=== PATIENT | female | born 1975 ===

== ENCOUNTER 2024-12-26 17:00 | Emergency (ER) | payer SELFPAY ==
[2024-12-26] VITALS (7 sets, daily range): BP systolic 82–143; BP diastolic 43–73; PULSE 86–130; RESP 16–24; TEMP 36.6–39.2; O2SAT 94–96; BMI 28.0
--- NOTE | ~2024-12-26 | XR_ITS ---
CLINICAL HISTORY: hyperpnea 1 view chest x-ray Comparison: None provided Findings: Low lung volume. Diffuse interstitial prominence in both lungs. Small bilateral pleural effusions. Left basilar atelectatic changes Normal size heart. No acute fracture. IMPRESSION: 1. Diffuse interstitial prominence in both lungs. Small bilateral pleural effusions. Findings are concerning pulmonary edema/fluid overload. 2. Left basilar atelectatic changes. This document has been electronically signed by: Mariann Becker MD on 12/26/2024 19:30:25
--- NOTE | 2024-12-26 17:05 | ED_ITS ---
HPI - General Adult General Chief complaint: Dyspnea Stated complaint: Resp distress, liver disease fluid retention Time Seen by Provider: 12/26/24 17:04 History of Present Illness ED Provider: Jose MARQUEZ narrative: The patient is a 49-year-old woman with a history of chronic liver disease and type 2 diabetes who says that she has felt unwell since earlier today. She says she was feeling well yesterday. She started to feel unwell yesterday. She started to feel as if she was having shaking chills and feeling very hot. She thinks that she might have had a fever but she did not check her temperature. No significant cough or sputum. She has a abdominal discomfort that she thinks is from her accumulation of ascites but she does not have abdominal pain otherwise. No urinary discomfort. No changes to her skin. The patient has a history of significant chronic liver disease. She has a history of a tips procedure and esophageal varices. The patient normally has weekly paracenteses for fluid removal. This usually happens on Friday. She says that she did not go to her most recent paracentesis this past Friday. The patient has been found to have a portal vein thrombosis in the past and has been started on low-dose apixaban. She says she has not taken for the last several days. She also says that she normally runs low blood pressures and is on midodrine. She also says that she did not take her midodrine today. Related Data Allergies Allergy/AdvReac Type Severity Reaction Status Date / Time paroxetine (From Paxil) Allergy Unknown Verified 12/26/24 17:25 sulfamethoxazole (From Allergy Unknown Verified 12/26/24 17:25 Bactrim) trimethoprim (From Bactrim) Allergy Unknown Verified 12/26/24 17:25 Review of Systems 2 Review of Systems: Yes all other systems are reviewed and are negative PMFSH Social History Social History Advance Directives: Yes Advance Directives Information Provided: No Advance Directives on File: No Physical Exam ED Vital Signs: Vital Signs - 24 hr 12/26/24 17:07 12/26/24 17:38 12/26/24 20:28 Temperature 102.5 F H 97.8 F Pulse Rate 130 H 124 H 98 Respiratory Rate 24 H 18 16 Blood Pressure 143/73 H 113/64 82/43 L Pulse Oximetry 96 94 96 Oxygen Delivery Method Nasal Cannula Room Air Room Air 12/26/24 21:19 Temperature Pulse Rate Respiratory Rate Blood Pressure 90/46 L Pulse Oximetry Oxygen Delivery Method BMI result Body Mass Index 28.0 Const Other: The patient is a chronically ill-appearing 49-year-old. She has a very large abdomen. She was hyperventilating. She looked fairly ill. HENMT Other: Face is symmetrical, mucous membranes moist. Eyes Other: Pupils are round equal, conjunctivae are clear, extraocular movements intact General: appearance normal, both eyes and all related structures Neck Neck: Yes normal visual inspection, Yes full ROM and Yes no JVD Resp Effort & Inspection: normal respiratory effort Auscultation: clear to auscultation bilaterally Cardio Rate: tachycardic Rhythm: regular rhythm Heart sounds: S1 normal heart sound present and S2 normal heart sound present GI Other: The patient has a large protuberant abdomen consistent with a large volume ascites Skin Other: Skin is pale and dry. She has nonblanching petechiae in the lower extremities that she says is chronic. She has a edema of the lower extremities that she says is chronic. Neuro Other: The patient is awake and alert. Mental status seems clear. Cranial nerves are intact. She moves her extremities symmetrically and seems to have a nonfocal exam. Extrem Other: The patient has bilateral lower extremity edema. This is nonpitting. She has nonblanching petechiae that she says are chronic. Medications Administered Discontinued Medications Generic Name Dose Route Start Last Admin Trade Name Freq PRN Reason Stop Dose Admin Lactated Ringer's 1,000 mls @ 999 mls/hr 12/26/24 17:15 12/26/24 17:39 Lr IV 12/26/24 18:15 999 mls/hr .Q1H1M JEN Administration Piperacillin Sod/Tazobactam 100 mls @ 200 mls/hr 12/26/24 17:35 12/26/24 18:15 Sod 4.5 gm/ Sodium Chloride IV 12/26/24 18:04 Infused ONCE ONE Infusion Vancomycin HCl 2,000 mg in 500 mls @ 250 mls/hr 12/26/24 17:45 12/26/24 19:50 Vancomycin/Ns IV 12/26/24 19:44 250 mls/hr ONCE ONE Administration Sodium Chloride 1,000 mls @ 999 mls/hr 12/26/24 18:15 12/26/24 19:21 Ns IV 12/26/24 19:15 Infused .Q1H1M JEN Infusion Albumin Human 50 mls @ 100 mls/hr 12/26/24 19:00 12/26/24 21:33 Kedbumin 25 % IV 12/26/24 20:59 Infused Q30M JEN Infusion Lidocaine/Epinephrine 10 ml 12/26/24 18:23 12/26/24 18:31 Lidocaine Hcl 1%/Epi 1:100,000 10 Ml Vial INFILTRATI 12/26/24 18:24 10 ml ONCE ONE Administration Midodrine 5 mg 12/26/24 21:05 12/26/24 21:19 Midodrine Hcl 5 Mg Tablet PO 12/26/24 21:06 5 mg ONCE ONE Administration Procedures Paracentesis Time Out Performed: Yes Local Anesthetic: lidocaine 1% and with epi Amount of anesthesia used (mL): 3 Fluid: clear Post Procedure Exam: awake, alert Patient Tolerated Procedure: well Complications: none Medical Decision Making Medical Decision Making [facility] Narrative: The patient is a 49-year-old woman with a history of fairly severe chronic alcoholic liver disease who presents with fever and significant tachypnea. She missed a therapeutic paracentesis several days ago. She has also not been compliant with other medications such as midodrine and apixaban. She became acutely ill today with a sensation of shaking chills and she presented with what I thought was most likely a presentation consistent with a septic process although there was no clear source of infection apparent. The patient has a white count of 12.6, hemoglobin 9.2, platelet count 41,000, she had 88% neutrophils and 11% bands. She has a lactate significantly elevated at 7.3 but I suspect this is because of her chronic liver disease more than sepsis. The patient told me that she had some kind of a cardiac history and so a troponin was sent with her initial labs. This came back elevated at 122. CRP mildly elevated 5.37. The patient was started on empiric antibiotics with piperacillin/tazobactam and vancomycin. She was also given IV albumin has a did not want to fluid overload her. In order to exclude spontaneous bacterial peritonitis as the source of her fever I performed a paracentesis under sterile conditions and obtained fairly clear looking fluid. In addition to obtaining 50 mL for lab testing an additional 4 L was taken for therapeutic purposes to reduce her ascites and relieve her difficulty breathing. She felt considerably better after the 4 L were removed. A repeat troponin was sent at the same time as a repeat lactate. Her lactate came down to 4.1. Surprisingly her troponin went up to 2100. Her EKG had shown nonspecific changes, no STEMI. A repeat EKG after the elevated troponin was available also showed no STEMI. Based on her complex history and the fact that she has had a lot of her previous medical care at [facility] in [place] I felt that transfer to that hospital would be appropriate and contacted the transfer hotline. Arrangements will be made for the patient to be transferred to the emergency room. Additionally, given that she has been seen by Cardiology at the [facility] I asked her materials development engineer to speak with me about whether she should be heparinized prior to transfer. We ultimately agreed that she should be heparinized but with a half dose bolus. The patient is diagnostic paracentesis showed 140 white cells with 34% neutrophils and 36% lymphocytes. I think this excludes spontaneous bacterial peritonitis. A culture has been sent nevertheless. The patient's urinalysis showed 2+ bacteria, 6-10 white cells, 1+ leukocyte esterase, and positive nitrites. Perhaps this is a source of infection although the patient does not have a lot of urinary symptoms. It was difficult to determine whether the patient was having anginal symptoms. After the elevated troponins were apparent the patient said that she had previously had a very strong squeezing sense in her chest that she had not initially mentioned. However this symptom had resolved. Whether this was because of the paracentesis or not is not clear. She was not having ongoing chest discomfort but she said that she was feeling palpitations in her chest. Lab Data 12/26/24 17:29 12/26/24 17:29 Labs: Lab Results 12/26/24 12/26/24 12/26/24 Range/Units 17:29 17:30 17:36 WBC 12.6 H (4.8-10.8) X10*3/uL RBC 3.17 L (4.20-5.50) X10*6/uL Hgb 9.2 L (12.0-16.0) g/dl Hct 28.2 L (37.0-47.0) % MCV 89.0 (80.0-98.0) fL MCH 29.0 (27.0-33.0) pg MCHC 32.6 (31.0-35.0) g/dl RDW 18.8 H (11.0-16.0) % Plt Count 41 L (160-400) X10*3/uL MPV 10.7 (9.4-12.3) fL Immature Gran % (Auto) Cancelled Neut % (Auto) Cancelled Lymph % (Auto) Cancelled Foster % (Auto) Cancelled Eos % (Auto) Cancelled Baso % (Auto) Cancelled Lymph # (Auto) Cancelled Foster # (Auto) Cancelled Eos # (Auto) Cancelled Baso # (Auto) Cancelled Abs Immat Gran (auto) Cancelled Absolute Neuts (auto) Cancelled Absolute Nucleated RBC 0.000 (0.0-0.012) X10*3/uL Nucleated RBC % (auto) 0.0 (0.0-0.2) /100WBC Neutrophils % (Manual) 88 H (45-73) % Band Neutrophils % 11 H (3-5) % Monocytes % (Manual) 1 L (2-11) % Abs Neuts (Manual) 12.5 H (2.0-8.3) X10*3/uL Monocytes # (Manual) 0.1 (0.1-1.2) X10*3/uL Toxic Granulation PRESENT Platelet Estimate DECREASED (NORMAL) Plt Morphology Comment NORMAL RBC Morphology NOTED Macrocytosis 1+ (5-14) /OIF Ovalocytes 1+ (5-14) /OIF Stephanie Cells 1+ (0-2) /OIF Schistocytes 1+ (0-2) /OIF Smear Tech's Comments MANUAL DIFF Hold Purple Top SEE NOTE PT 17.1 H (10.9-12.4) SEC INR 1.5 H (0.9-1.1) VBG pH 7.49 H (7.32-7.43) VBG pCO2 24 mmHg VBG pO2 73 mmHg VBG HCO3 18 L (22-26) mmol/L VBG O2 Saturation 95.0 % VBG Base Excess -3.0 mmol/L Sodium 129 L (135-145) mmol/L Potassium 4.2 (3.3-5.1) mmol/L Chloride 98 (96-108) mmol/L Carbon Dioxide 18 L (22-29) mmol/L Anion Gap 17 (12-20) BUN 14 (9-16) mg/dL Creatinine 0.81 (0.5-1.4) mg/dL Estim Creat Clear Calc 83.6 Estimated GFR > 60 Random Glucose 301 H (60-115) mg/dL Lactic Acid 7.3 H* (0.5-2.0) mmol/L Lactic Acid F/U @ 2Hr (0.5-2.0) mmol/L Calcium 7.5 L (8.4-10.2) mg/dL Magnesium 1.9 (1.6-2.6) mg/dL Total Bilirubin 1.7 H (0.0-1.0) mg/dL Direct Bilirubin 0.8 H (0.0-0.5) mg/dL AST 22 (5-31) U/L ALT < 6 (0-31) U/L Alkaline Phosphatase 114 (39-117) U/L Troponin I High Sens 122.1 H* (<3.5-17.0) ng/L C-Reactive Protein 5.37 H (< or = 0.50) mg/dL Total Protein 6.5 (6.5-8.0) g/dL Albumin 2.4 L (3.5-5.0) g/dL Lipase 33 (8-78) U/L Beta-Hydroxybutyrate 0.09 (0.02-0.27) mmol/L Beta HCG, Quant < 2 mIU/mL Urine Color Urine Appearance Urine pH (5.0-9.0) Ur Specific Chandler (1.005-1.025) Urine Protein (Neg-Trace) mg/dL Urine Glucose (UA) (Negative) mg/dL Urine Ketones (Negative) mg/dL Urine Blood (Negative) Urine Nitrite (Negative) Ur Leukocyte Esterase (Negative) Urine RBC (0-2) /HPF Urine WBC (0-5) /HPF Ur Squamous Epith Cells (0-2) /HPF Urine Bacteria (None Seen) Hyaline Casts (0-2) /LPF Peritoneal WBC X10*3/uL Peritoneal RBC X10*6/uL Periton Neutrophils % Periton Lymphocytes % Peritoneal Monocytes % Peritoneal Other Cells % Urine Opiates Screen (Not Detect) Ur Buprenorphine Scrn (Not Detect) ng/mL Ur Oxycodone Screen (Not Detect) ng/mL Urine Methadone Screen (Not Detect) ng/mL Urine Fentanyl Screen (Not Detect) Ur Barbiturates Screen (Not Detect) Ur Phencyclidine Scrn (Not Detect) Ur Amphetamines Screen (Not Detect) U Benzodiazepines Scrn (Not Detect) Urine Cocaine Screen (Not Detect) U Marijuana (THC) Screen (Not Detect) Ethyl Alcohol < 10 mg/dL COVID-19 (JERAMY) (Negative) COVID-19 Clin Com Influenza Type A (MAGGIE) (Negative) Influenza Type B (MAGGIE) (Negative) Influenza A & B Note 12/26/24 12/26/24 12/26/24 Range/Units 19:23 19:30 19:43 WBC (4.8-10.8) X10*3/uL RBC (4.20-5.50) X10*6/uL Hgb (12.0-16.0) g/dl Hct (37.0-47.0) % MCV (80.0-98.0) fL MCH (27.0-33.0) pg MCHC (31.0-35.0) g/dl RDW (11.0-16.0) % Plt Count (160-400) X10*3/uL MPV (9.4-12.3) fL Immature Gran % (Auto) Neut % (Auto) Lymph % (Auto) Foster % (Auto) Eos % (Auto) Baso % (Auto) Lymph # (Auto) Foster # (Auto) Eos # (Auto) Baso # (Auto) Abs Immat Gran (auto) Absolute Neuts (auto) Absolute Nucleated RBC (0.0-0.012) X10*3/uL Nucleated RBC % (auto) (0.0-0.2) /100WBC Neutrophils % (Manual) (45-73) % Band Neutrophils % (3-5) % Monocytes % (Manual) (2-11) % Abs Neuts (Manual) (2.0-8.3) X10*3/uL Monocytes # (Manual) (0.1-1.2) X10*3/uL Toxic Granulation Platelet Estimate (NORMAL) Plt Morphology Comment RBC Morphology Macrocytosis /OIF Ovalocytes /OIF [place] Cells /OIF Schistocytes /OIF Smear Tech's Comments Hold Purple Top PT (10.9-12.4) SEC INR (0.9-1.1) VBG pH (7.32-7.43) VBG pCO2 mmHg VBG pO2 mmHg VBG HCO3 (22-26) mmol/L VBG O2 Saturation % VBG Base Excess mmol/L Sodium (135-145) mmol/L Potassium (3.3-5.1) mmol/L Chloride (96-108) mmol/L Carbon Dioxide (22-29) mmol/L Anion Gap (12-20) BUN (9-16) mg/dL Creatinine (0.5-1.4) mg/dL Estim Creat Clear Calc Estimated GFR Random Glucose (60-115) mg/dL Lactic Acid (0.5-2.0) mmol/L Lactic Acid F/U @ 2Hr 4.1 H* (0.5-2.0) mmol/L Calcium (8.4-10.2) mg/dL Magnesium (1.6-2.6) mg/dL Total Bilirubin (0.0-1.0) mg/dL Direct Bilirubin (0.0-0.5) mg/dL AST (5-31) U/L ALT (0-31) U/L Alkaline Phosphatase (39-117) U/L Troponin I High Sens (<3.5-17.0) ng/L C-Reactive Protein (< or = 0.50) mg/dL Total Protein (6.5-8.0) g/dL Albumin (3.5-5.0) g/dL Lipase (8-78) U/L Beta-Hydroxybutyrate (0.02-0.27) mmol/L Beta HCG, Quant mIU/mL Urine Color Urine Appearance Urine pH (5.0-9.0) Ur Specific Chandler (1.005-1.025) Urine Protein (Neg-Trace) mg/dL Urine Glucose (UA) (Negative) mg/dL Urine Ketones (Negative) mg/dL Urine Blood (Negative) Urine Nitrite (Negative) Ur Leukocyte Esterase (Negative) Urine RBC (0-2) /HPF Urine WBC (0-5) /HPF Ur Squamous Epith Cells (0-2) /HPF Urine Bacteria (None Seen) Hyaline Casts (0-2) /LPF Peritoneal WBC 0.140 X10*3/uL Peritoneal RBC < 0.002 X10*6/uL Periton Neutrophils 34 % Periton Lymphocytes 36 % Peritoneal Monocytes 9 % Peritoneal Other Cells 21 % Urine Opiates Screen (Not Detect) Ur Buprenorphine Scrn (Not Detect) ng/mL Ur Oxycodone Screen (Not Detect) ng/mL Urine Methadone Screen (Not Detect) ng/mL Urine Fentanyl Screen (Not Detect) Ur Barbiturates Screen (Not Detect) Ur Phencyclidine Scrn (Not Detect) Ur Amphetamines Screen (Not Detect) U Benzodiazepines Scrn (Not Detect) Urine Cocaine Screen (Not Detect) U Marijuana (THC) Screen (Not Detect) Ethyl Alcohol mg/dL COVID-19 (JERAMY) Negative (Negative) COVID-19 Clin Com See Note Influenza Type A (MAGGIE) Negative (Negative) Influenza Type B (MAGGIE) Negative (Negative) Influenza A & B Note See Note 12/26/24 12/26/24 Range/Units 19:44 21:26 WBC (4.8-10.8) X10*3/uL RBC (4.20-5.50) X10*6/uL Hgb (12.0-16.0) g/dl Hct (37.0-47.0) % MCV (80.0-98.0) fL MCH (27.0-33.0) pg MCHC (31.0-35.0) g/dl RDW (11.0-16.0) % Plt Count (160-400) X10*3/uL MPV (9.4-12.3) fL Immature Gran % (Auto) Neut % (Auto) Lymph % (Auto) Foster % (Auto) Eos % (Auto) Baso % (Auto) Lymph # (Auto) Foster # (Auto) Eos # (Auto) Baso # (Auto) Abs Immat Gran (auto) Absolute Neuts (auto) Absolute Nucleated RBC (0.0-0.012) X10*3/uL Nucleated RBC % (auto) (0.0-0.2) /100WBC Neutrophils % (Manual) (45-73) % Band Neutrophils % (3-5) % Monocytes % (Manual) (2-11) % Abs Neuts (Manual) (2.0-8.3) X10*3/uL Monocytes # (Manual) (0.1-1.2) X10*3/uL Toxic Granulation Platelet Estimate (NORMAL) Plt Morphology Comment RBC Morphology Macrocytosis /OIF Ovalocytes /OIF Conetoe Cells /OIF Schistocytes /OIF Smear Tech's Comments Hold Purple Top PT (10.9-12.4) SEC INR (0.9-1.1) VBG pH (7.32-7.43) VBG pCO2 mmHg VBG pO2 mmHg VBG HCO3 (22-26) mmol/L VBG O2 Saturation % VBG Base Excess mmol/L Sodium (135-145) mmol/L Potassium (3.3-5.1) mmol/L Chloride (96-108) mmol/L Carbon Dioxide (22-29) mmol/L Anion Gap (12-20) BUN (9-16) mg/dL Creatinine (0.5-1.4) mg/dL Estim Creat Clear Calc Estimated GFR Random Glucose (60-115) mg/dL Lactic Acid (0.5-2.0) mmol/L Lactic Acid F/U @ 2Hr (0.5-2.0) mmol/L Calcium (8.4-10.2) mg/dL Magnesium (1.6-2.6) mg/dL Total Bilirubin (0.0-1.0) mg/dL Direct Bilirubin (0.0-0.5) mg/dL AST (5-31) U/L ALT (0-31) U/L Alkaline Phosphatase (39-117) U/L Troponin I High Sens 2156.6 H* D (<3.5-17.0) ng/L C-Reactive Protein (< or = 0.50) mg/dL Total Protein (6.5-8.0) g/dL Albumin (3.5-5.0) g/dL Lipase (8-78) U/L Beta-Hydroxybutyrate (0.02-0.27) mmol/L Beta HCG, Quant mIU/mL Urine Color Yellow Urine Appearance Cloudy Urine pH 5.5 (5.0-9.0) Ur Specific Chandler 1.025 (1.005-1.025) Urine Protein 30 (1+) H (Neg-Trace) mg/dL Urine Glucose (UA) 500 H (Negative) mg/dL Urine Ketones Negative (Negative) mg/dL Urine Blood Large (3+) H (Negative) Urine Nitrite Positive H (Negative) Ur Leukocyte Esterase Small (1+) H (Negative) Urine RBC 11-20 H (0-2) /HPF Urine WBC 6-10 (0-5) /HPF Ur Squamous Epith Cells 6-10 (0-2) /HPF Urine Bacteria 2+ (None Seen) Hyaline Casts 0-2 (0-2) /LPF Peritoneal WBC X10*3/uL Peritoneal RBC X10*6/uL Periton Neutrophils % Periton Lymphocytes % Peritoneal Monocytes % Peritoneal Other Cells % Urine Opiates Screen Not Detected (Not Detect) Ur Buprenorphine Scrn Not Detected (Not Detect) ng/mL Ur Oxycodone Screen Not Detected (Not Detect) ng/mL Urine Methadone Screen Not Detected (Not Detect) ng/mL Urine Fentanyl Screen Not Detected (Not Detect) Ur Barbiturates Screen Not Detected (Not Detect) Ur Phencyclidine Scrn Not Detected (Not Detect) Ur Amphetamines Screen Not Detected (Not Detect) U Benzodiazepines Scrn Not Detected (Not Detect) Urine Cocaine Screen Not Detected (Not Detect) U Marijuana (THC) Screen POSITIVE H (Not Detect) Ethyl Alcohol mg/dL COVID-19 (JERAMY) (Negative) COVID-19 Clin Com Influenza Type A (MAGGIE) (Negative) Influenza Type B (MAGGIE) (Negative) Influenza A & B Note Critical Care Time Critical Care Time Critical Care Time: Yes Total Critical Care Time: 55 Attestation: The patient was critically ill with a high probability of imminent or life- threatening deterioration. ?I spent greater than 30 minutes of discontinuous time evaluating the patient, delivering critical care at the bedside, discussing evaluating data with consultants. ?Critical care time does not include time spent performing separately billable procedures or teaching. ?Time spent performing critical care with minutes. Discharge Plan Discharge Clinical Impression: Sepsis, Elevated troponin, Ascites, Thrombocytopenia, Chronic alcoholic liver disease Patient Disposition: [facility] Transfer Details: Dr. Mikal Byrnes Print Language: Emirati
--- NOTE | 2024-12-26 17:06 | ECG_ITS ---
Test Reason : DKA Blood Pressure : */* mmHG Vent. Rate : 124 BPM Atrial Rate : 124 BPM P-R Int : 136 ms QRS Dur : 72 ms QT Int : 330 ms P-R-T Axes : 6 10 -35 degrees QTcB Int : 474 ms Sinus tachycardia Nonspecific ST and T wave abnormality Abnormal ECG No previous ECGs available Referred By: Elvin Garcia Electronically Signed By: NELSON MERCADO
[2024-12-26 17:38] LABS: Venous Blood Gas Refer to POC result
[2024-12-26] MEDS: Lactated Ringers 1,000 ML 999 ML IV (17:39)
[2024-12-26 17:40] LABS: VBG HCO3 18 mmol/L (22-26); VBG O2 % Saturation 95.0 %
[2024-12-26 17:47] LABS: Hematocrit 28.2 % (37.0-47.0); Hemoglobin 9.2 g/dl (12.0-16.0); Mean Corpuscular HGB Conc 32.6 g/dl (31.0-35.0); Mean Corpuscular Hemoglobin 29.0 pg (27.0-33.0); Mean Corpuscular Volume 89.0 fL (80.0-98.0); NRBC Abs Auto 0.000 X10*3/uL (0.0-0.012); NRBC Pct Auto 0.0 /100WBC (0.0-0.2); Red Blood Count 3.17 X10*6/uL (4.20-5.50); White Blood Count 12.6 X10*3/uL (4.8-10.8)
[2024-12-26 17:48] LABS: INTERNATIONAL NORM RATIO 1.5 (0.9-1.1); Prothrombin Time 17.1 SEC (10.9-12.4)
--- NOTE | 2024-12-26 17:52 | PC.NURSE ---
eileen ( [facility] [place] ) [phone]
[2024-12-26 18:03] LABS: Alanine Aminotransferase < 6 U/L (0-31); Albumin Level 2.4 g/dL (3.5-5.0); Alkaline Phosphatase 114 U/L (39-117); Anion Gap 17 (12-20); Aspartate Amino Transferase 22 U/L (5-31); Blood Urea Nitrogen 14 mg/dL (9-16); Calcium 7.5 mg/dL (8.4-10.2); Carbon Dioxide 18 mmol/L (22-29); Chloride 98 mmol/L (96-108); Creatinine Clr Calc Pharmacy 83.6; Estimated Glomerular Filt Rate > 60; Lipase 33 U/L (8-78); Magnesium 1.9 mg/dL (1.6-2.6); Neutrophils Percent Manual 88 % (45-73); Potassium 4.2 mmol/L (3.3-5.1); Sodium 129 mmol/L (135-145); Total Protein 6.5 g/dL (6.5-8.0)
[2024-12-26 18:07] LABS: Band Neutrophils Percent 11 % (3-5); Monocytes Absolute Manual 0.1 X10*3/uL (0.1-1.2); Monocytes Percent Manual 1 % (2-11); Neutrophils Absolute Manual 12.5 X10*3/uL (2.0-8.3); Troponin-I High Sensitivity 122.1 ng/L (<3.5-17.0)
[2024-12-26 18:08] LABS: RBC Morphology NOTED; Schistocytes 1+ (0-2) /OIF; Toxic Granulation PRESENT
[2024-12-26 18:09] LABS: Burr Cells 1+ (0-2) /OIF; Macrocytosis 1+ (5-14) /OIF; Ovalocytes 1+ (5-14) /OIF
[2024-12-26 18:10] LABS: Platelet Count 41 X10*3/uL (160-400)
[2024-12-26] MEDS: Lidocaine HCl 1%/Epi 1:100,000 10 ML VIAL INFILTRATI (18:31)
--- NOTE | 2024-12-26 18:35 | PC.NURSE ---
patient presents from home for increased diff breathing, tachypneic upon arrival. provider to bedside 18EJ placed by provider and labs obtained. rectal temp of 102.5. fluids infusing, changed from LR to NS. antibiotics infused. patient now w/ even and unlabored respirations. 94% on room air. provider at bedside for paracentesis - states her last one was approx 2 weeks ago at [facility].
[2024-12-26] MEDS: Albumin Human 25 % 50 ML 100 ML IV ×4 (19:11→20:56)
--- NOTE | 2024-12-26 19:13 | PC.NURSE ---
provider at bedside for paracentesis approx 4400mL of fluids removed, patient tolerated well.
[2024-12-26 19:35] LABS: Reflex Lactate? Lactic Acid Added
--- OUTSIDE RECORDS SUMMARY | 2024-12-26 19:38 | XMS_ITS | Encounter Summary ---
Author Organization [facility] Address [address] [place] [address] Care Team Providers Care Statistical Programmer Name Role Phone Sharlene De La Garza DO Primary Care Provider [phone]- [phone] Encounter Details Date Type Department Care Team (Late st Contact Info) Description 07/03/2023 [facility] Message [facility] Financial Counseling Department [address] [place] [address] [phone] Mychart, Generic Provider [facility] [place] [address] [employer] PLEASE READ Social History Tobacco Use Types Packs/Day Years Used Date Smoking Tobacco: Former Cigarettes 1 18.4 0 06/02/1995 - 10/15/2013 Smokeless Tobacco: Never Comments:quit 2012 Alcohol Use Standard Drinks/Week Comments Not Currently 0 (1 standard drink = 0.6 oz pur e alcohol) Transportation Answer Date Recorded Please isauro the areas for ich the patient would like information or assistance: None Apply 05/27/2023 Lack of Transportation (Medical) Not on file 05/27/2023 Housing Stability Answer Date Recorded Please isauro the areas for wh ich the patient would like information or assistance: None Apply 05/27/2023 Unable to Pay for Housing in the Last Year Not o n file 05/27/2023 Last EPDS Total Score Not on file 05/27/2023 Unstable Housing in the Last Year Not on file 05/27/2023 Comments No Sex and Gender Information Value Date Recorded Sex Assigned at Female 05/03/2020 12:04 PM EST Legal Sex Female 4:36 AM EDT Gender Identity Female 05/03/2020 12:04 PM EST Sexual Orientation Straight 05/03/2020 12 :04 PM EST documented as of this encounter Plan of Treatment Upcoming Encounters Date Type Department Care Team (Late st Contact Info) Description 12/27/2024 10:30 AM EDT Follow-Up [facility] Liver Transplant Services [address] [place] [address] Kait Gaona MD [address] [place] [address] 11815 12/29/2024 1:[address] [facility] Interventional Radiology [address] [place] [address] 09494 Kait Gaona MD [address] [place] [address] 986[address] 12/29/2024 3:00 PM EDT Follow-Up [facility] Liver Transplant Services [address] [place] [address] 22465 Genevieve Alaniz MD [address] [place] [address] 057[address] 01/05/2025 1:[address] [facility] Interventional Radiology [address] [place] [address] 65[address] Kait Gaona MD [address] [place] [address] 47353 01/11/2025 2:00 PM EST Follow-Up [facility] at [address] [phone] Nito Morfin MD [address] [place] [address] 01/12/2025 1:[address] [facility] Interventional Radiology [address] [place] [address] 20896 Kait Gaona MD [address] [place] [address] 01/19/2025 1:[address] [facility] Interventional Radiology [address] [place] [address] 66[address] Kait Gaona MD [address] [place] [address] 01/26/2025 1:[address] [facility] Interventional Radiology [address] [place] [address] 82027 Kait Gaona MD [address] [place] [address] 432[address] 02/02/2025 1:[address] [facility] Interventional Radiology [address] [place] [address] 750[address] 02/09/2025 10:30 AM EST Lab [facility] ACC Draw Site Fifth Floor [address] [place] [address] 02/09/2025 11:30 AM EST Follow-Up [facility] ACC [facility] South 5th Floor [address] [place] [address] Ning Velazco MD 55 [facility] Hematology/[place] [address] 02/09/2025 1:[address] [facility] Interventional Radiology [address] [place] [address] 174[address] 02/15/2025 1:30 PM EST Appointment [facility] Cardiac Ultrasound [address] [place] [address] 02/16/2025 1:[address] [facility] Interventional Radiology [address] [place] [address] 685[address] 02/23/2025 1:[address] [facility] Interventional Radiology [address] [place] [address] 460[address] 03/02/2025 1:[address] [facility] Interventional Radiology [address] [place] [address] 16103 03/09/2025 1:[address] [facility] Interventional Radiology [address] [place] [address] 7[address] 03/16/2025 1:[address] [facility] Interventional Radiology [address] [place] [address] 22197 03/23/2025 1:[address] [facility] Interventional Radiology [address] [place] [address] 18922 03/30/2025 1:[address] [facility] Interventional Radiology [address] [place] [address] 909[address] 04/06/2025 1:[address] [facility] Interventional Radiology [address] [place] [address] 98608 04/13/2025 1:[address] [facility] Interventional Radiology [address] [place] [address] 948[address] 04/20/2025 1:[address] [facility] Interventional Radiology [address] [place] [address] 876[address] 06/17/2025 1:30 PM EDT Follow-Up [address] floor Cardiology Medicine [address] [place] [address]398 Woodworking Machine Operator: Cookie Coates PA [address] [place] [address] 01/18/2026 1:30 PM EST Follow-Up [address] floor Cardiology Medicine [address] [place] [address] 13428 Woodworking Machine Operator: Cory Bolanos MD [address] [place] [address] 347[address] Scheduled Procedures Name Priority Associated Diagnoses Date/Ti me RIGHT HEART CATHETERIZATION RVF (right ventricular failure) Pulmonary hypertension Coronary artery disease involving [place] coronary artery of [place]oug[place] heart, unspecified whether angina present CORONARY ANGIOGRAPHY RVF (right ventricular failure) Pulmonary hypertension Coronary artery disease involving [place] coronary artery of [place] heart, unspecified whether angina present ANGIOPLASTY - CORONARY RVF (right ventricular failure) Pulmonary hypertension Coronary artery disease involving [place] coronary artery of [place] heart, unspecified whether angina present documented as of this encounter Visit Diagnoses Not on filedocumented in this encounter Additional Health Concerns Infection Onset Date Last Indicated Resolved Time R/O Respiratory Virus Infection 03/05/2024 03/05/2024 4:34 PM EST R/O Influenza 03/05/2024 03/05/2024 03/05/2024 4:3 4 PM EST COVID-19 - Suspected infection 03/05/2024 03/05/2024 03/05/2024 4:34 PM EST R/O Respiratory Virus Infection 07/23/2024 07/23/2024 12:44 PM EDT R/O Influenza 07/23/2024 07/23/2024 07/23/2024 12: 44 PM EDT COVID-19 - Suspected infection 07/23/2024 07/23/2024 07/23/2024 12:44 PM EDT COVID-19 - Suspected infection 08/06/2024 08/06/2024 08/06/2024 10:37 PM EDT R/O Respiratory Virus Infection 08/08/2024 08/10/2024 4:26 PM EDT documented as of this encounter Care Teams Statistical Programmer Relationship Specialty Start Date End Date Sharlene De La Garza DO [address] [place] [phone] PCP - General 06/03/23 documented as of this encounter
--- OUTSIDE RECORDS SUMMARY | 2024-12-26 19:38 | XMS_ITS | Encounter Summary ---
Author Organization [facility] Address [address] [place] [address] Care Team Providers Care Set Off Blocker Name Role Phone Sharlene De La Garza Primary Care Provider [phone]- [phone] Encounter Details Date Type Department Care Team (Late st Contact Info) Description 04/05/2020 Orders Only [facility] [address] [address] Heather Gonzalez MD [address] [place] [address] [phone] Social History Tobacco Use Types Packs/Day Years Used Date Smoking Tobacco: Former Cigarettes Smokeless Tobacco: Never Comments:quit 2012 Alcohol Use Standard Drinks/Week Comments Not Currently 0 (1 standard drink = 0.6 oz pur e alcohol) Comments Unknown Sex and Gender Information Value Date Recorded Sex Assigned at Female 05/03/2020 12:04 PM EST Legal Sex Female 4:36 AM EDT Gender Identity Female 05/03/2020 12:04 PM EST Sexual Orientation Straight 05/03/2020 12 :04 PM EST documented as of this encounter Plan of Treatment Upcoming Encounters Date Type Department Care Team (Late st Contact Info) Description 12/27/2024 10:30 AM EDT Follow-Up [facility] Liver Transplant Services [address] [place] [address] [phone] Kait Gaona MD [address] [place] [address] 95[address] 12/29/2024 1:00 PM EDT Appointment [facility] Interventional Radiology [address] [place] [address] Kait Gaona MD [address] [place] [address] 8[address] 12/29/2024 3:00 PM EDT Follow-Up [facility] Liver Transplant Services [address] [place] [address] 44700 Genevieve Alaniz MD [address] [place] [address] 55083 01/05/2025 1:00 PM EST Appointment [facility] Interventional Radiology [address] [place] [address] 400[address] Kait Gaona MD [address] [place] [address] 68473 01/11/2025 2:00 PM EST Follow-Up [facility] at [address] [phone] Nito Morfin MD [address] [place] [address] 48[address] 01/12/2025 1:00 PM EST Appointment [facility] Interventional Radiology [address] [place] [address] 89[address] Kait Gaona MD [address] [place] [address] 25030 01/19/2025 1:00 PM EST Appointment [facility] Interventional Radiology [address] [place] [address] 84194 Kait Gaona MD [address] [place] [address] 51888 01/26/2025 1:00 PM EST Appointment [facility] Interventional Radiology [address] [place] [address] 64201 Kait Gaona MD [address] [place] [address] 02/02/2025 1:00 PM EST Appointment [facility] Interventional Radiology [address] [place] [address] 41074 02/09/2025 10:30 AM EST Lab [facility] ACC Draw Site Fifth Floor [address] [place] [address] 02/09/2025 11:30 AM EST Follow-Up [facility] ACC Building Cancer Clinic South 5th Floor [address] [place] [address] Ning Velazco MD [address] [facility] Hematology/[place] [address] 02/09/2025 1:00 PM EST Appointment [facility] Interventional Radiology [address] [place] [address] 23[address] 02/15/2025 1:30 PM EST Appointment [facility] ACC Building Cardiac Ultrasound [address] [place] [address] 02/16/2025 1:00 PM EST Appointment [facility] Interventional Radiology [address] [place] [address] 18856 02/23/2025 1:00 PM EST Appointment [facility] Interventional Radiology [address] [place] [address] 81707 03/02/2025 1:00 PM EST Appointment [facility] Interventional Radiology [address] [place] [address] 94454 03/09/2025 1:00 PM EST Appointment [facility] Interventional Radiology [address] [place] [address] 22090 03/16/2025 1:00 PM EST Appointment [facility] Interventional Radiology [address] [place] [address] 40136 03/23/2025 1:00 PM EST Appointment [facility] Interventional Radiology [address] [place] [address] 42678 03/30/2025 1:00 PM EST Appointment [facility] Interventional Radiology [address] [place] [address] 10695 04/06/2025 1:00 PM EST Appointment [facility] Interventional Radiology [address] [place] [address] 62113 04/13/2025 1:00 PM EST Appointment [facility] Interventional Radiology [address] [place] [address] 10450 04/20/2025 1:00 PM EST Appointment [facility] Interventional Radiology [address] [place] [address] 55931 06/17/2025 1:30 PM EDT Follow-Up [facility] 4th floor Cardiology Medicine [address] [place] [address] 60433 Blueprinting Machine Operator: Cookie Coates PA [address] [place] [address] 01/18/2026 1:30 PM EST Follow-Up [address] floor Cardiology Medicine [address] [place] [address]249 Blueprinting Machine Operator: Cory Bolanos MD [address] [place] [address] Scheduled Procedures Name Priority Associated Diagnoses Date/Ti me RIGHT HEART CATHETERIZATION RVF (right ventricular failure) Pulmonary hypertension Coronary artery disease involving [place] coronary artery of [place] heart, unspecified whether angina present CORONARY ANGIOGRAPHY RVF (right ventricular failure) Pulmonary hypertension Coronary artery disease involving [place] coronary artery of [place] heart, unspecified whether angina present ANGIOPLASTY - CORONARY RVF (right ventricular failure) Pulmonary hypertension Coronary artery disease involving [place] coronary artery of [place] heart, unspecified whether angina present documented as of this encounter Visit Diagnoses Not on filedocumented in this encounter Additional Health Concerns Infection Onset Date Last Indicated Resolved Time R/O Respiratory Virus Infection 04/05/2022 04/05/2022 9:49 PM EST R/O Influenza 04/05/2022 04/05/2022 04/05/2022 9:4 9 PM EST COVID-19 - Suspected infection 04/05/2022 04/05/2022 04/05/2022 9:49 PM EST R/O Respiratory Virus Infection 03/05/2024 03/05/2024 4:34 [...] documented as of this encounter Care Teams Set Off Blocker Relationship Specialty Start Date End Date Sharlene De La Garza DO [address] [place] [address] PCP - General 06/03/23 documented as of this encounter
--- OUTSIDE RECORDS SUMMARY | 2024-12-26 19:38 | XMS_ITS | Encounter Summary ---
Author Organization [facility] Address [address] [place] [address] Care Team Providers Care Group Director Name Role Phone Sharlene De La Garza Primary Care Provider +1- [phone] Encounter Details Date Type Department Care Team (Late st Contact Info) Description 04/05/2020 Orders Only [facility] Interventional Radiology [address] [place] [address] Juaquin Dow MD [address] [place], [place] [phone] Social History Tobacco Use Types Packs/Day Years [...] Info) Description 12/27/2024 10:30 AM EDT Follow-Up [facility] Liver Transplant Services [address] [place], [place] [phone] Kait Gaona MD [address] [place] [address] 43848 12/29/2024 1:00 PM EDT Appointment [facility] Interventional Radiology [address] [place] [address] Kait Gaona MD [address] [place] [phone] 12/29/2024 3:00 PM EDT Follow-Up [facility] Liver Transplant Services [address] [place] [address] 06398 Genevieve Alaniz MD [address] [place] [address] 13932 01/05/2025 1:00 PM EST Appointment [facility] Interventional Radiology [address] [place] [address] 47847 Kait Gaona MD [address] [place] [address] 30060 01/11/2025 2:00 PM EST Follow-Up [facility] at [address] [phone] Nito Morfin MD [address] [place] [address] 99106 01/12/2025 1:00 PM EST Appointment [facility] Interventional Radiology [address] [place] [address] 92259 Kait Gaona MD [address] [place] [address] 18148 01/19/2025 1:00 PM EST Appointment [facility] Interventional Radiology [address] [place] [address] 38743 Kait Gaona MD [address] [place] [address] 17358 01/26/2025 1:00 PM EST Appointment [facility] Interventional Radiology [address] [place] [address] 39442 Kait Gaona MD [address] [place] [address] 02/02/2025 1:00 PM EST Appointment [facility] Interventional Radiology [address] [place] [address] 97144 02/09/2025 10:30 AM EST Lab [facility] ACC Draw Site Fifth Floor [address] [place] [address] 02/09/2025 11:30 AM EST Follow-Up [facility] ACC Building Cancer Clinic South 5th Floor [address] [place] [address] Ning Velazco MD 55 [facility] Hematology/[place] [address] 02/09/2025 1:00 PM EST Appointment [facility] Interventional Radiology [address] [place] [address] 92640 02/15/2025 1:30 PM EST Appointment [facility] ACC Building Cardiac Ultrasound [address] [place] [address] 02/16/2025 1:00 PM EST Appointment [facility] Interventional Radiology [address] [place] [address] 00078 02/23/2025 1:00 PM EST Appointment [facility] Interventional Radiology [address] [place] [address] 61578 03/02/2025 1:00 PM EST Appointment [facility] Interventional Radiology [address] [place] [address] 42900 03/09/2025 1:00 PM EST Appointment [facility] Interventional Radiology [address] [place] [address] 28498 03/16/2025 1:00 PM EST Appointment [facility] Interventional Radiology [address] [place] [address] 33503 03/23/2025 1:00 PM EST Appointment [facility] Interventional Radiology [address] [place] [address] 37327 03/30/2025 1:00 PM EST Appointment [facility] Interventional Radiology [address] [place] [address] 33959 04/06/2025 1:00 PM EST Appointment [facility] Interventional Radiology [address] [place] [address] 33861 04/13/2025 1:00 PM EST Appointment [facility] Interventional Radiology [address] [place] [address] [phone] 04/20/2025 1:00 PM EST Appointment [facility] Interventional Radiology [address] [place] [address] 46918 06/17/2025 1:30 PM EDT Follow-Up [facility] 4th floor Cardiology Medicine [address] [place] [address] 42071 Activities Specialist: Cookie Coates PA [address] [place] [address] 09009 01/18/2026 1:30 PM EST Follow-Up [address] floor Cardiology Medicine [address] [place] [phone] Activities Specialist: Cory Bolanos MD [address] [place] [address] Scheduled Procedures Name Priority Associated Diagnoses Date/Ti me RIGHT HEART CATHETERIZATION RVF (right ventricular failure) Pulmonary hypertension Coronary artery disease involving [place] coronary artery of [place] heart, unspecified whether angina present CORONARY ANGIOGRAPHY RVF (right ventricular failure) Pulmonary hypertension Coronary artery disease involving [place] coronary artery of [place] heart, unspecified whether angina present ANGIOPLASTY - CORONARY RVF (right ventricular failure) Pulmonary hypertension Coronary artery disease involving [place] coronary artery of [place] heart, unspecified whether angina present documented as [...] documented as of this encounter Care Teams Group Director Relationship Specialty Start Date End Date Sharlene De La Garza DO [address] [place] [address] 66343 PCP - General 06/03/23 documented as of this encounter
--- OUTSIDE RECORDS SUMMARY | 2024-12-26 19:38 | XMS_ITS | Encounter Summary ---
Author Organization [facility] Address [address] [place] [address] Care Team Providers Care Sales Account Leader Name Role Phone Sharlene De La Garza Primary Care Provider +1- [phone] Encounter Details Date Type Department Care Team (Late st Contact Info) Description 07/03/2021 Orders Only [facility] Interventional Radiology [address] [place] [address] Polo Tobar MD [address] [place] [address] Social History Tobacco Use Types Packs/Day Years [...] Info) Description 12/27/2024 10:30 AM EDT Follow-Up [facility] Liver Transplant Services [address] [place] [address] Kait Gaona MD [address] [place] [address] 12/29/2024 1:00 PM EDT Appointment [facility] Interventional Radiology [address] [place] [phone] Kait Gaona MD [address] [place] [address] 12/29/2024 3:00 PM EDT Follow-Up [facility] Liver Transplant Services [address] [place] [address] Genevieve Alaniz MD [address] [place] [address] 01/05/2025 1:00 PM EST Appointment [facility] Interventional Radiology [address] [place] [phone] Kait Gaona MD [address] [place] [address] 01/11/2025 2:00 PM EST Follow-Up [facility] at [address] [phone] Nito Morfin MD [address] [place] [address] 01/12/2025 1:00 PM EST Appointment [facility] Interventional Radiology [address] [place] [address] Kait Gaona MD [address] [place] [address] 01/19/2025 1:00 PM EST Appointment [facility] Interventional Radiology [address] [place] [address] Kait Gaona MD [address] [place] [address] 01/26/2025 1:00 PM EST Appointment [facility] Interventional Radiology [address] [place] [phone] Kait Gaona MD [address] [place] [address] 02/02/2025 1:00 PM EST Appointment [facility] Interventional Radiology [address] [place] [address] 02/09/2025 10:30 AM EST Lab [facility] ACC Draw Site Fifth Floor [address] [place] [address] 02/09/2025 11:30 AM EST Follow-Up [facility] ACC Building [facility] 5th Floor [address] [place] [address] Ning Velazco MD 55 [facility] Hematology/[place] [address] 02/09/2025 1:00 PM EST Appointment [facility] Interventional Radiology [address] [place] [address] 02/15/2025 1:30 PM EST Appointment [facility] ACC Building Cardiac Ultrasound [address] [place] [address] 02/16/2025 1:00 PM EST Appointment [facility] Interventional Radiology [address] [place] [phone] 02/23/2025 1:00 PM EST Appointment [facility] Interventional Radiology [address] [place] [address] 03/02/2025 1:00 PM EST Appointment [facility] Interventional Radiology [address] [place] [address] 03/09/2025 1:00 PM EST Appointment [facility] Interventional Radiology [address] [place] [address] 03/16/2025 1:00 PM EST Appointment [facility] Interventional Radiology [address] [place] [address] 03/23/2025 1:00 PM EST Appointment [facility] Interventional Radiology [address] [place] [address] 03/30/2025 1:00 PM EST Appointment [facility] Interventional Radiology [address] [place] [address] 04/06/2025 1:00 PM EST Appointment [facility] Interventional Radiology [address] [place] [address] 04/13/2025 1:00 PM EST Appointment [facility] Interventional Radiology [address] [place] [address] 04/20/2025 1:00 PM EST Appointment [facility] Interventional Radiology [address] [place] [phone] 06/17/2025 1:30 PM EDT Follow-Up [facility] 4th floor Cardiology Medicine [address] [place] [address] Communication Professor: Cookie Coates PA [address] [place] [phone] 01/18/2026 1:30 PM EST Follow-Up [address] floor Cardiology Medicine [address] [place] [phone] Communication Professor: Cory Bolanos MD [address] [place] [address] Scheduled Procedures Name Priority Associated Diagnoses Date/Ti me RIGHT HEART CATHETERIZATION RVF (right ventricular failure) Pulmonary hypertension Coronary artery disease involving [place] coronary artery of [place] heart, unspecified whether angina present CORONARY ANGIOGRAPHY RVF (right ventricular failure) Pulmonary hypertension Coronary artery disease involving [place] coronary artery of [place] heart, unspecified whether angina present ANGIOPLASTY - CORONARY RVF (right ventricular failure) Pulmonary hypertension Coronary artery disease involving [place] coronary artery of [place] heart, unspecified whether angina present documented as [...] documented as of this encounter Care Teams Sales Account Leader Relationship Specialty Start Date End Date Sharlene De La Garza DO [address] [place] [address] PCP - General 06/03/23 documented as of this encounter
--- OUTSIDE RECORDS SUMMARY | 2024-12-26 19:39 | XMS_ITS | Encounter Summary ---
Author Organization [facility] Address [address] [place] [address] Care Team Providers Care Spring Crater Name Role Phone HolliStephan parrachyna YbarraFarhat DE Primary Care Provider +1- [phone] Encounter Details Date Type Department Care Team (Late st Contact Info) Description 08/11/2024 Telephone [facility] Interventional Radiology [address] [place] [address] Venecia Paez RN Social History Tobacco Use Types Packs/Day Years Used Date Smoking Tobacco: Former Cigarettes 1 18.4 0 06/02/1995 - 10/15/2013 Smokeless Tobacco: Never Comments:quit 2012 Alcohol Use Standard Drinks/Week Comments Not Currently 0 (1 standard drink = 0.6 oz pur e alcohol) [facility] Utilities Answer Date Recorded In the past 12 months has [employer], gas, oil, or water [employer] threatened to shut off services in your home? No 08/04/2024 Hunger Vital Sign Answer Date Recorded Within the past 12 months, y ou worried that your food would run out before you got the money to buy more. Sometimes true Within the past 12 months, t he food you bought just didn't last and you didn't have money to get more. Never true 06/2024 Transportation Answer Date Recorded In the past 12 months, has l ack of reliable transportation kept you from medical appointments, meetings, work or from getting things needed for daily living? No 08/04/2024 Housing Answer Date Recorded Housing Risk Low 2 07/09/2024 Housing Risk Medium Not on file 07/09/2024 Housing Risk High Not on file 07/09/2024 What is your living situation today? [facility] 07/09/2024 Comments No Sex and Gender Information Value Date Recorded Sex Assigned at Female 05/03/2020 12:04 PM EST Legal Sex Female 4:36 AM EDT Gender Identity Female 05/03/2020 12:04 PM EST Sexual Orientation Straight 05/03/2020 12 :04 PM EST documented as of this encounter Plan of Treatment Upcoming Encounters Date Type Department Care Team (Late st Contact Info) Description 12/27/2024 10:30 AM EDT Follow-Up [facility] Liver Transplant Services [address] [place] [phone] Kait Gaona MD [address] [place] [address] 12/29/2024 1:00 PM EDT Appointment [facility] Interventional Radiology [address] [place] [address] Kait Gaona MD [address] [place] [address] 12/29/2024 3:00 PM EDT Follow-Up [facility] Liver Transplant Services [address] [place] [address] Genevieve Alaniz MD [address] [place] [address] 01/05/2025 1:00 PM EST Appointment [facility] Interventional Radiology [address] [place] [address] Kait Gaona MD [address] [place] [address] 01/11/2025 2:00 PM EST Follow-Up [facility] at [address] [phone] Nito Morfin MD [address] [place] [address] 01/12/2025 1:00 PM EST Appointment [facility] Interventional Radiology [address] [place] [address] Kait Gaona MD [address] [place] [address] 01/19/2025 1:00 PM EST Appointment [facility] Interventional Radiology [address] [place] [address] Kait Gaona MD [address] [place] [address] 01/26/2025 1:00 PM EST Appointment [facility] Interventional Radiology [address] [place] [address] Kait Gaona MD [address] [place] [address] 02/02/2025 1:00 PM EST Appointment [facility] Interventional Radiology [address] [place] [address] 02/09/2025 10:30 AM EST Lab [facility] ACC Draw Site Fifth Floor [address] [place] [address] 02/09/2025 11:30 AM EST Follow-Up [facility] ACC Building [facility] South 5th Floor [address] [place] [address] Ning Velazco MD 55 [facility] Hematology/[place] [address] 02/09/2025 1:00 PM EST Appointment [facility] Interventional Radiology [address] [place] [address] 02/15/2025 1:30 PM EST Appointment [facility] Cardiac Ultrasound [address] [place] [address] 02/16/2025 1:00 PM EST Appointment [facility] Interventional Radiology [address] [place] [address] 02/23/2025 1:00 PM EST Appointment [facility] Interventional Radiology [address] [place] [address] 03/02/2025 1:00 PM EST Appointment [facility] Interventional Radiology [address] [place] [address] 03/09/2025 1:00 PM EST Appointment [facility] Interventional Radiology [address] [place] [address] 03/16/2025 1:00 PM EST Appointment [facility] Interventional Radiology [address] [place] [address] 03/23/2025 1:00 PM EST Appointment [facility] Interventional Radiology [address] [place] [address] 03/30/2025 1:00 PM EST Appointment [facility] Interventional Radiology [address] [place] [address] 04/06/2025 1:00 PM EST Appointment [facility] Interventional Radiology [address] [place] [address] 04/13/2025 1:00 PM EST Appointment [facility] Interventional Radiology [address] [place] [address] 04/20/2025 1:00 PM EST Appointment [facility] Interventional Radiology [address] [place] [address] 06/17/2025 1:30 PM EDT Follow-Up [facility] 4th floor Cardiology Medicine [address] [place] [address] Community [employer]inator [employer]: Cookie Coates PA [address] [place] [address] 01/18/2026 1:30 PM EST Follow-Up [facility] Building 4th floor Cardiology Medicine [address] [place] [address] [employer]: Cory Bolanos MD [address] [place] [address] [phone] Scheduled Procedures Name Priority Associated Diagnoses Date/Ti me RIGHT HEART CATHETERIZATION RVF (right ventricular failure) Pulmonary hypertension Coronary artery disease involving [place] coronary artery of [place] heart, unspecified whether angina present CORONARY ANGIOGRAPHY RVF (right ventricular failure) Pulmonary hypertension Coronary artery disease involving [place] coronary artery of [place] heart, unspecified whether angina present ANGIOPLASTY - CORONARY RVF (right ventricular failure) Pulmonary hypertension Coronary artery disease involving [place] coronary artery of [place] heart, unspecified whether angina present documented as of this encounter Visit Diagnoses Not on filedocumented in this encounter Care Teams Spring Crater Relationship Specialty Start Date End Date Sharlene De La Garza DO [address] [place] [address] PCP - General 06/03/23 documented as of this encounter
--- OUTSIDE RECORDS SUMMARY | 2024-12-26 19:39 | XMS_ITS | Clinical Summary ---
Author Organization [facility] Address [address] [place] [address] Care Team Providers Care Urology Physician Name Role Phone Sharlene De La Garza Primary Care Provider [phone] Allergies Active Allergy Reactions Criticality Noted Date Comments Erythromycin Rash Low 02/15/2002 tolerates Z-dilia Paroxetine Hcl Migraine,Headache 10/16/2022 Sulfamethoxazole-Trimeth oprim Hives,Rash Low 09/25/2007 Happen before before 2007 Medications LORazepam (ATIVAN) 0.5 mg tablet Take 0.5 mg by mouth 2 times a day as needed for anxiety. Uses daily 11/02/19 20 Active Freestyle lancets 28 gauge Check blood sugar 4 times a day; E11.65 100 each 11 01/25/20 21 Active citalopram (CeleXA) 20 mg tablet Take 20 mg by mouth once a day. 02/20/20 21 Active Dexcom G7 Internal Grinder misc Use to monitor blood sugars. E11.65 1 each 3 3:02 PM EDT 10/17/19 23 Active fluticasone propionate (FLONASE) 50 mcg/actuation nasal sprayIndications:S inusitis with nasal polyps Administer 1 spray into each nostril 2 times a day. 15.8 mL 3 06/03/19 24 Active omeprazole (PriLOSEC) 40 mg capsule Take 1 capsule (40 mg total) by mouth once a day. 30 capsule 2 07/17/19 24 Active pen needle (BD Anjelica 2nd Gen Pen Needle) 4 mm x 32 g USE FOUR TIMES DAILY 200 each 01/15/20 24 Active insulin lispro 100 unit/mL insulin pen Inject 0-12 Units under the skin 3 times a day with meals. 15 mL 02/18/20 24 Active busPIRone (BUSPAR) 5 mg tablet Take 7.5 mg by mouth 2 times a day. Active dulaglutide (Trulicity) 3 mg/0.5 mL injection dose Inject 0.5 mL (3 mg total) under the skin every 7 days. 2 mL 07/01/19 25 Active Additional Information Patient taking differently:3 mg subcutaneous Every 7 days,Injects weekly on Sundays, Reported on 12/08/2024 insulin glargine (Lantus Solostar U-100 Insulin) 100 unit/mL (3 mL) pen injection Inject 44 Units under the skin nightly. 15 mL 07/01/19 25 Active folic acid (FOLVITE) 1 mg tablet Take 1 tablet (1 mg total) by mouth once a day. 30 tablet 2 5 11:17 AM EDT 08/20/19 25 Active spironolactone (ALDACTONE) 100 mg tablet Take 1 tablet (100 mg total) by mouth once a day. 30 tablet 2 5 11:17 AM EDT 08/19/19 25 Active avatrombopag (DOPTELET) 20 mg tabletIndications: Thrombocytopenia Take 1 tablet (20 mg total) by mouth once a day. 30 tablet 2 5 3:28 PM EDT 09/03/19 25 Active Dexcom G7 Sensor device Change sensor every 10 days. E11.65 3 each 5 11:12 AM EDT 09/24/19 25 Active torsemide (DEMADEX) 20 mg tablet Take 2 tablets (40 mg total) by mouth once a day. 60 tablet 2 10/15/19 25 Active apixaban (ELIQUIS) 2.5 mg tablet Take 1 tablet (2.5 mg total) by mouth every 12 hours. 60 tablet 2 11/13/19 25 025 Active rosuvastatin (CRESTOR) 20 mg tabletIndications: Hyperlipidemia, unspecified hyperlipidemia type,Coronary artery disease involving sokaogon coronary artery of sokaogon heart without angina pectoris TAKE 1 TABLET(20 MG) BY MOUTH DAILY 90 tablet 3 11/18/19 25 Active lactulose 20 gram/30 mL solution Take 30 mL (20 g total) by mouth 3 times a day. 2700 mL 11/20/19 25 Active naloxone HCl (Narcan) 4 mg/actuation nasal spray Administer 0.1 mL (4 mg total) into affected nostril(s) as needed (Unresponsivenes s with a suspected overdose). Instill the contents of 1 unit intranasally for suspected opioid overdose. Repeat after 3 minutes if no or minimal response. 2 each 1 11/20/19 25 Active Jardiance 25 mg TAKE 1 TABLET(25 MG) BY MOUTH DAILY 30 tablet 11 11/25/19 25 Active docusate sodium (COLACE) 100 mg capsule Take 100 mg by mouth daily. Active midodrine (PROAMATINE) 10 mg tablet Take 1.5 tablets (15 mg total) by mouth every 8 hours. 135 tablet 11/20/19 25 025 Active Problems Patient Care Coordination No te Formatting of this note migh t be different from the original. 11/26/2024: Member referred, engaged and enrolled in [facility] CM Complex Care Management Program. Sherie Lu RN BSN [facility] [phone] Problem Noted Date Diagnosed Date Impaired mobility 08/16/2024 Assessment & Plan (08/18/2024 10:07 AM EDT): PT recommended home with RW, home pt Assessment & Plan (08/17/2024 12:44 PM EDT): PT rec home with RW, home pt, after 1-2 more sessions - Dr Bhatti will discuss with PT so we can get it to her prior to dc Elevated troponin 08/14/2024 Assessment & Plan (08/18/2024 10:07 AM EDT): Home meds: Rosuvastatin 20mg daily Patient w/ hx of mLAD stenosis to 70% on CCTA with FFR Treadmill stress test in 2023. Managed conservatively, no indication for PCI. Started on statin at that time. She had chest discomfort following TIPS revision, most localized to epigastric region and reproducible on palpation. Serial EKG monitoring during event showed new RBBB, sinus tachycardia. HS troponin elevated to 193 -> 620 -> 527. ProBNP 205. New onset JVD. Cardiology was consulted. RV strain on echo could be d/t increased preload after TIPS procedure. Post procedural atypical CP and troponin leak may be iso of volume shifts d/t TIPS procedure and paracentesis. Cardiac cath deferred iso thrombocytopenia and risk exceeding benefit at this time. Upon discharge: -Continue Crestor 20mg daily -Outpatient cardiology follow up Assessment & Plan (08/17/2024 7:49 AM EDT): Home meds: Rosuvastatin 20mg daily Patient w/ hx of mLAD stenosis to 70% on CCTA with FFR Treadmill stress test in 2023. Plan to manage conservatively, no indication for PCI. Started on statin at that time. Patient with chest discomfort following TIPS revision, most localized to epigastric region and reproducible on palpation. Serial EKG monitoring during event showed new RBBB, sinus tachycardia. HS troponin elevated to 193 -> 620 -> 527. ProBNP 205. Patient with new onset JVD, may be expected post procedurally. Cardiology was consulted. RV strain on echo could be d/t increased preload after TIPS procedure. Post procedural atypical CP and troponin leak may be iso of volume shifts d/t TIPS procedure and paracentesis. Cardiac cath deferred iso thrombocytopenia and risk exceeding benefit at this time. -Continue crestor -Outpatient cardiology follow up Assessment & Plan (08/16/2024 4:37 PM EDT): Home meds: Rosuvastatin 20mg daily Patient w/ hx of mLAD stenosis to 70% on CCTA with FFR Treadmill stress test in 2023. Plan to manage conservatively, no indication for PCI. Started on statin at that time. Patient with chest discomfort following TIPS revision, most localized to epigastric region and reproducible on palpation. Serial EKG monitoring during event showed new RBBB, sinus tachycardia. HS troponin elevated to 193 -> 620 -> 527. ProBNP 205. Patient with new onset JVD, may be expected post procedurally. Cardiology was consulted. RV strain on echo could be d/t increased preload after TIPS procedure. Post procedural atypical CP and troponin leak may be iso of volume shifts d/t TIPS procedure and paracentesis. Cardiac cath deferred iso thrombocytopenia and risk exceeding benefit at this time. -Continue crestor -Outpatient cardiology follow up Assessment & Plan (08/15/2024 6:15 PM EDT): Home meds: Rosuvastatin 20mg daily Patient w/ hx of mLAD stenosis to 70% on CCTA with FFR Treadmill stress test in 2023. Plan to manage conservatively, no indication for PCI. Started on statin at that time. Patient with chest discomfort following TIPS revision, most localized to epigastric region and reproducible on palpation. Serial EKG monitoring during event showed new RBBB, sinus tachycardia. HS troponin elevated to 193 -> 620 -> 527. ProBNP 205. Patient with new onset JVD, may be expected post procedurally. Cardiology was consulted. RV strain on echo could be d/t increased preload after TIPS procedure. Post procedural atypical CP and troponin leak may be iso of volume shifts d/t TIPS procedure and paracentesis. Cardiac cath deferred iso thrombocytopenia and risk exceeding benefit at this time. -Continue home med -Outpatient cardiology follow up Assessment & Plan (08/14/2024 12:03 PM EDT): Home meds: Rosuvastatin 20mg daily Patient w/ hx of mLAD stenosis to 70% on CCTA with FFR Treadmill stress test in 2023. Plan to manage conservatively, no indication for PCI. Started on statin at that time. Patient with chest discomfort following TIPS revision, most localized to epigastric region and reproducible on palpation. Serial EKG monitoring during event showed new RBBB, sinus tachycardia. HS troponin elevated to 193 -> 620 -> 527. ProBNP 205. Patient with new onset JVD, may be expected post procedurally. Cardiology was consulted. RV strain on echo could be d/t increased preload after TIPS procedure. Post procedural atypical CP and troponin leak may be iso of volume shifts d/t TIPS procedure and paracentesis. Cardiac cath deferred iso thrombocytopenia and risk exceeding benefit at this time. 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 Nonocclusive thrombus narrowing the hepatic venous end of the TIPS shunt, with nonocclusive thrombus just proximal to the portal venous confluence, and within the splenic vein. The thrombi are likely the reason for the patient's persistent fevers, malaise and abdominal pain for the past few weeks. Underwent TIPS revision with IR on 08/12. Given her Child-esquivel score she was not candidate for Eliquis. She does not want to start warfarin again, would prefer to do lovenox BID. Had bad experience with coumadin clinic in past. Started Lovenox 08/15 night (stopped heparin). Received Teaching for lovenox prior to dc. Upon discharge: - Continue Lovenox therapeutic dose: 80 mg under the skin Q12H Assessment & Plan (08/17/2024 12:44 PM EDT): CTAP 08/10 showed: Cirrhosis with portal hypertension, massive splenomegaly, increased large volume ascites. Nonocclusive thrombus narrowing the hepatic venous end of the TIPS shunt, with nonocclusive thrombus just proximal to the portal venous confluence, and within the splenic vein. The thrombi are likely the reason for the patient's persistent fevers, malaise and abdominal pain for the past few weeks. Underwent TIPS revision with IR on 08/12. Given her Child-esquivel score she is not candidate for eliquis. She does not want to start warfarin again, would prefer to do lovenox BID. Had bad experience with coumadin clinic in past. -Started Lovenox 08/15 night (stopped heparin) -Continue Lovenox therapeutic dose: 1 mg/kg every 12 hours - Teaching for lovenox prior to dc -INR daily as part of MELD labs, but will not be starting Warfarin Assessment & Plan (08/16/2024 4:37 PM EDT): CTAP 08/10 showed: Cirrhosis with portal hypertension, massive splenomegaly, increased large volume ascites. Nonocclusive thrombus narrowing the hepatic venous end of the TIPS shunt, with nonocclusive thrombus just proximal to the portal venous confluence, and within the splenic vein. The thrombi are likely the reason for the patient's persistent fevers, malaise and abdominal pain for the past few weeks. Underwent TIPS revision with IR on 08/12. Given her Child-esquivel score she is not candidate for eliquis. She does not want to start warfarin again, would prefer to do lovenox BID. Had bad experience with coumadin clinic in past. -Stopped heparin -Started Lovenox 08/15 night -Continue Lovenox therapeutic dose: 1 mg/kg every 12 hours -INR daily as part of MELD labs, but will not be starting Warfarin Assessment & Plan (08/15/2024 6:15 PM EDT): CTAP 08/10 showed: Cirrhosis with portal hypertension, massive splenomegaly, increased large volume ascites. Nonocclusive thrombus narrowing the hepatic venous end of the TIPS shunt, with nonocclusive thrombus just proximal to the portal venous confluence, and within the splenic vein. The thrombi are likely the reason for the patient's persistent fevers, malaise and abdominal pain for the past few weeks. Underwent TIPS revision with IR on 08/12. -Stop heparin gtt tonight -Start Lovenox at 9 PM -Continue Lovenox therapeutic dose: 1 mg/kg every 12 hours as bridge to warfarin -INR daily, determine warfarin dose in the a.m. Assessment & Plan (08/14/2024 8:13 AM EDT): CTAP 08/10 showed: Cirrhosis with portal hypertension, massive splenomegaly, increased large volume ascites. Nonocclusive thrombus narrowing the hepatic venous end of the TIPS shunt, with nonocclusive thrombus just proximal to the portal venous confluence, and within the splenic vein. The thrombi are likely the reason for the patient's persistent fevers, malaise and abdominal pain for the past few weeks. Underwent TIPS revision with IR on 08/12. -Heparin gtt Assessment & Plan (08/12/2024 7:25 PM EDT): CTAP 08/10 showed: Cirrhosis with portal hypertension, massive splenomegaly, increased large volume ascites. Nonocclusive thrombus narrowing the hepatic venous end of the TIPS shunt, with nonocclusive thrombus just proximal to the portal venous confluence, and within the splenic vein. The thrombi are likely the reason for the patient's persistent fevers., malaise and abdominal pain for the past few weeks. -TIPS revision with IR today 08/12 -heparin gtt dc'd at 8am for procedure Assessment & Plan (08/11/2024 5:06 PM EDT): CTAP 08/10 showed: Cirrhosis with portal hypertension, massive splenomegaly, increased large volume ascites. Nonocclusive thrombus narrowing the hepatic venous end of the TIPS shunt, with nonocclusive thrombus just proximal to the portal venous confluence, and within the splenic vein. The thrombi are likely the reason for the patient's persistent fevers., malaise and abdominal pain for the past few weeks. -Plts 24-1 unit of platelets given -PTT ordered, pending -Heparin gtt started -Consult IR -Consult GI Anemia 08/08/2024 Assessment & Plan (08/18/2024 10:07 AM EDT): Home meds: Spironoactone 50mg daily, furosemide 40mg daily, propranolol 30mg daily Patient with longstanding history of 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 No prior history of ascites or episodes of hepatic encephalopathy. Most recent MELD from transplant evaluation June 2024 was 12. Ultimately determined that she would be removed from transplant list. Pt had 1 episode of black tarry stool, concerning for a possible bleed. Pt has had normal BMs since but Hb trending low and she received 1u pRBCS 08/08. 1 dose of Ceftriaxone was given and octreotide and pantoprazole started. Hx of thrombocytopenia in the setting of cirrhosis. Baseline in the 30s. Diagnostic para 08/09 yielded 1.9L and cell count negative for SBP, but pt had already received 2 days of antibiotics at the time of the para. Found to have multiple venous thrombi, TIPS malfunction, s/p TIPS revision 08/12 with resultant hypoxia and tachycardia. S/p second paracentesis on 08/12. Peth values indicating not detected vs abstinence Diuretics were added back slowly and with midodrine to stabilize her BP after the TIPS revision. Per GI, does not need to restart beta juan [place]go at this time given TIPS should relieve ascites and variceal pressures over time and she is requiring midodrine for hypotension. Significant LE swelling 08/16, improved with restarting lasix. CBC, MELD labs were monitored daily, pain management: received tylenol 650 mg q6h prn, oxycodone 5 mg q6h prn Upon discharge: - Continue midodrine 10 mg for 3 times a day - Continue lasix 40mg daily - Continue spironolactone 100 mg daily - Received 3 days iv venofer, switched to PO iron given nausea. Continue ferrous sulfate 325 mg by mouth every other day - Lactulose 20g BID - Hematology was consulted to rule out other causes for thrombocytopenia and rec folic acid, iron supplementation but low PLTs likely due to cirrhosis, splenomegaly. - Follow-up with outpt heme regarding results, SHEREEN neg, low haptoglobin, high ldh Assessment & Plan (08/17/2024 12:44 PM EDT): Home meds: Spironoactone 50mg daily, furosemide 40mg daily, propranolol 30mg daily Patient with longstanding history of 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 No prior history of ascites or episodes of hepatic encephalopathy. Most recent MELD from transplant evaluation June 2024 was 12. Ultimately determined that she would be removed from transplant list. Pt has a hx of varices s/p banding and TIPS. Pt had 1 episode of black tarry stool, concerning for a possible bleed. Pt has had normal BMs since but Hb is 8.6 (10.2 06/23) given the drop in Hb, prophylactic treatent was given in ED. 1 dose of Ceftriaxone was given and octreotide and pantoprazole started. Hx of thrombocytopenia in the setting of cirrhosis. Baseline in the 30s. Hemoglobin 6.9 on 08/08, 1 unit PRBCs administered. Diagnostic para 08/09 yielded 1.9L and cell count negative for SBP, but pt had already received 2 days of antibiotics at the time of the para. Found to have multiple venous thrombi, TIPS malfunction s/p TIPS revision 08/12 with resultant hypoxia and tachycardia. S/p second paracentesis on 08/12.Peth values indicating not detected vs abstinence Significant LE swelling 08/16, improved with restarting lasix. - Continue midodrine 10 3 times a day - lasix 20 once daily (home is BID) - add alondra 50 daily - Plan to discuss w/ GI if propranolol preferred to other options such as Coreg, start tomorrow pending recs - Venofer started 08/15, continue x 5 days - Lactulose 20g BID - Continue to monitor CBC - MELD labs daily - GI following - Type and screen every 72 hours - Transfuse Hb to >7 - Transfuse Plt to >10 - Pain management: tylenol 650 mg q6h prn, oxycodone 5 mg q6h prn - Hematology consulted to rule out other causes for thrombocytopenia as decompensated liver cirrhosis d/t JAQUEZ does not fully explain it per liver team Assessment & Plan (08/16/2024 4:37 PM EDT): Home meds: Spironoactone 50mg daily, furosemide 40mg daily, propranolol 30mg daily Patient with longstanding history of 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 No prior history of ascites or episodes of hepatic encephalopathy. Most recent MELD from transplant evaluation June 2024 was 12. Ultimately determined that she would be removed from transplant list. Pt has a hx of varices s/p banding and TIPS. Pt had 1 episode of black tarry stool, concerning for a possible bleed. Pt has had normal BMs since but Hb is 8.6 (10.2 06/23) given the drop in Hb, prophylactic treatent was given in ED. 1 dose of Ceftriaxone was given and octreotide and pantoprazole started. Hx of thrombocytopenia in the setting of cirrhosis. Baseline in the 30s. Hemoglobin 6.9 on 08/08, 1 unit PRBCs administered. Diagnostic para 08/09 yielded 1.9L and cell count negative for SBP, but pt has already received 2 days of antibiotics at the time of the para. Found to have multiple venous thrombi, TIPS malfunction s/p TIPS revision 08/12 with resultant hypoxia and tachycardia. S/p second paracentesis on 08/12.Peth values indicating not detected vs abstinence Significant LE swelling 08/16, her lasix was just restarted this afternoon, so will give that some time to take effect, can give 1x IV 10-20mg lasix overnight if not having relief, she will elevate legs when at rest. Do not want to increase her daily lasix given soft BPs - Continue midodrine 10 3 times a day - Restart home lasix 20 PO this afternoon - Tomorrow 08/17 likely add back alondra and propranolol - Plan to discuss w/ GI if propranolol preferred to other options such as Coreg - Venofer started 08/15, continue x 5 days - Lactulose 20g BID - Continue to monitor CBC - MELD labs daily - GI following - Type and screen every 72 hours - Transfuse Hb to >7 - Transfuse Plt to >10 - Pain management: tylenol 650 mg q6h prn, oxycodone 5 mg q6h prn - Hematology consulted to rule out other causes for thrombocytopenia as decompensated liver cirrhosis d/t JAQUEZ does not fully explain it per liver team Assessment & Plan (08/15/2024 6:15 PM EDT): Home meds: Spironoactone 50mg daily, furosemide 40mg daily, propranolol 30mg daily Patient with longstanding history of 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 No prior history of ascites or episodes of hepatic encephalopathy. Most recent MELD from transplant evaluation June 2024 was 12. Ultimately determined that she would be removed from transplant list. Pt has a hx of varices s/p banding and TIPS. Pt had 1 episode of black tarry stool, concerning for a possible bleed. Pt has had normal BMs since but Hb is 8.6 (10.2 06/23) given the drop in Hb, prophylactic treatent was given in ED. 1 dose of Ceftriaxone was given and octreotide and pantoprazole started. Hx of thrombocytopenia in the setting of cirrhosis. Baseline in the 30s. Hemoglobin 6.9 on 08/08, 1 unit PRBCs administered. Diagnostic para 08/09 yielded 1.9L and cell count negative for SBP, but pt has already received 2 days of antibiotics at the time of the para. Found to have multiple venous thrombi, TIPS malfunction s/p TIPS revision 08/12 with resultant hypoxia and tachycardia. S/p second paracentesis on 08/12.Peth values indicating not detected vs abstinence -Continue alondra and furosemide - Continue propranolol -lactulose 20g BID -Continue to monitor CBC -MELD labs daily -GI following -CBC daily -Type and screen every 72 hours -Transfuse Hb to >7 -Transfuse Plt to >10 -Pain management: tylenol 650 mg q6h prn, oxycodone 5 mg q6h prn -Hematology consulted to rule out other causes for thrombocytopenia as decompensated liver cirrhosis d/t JAQUEZ does not fully explain it per liver team -Continue IV Venofer x 5 days (D1: 08/15) Assessment & Plan (08/14/2024 12:03 PM EDT): Home meds: Spironoactone 50mg daily, furosemide 40mg daily, propranolol 30mg daily Patient with longstanding history of 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 No prior history of ascites or episodes of hepatic encephalopathy. Most recent MELD from transplant evaluation June 2024 was 12. Ultimately determined that she would be removed from transplant list. Pt has a hx of varices s/p banding and TIPS. Pt had 1 episode of black tarry stool, concerning for a possible bleed. Pt has had normal BMs since but Hb is 8.6 (10.2 06/23) given the drop in Hb, prophylactic treatent was given in ED. 1 dose of Ceftriaxone was given and octreotide and pantoprazole started. Hx of thrombocytopenia in the setting of cirrhosis. Baseline in the 30s. Hemoglobin 6.9 on 08/08, 1 unit PRBCs administered. Diagnostic para 08/09 yielded 1.9L and cell count negative for SBP, but pt has already received 2 days of antibiotics at the time of the para. Found to have multiple venous thrombi, TIPS malfunction s/p TIPS revision 08/12 with resultant hypoxia and tachycardia. S/p second paracentesis on 08/12.Peth values indicating not detected vs abstinence -Continue alondra and furosemide -lactulose 20g BID -Continue to monitor CBC -Hold home spironolactone, furosemide, propranolol iso SBPs 100s -MELD labs daily -GI following -CBC daily -Type and screen every 72 hours -Transfuse Hb to >7 -Transfuse Plt to >10 -Pain management: tylenol 650 mg q6h prn, oxycodone 5 mg q6h prn -Hematology consulted to rule out other causes for thrombocytopenia as decompensated liver cirrhosis d/t JAQUEZ does not fully explain it per liver team Assessment & Plan (08/12/2024 7:25 PM EDT): Home meds: Spironoactone 50mg daily, furosemide 40mg daily, propranolol 30mg daily Patient with longstanding history of 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 No prior history of ascites or episodes of hepatic encephalopathy. Most recent MELD from transplant evaluation June 2024 was 12. Ultimately determined that she would be removed from transplant list. Pt has a hx of varices s/p banding and TIPS. Pt had 1 episode of black tarry stool, cocnenring for a possible bleed. Pt has had normal Bms since but Hb is 8.6 (10.2 06/23) sop given the drop in Hb, prophylactic treatent was given in ED. 1 dose of Ceftriaxone was given and octreotide and pantoprazole started. Hx of thrombocytopenia in the setting of cirrhosis. Baseline in the 30s. Hemoglobin 6.9 on 08/08, 1 unit PRBCs administered. Diagnostic para 08/09 yielded 1.9L and cell count negative for SBP, but pt has already received 2 days of antibiotics at the time of the para. -continue alondra and furosemide -lactulose 20g BID -Continue to monitor CBC Assessment & Plan (08/11/2024 5:06 PM EDT): Home meds: Spironoactone 50mg daily, furosemide 40mg daily, propranolol 30mg daily Patient with longstanding history of 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 No prior history of ascites or episodes of hepatic encephalopathy. Most recent MELD from transplant evaluation June 2024 was 12. Ultimately determined that she would be removed from transplant list. Pt has a hx of varices s/p banding and TIPS. Pt had 1 episode of black tarry stool, cocnenring for a possible bleed. Pt has had normal Bms since but Hb is 8.6 (10.2 06/23) sop given the drop in Hb, prophylactic treatent was given in ED. 1 dose of Ceftriaxone was given and octreotide and pantoprazole started. Hx of thrombocytopenia in the setting of cirrhosis. Baseline in the 30s. Hemoglobin 6.9 on 08/08, 1 unit PRBCs administered. Diagnostic para 08/09 yielded 1.9L and cell count negative for SBP, but pt has already received 2 days of antibiotics at the time of the para. 08/11: On exam, pt has tenderness in the RLQ, but not rebound like yesterday. Pain is improved per patient report as well. CTAP 08/10 showed: Cirrhosis with portal hypertension, massive splenomegaly, increased large volume ascites. Nonocclusive thrombus narrowing the hepatic venous end of the TIPS shunt, with nonocclusive thrombus just proximal to the portal venous confluence, and within the splenic vein. See splenic vein thrombosis for assessment. -GI consult re persistent abd pain iso 1 month of fevers, appreciate recs -continue alondra and furosemide -lactulose 20g BID -Continue to monitor CBC Assessment & Plan (08/10/2024 12:04 PM EDT): Home meds: Spironoactone 50mg daily, furosemide 40mg daily, propranolol 30mg daily Patient with longstanding history of 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 No prior history of ascites or episodes of hepatic encephalopathy. Most recent MELD from transplant evaluation June 2024 was 12. Ultimately determined that she would be removed from transplant list. Pt has a hx of varices s/p banding and TIPS. Pt had 1 episode of black tarry stool, cocnenring for a possible bleed. Pt has had normal Bms since but Hb is 8.6 (10.2 06/23) sop given the drop in Hb, prophylactic treatent was given in ED. 1 dose of Ceftriaxone was given and octreotide and pantoprazole started. Hx of thrombocytopenia in the setting of cirrhosis. Baseline in the 30s. Hemoglobin 6.9 on 08/08, 1 unit PRBCs administered. 08/10: Diagnostic para yielded 1.9L and cell count negative for SBP, but pt has already received 2 days of antibiotics at the time of the para. On exam, pt has rebound tenderness in the RLQ and abdominal pain is slightly better than yesterday after the para, but is still having significant pain limiting her ability to take deep breaths. -GI consult re persistent abd pain iso 1 month of fevers -Abd Ultrasound completed, pending results -continue alondra and furosemide -lactulose 20g BID -Continue to monitor CBC -Continue Octreotide infusion Assessment & Plan (08/09/2024 4:26 PM EDT): Home meds: Spironoactone 50mg daily, furosemide 40mg daily, propranolol 30mg daily Patient with longstanding history of 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 No prior history of ascites or episodes of hepatic encephalopathy. Most recent MELD from transplant evaluation June 2024 was 12. Ultimately determined that she would be removed from transplant list. Pt has a hx of varices s/p banding and TIPS. Pt had 1 episode of black tarry stool, cocnenring for a possible bleed. Pt has had normal Bms since but Hb is 8.6 (10.2 06/23) sop given the drop in Hb, prophjaylctic treatent was given in ED. 1 dose of Ceftriaxone was givn and ocretodide and pantoprazole started. Hx of thrombocytopenia in the setting of cirrhosis. Baseline in the 30s. Hemoglobin 6.9 on 08/08, 1 unit PRBCs administered. 08/09: Hb 8.2 this morning-not requiring RBCs today. LDH 281, retic index 2.6, haptoglobin < 10, indicating a hemolytic process. Still awaiting tic panel. Plts 24. On exam, abd is distended, but soft with no rebound/guarding. It is diffusely tender. Pt reports 7/10 pain. KUB showed no free air so low concern for obstruction. -Bedside ultrasound to assess for ascites given hx of cirrhosis and fevers considering SBP -restart alondra and furosemide -Simetheticone and Miralax -lactulose 20g BID -Continue to monitor CBC -Continue Octreotide infusion Assessment & Plan (08/08/2024 6:42 PM EDT): Home meds: Spironoactone 50mg daily, furosemide 40mg daily, propranolol 30mg daily Patient with longstanding history of 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 No prior history of ascites or episodes of hepatic encephalopathy. Most recent MELD from transplant evaluation June 2024 was 12. Ultimately determined that she would be removed from transplant list. Pt has a hx of varices s/p banding and TIPS. Pt had 1 episode of black tarry stool, cocnenring for a possible bleed. Pt has had normal Bms since but Hb is 8.6 (10.2 06/23) sop given the drop in Hb, prophjaylctic treatent was given in ED. 1 dose of Ceftriaxone was givn and ocretodide and pantoprazole started. Hx of thrombocytopenia in the setting of cirrhosis. Baseline in the 30s. Hemoglobin 6.9 on 08/08, 1 unit PRBCs administered, pending repeat CBC in a.m. -hold home meds today in the setting of sepsis/dehydration -Continue to monitor CBC - Follow-up LDH, haptoglobin, reticulocyte index Fever of unknown origin 08/07/2024 Assessment & Plan (08/18/2024 10:07 AM EDT): Patient initially admitted to general medicine service for intermittent fevers and myalgias. Initially monitored on cefepime, later discontinued as fevers were thought to be attributed to multiple thrombi given largely negative infectious workup including negative BCX, tick panel, ascitic fluid studies, hep panel, fungal studies, MRSA PCR and UA. Following TIPS procedures 08/12, patient developed rigors and fever. Patient met SIRS criteria of tachycardia, leukocytosis, and fever. Source of infection not determined, possibly was abdominal source given history of cirrhosis and recent instrumentation. Non-infectious UA with 17 RBCs. Lipase of 38. Was on Vancomycin/Zosyn (08/12-08/14). Repeat BCX 08/12 No growth. Trended fever/WBC curve to resolution Assessment & Plan (08/17/2024 9:15 AM EDT): Patient initially admitted to general medicine service for intermittent fevers and myalgias. Initially monitored on cefepime, later discontinued as fevers were thought to be attributed to multiple thrombi given largely negative infectious workup including negative BCX, tick panel, ascitic fluid studies, hep panel, fungal studies, MRSA PCR and UA. Following TIPS procedures 08/12, patient developed rigors and fever. Patient met SIRS criteria of tachycardia, leukocytosis, and fever. Source of infection not immediately clear, consider abdominal source given history of cirrhosis and recent instrumentation, as well as localized pain. Non-infectious UA with 17 RBCs. Lipase of 38. -Discontinued Vancomycin/Zosyn (08/12-08/14) -Monitor off ABX -Repeat BCX 08/12 NGTD thus far -Trend fever/WBC curve, nl today Assessment & Plan (08/16/2024 4:37 PM EDT): Patient initially admitted to general medicine service for intermittent fevers and myalgias. Initially monitored on cefepime, later discontinued as fevers were thought to be attributed to multiple thrombi given largely negative infectious workup including negative BCX, tick panel, ascitic fluid studies, hep panel, fungal studies, MRSA PCR and UA. Following TIPS procedures 08/12, patient developed rigors and fever. Patient met SIRS criteria of tachycardia, leukocytosis, and fever. Source of infection not immediately clear, consider abdominal source given history of cirrhosis and recent instrumentation, as well as localized pain. Non-infectious UA with 17 RBCs. Lipase of 38. -Discontinued Vancomycin/Zosyn (08/12-08/14) -Monitor off ABX -Repeat BCX 08/12 NGTD thus far -Trend fever/WBC curve Assessment & Plan (08/15/2024 6:15 PM EDT): Patient initially admitted to general medicine service for intermittent fevers and myalgias. Initially monitored on cefepime, later discontinued as fevers were thought to be attributed to multiple thrombi given largely negative infectious workup including negative BCX, tick panel, ascitic fluid studies, hep panel, fungal studies, MRSA PCR and UA. Following TIPS procedures 08/12, patient developed rigors and fever. Patient met SIRS criteria of tachycardia, leukocytosis, and fever. Source of infection not immediately clear, consider abdominal source given history of cirrhosis and recent instrumentation, as well as localized pain. Non-infectious UA with 17 RBCs. Lipase of 38. -Discontinued Vancomycin/Zosyn (08/12-08/14) -Monitor off ABX -Repeat BCX 08/12 NGTD thus far -Trend fever/WBC curve Assessment & Plan (08/14/2024 12:03 PM EDT): Patient initially admitted to general medicine service for intermittent fevers and myalgias. Initially monitored on cefepime, later discontinued as fevers were thought to be attributed to multiple thrombi given largely negative infectious workup including negative BCX, tick panel, ascitic fluid studies, hep panel, fungal studies, MRSA PCR and UA. Following TIPS procedures 08/12, patient developed rigors and fever. Patient met SIRS criteria of tachycardia, leukocytosis, and fever. Source of infection not immediately clear, consider abdominal source given history of cirrhosis and recent instrumentation, as well as localized pain. Non-infectious UA with 17 RBCs. Lipase of 38. -Discontinued Vancomycin/Zosyn (08/12-08/14) -Monitor off ABX -Repeat BCX 08/12 NGTD thus far -Trend fever/WBC curve Assessment & Plan (08/12/2024 7:25 PM EDT): SIRS Criteria Patient met the following SIRS Criteria: Temp > 38.3 degrees celsius Sepsis Criteria Sepsis was present on admission. Source of infection is unknown but infection is suspected. Blood cultures were drawn prior to antibiotics given. Initial lactic acid was drawn and value was greater than or equal to 2 and repeat was ordered. Patient was ordered the following Antibiotics: Vancomycin and Zosyn Full Sepsis bolus given. Patient received 2 Liters of fluid bolus. Goal: 2.1 Liters (30ml/kg). Severe Sepsis Patient has organ dysfunction that meets criteria for severe sepsis. Patient has Bilirubin > 2, Platelet < 100,000, and Lactate > 2. Pt presenting with about 1 month of intermittent fevers and myalgias in the setting of recent travel to [place]. Pt reports some days she feels ok and others she has a fever as high as 103 with chills and severe fatigue with myalgias. Denies other infectious symptoms. Denies sick contacts. Denies known tick bite and reports she mostly stayed inside during her trip. On presentation, pt meets sepsis criteria with elevated lactic of 4.6, fever to 103 and elevated williams, thrombocytopenia. Although the elevated williams and thrombocytopenia are chronic lab findings, the severity of sepsis may be skewed. On exam, pt has a reassurng abd pain with no rebound or guarding but with tenderness in the LUQ. No rashes found on exam.CTAP showed thickening of the colon findings likely consistent with infectious colitis. Pt denies diarrhea. On admission, lactic acid resolved to 1.4. COVID negative. Broad differential at this time including infectious cause vs autoimmune vs malignancy vs inflammatory causes. Infectious workup negative (tic panel, extended RVP) BCx 08/06 NGTD. HIV and SHAISTA negative. Discontinued Cefepime per ID recs (D1: 08/07-08/11) Pt has not had fever since 08/07. CTAP 08/10 showed: Nonocclusive thrombus narrowing the hepatic venous end of the TIPS shunt, with nonocclusive thrombus just proximal to the portal venous confluence, and within the splenic vein. Thrombi are likely etiology for infectious symptoms. See splenic vein thrombosis problem for A/P. Assessment & Plan (08/11/2024 5:06 PM EDT): SIRS Criteria Patient met the following SIRS Criteria: Temp > 38.3 degrees celsius Sepsis Criteria Sepsis was present on admission. Source of infection is unknown but infection is suspected. Blood cultures were drawn prior to antibiotics given. Initial lactic acid was drawn and value was greater than or equal to 2 and repeat was ordered. Patient was ordered the following Antibiotics: Vancomycin and Zosyn Full Sepsis bolus given. Patient received 2 Liters of fluid bolus. Goal: 2.1 Liters (30ml/kg). Severe Sepsis Patient has organ dysfunction that meets criteria for severe sepsis. Patient has Bilirubin > 2, Platelet < 100,000, and Lactate > 2. Pt presenting with about 1 month of intermittent fevers and myalgias in the setting of recent travel to [place]. Pt reports some days she feels ok and others she has a fever as high as 103 with chills and severe fatigue with myalgias. Denies other infectious symptoms. Denies sick contacts. Denies known tick bite and reports she mostly stayed inside during her trip. On presentation, pt meets sepsis criteria with elevated lactic of 4.6, fever to 103 and elevated williams, thrombocytopenia. Although the elevated williams and thrombocytopenia are chronic lab findings, the severity of sepsis may be skewed. On exam, pt has a reassurng abd pain with no rebound or guarding but with tenderness in the LUQ , likely related to her chronic splenomegaly. No rashes found on exam.CTAP showed thickening of the colon findings likely consistent with infectious colitis. Pt denies diarrhea. On admission, lactic acid resolved to 1.4. COVID negative. Broad differential at this time including infectious cause vs autoimmune vs malignancy vs inflammatory causes. Infectious etiology being considered include tick born and mosquito borne illness. Although no rashes seen, recent travel history and episodic nature of fevers is consistent with a tick or mosquito born illness. Also considering autoimmune causes such as lupus. Inflammatory causes like HIV being considered although less likely given no history of IV drug use. BCx 08/06 NGTD tic panel and HIV resulted negative 08/11: Pt has not had fever since 08/07. 1 episode of chills 08/09. Extended RVP negative. Lyme negative. See Splenic Vein thrombi problem for assessment. Work up: -ID consult, appreciate recs: discontinue abx -SHAISTA screen, pending Treatment Plan: -Discontinue Cefepime (D1: 08/07-08/11) -LR at 125cc/hour discontinued Assessment & Plan (08/10/2024 12:04 PM EDT): SIRS Criteria Patient met the following SIRS Criteria: Temp > 38.3 degrees celsius Sepsis Criteria Sepsis was present on admission. Source of infection is unknown but infection is suspected. Blood cultures were drawn prior to antibiotics given. Initial lactic acid was drawn and value was greater than or equal to 2 and repeat was ordered. Patient was ordered the following Antibiotics: Vancomycin and Zosyn Full Sepsis bolus given. Patient received 2 Liters of fluid bolus. Goal: 2.1 Liters (30ml/kg). Severe Sepsis Patient has organ dysfunction that meets criteria for severe sepsis. Patient has Bilirubin > 2, Platelet < 100,000, and Lactate > 2. Pt presenting with about 1 month of intermittent fevers and myalgias in the setting of recent travel to [place]. Pt reports some days she feels ok and others she has a fever as high as 103 with chills and severe fatigue with myalgias. Denies other infectious symptoms. Denies sick contacts. Denies known tick bite and reports she mostly stayed inside during her trip. On presentation, pt meets sepsis criteria with elevated lactic of 4.6, fever to 103 and elevated williams, thrombocytopenia. Although the elevated williams and thrombocytopenia are chronic lab findings, the severity of sepsis may be skewed. On exam, pt has a reassurng abd pain with no rebound or guarding but with tenderness in the LUQ , likely related to her chronic splenomegaly. No rashes found on exam.CTAP showed thickening of the colon findings likely consistent with infectious colitis. Pt denies diarrhea. On admission, lactic acid resolved to 1.4. COVID negative. Broad differential at this time including infectious cause vs autoimmune vs malignancy vs inflammatory causes. Infectious etiology being considered include tick born and mosquito borne illness. Although no rashes seen, recent travel history and episodic nature of fevers is consistent with a tick or mosquito born illness. Also considering autoimmune causes such as lupus. Inflammatory causes like HIV being considered although less likely given no history of IV drug use. BCx 08/06 NGTD 08/10: tic panel and HIV resulted negative. Lyme still pending. Pt has not had fever since 08/07. 1 episode of chills yesterday. Work up: -ID consult, appreciate recs -SHAISTA screen, pending - Extended RVP pending -Lyme, pending Treatment Plan: -Continue Cefepime (D1: 08/07) -LR at 125cc/hour Assessment & Plan (08/09/2024 4:26 PM EDT): SIRS Criteria Patient met the following SIRS Criteria: Temp > 38.3 degrees celsius Sepsis Criteria Sepsis was present on admission. Source of infection is unknown but infection is suspected. Blood cultures were drawn prior to antibiotics given. Initial lactic acid was drawn and value was greater than or equal to 2 and repeat was ordered. Patient was ordered the following Antibiotics: Vancomycin and Zosyn Full Sepsis bolus given. Patient received 2 Liters of fluid bolus. Goal: 2.1 Liters (30ml/kg). Severe Sepsis Patient has organ dysfunction that meets criteria for severe sepsis. Patient has Bilirubin > 2, Platelet < 100,000, and Lactate > 2. Pt presenting with about 1 month of intermittent fevers and myalgias in the setting of recent travel to [place]. Pt reports some days she feels ok and others she has a fever as high as 103 with chills and severe fatigue with myalgias. Denies other infectious symptoms. Denies sick contacts. Denies known tick bite and reports she mostly stayed inside during her trip. On presentation, pt meets sepsis criteria with elevated lactic of 4.6, fever to 103 and elevated williams, thrombocytopenia. Although the elevated williams and thrombocytopenia are chronic lab findings, the severity of sepsis may be skewed. On exam, pt has a reassurng abd pain with no rebound or guarding but with tenderness in the LUQ , likely related to her chronic splenomegaly. No rashes found on exam.CTAP showed thickening of the colon findings likely consistent with infectious colitis. Pt denies diarrhea. On admission, lactic acid resolved to 1.4. COVID negative. Broad differential at this time including infectious cause vs autoimmune vs malignancy vs inflammatory causes. Infectious etiology being considered include tick born and mosquito borne illness. Although no rashes seen, recent travel history and episodic nature of fevers is consistent with a tick or mosquito born illness. Also considering autoimmune causes such as lupus. Inflammatory causes like HIV being considered although less likely given no history of IV drug use. BCx 08/06 NGTD Work up: -ID consult, appreciate recs -Tick panel sent -peripheral smear -SHAISTA screen -HIV antibodies sent - Extended RVP pending Treatment Plan: -Continue Cefepime -Discontinue Vancomycin given negative MRSA swab -LR at 125cc/hour Assessment & Plan (08/08/2024 6:42 PM EDT): SIRS Criteria Patient met the following SIRS Criteria: Temp > 38.3 degrees celsius Sepsis Criteria Sepsis was present on admission. Source of infection is unknown but infection is suspected. Blood cultures were drawn prior to antibiotics given. Initial lactic acid was drawn and value was greater than or equal to 2 and repeat was ordered. Patient was ordered the following Antibiotics: Vancomycin and Zosyn Full Sepsis bolus given. Patient received 2 Liters of fluid bolus. Goal: 2.1 Liters (30ml/kg). Severe Sepsis Patient has organ dysfunction that meets criteria for severe sepsis. Patient has Bilirubin > 2, Platelet < 100,000, and Lactate > 2. Pt presenting with about 1 month of intermittent fevers and myalgias in the setting of recent travel to [place]. Pt reports some days she feels ok and others she has a fever as high as 103 with chills and severe fatigue with myalgias. Denies other infectious symptoms. Denies sick contacts. Denies known tick bite and reports she mostly stayed inside during her trip. On presentation, pt meets sepsis criteria with elevated lactic of 4.6, fever to 103 and elevated williams, thrombocytopenia. Although the elevated williams and thrombocytopenia are chronic lab findings, the severity of sepsis may be skewed. On exam, pt has a reassurng abd pain with no rebound or guarding but with tenderness in the LUQ , likely related to her chronic splenomegaly. No rashes found on exam.CTAP showed thickening of the colon findings likely consistent with infectious colitis. Pt denies diarrhea. On admission, lactic acid resolved to 1.4. COVID negative. Broad differential at this time including infectious cause vs autoimmune vs malignancy vs inflammatory causes. Infectious etiology being considered include tick born and mosquito borne illness. Although no rashes seen, recent travel history and episodic nature of fevers is consistent with a tick or mosquito born illness. Also considering autoimmune causes such as lupus. Inflammatory causes like HIV being considered although less likely given no history of IV drug use. Work up: -ID consult -Tick panel sent -peripheral smear -Bcx sent -SHAISTA screen -HIV antibodies sent - Extended RVP pending Treatment Plan: -Continue Vancomycin and Cefepime-consider stopping once Bcx have NGTD for 48 hours -LR at 125cc/hour -1x oxy 5mg po dose given for abd pain Assessment & Plan (08/07/2024 2:49 PM EDT): SIRS Criteria Patient met the following SIRS Criteria: Temp > 38.3 degrees celsius Sepsis Criteria Sepsis was present on admission. Source of infection is unknown but infection is suspected. Blood cultures were drawn prior to antibiotics given. Initial lactic acid was drawn and value was greater than or equal to 2 and repeat was ordered. Patient was ordered the following Antibiotics: Vancomycin and Zosyn Full Sepsis bolus given. Patient received 2 Liters of fluid bolus. Goal: 2.1 Liters (30ml/kg). Severe Sepsis Patient has organ dysfunction that meets criteria for severe sepsis. Patient has Bilirubin > 2, Platelet < 100,000, and Lactate > 2. Pt presenting with about 1 month of intermittent fevers and myalgias in the setting of recent travel to [place]. Pt reports some days she feels ok and others she has a fever as high as 103 with chills and severe fatigue with myalgias. Denies other infectious symptoms. Denies sick contacts. Denies known tick bite and reports she mostly stayed inside during her trip. On presentation, pt meets sepsis criteria with elevated lactic of 4.6, fever to 103 and elevated williams, thrombocytopenia. Although the elevated williams and thrombocytopenia are chronic lab findings, the severity of sepsis may be skewed. On exam, pt has a reassurng abd pain with no rebound or guarding but with tenderness in the LUQ , likely related to her chronic splenomegaly. No rashes found on exam.CTAP showed thickening of the colon findings likely consistent with infectious colitis. Pt denies diarrhea. On admission, lactic acid resolved to 1.4. COVID negative. Broad differential at this time including infectious cause vs autoimmune vs malignancy vs inflammatory causes. Infectious etiology being considered include tick born and mosquito borne illness. Although no rashes seen, recent travel history and episodic nature of fevers is consistent with a tick or mosquito born illness. Also considering autoimmune causes such as lupus. Inflammatory causes like HIV being considered although less likely given no history of IV drug use. Work up: -ID consult -Tick panel sent -peripheral smear -Bcx sent -SHAISTA screen -HIV antibodies sent Treatment Plan: -Continue Vancomycin and Cefepime-consider stopping once Bcx have NGTD for 48 hours -LR at 125cc/hour -1x oxy 5mg po dose given for abd pain Diabetic retinopathy associa dick with type 2 diabetes mellitus 06/02/2023 Arteriosclerosis of coronary artery 06/02/2023 Overview (06/02/2023): Evidence of coronary artery calcifications on the CT scan of the chest reported as mild to moderate in severity. Dobutamine echocardiogram was reported as showing possible basal inferior wall hypokinesis, but she did not have any chest pain at the time. Evidence of coronary artery calcifications on the CT scan of the chest reported as mild to moderate in severity. Dobutamine echocardiogram was reported as showing possible basal inferior wall hypokinesis, but she did not have any chest pain at the time. Assessment & Plan (08/18/2024 10:07 AM EDT): Home meds: Rosuvastatin 20mg daily Patient w/ hx of mLAD stenosis to 70% on CCTA with FFR Treadmill stress test in 2023. Managed conservatively, no indication for PCI. Started on statin at that time. She had chest discomfort following TIPS revision, most localized to epigastric region and reproducible on palpation. Serial EKG monitoring during event showed new RBBB, sinus tachycardia. HS troponin elevated to 193 -> 620 -> 527. ProBNP 205. New onset JVD. Cardiology was consulted. RV strain on echo could be d/t increased preload after TIPS procedure. Post procedural atypical CP and troponin leak may be iso of volume shifts d/t TIPS procedure and paracentesis. Cardiac cath deferred iso thrombocytopenia and risk exceeding benefit at this time. Upon discharge: -Continue Crestor 20mg daily -Outpatient cardiology follow up Assessment & Plan (08/17/2024 7:49 AM EDT): Home meds: Rosuvastatin 20mg daily Patient w/ hx of mLAD stenosis to 70% on CCTA with FFR Treadmill stress test in 2023. Plan to manage conservatively, no indication for PCI. Started on statin at that time. Patient with chest discomfort following TIPS revision, most localized to epigastric region and reproducible on palpation. Serial EKG monitoring during event showed new RBBB, sinus tachycardia. HS troponin elevated to 193 -> 620 -> 527. ProBNP 205. Patient with new onset JVD, may be expected post procedurally. Cardiology was consulted. RV strain on echo could be d/t increased preload after TIPS procedure. Post procedural atypical CP and troponin leak may be iso of volume shifts d/t TIPS procedure and paracentesis. Cardiac cath deferred iso thrombocytopenia and risk exceeding benefit at this time. -Continue crestor -Outpatient cardiology follow up Assessment & Plan (08/16/2024 4:37 PM EDT): Home meds: Rosuvastatin 20mg daily Patient w/ hx of mLAD stenosis to 70% on CCTA with FFR Treadmill stress test in 2023. Plan to manage conservatively, no indication for PCI. Started on statin at that time. Patient with chest discomfort following TIPS revision, most localized to epigastric region and reproducible on palpation. Serial EKG monitoring during event showed new RBBB, sinus tachycardia. HS troponin elevated to 193 -> 620 -> 527. ProBNP 205. Patient with new onset JVD, may be expected post procedurally. Cardiology was consulted. RV strain on echo could be d/t increased preload after TIPS procedure. Post procedural atypical CP and troponin leak may be iso of volume shifts d/t TIPS procedure and paracentesis. Cardiac cath deferred iso thrombocytopenia and risk exceeding benefit at this time. -Continue crestor -Outpatient cardiology follow up Assessment & Plan (08/15/2024 6:15 PM EDT): Home meds: Rosuvastatin 20mg daily Patient w/ hx of mLAD stenosis to 70% on CCTA with FFR Treadmill stress test in 2023. Plan to manage conservatively, no indication for PCI. Started on statin at that time. Patient with chest discomfort following TIPS revision, most localized to epigastric region and reproducible on palpation. Serial EKG monitoring during event showed new RBBB, sinus tachycardia. HS troponin elevated to 193 -> 620 -> 527. ProBNP 205. Patient with new onset JVD, may be expected post procedurally. Cardiology was consulted. RV strain on echo could be d/t increased preload after TIPS procedure. Post procedural atypical CP and troponin leak may be iso of volume shifts d/t TIPS procedure and paracentesis. Cardiac cath deferred iso thrombocytopenia and risk exceeding benefit at this time. -Continue home med -Outpatient cardiology follow up Assessment & Plan (08/14/2024 12:03 PM EDT): Home meds: Rosuvastatin 20mg daily Patient w/ hx of mLAD stenosis to 70% on CCTA with FFR Treadmill stress test in 2023. Plan to manage conservatively, no indication for PCI. Started on statin at that time. Patient with chest discomfort following TIPS revision, most localized to epigastric region and reproducible on palpation. Serial EKG monitoring during event showed new RBBB, sinus tachycardia. HS troponin elevated to 193 -> 620 -> 527. ProBNP 205. Patient with new onset JVD, may be expected post procedurally. Cardiology was consulted. RV strain on echo could be d/t increased preload after TIPS procedure. Post procedural atypical CP and troponin leak may be iso of volume shifts d/t TIPS procedure and paracentesis. Cardiac cath deferred iso thrombocytopenia and risk exceeding benefit at this time. -Continue home med -Outpatient cardiology follow up Assessment & Plan (08/12/2024 7:25 PM EDT): Home meds: Rosuvastatin 20mg daily -Continue home meds Assessment & Plan (08/11/2024 5:06 PM EDT): Home meds: Rosuvastatin 20mg daily -Continue home meds Assessment & Plan (08/10/2024 7:57 AM EDT): Home meds: Rosuvastatin 20mg daily -Continue home meds Assessment & Plan (08/09/2024 4:26 PM EDT): Home meds: Rosuvastatin 20mg daily -Continue home meds Assessment & Plan (08/08/2024 6:42 PM EDT): Home meds: Rosuvastatin 20mg daily -Continue home meds Assessment & Plan (08/07/2024 2:49 PM EDT): Home meds: Rosuvastatin 20mg daily -Continue home meds Carpal tunnel syndrome 06/02/2023 History of tobacco use 06/02/2023 Overview (06/02/2023): quit 2012 after 18 years of 1.5PPD quit 2012 after 18 years of 1.5PPD Pancytopenia 06/02/2023 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 Patient was found not to have acute intracranial hemorrhage but incidentally was found to have periapical lucencies within the left maxillary dentition at tooth #14 and 15 reflecting possible periapical abscesses. A follow-up Panorex scan on 04/10 also could not exclude periapical abscesses. On 04/[address] Sanjay Cabrera DMD, who concluded the findings on the CT head non- con and panorex were consistent with abscesses. He could not fully evaluate all teeth given the limited view of the panorex and CT head non-con and advised patient have outpatient follow-up with her dentist. -Patient should have follow-up with her outpatient dentist for abscess treatment Thrombocytopenia 04/05/2022 Assessment & Plan (11/19/2024 3:07 PM EDT): Home meds: avatrombopag 20 mg daily. Patient has history of chronic thrombocytopenia followed by hematology. Baseline 30s-60s. Thrombocytopenia thought to be multifactorial in setting of cirrhosis and splenomegaly. S/p multiple outpatient transfusions and pulse dose steroids. Platelet count 21 after TIPS procedure, received 1 unit of platelets. Discharge: - Restart avatrombopag 20 mg daily Assessment & Plan (08/18/2024 10:07 AM EDT): Home meds: Spironoactone 50mg daily, furosemide 40mg daily, propranolol 30mg daily Patient with longstanding history of 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 No prior history of ascites or episodes of hepatic encephalopathy. Most recent MELD from transplant evaluation June 2024 was 12. Ultimately determined that she would be removed from transplant list. Pt had 1 episode of black tarry stool, concerning for a possible bleed. Pt has had normal BMs since but Hb trending low and she received 1u pRBCS 08/08. 1 dose of Ceftriaxone was given and octreotide and pantoprazole started. Hx of thrombocytopenia in the setting of cirrhosis. Baseline in the 30s. Diagnostic para 08/09 yielded 1.9L and cell count negative for SBP, but pt had already received 2 days of antibiotics at the time of the para. Found to have multiple venous thrombi, TIPS malfunction, s/p TIPS revision 08/12 with resultant hypoxia and tachycardia. S/p second paracentesis on 08/12. Peth values indicating not detected vs abstinence Diuretics were added back slowly and with midodrine to stabilize her BP after the TIPS revision. Per GI, does not need to restart beta juan diego at this time given TIPS should relieve ascites and variceal pressures over time and she is requiring midodrine for hypotension. Significant LE swelling 08/16, improved with restarting lasix. CBC, MELD labs were monitored daily, pain management: received tylenol 650 mg q6h prn, oxycodone 5 mg q6h prn Upon discharge: - Continue midodrine 10 mg for 3 times a day - Continue lasix 40mg daily - Continue spironolactone 100 mg daily - Received 3 days iv venofer, switched to PO iron given nausea. Continue ferrous sulfate 325 mg by mouth every other day - Lactulose 20g BID - Hematology was consulted to rule out other causes for thrombocytopenia and rec folic acid, iron supplementation but low PLTs likely due to cirrhosis, splenomegaly. - Follow-up with outpt heme regarding results, SHEREEN neg, low haptoglobin, high ldh Assessment & Plan (08/17/2024 12:44 PM EDT): Home meds: Spironoactone 50mg daily, furosemide 40mg daily, propranolol 30mg daily Patient with longstanding history of 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 No prior history of ascites or episodes of hepatic encephalopathy. Most recent MELD from transplant evaluation June 2024 was 12. Ultimately determined that she would be removed from transplant list. Pt has a hx of varices s/p banding and TIPS. Pt had 1 episode of black tarry stool, concerning for a possible bleed. Pt has had normal BMs since but Hb is 8.6 (10.2 06/23) given the drop in Hb, prophylactic treatent was given in ED. 1 dose of Ceftriaxone was given and octreotide and pantoprazole started. Hx of thrombocytopenia in the setting of cirrhosis. Baseline in the 30s. Hemoglobin 6.9 on 08/08, 1 unit PRBCs administered. Diagnostic para 08/09 yielded 1.9L and cell count negative for SBP, but pt had already received 2 days of antibiotics at the time of the para. Found to have multiple venous thrombi, TIPS malfunction s/p TIPS revision 08/12 with resultant hypoxia and tachycardia. S/p second paracentesis on 08/12.Peth values indicating not detected vs abstinence Significant LE swelling 08/16, improved with restarting lasix. - Continue midodrine 10 3 times a day - lasix 20 once daily (home is BID) - add alondra 50 daily - Plan to discuss w/ GI if propranolol preferred to other options such as Coreg, start tomorrow pending recs - Venofer started 08/15, continue x 5 days - Lactulose 20g BID - Continue to monitor CBC - MELD labs daily - GI following - Type and screen every 72 hours - Transfuse Hb to >7 - Transfuse Plt to >10 - Pain management: tylenol 650 mg q6h prn, oxycodone 5 mg q6h prn - Hematology consulted to rule out other causes for thrombocytopenia as decompensated liver cirrhosis d/t JAQUEZ does not fully explain it per liver team Assessment & Plan (08/16/2024 4:37 PM EDT): Home meds: Spironoactone 50mg daily, furosemide 40mg daily, propranolol 30mg daily Patient with longstanding history of 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 No prior history of ascites or episodes of hepatic encephalopathy. Most recent MELD from transplant evaluation June 2024 was 12. Ultimately determined that she would be removed from transplant list. Pt has a hx of varices s/p banding and TIPS. Pt had 1 episode of black tarry stool, concerning for a possible bleed. Pt has had normal BMs since but Hb is 8.6 (10.2 06/23) given the drop in Hb, prophylactic treatent was given in ED. 1 dose of Ceftriaxone was given and octreotide and pantoprazole started. Hx of thrombocytopenia in the setting of cirrhosis. Baseline in the 30s. Hemoglobin 6.9 on 08/08, 1 unit PRBCs administered. Diagnostic para 08/09 yielded 1.9L and cell count negative for SBP, but pt has already received 2 days of antibiotics at the time of the para. Found to have multiple venous thrombi, TIPS malfunction s/p TIPS revision 08/12 with resultant hypoxia and tachycardia. S/p second paracentesis on 08/12.Peth values indicating not detected vs abstinence Significant LE swelling 08/16, her lasix was just restarted this afternoon, so will give that some time to take effect, can give 1x IV 10-20mg lasix overnight if not having relief, she will elevate legs when at rest. Do not want to increase her daily lasix given soft BPs - Continue midodrine 10 3 times a day - Restart home lasix 20 PO this afternoon - Tomorrow 08/17 likely add back alondra and propranolol - Plan to discuss w/ GI if propranolol preferred to other options such as Coreg - Venofer started 08/15, continue x 5 days - Lactulose 20g BID - Continue to monitor CBC - MELD labs daily - GI following - Type and screen every 72 hours - Transfuse Hb to >7 - Transfuse Plt to >10 - Pain management: tylenol 650 mg q6h prn, oxycodone 5 mg q6h prn - Hematology consulted to rule out other causes for thrombocytopenia as decompensated liver cirrhosis d/t JAQUEZ does not fully explain it per liver team Assessment & Plan (08/15/2024 6:15 PM EDT): Home meds: Spironoactone 50mg daily, furosemide 40mg daily, propranolol 30mg daily Patient with longstanding history of 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 No prior history of ascites or episodes of hepatic encephalopathy. Most recent MELD from transplant evaluation June 2024 was 12. Ultimately determined that she would be removed from transplant list. Pt has a hx of varices s/p banding and TIPS. Pt had 1 episode of black tarry stool, concerning for a possible bleed. Pt has had normal BMs since but Hb is 8.6 (10.2 06/23) given the drop in Hb, prophylactic treatent was given in ED. 1 dose of Ceftriaxone was given and octreotide and pantoprazole started. Hx of thrombocytopenia in the setting of cirrhosis. Baseline in the 30s. Hemoglobin 6.9 on 08/08, 1 unit PRBCs administered. Diagnostic para 08/09 yielded 1.9L and cell count negative for SBP, but pt has already received 2 days of antibiotics at the time of the para. Found to have multiple venous thrombi, TIPS malfunction s/p TIPS revision 08/12 with resultant hypoxia and tachycardia. S/p second paracentesis on 08/12.Peth values indicating not detected vs abstinence -Continue alondra and furosemide - Continue propranolol -lactulose 20g BID -Continue to monitor CBC -MELD labs daily -GI following -CBC daily -Type and screen every 72 hours -Transfuse Hb to >7 -Transfuse Plt to >10 -Pain management: tylenol 650 mg q6h prn, oxycodone 5 mg q6h prn -Hematology consulted to rule out other causes for thrombocytopenia as decompensated liver cirrhosis d/t JAQUEZ does not fully explain it per liver team -Continue IV Venofer x 5 days (D1: 08/15) Assessment & Plan (08/14/2024 12:03 PM EDT): Home meds: Spironoactone 50mg daily, furosemide 40mg daily, propranolol 30mg daily Patient with longstanding history of 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 No prior history of ascites or episodes of hepatic encephalopathy. Most recent MELD from transplant evaluation June 2024 was 12. Ultimately determined that she would be removed from transplant list. Pt has a hx of varices s/p banding and TIPS. Pt had 1 episode of black tarry stool, concerning for a possible bleed. Pt has had normal BMs since but Hb is 8.6 (10.2 06/23) given the drop in Hb, prophylactic treatent was given in ED. 1 dose of Ceftriaxone was given and octreotide and pantoprazole started. Hx of thrombocytopenia in the setting of cirrhosis. Baseline in the 30s. Hemoglobin 6.9 on 08/08, 1 unit PRBCs administered. Diagnostic para 08/09 yielded 1.9L and cell count negative for SBP, but pt has already received 2 days of antibiotics at the time of the para. Found to have multiple venous thrombi, TIPS malfunction s/p TIPS revision 08/12 with resultant hypoxia and tachycardia. S/p second paracentesis on 08/12.Peth values indicating not detected vs abstinence -Continue alondra and furosemide -lactulose 20g BID -Continue to monitor CBC -Hold home spironolactone, furosemide, propranolol iso SBPs 100s -MELD labs daily -GI following -CBC daily -Type and screen every 72 hours -Transfuse Hb to >7 -Transfuse Plt to >10 -Pain management: tylenol 650 mg q6h prn, oxycodone 5 mg q6h prn -Hematology consulted to rule out other causes for thrombocytopenia as decompensated liver cirrhosis d/t JAQUEZ does not fully explain it per liver team Assessment & Plan (08/12/2024 7:25 PM EDT): Home meds: Spironoactone 50mg daily, furosemide 40mg daily, propranolol 30mg daily Patient with longstanding history of 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 No prior history of ascites or episodes of hepatic encephalopathy. Most recent MELD from transplant evaluation June 2024 was 12. Ultimately determined that she would be removed from transplant list. Pt has a hx of varices s/p banding and TIPS. Pt had 1 episode of black tarry stool, cocnenring for a possible bleed. Pt has had normal Bms since but Hb is 8.6 (10.2 06/23) sop given the drop in Hb, prophylactic treatent was given in ED. 1 dose of Ceftriaxone was given and octreotide and pantoprazole started. Hx of thrombocytopenia in the setting of cirrhosis. Baseline in the 30s. Hemoglobin 6.9 on 08/08, 1 unit PRBCs administered. Diagnostic para 08/09 yielded 1.9L and cell count negative for SBP, but pt has already received 2 days of antibiotics at the time of the para. -continue alondra and furosemide -lactulose 20g BID -Continue to monitor CBC Assessment & Plan (08/11/2024 5:06 PM EDT): Home meds: Spironoactone 50mg daily, furosemide 40mg daily, propranolol 30mg daily Patient with longstanding history of 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 No prior history of ascites or episodes of hepatic encephalopathy. Most recent MELD from transplant evaluation June 2024 was 12. Ultimately determined that she would be removed from transplant list. Pt has a hx of varices s/p banding and TIPS. Pt had 1 episode of black tarry stool, cocnenring for a possible bleed. Pt has had normal Bms since but Hb is 8.6 (10.2 06/23) sop given the drop in Hb, prophylactic treatent was given in ED. 1 dose of Ceftriaxone was given and octreotide and pantoprazole started. Hx of thrombocytopenia in the setting of cirrhosis. Baseline in the 30s. Hemoglobin 6.9 on 08/08, 1 unit PRBCs administered. Diagnostic para 08/09 yielded 1.9L and cell count negative for SBP, but pt has already received 2 days of antibiotics at the time of the para. 08/11: On exam, pt has tenderness in the RLQ, but not rebound like yesterday. Pain is improved per patient report as well. CTAP 08/10 showed: Cirrhosis with portal hypertension, massive splenomegaly, increased large volume ascites. Nonocclusive thrombus narrowing the hepatic venous end of the TIPS shunt, with nonocclusive thrombus just proximal to the portal venous confluence, and within the splenic vein. See splenic vein thrombosis for assessment. -GI consult re persistent abd pain iso 1 month of fevers, appreciate recs -continue alondra and furosemide -lactulose 20g BID -Continue to monitor CBC Assessment & Plan (08/10/2024 12:04 PM EDT): Home meds: Spironoactone 50mg daily, furosemide 40mg daily, propranolol 30mg daily Patient with longstanding history of 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 No prior history of ascites or episodes of hepatic encephalopathy. Most recent MELD from transplant evaluation June 2024 was 12. Ultimately determined that she would be removed from transplant list. Pt has a hx of varices s/p banding and TIPS. Pt had 1 episode of black tarry stool, cocnenring for a possible bleed. Pt has had normal Bms since but Hb is 8.6 (10.2 06/23) sop given the drop in Hb, prophylactic treatent was given in ED. 1 dose of Ceftriaxone was given and octreotide and pantoprazole started. Hx of thrombocytopenia in the setting of cirrhosis. Baseline in the 30s. Hemoglobin 6.9 on 08/08, 1 unit PRBCs administered. 08/10: Diagnostic para yielded 1.9L and cell count negative for SBP, but pt has already received 2 days of antibiotics at the time of the para. On exam, pt has rebound tenderness in the RLQ and abdominal pain is slightly better than yesterday after the para, but is still having significant pain limiting her ability to take deep breaths. -GI consult re persistent abd pain iso 1 month of fevers -Abd Ultrasound completed, pending results -continue alondra and furosemide -lactulose 20g BID -Continue to monitor CBC -Continue Octreotide infusion Assessment & Plan (08/09/2024 4:26 PM EDT): Home meds: Spironoactone 50mg daily, furosemide 40mg daily, propranolol 30mg daily Patient with longstanding history of 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 No prior history of ascites or episodes of hepatic encephalopathy. Most recent MELD from transplant evaluation June 2024 was 12. Ultimately determined that she would be removed from transplant list. Pt has a hx of varices s/p banding and TIPS. Pt had 1 episode of black tarry stool, cocnenring for a possible bleed. Pt has had normal Bms since but Hb is 8.6 (10.2 06/23) sop given the drop in Hb, prophjaylctic treatent was given in ED. 1 dose of Ceftriaxone was givn and ocretodide and pantoprazole started. Hx of thrombocytopenia in the setting of cirrhosis. Baseline in the 30s. Hemoglobin 6.9 on 08/08, 1 unit PRBCs administered. 08/09: Hb 8.2 this morning-not requiring RBCs today. LDH 281, retic index 2.6, haptoglobin < 10, indicating a hemolytic process. Still awaiting tic panel. Plts 24. On exam, abd is distended, but soft with no rebound/guarding. It is diffusely tender. Pt reports 7/10 pain. KUB showed no free air so low concern for obstruction. -Bedside ultrasound to assess for ascites given hx of cirrhosis and fevers considering SBP -restart alondra and furosemide -Simetheticone and Miralax -lactulose 20g BID -Continue to monitor CBC -Continue Octreotide infusion Assessment & Plan (08/08/2024 6:42 PM EDT): Home meds: Spironoactone 50mg daily, furosemide 40mg daily, propranolol 30mg daily Patient with longstanding history of 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 No prior history of ascites or episodes of hepatic encephalopathy. Most recent MELD from transplant evaluation June 2024 was 12. Ultimately determined that she would be removed from transplant list. Pt has a hx of varices s/p banding and TIPS. Pt had 1 episode of black tarry stool, cocnenring for a possible bleed. Pt has had normal Bms since but Hb is 8.6 (10.2 06/23) sop given the drop in Hb, prophjaylctic treatent was given in ED. 1 dose of Ceftriaxone was givn and ocretodide and pantoprazole started. Hx of thrombocytopenia in the setting of cirrhosis. Baseline in the 30s. Hemoglobin 6.9 on 08/08, 1 unit PRBCs administered, pending repeat CBC in a.m. -hold home meds today in the setting of sepsis/dehydration -Continue to monitor CBC - Follow-up LDH, haptoglobin, reticulocyte index Assessment & Plan (08/07/2024 2:49 PM EDT): Home meds: Spironoactone 50mg daily, furosemide 40mg daily, propranolol 30mg daily Patient with longstanding history of 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 No prior history of ascites or episodes of hepatic encephalopathy. Most recent MELD from transplant evaluation June 2024 was 12. Ultimately determined that she would be removed from transplant list. Pt has a hx of varices s/p banding and TIPS. Pt had 1 episode of black tarry stool, cocnenring for a possible bleed. Pt has had normal Bms since but Hb is 8.6 (10.2 06/23) sop given the drop in Hb, prophjaylctic treatent was given in ED. 1 dose of Ceftriaxone was givn and ocretodide and pantoprazole started. Hx of thrombocytopenia in the setting of cirrhosis. Baseline in the 30s. On admission, platelets are 25 -hold home meds today in the setting of sepsis/dehydration -Continue to monitor CBC Assessment & Plan (04/24/2022 5:42 PM EST): Patient with history of cirrhosis 2/2 JAQUEZ and recent admission to [facility] MICU for GIB requiring intubation and CTX/levaquin for SBP ppx. At time of discharge on 03/20, platelets were 40. In subsequent follow-up the week [employer], platelets noted to be critically low at 4. She presented to [facility] for thrombocytopenia, hospitalized from 04/05 - 04/12. Now presenting as a direct admit after outpatent CBC revealed PLT of 4. During most recent admission, infectious workup was negative and peripheral smear revealed clumped platelets but no schistocytes x2. Thrombocytopenia was attributed to bone marrow suppression in the setting of recent profound blood loss and TIPS procedure in previous month at that time with recommended CBC within 1 week of discharge. Plt on day of discharge on 04/12 were 23. Given platelets of 4, 1U plt were transfused on admission; plt was 14 morning of 04/19. Know splenomegaly seen on CT3 phase. Still unclear etiology for thrombocytopenia, liver disease is likely contributory although repeat thrombocytopenia to 4 is suspicious for an additional contributory process. Ddx includes ITP, infection, splenic sequestration, bone marrow suppression, or thrombocytic microangiopathy. UA / not suggestive of UTI; CXR 04/18 showed no acute process. Heme/onc consulted 04/18; recommended hemolytic workup and trial of steroids for possible ITP. No response to steroids, thus, Heme/Onc consider thrombocytopenia 2/2 liver disease. Recommend TPO receptor agonist as bridge to transplant. N-PLATE this admission, consider avatrombopag outpatient, which is not on hospital formulary - CBC q24h, (send blue top PLT clumping tube for accurate PLT count) - Transfuse for platelets <10 or <20 with active bleed (goal: >10) - Heme/Onc consulted, recs appreciated - S/p Dexamethasone 40 mg IV daily for 4 day course - One time Nplate 1mcg/kg dose 04/20, will plan to start Avatrombopag as outpatient - Plan to start 20mg Avatrombopag daily on d/c - Serum IgA: 411 - LDH 04/18 for hemolysis work-up: 188 - Haptoglobin 04/18 for hemolysis work-up: <8 - Factor VIII Activity: 139% (WNL) - Hold off on home Warfarin and subcutaneous DVT ppx given thrombocytopenia and increased risk for bleeding Assessment & Plan (04/10/2022 2:28 PM EST): Patient with history of cirrhosis 2/2 JAQUEZ and recent admission to [facility] MICU for GIB requiring intubation and CTX/levaquin for SBP ppx. At time of discharge on 03/20, platelets were 40. In subsequent follow-up the week [employer], platelets noted to be critically low at 4. She presented to [facility] for thrombocytopenia. She denies infectious symptoms, sick contacts, , herbal supplements, vegan diet, alcohol use, systemic symptoms like joint swelling/rashes. She notes she only received CTX/levaquin (last day was 03/22/22). Etiology of thrombocytopenia uncertain at this time - will complete work-up for infectious causes, nutritional deficiencies, HIV/hepatitis (both negative). hCG negative - CBC daily - Transfuse for platelets < 10 given risk of spontaneous intracerebral hemorrhage -Platelet transfusions: 2 units 2/3, 1 unit 2/4, 1 unit 2/5, 1 unit 2/6 -Hematology following; appreciate recommendations - Peripheral smear: sample from 04/05 showing platelets clumped, negative for shistocytes, repeat smear 04/07/2022 again without schistocytes - Hemolysis workup: Haptoglobin <8, LDH normal, Ferritin normal - Held home Warfarin and subcutaneous DVT ppx given thrombocytopenia and increased risk for bleeding, anticipate restarting home dose with outpatient follow-up with her systems designer Dr. Devuni - Patient reports regular daily dose of coumadin of 12mg daily, she follows outpatient /[facility] in [place] (confirmed dose with clinic) - Infectious work-up with UA, BCx x 2, CXR - Bedside ultrasound of abdomen with no ascites Type 2 diabetes mellitus wit h retinopathy, with long-term current use of insulin 08/09/2020 Assessment & Plan (11/19/2024 2:54 PM EDT): Home meds: insulin glargine 44 units nightly, insulin lispro 0-12 units under the skin 3 times a day with meals, Trulicity 3 mg every 7 days, empagliflozin 25 mg daily. Insulin requirements reduced while in patient given patient was NPO for procedure. Glucose levels have been elevated and can tolerate re-initiation of home regimen on discharge Discharge: - Continue insulin glargine 44 units nightly - Continue SS lispro 0-12 3 times a day with meals - Trulicity 3 mg every 7 days - Continue empagliflozin 25 mg daily Assessment & Plan (11/18/2024 6:43 PM EDT): Home meds: insulin glargine 44 units nightly, insulin lispro 0-12 units under the skin 3 times a day with meals, Trulicity 3 mg every 7 days, empagliflozin 25 mg daily - Continue home insulin glargine 22 units (reduced dose) - Continue medium-dose insulin sliding scale - Hold home Trulicity, empagliflozin Assessment & Plan (08/18/2024 10:07 AM EDT): Home meds: Insulin glargine 44 units nightly, insulin lispro 0-12 units 3 times a day, empagliflozin 25mg daily, Dulaglutide 3mg every 7 days. Continued her glargine and on MDISS, held jardiance while admitted Upon discharge: - Continue 44 U glargine nightly - Cont prandial insulin lispro - Restart jardiance 25mg daily Assessment & Plan (08/17/2024 7:49 AM EDT): Home meds: Insulin glargine 44 units nightly, insulin lispro 0-12 units 3 times a day, empagliflozin 25mg daily, Dulaglutide 3mg every 7 days -Continue glargine 31 units -MDISS ACHS -Hold jardiance, empaglifozin Assessment & Plan (08/16/2024 4:37 PM EDT): Home meds: Insulin glargine 44 units nightly, insulin lispro 0-12 units 3 times a day, empagliflozin 25mg daily, Dulaglutide 3mg every 7 days -Continue glargine 31 units -MDISS ACHS -Hold jardiance, empaglifozin Assessment & Plan (08/15/2024 6:15 PM EDT): Home meds: Insulin glargine 44 units nightly, insulin lispro 0-12 units 3 times a day, empagliflozin 25mg daily, Dulaglutide 3mg every 7 days -Continue glargine 31 units -MDISS ACHS -Hold jardiance, empaglifozin Assessment & Plan (08/14/2024 8:13 AM EDT): Home meds: Insulin glargine 44 units nightly, insulin lispro 0-12 units 3 times a day, empagliflozin 25mg daily, Dulaglutide 3mg every 7 days -Continue glargine 31 units -MDISS ACHS -Hold jardiance, empaglifozin Assessment & Plan (08/12/2024 7:25 PM EDT): Home meds: Insulin glargine 44 units nightly, insulin lispro 0-12 units 3 times a day, empagliflozin 25mg daily, Dulaglutide 3mg every 7 days -Continue glargine 31 units -Continue insulin sliding scale -hold jardiance, empaglifozin Assessment & Plan (08/11/2024 5:06 PM EDT): Home meds: Insulin glargine 44 units nightly, insulin lispro 0-12 units 3 times a day, empagliflozin 25mg daily, Dulaglutide 3mg every 7 days -Increase glargine to 31 units -Continue insulin sliding scale -hold jardiance, empaglifozin Assessment & Plan (08/10/2024 12:04 PM EDT): Home meds: Insulin glargine 44 units nightly, insulin lispro 0-12 units 3 times a day, empagliflozin 25mg daily, Dulaglutide 3mg every 7 days -Continue glargine 27 units -Continue insulin sliding scale -hold jardiance, empaglifozin Assessment & Plan (08/09/2024 4:26 PM EDT): Home meds: Insulin glargine 44 units nightly, insulin lispro 0-12 units 3 times a day, empagliflozin 25mg daily, Dulaglutide 3mg every 7 days -Increase glargine to 27 units given elevated blood sugars the past 2 mornings -Continue insulin sliding scale -hold jardiance, empaglifozin Assessment & Plan (08/08/2024 6:42 PM EDT): Home meds: Insulin glargine 44 units nightly, insulin lispro 0-12 units 3 times a day, empagliflozin 25mg daily, Dulaglutide 3mg every 7 days -Continue glargine at 22 units and insulin sliding scale -hold jardiance, empaglifozin Assessment & Plan (08/07/2024 2:49 PM EDT): Home meds: Insulin glargine 44 units nightly, insulin lispro 0-12 units 3 times a day, empagliflozin 25mg daily, Dulaglutide 3mg every 7 days -Continue glargine at 22 units and insulin sliding scale -hold jardiance, empaglifozin Anxiety 03/24/2020 Assessment & Plan (11/19/2024 2:54 PM EDT): Home meds: buspirone 7.5 mg twice daily, citalopram 20 mg daily, lorazepam 0.5 mg twice daily PRN Discharge: - Continue home buspirone - Continue home citalopram - Continue home lorazepam Assessment & Plan (11/18/2024 6:43 PM EDT): Home meds: buspirone 7.5 mg twice daily, citalopram 20 mg daily, lorazepam 0.5 mg twice daily PRN - Continue home buspirone - Continue home citalopram - Continue home lorazepam Assessment & Plan (08/18/2024 10:07 AM EDT): Home meds: Lorazepam 0.5mg BID PRN, Buspirone HCL 2.5mg BID, Citalopram 20mg daily Upon discharge: - Continue home meds Assessment & Plan (08/17/2024 7:49 AM EDT): Home meds: Lorazepam 0.5mg BID PRN, Buspirone HCL 2.5mg BID, Citalopram 20mg daily -Continue home meds Assessment & Plan (08/16/2024 4:37 PM EDT): Home meds: Lorazepam 0.5mg BID PRN, Buspirone HCL 2.5mg BID, Citalopram 20mg daily -Continue home meds Assessment & Plan (08/15/2024 6:15 PM EDT): Home meds: Lorazepam 0.5mg BID PRN, Buspirone HCL 2.5mg BID, Citalopram 20mg daily -Continue home meds Assessment & Plan (08/14/2024 8:01 AM EDT): Home meds: Lorazepam 0.5mg BID PRN, Buspirone HCL 2.5mg BID, Citalopram 20mg daily -Continue home meds Assessment & Plan (08/12/2024 7:25 PM EDT): Home meds: Lorazepam 0.5mg BID PRN, Buspirone HCL 2.5mg BID, Citalopram 20mg daily -Continue home meds Assessment & Plan (08/11/2024 5:06 PM EDT): Home meds: Lorazepam 0.5mg BID PRN, Buspirone HCL 2.5mg BID, Citalopram 20mg daily -Continue home meds Assessment & Plan (08/10/2024 7:57 AM EDT): Home meds: Lorazepam 0.5mg BID PRN, Buspirone HCL 2.5mg BID, Citalopram 20mg daily -Continue home meds Assessment & Plan (08/09/2024 4:26 PM EDT): Home meds: Lorazepam 0.5mg BID PRN, Buspirone HCL 2.5mg BID, Citalopram 20mg daily -Continue home meds Assessment & Plan (08/08/2024 6:42 PM EDT): Home meds: Lorazepam 0.5mg BID PRN, Buspirone HCL 2.5mg BID, Citalopram 20mg daily -Continue home meds Assessment & Plan (08/07/2024 2:49 PM EDT): Home meds: Lorazepam 0.5mg BID PRN, Buspirone HCL 2.5mg BID, Citalopram 20mg daily -Continue home meds Assessment & Plan (04/19/2022 1:48 PM EST): Home medications: Ativan 0.5mg BID PRN, Celexa 20mg daily, Buproprion XL 150mg daily - c/h Celexa, Buproprion - Hold home Ativan ISO endorsed fuzziness/confusion Assessment & Plan (04/08/2022 6:00 PM EST): Home medications: Ativan 0.5mg BID PRN, Celexa 20mg daily, Buproprion XL 150mg daily Patient with anxiety on above medications. Mood stable on admission. - Continue home medications Depression 03/24/2020 Assessment & Plan (11/19/2024 2:54 PM EDT): Home meds: buspirone 7.5 mg twice daily, citalopram 20 mg daily, lorazepam 0.5 mg twice daily PRN Discharge: - Continue home buspirone - Continue home citalopram - Continue home lorazepam Assessment & Plan (11/18/2024 6:43 PM EDT): Home meds: buspirone 7.5 mg twice daily, citalopram 20 mg daily, lorazepam 0.5 mg twice daily PRN - Continue home buspirone - Continue home citalopram - Continue home lorazepam Encounter for pre-transplant evaluation for liver transplant 03/24/2020 Positive reaction to tuberculin skin test 2014 Overview (06/02/2023): Pt missed 04/18/15 appt and does not want any more appts. Pt missed 04/18/15 appt and does not want any more appts. PCOS (polycystic ovarian syndrome) 12/10/2013 Elevated transaminase measurement 06/15/2012 Gastroesophageal reflux disease 07/10/2010 Overview (06/02/2023): Assessment & Plan (11/19/2024 2:54 PM EDT): Home meds: omeprazole 40 mg daily Discharge: - Continue pantoprazole 20 mg daily Assessment & Plan (11/18/2024 6:43 PM EDT): Home meds: omeprazole 40 mg daily - Continue pantoprazole 20 mg daily Assessment & Plan (08/18/2024 10:07 AM EDT): Home meds: Omeprazole 40mg daily Received Pantoprazole 40mg while inpatient Upon discharge: - Continue home omeprazole 40 daily Assessment & Plan (08/17/2024 7:49 AM EDT): Home meds: Omeprazole 40mg daily -Pantoprazole 40mg while inpatient Assessment & Plan (08/16/2024 4:37 PM EDT): Home meds: Omeprazole 40mg daily -Pantoprazole 40mg while inpatient Assessment & Plan (08/15/2024 6:15 PM EDT): Home meds: Omeprazole 40mg daily -Pantoprazole 40mg while inpatient Assessment & Plan (08/14/2024 8:01 AM EDT): Home meds: Omeprazole 40mg daily -Pantoprazole 40mg while inpatient Assessment & Plan (08/12/2024 7:25 PM EDT): Home meds: Omeprazole 40mg daily -Pantoprazole 40mg while inpatient Assessment & Plan (08/11/2024 5:06 PM EDT): Home meds: Omeprazole 40mg daily -Pantoprazole 40mg while inpatient Assessment & Plan (08/10/2024 7:57 AM EDT): Home meds: Omeprazole 40mg daily -Pantoprazole 40mg while inpatient Assessment & Plan (08/09/2024 4:26 PM EDT): Home meds: Omeprazole 40mg daily -Pantoprazole 40mg while inpatient Assessment & Plan (08/08/2024 6:42 PM EDT): Home meds: Omeprazole 40mg daily -Pantoprazole 40mg while inpatient Assessment & Plan (08/07/2024 2:49 PM EDT): Home meds: Omeprazole 40mg daily -Pantoprazole 40mg while inpatient Fibrocystic disease of breast 07/30/2005 Genital herpes 07/30/2005 Esophageal varices Assessment & Plan (11/19/2024 3:07 PM EDT): Home meds: spironolactone 100 mg daily, torsemide 40 mg daily, lactulose 20 g BID, midodrine 10 mg every 8 hours Patient with a history of JAQUEZ 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 Follows with Dr. Gaona. Patient initially listed on transplant list, removed from waitlist as she was doing well. Last HCC screening was abdominal CT scan was on 08/13/2024, no evidence of HCC. Will continue on home medications. MELD 3.0: 11 at 11/12/2024 11:21 AM MELD-Na: 7 at 11/12/2024 11:21 AM Calculated from: Serum Creatinine: 0.72 mg/dL (Using min of 1 mg/dL) at 11/12/2024 11:21 AM Serum Sodium: 134 mmol/L at 11/12/2024 11:21 AM Total Bilirubin: 0.9 mg/dL (Using min of 1 mg/dL) at 11/12/2024 11:21 AM Serum Albumin: 3.1 g/dL at 11/12/2024 11:21 AM INR(ratio): 1.1 at 11/12/2024 11:21 AM Age at listing (hypothetical): 49 years Sex: Female at 11/12/2024 11:21 AM Discharge: - Continue home spironolactone 100 mg daily - Continue home torsemide 40 mg daily - HE prophylaxis: lactulose 20 g TID - Increase midodrine 15 mg q8 Assessment & Plan (11/18/2024 6:43 PM EDT): Home meds: spironolactone 100 mg daily, torsemide 40 mg daily, lactulose 20 g BID, midodrine 10 mg every 8 hours Patient with a history of JAQUEZ 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 Follows with Dr. Gaona. Patient initially listed on transplant list, removed from waitlist as she was doing well. Last HCC screening was abdominal CT scan was on 08/13/2024, no evidence of HCC. Will continue on home medications. MELD 3.0: 11 at 11/12/2024 11:21 AM MELD-Na: 7 at 11/12/2024 11:21 AM Calculated from: Serum Creatinine: 0.72 mg/dL (Using min of 1 mg/dL) at 11/12/2024 11:21 AM Serum Sodium: 134 mmol/L at 11/12/2024 11:21 AM Total Bilirubin: 0.9 mg/dL (Using min of 1 mg/dL) at 11/12/2024 11:21 AM Serum Albumin: 3.1 g/dL at 11/12/2024 11:21 AM INR(ratio): 1.1 at 11/12/2024 11:21 AM Age at listing (hypothetical): 49 years Sex: Female at 11/12/2024 11:21 AM - Continue home spironolactone 100 mg daily - Continue home torsemide 40 mg daily - HE prophylaxis: lactulose 20 g TID - Continue home midodrine 10 mg q8h Assessment & Plan (08/18/2024 10:07 AM EDT): Home meds: Spironoactone 50mg daily, furosemide 40mg daily, propranolol 30mg daily Patient with longstanding history of 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 No prior history of ascites or episodes of hepatic encephalopathy. Most recent MELD from transplant evaluation June 2024 was 12. Ultimately determined that she would be removed from transplant list. Pt had 1 episode of black tarry stool, concerning for a possible bleed. Pt has had normal BMs since but Hb trending low and she received 1u pRBCS 08/08. 1 dose of Ceftriaxone was given and octreotide and pantoprazole started. Hx of thrombocytopenia in the setting of cirrhosis. Baseline in the 30s. Diagnostic para 08/09 yielded 1.9L and cell count negative for SBP, but pt had already received 2 days of antibiotics at the time of the para. Found to have multiple venous thrombi, TIPS malfunction, s/p TIPS revision 08/12 with resultant hypoxia and tachycardia. S/p second paracentesis on 08/12. Peth values indicating not detected vs abstinence Diuretics were added back slowly and with midodrine to stabilize her BP after the TIPS revision. Per GI, does not need to restart beta juan diego at this time given TIPS should relieve ascites and variceal pressures over time and she is requiring midodrine for hypotension. Significant LE swelling 08/16, improved with restarting lasix. CBC, MELD labs were monitored daily, pain management: received tylenol 650 mg q6h prn, oxycodone 5 mg q6h prn Upon discharge: - Continue midodrine 10 mg for 3 times a day - Continue lasix 40mg daily - Continue spironolactone 100 mg daily - Received 3 days iv venofer, switched to PO iron given nausea. Continue ferrous sulfate 325 mg by mouth every other day - Lactulose 20g BID - Hematology was consulted to rule out other causes for thrombocytopenia and rec folic acid, iron supplementation but low PLTs likely due to cirrhosis, splenomegaly. - Follow-up with outpt heme regarding results, SHEREEN neg, low haptoglobin, high ldh Assessment & Plan (08/17/2024 12:44 PM EDT): Home meds: Spironoactone 50mg daily, furosemide 40mg daily, propranolol 30mg daily Patient with longstanding history of 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 No prior history of ascites or episodes of hepatic encephalopathy. Most recent MELD from transplant evaluation June 2024 was 12. Ultimately determined that she would be removed from transplant list. Pt has a hx of varices s/p banding and TIPS. Pt had 1 episode of black tarry stool, concerning for a possible bleed. Pt has had normal BMs since but Hb is 8.6 (10.2 06/23) given the drop in Hb, prophylactic treatent was given in ED. 1 dose of Ceftriaxone was given and octreotide and pantoprazole started. Hx of thrombocytopenia in the setting of cirrhosis. Baseline in the 30s. Hemoglobin 6.9 on 08/08, 1 unit PRBCs administered. Diagnostic para 08/09 yielded 1.9L and cell count negative for SBP, but pt had already received 2 days of antibiotics at the time of the para. Found to have multiple venous thrombi, TIPS malfunction s/p TIPS revision 08/12 with resultant hypoxia and tachycardia. S/p second paracentesis on 08/12.Peth values indicating not detected vs abstinence Significant LE swelling 08/16, improved with restarting lasix. - Continue midodrine 10 3 times a day - lasix 20 once daily (home is BID) - add alondra 50 daily - Plan to discuss w/ GI if propranolol preferred to other options such as Coreg, start tomorrow pending recs - Venofer started 08/15, continue x 5 days - Lactulose 20g BID - Continue to monitor CBC - MELD labs daily - GI following - Type and screen every 72 hours - Transfuse Hb to >7 - Transfuse Plt to >10 - Pain management: tylenol 650 mg q6h prn, oxycodone 5 mg q6h prn - Hematology consulted to rule out other causes for thrombocytopenia as decompensated liver cirrhosis d/t JAQUEZ does not fully explain it per liver team Assessment & Plan (08/16/2024 4:37 PM EDT): Home meds: Spironoactone 50mg daily, furosemide 40mg daily, propranolol 30mg daily Patient with longstanding history of 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 No prior history of ascites or episodes of hepatic encephalopathy. Most recent MELD from transplant evaluation June 2024 was 12. Ultimately determined that she would be removed from transplant list. Pt has a hx of varices s/p banding and TIPS. Pt had 1 episode of black tarry stool, concerning for a possible bleed. Pt has had normal BMs since but Hb is 8.6 (10.2 06/23) given the drop in Hb, prophylactic treatent was given in ED. 1 dose of Ceftriaxone was given and octreotide and pantoprazole started. Hx of thrombocytopenia in the setting of cirrhosis. Baseline in the 30s. Hemoglobin 6.9 on 08/08, 1 unit PRBCs administered. Diagnostic para 08/09 yielded 1.9L and cell count negative for SBP, but pt has already received 2 days of antibiotics at the time of the para. Found to have multiple venous thrombi, TIPS malfunction s/p TIPS revision 08/12 with resultant hypoxia and tachycardia. S/p second paracentesis on 08/12.Peth values indicating not detected vs abstinence Significant LE swelling 08/16, her lasix was just restarted this afternoon, so will give that some time to take effect, can give 1x IV 10-20mg lasix overnight if not having relief, she will elevate legs when at rest. Do not want to increase her daily lasix given soft BPs - Continue midodrine 10 3 times a day - Restart home lasix 20 PO this afternoon - Tomorrow 08/17 likely add back alondra and propranolol - Plan to discuss w/ GI if propranolol preferred to other options such as Coreg - Venofer started 08/15, continue x 5 days - Lactulose 20g BID - Continue to monitor CBC - MELD labs daily - GI following - Type and screen every 72 hours - Transfuse Hb to >7 - Transfuse Plt to >10 - Pain management: tylenol 650 mg q6h prn, oxycodone 5 mg q6h prn - Hematology consulted to rule out other causes for thrombocytopenia as decompensated liver cirrhosis d/t JAQUEZ does not fully explain it per liver team Assessment & Plan (08/15/2024 6:15 PM EDT): Home meds: Spironoactone 50mg daily, furosemide 40mg daily, propranolol 30mg daily Patient with longstanding history of 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 No prior history of ascites or episodes of hepatic encephalopathy. Most recent MELD from transplant evaluation June 2024 was 12. Ultimately determined that she would be removed from transplant list. Pt has a hx of varices s/p banding and TIPS. Pt had 1 episode of black tarry stool, concerning for a possible bleed. Pt has had normal BMs since but Hb is 8.6 (10.2 06/23) given the drop in Hb, prophylactic treatent was given in ED. 1 dose of Ceftriaxone was given and octreotide and pantoprazole started. Hx of thrombocytopenia in the setting of cirrhosis. Baseline in the 30s. Hemoglobin 6.9 on 08/08, 1 unit PRBCs administered. Diagnostic para 08/09 yielded 1.9L and cell count negative for SBP, but pt has already received 2 days of antibiotics at the time of the para. Found to have multiple venous thrombi, TIPS malfunction s/p TIPS revision 08/12 with resultant hypoxia and tachycardia. S/p second paracentesis on 08/12.Peth values indicating not detected vs abstinence -Continue alondra and furosemide - Continue propranolol -lactulose 20g BID -Continue to monitor CBC -MELD labs daily -GI following -CBC daily -Type and screen every 72 hours -Transfuse Hb to >7 -Transfuse Plt to >10 -Pain management: tylenol 650 mg q6h prn, oxycodone 5 mg q6h prn -Hematology consulted to rule out other causes for thrombocytopenia as decompensated liver cirrhosis d/t JAQUEZ does not fully explain it per liver team -Continue IV Venofer x 5 days (D1: 08/15) Assessment & Plan (08/14/2024 12:03 PM EDT): Home meds: Spironoactone 50mg daily, furosemide 40mg daily, propranolol 30mg daily Patient with longstanding history of 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 No prior history of ascites or episodes of hepatic encephalopathy. Most recent MELD from transplant evaluation June 2024 was 12. Ultimately determined that she would be removed from transplant list. Pt has a hx of varices s/p banding and TIPS. Pt had 1 episode of black tarry stool, concerning for a possible bleed. Pt has had normal BMs since but Hb is 8.6 (10.2 06/23) given the drop in Hb, prophylactic treatent was given in ED. 1 dose of Ceftriaxone was given and octreotide and pantoprazole started. Hx of thrombocytopenia in the setting of cirrhosis. Baseline in the 30s. Hemoglobin 6.9 on 08/08, 1 unit PRBCs administered. Diagnostic para 08/09 yielded 1.9L and cell count negative for SBP, but pt has already received 2 days of antibiotics at the time of the para. Found to have multiple venous thrombi, TIPS malfunction s/p TIPS revision 08/12 with resultant hypoxia and tachycardia. S/p second paracentesis on 08/12.Peth values indicating not detected vs abstinence -Continue alondra and furosemide -lactulose 20g BID -Continue to monitor CBC -Hold home spironolactone, furosemide, propranolol iso SBPs 100s -MELD labs daily -GI following -CBC daily -Type and screen every 72 hours -Transfuse Hb to >7 -Transfuse Plt to >10 -Pain management: tylenol 650 mg q6h prn, oxycodone 5 mg q6h prn -Hematology consulted to rule out other causes for thrombocytopenia as decompensated liver cirrhosis d/t JAQUEZ does not fully explain it per liver team Assessment & Plan (08/12/2024 7:25 PM EDT): Home meds: Spironoactone 50mg daily, furosemide 40mg daily, propranolol 30mg daily Patient with longstanding history of 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 No prior history of ascites or episodes of hepatic encephalopathy. Most recent MELD from transplant evaluation June 2024 was 12. Ultimately determined that she would be removed from transplant list. Pt has a hx of varices s/p banding and TIPS. Pt had 1 episode of black tarry stool, cocnenring for a possible bleed. Pt has had normal Bms since but Hb is 8.6 (10.2 06/23) sop given the drop in Hb, prophylactic treatent was given in ED. 1 dose of Ceftriaxone was given and octreotide and pantoprazole started. Hx of thrombocytopenia in the setting of cirrhosis. Baseline in the 30s. Hemoglobin 6.9 on 08/08, 1 unit PRBCs administered. Diagnostic para 08/09 yielded 1.9L and cell count negative for SBP, but pt has already received 2 days of antibiotics at the time of the para. -continue alondra and furosemide -lactulose 20g BID -Continue to monitor CBC Assessment & Plan (08/11/2024 5:06 PM EDT): Home meds: Spironoactone 50mg daily, furosemide 40mg daily, propranolol 30mg daily Patient with longstanding history of 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 No prior history of ascites or episodes of hepatic encephalopathy. Most recent MELD from transplant evaluation June 2024 was 12. Ultimately determined that she would be removed from transplant list. Pt has a hx of varices s/p banding and TIPS. Pt had 1 episode of black tarry stool, cocnenring for a possible bleed. Pt has had normal Bms since but Hb is 8.6 (10.2 06/23) sop given the drop in Hb, prophylactic treatent was given in ED. 1 dose of Ceftriaxone was given and octreotide and pantoprazole started. Hx of thrombocytopenia in the setting of cirrhosis. Baseline in the 30s. Hemoglobin 6.9 on 08/08, 1 unit PRBCs administered. Diagnostic para 08/09 yielded 1.9L and cell count negative for SBP, but pt has already received 2 days of antibiotics at the time of the para. 08/11: On exam, pt has tenderness in the RLQ, but not rebound like yesterday. Pain is improved per patient report as well. CTAP 08/10 showed: Cirrhosis with portal hypertension, massive splenomegaly, increased large volume ascites. Nonocclusive thrombus narrowing the hepatic venous end of the TIPS shunt, with nonocclusive thrombus just proximal to the portal venous confluence, and within the splenic vein. See splenic vein thrombosis for assessment. -GI consult re persistent abd pain iso 1 month of fevers, appreciate recs -continue alondra and furosemide -lactulose 20g BID -Continue to monitor CBC Assessment & Plan (08/10/2024 12:04 PM EDT): Home meds: Spironoactone 50mg daily, furosemide 40mg daily, propranolol 30mg daily Patient with longstanding history of 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 No prior history of ascites or episodes of hepatic encephalopathy. Most recent MELD from transplant evaluation June 2024 was 12. Ultimately determined that she would be removed from transplant list. Pt has a hx of varices s/p banding and TIPS. Pt had 1 episode of black tarry stool, cocnenring for a possible bleed. Pt has had normal Bms since but Hb is 8.6 (10.2 06/23) sop given the drop in Hb, prophylactic treatent was given in ED. 1 dose of Ceftriaxone was given and octreotide and pantoprazole started. Hx of thrombocytopenia in the setting of cirrhosis. Baseline in the 30s. Hemoglobin 6.9 on 08/08, 1 unit PRBCs administered. 08/10: Diagnostic para yielded 1.9L and cell count negative for SBP, but pt has already received 2 days of antibiotics at the time of the para. On exam, pt has rebound tenderness in the RLQ and abdominal pain is slightly better than yesterday after the para, but is still having significant pain limiting her ability to take deep breaths. -GI consult re persistent abd pain iso 1 month of fevers -Abd Ultrasound completed, pending results -continue alondra and furosemide -lactulose 20g BID -Continue to monitor CBC -Continue Octreotide infusion Assessment & Plan (08/09/2024 4:26 PM EDT): Home meds: Spironoactone 50mg daily, furosemide 40mg daily, propranolol 30mg daily Patient with longstanding history of 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 No prior history of ascites or episodes of hepatic encephalopathy. Most recent MELD from transplant evaluation June 2024 was 12. Ultimately determined that she would be removed from transplant list. Pt has a hx of varices s/p banding and TIPS. Pt had 1 episode of black tarry stool, cocnenring for a possible bleed. Pt has had normal Bms since but Hb is 8.6 (10.2 06/23) sop given the drop in Hb, prophjaylctic treatent was given in ED. 1 dose of Ceftriaxone was givn and ocretodide and pantoprazole started. Hx of thrombocytopenia in the setting of cirrhosis. Baseline in the 30s. Hemoglobin 6.9 on 08/08, 1 unit PRBCs administered. 08/09: Hb 8.2 this morning-not requiring RBCs today. LDH 281, retic index 2.6, haptoglobin < 10, indicating a hemolytic process. Still awaiting tic panel. Plts 24. On exam, abd is distended, but soft with no rebound/guarding. It is diffusely tender. Pt reports 7/10 pain. KUB showed no free air so low concern for obstruction. -Bedside ultrasound to assess for ascites given hx of cirrhosis and fevers considering SBP -restart alondra and furosemide -Simetheticone and Miralax -lactulose 20g BID -Continue to monitor CBC -Continue Octreotide infusion Assessment & Plan (08/08/2024 6:42 PM EDT): Home meds: Spironoactone 50mg daily, furosemide 40mg daily, propranolol 30mg daily Patient with longstanding history of 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 No prior history of ascites or episodes of hepatic encephalopathy. Most recent MELD from transplant evaluation June 2024 was 12. Ultimately determined that she would be removed from transplant list. Pt has a hx of varices s/p banding and TIPS. Pt had 1 episode of black tarry stool, cocnenring for a possible bleed. Pt has had normal Bms since but Hb is 8.6 (10.2 4/23) sop given the drop in Hb, prophjaylctic treatent was given in ED. 1 dose of Ceftriaxone was givn and ocretodide and pantoprazole started. Hx of thrombocytopenia in the setting of cirrhosis. Baseline in the 30s. Hemoglobin 6.9 on 08/08, 1 unit PRBCs administered, pending repeat CBC in a.m. -hold home meds today in the setting of sepsis/dehydration -Continue to monitor CBC - Follow-up LDH, haptoglobin, reticulocyte index Assessment & Plan (08/07/2024 2:49 PM EDT): Home meds: Spironoactone 50mg daily, furosemide 40mg daily, propranolol 30mg daily Patient with longstanding history of 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 No prior history of ascites or episodes of hepatic encephalopathy. Most recent MELD from transplant evaluation June 2024 was 12. Ultimately determined that she would be removed from transplant list. Pt has a hx of varices s/p banding and TIPS. Pt had 1 episode of black tarry stool, cocnenring for a possible bleed. Pt has had normal Bms since but Hb is 8.6 (10.2 4/) sop given the drop in Hb, prophjaylctic treatent was given in ED. 1 dose of Ceftriaxone was givn and ocretodide and pantoprazole started. Hx of thrombocytopenia in the setting of cirrhosis. Baseline in the 30s. On admission, platelets are 25 -hold home meds today in the setting of sepsis/dehydration -Continue to monitor CBC Assessment & Plan (04/19/2022 1:48 PM EST): Home medications: Prilosec 40mg daily Patient with history of esophageal varices. - Protonix 40mg daily (Prilosec not on formulary) Hepatic encephalopathy Liver cirrhosis secondary to JAQUEZ Assessment & Plan (11/19/2024 3:07 PM EDT): Home meds: spironolactone 100 mg daily, torsemide 40 mg daily, lactulose 20 g BID, midodrine 10 mg every 8 hours Patient with a history of JAQUEZ 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 Follows with Dr. Gaona. Patient initially listed on transplant list, removed from waitlist as she was doing well. Last HCC screening was abdominal CT scan was on 08/13/2024, no evidence of HCC. Will continue on home medications. MELD 3.0: 11 at 11/12/2024 11:21 AM MELD-Na: 7 at 11/12/2024 11:21 AM Calculated from: Serum Creatinine: 0.72 mg/dL (Using min of 1 mg/dL) at 11/12/2024 11:21 AM Serum Sodium: 134 mmol/L at 11/12/2024 11:21 AM Total Bilirubin: 0.9 mg/dL (Using min of 1 mg/dL) at 11/12/2024 11:21 AM Serum Albumin: 3.1 g/dL at 11/12/2024 11:21 AM INR(ratio): 1.1 at 11/12/2024 11:21 AM Age at listing (hypothetical): 49 years Sex: Female at 11/12/2024 11:21 AM Discharge: - Continue home spironolactone 100 mg daily - Continue home torsemide 40 mg daily - HE prophylaxis: lactulose 20 g TID - Increase midodrine 15 mg q8 Assessment & Plan (11/18/2024 6:43 PM EDT): Home meds: spironolactone 100 mg daily, torsemide 40 mg daily, lactulose 20 g BID, midodrine 10 mg every 8 hours Patient with a history of JAQUEZ 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 Follows with Dr. Gaona. Patient initially listed on transplant list, removed from waitlist as she was doing well. Last HCC screening was abdominal CT scan was on 08/13/2024, no evidence of HCC. Will continue on home medications. MELD 3.0: 11 at 11/12/2024 11:21 AM MELD-Na: 7 at 11/12/2024 11:21 AM Calculated from: Serum Creatinine: 0.72 mg/dL (Using min of 1 mg/dL) at 11/12/2024 11:21 AM Serum Sodium: 134 mmol/L at 11/12/2024 11:21 AM Total Bilirubin: 0.9 mg/dL (Using min of 1 mg/dL) at 11/12/2024 11:21 AM Serum Albumin: 3.1 g/dL at 11/12/2024 11:21 AM INR(ratio): 1.1 at 11/12/2024 11:21 AM Age at listing (hypothetical): 49 years Sex: Female at 11/12/2024 11:21 AM - Continue home spironolactone 100 mg daily - Continue home torsemide 40 mg daily - HE prophylaxis: lactulose 20 g TID - Continue home midodrine 10 mg q8h Assessment & Plan (08/18/2024 10:07 AM EDT): Home meds: Spironoactone 50mg daily, furosemide 40mg daily, propranolol 30mg daily Patient with longstanding history of 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 No prior history of ascites or episodes of hepatic encephalopathy. Most recent MELD from transplant evaluation June 2024 was 12. Ultimately determined that she would be removed from transplant list. Pt had 1 episode of black tarry stool, concerning for a possible bleed. Pt has had normal BMs since but Hb trending low and she received 1u pRBCS 08/08. 1 dose of Ceftriaxone was given and octreotide and pantoprazole started. Hx of thrombocytopenia in the setting of cirrhosis. Baseline in the 30s. Diagnostic para 08/09 yielded 1.9L and cell count negative for SBP, but pt had already received 2 days of antibiotics at the time of the para. Found to have multiple venous thrombi, TIPS malfunction, s/p TIPS revision 08/12 with resultant hypoxia and tachycardia. S/p second paracentesis on 08/12. Peth values indicating not detected vs abstinence Diuretics were added back slowly and with midodrine to stabilize her BP after the TIPS revision. Per GI, does not need to restart beta [place] at this time given TIPS should relieve ascites and variceal pressures over time and she is requiring midodrine for hypotension. Significant LE swelling 08/16, improved with restarting lasix. CBC, MELD labs were monitored daily, pain management: received tylenol 650 mg q6h prn, oxycodone 5 mg q6h prn Upon discharge: - Continue midodrine 10 mg for 3 times a day - Continue lasix 40mg daily - Continue spironolactone 100 mg daily - Received 3 days iv venofer, switched to PO iron given nausea. Continue ferrous sulfate 325 mg by mouth every other day - Lactulose 20g BID - Hematology was consulted to rule out other causes for thrombocytopenia and rec folic acid, iron supplementation but low PLTs likely due to cirrhosis, splenomegaly. - Follow-up with outpt heme regarding results, SHEREEN neg, low haptoglobin, high ldh Assessment & Plan (08/17/2024 12:44 PM EDT): Home meds: Spironoactone 50mg daily, furosemide 40mg daily, propranolol 30mg daily Patient with longstanding history of 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 No prior history of ascites or episodes of hepatic encephalopathy. Most recent MELD from transplant evaluation June 2024 was 12. Ultimately determined that she would be removed from transplant list. Pt has a hx of varices s/p banding and TIPS. Pt had 1 episode of black tarry stool, concerning for a possible bleed. Pt has had normal BMs since but Hb is 8.6 (10.2 06/23) given the drop in Hb, prophylactic treatent was given in ED. 1 dose of Ceftriaxone was given and octreotide and pantoprazole started. Hx of thrombocytopenia in the setting of cirrhosis. Baseline in the 30s. Hemoglobin 6.9 on 08/08, 1 unit PRBCs administered. Diagnostic para 08/09 yielded 1.9L and cell count negative for SBP, but pt had already received 2 days of antibiotics at the time of the para. Found to have multiple venous thrombi, TIPS malfunction s/p TIPS revision 08/12 with resultant hypoxia and tachycardia. S/p second paracentesis on 08/12.Peth values indicating not detected vs abstinence Significant LE swelling 08/16, improved with restarting lasix. - Continue midodrine 10 3 times a day - lasix 20 once daily (home is BID) - add alondra 50 daily - Plan to discuss w/ GI if propranolol preferred to other options such as Coreg, start tomorrow pending recs - Venofer started 08/15, continue x 5 days - Lactulose 20g BID - Continue to monitor CBC - MELD labs daily - GI following - Type and screen every 72 hours - Transfuse Hb to >7 - Transfuse Plt to >10 - Pain management: tylenol 650 mg q6h prn, oxycodone 5 mg q6h prn - Hematology consulted to rule out other causes for thrombocytopenia as decompensated liver cirrhosis d/t JAQUEZ does not fully explain it per liver team Assessment & Plan (08/16/2024 4:37 PM EDT): Home meds: Spironoactone 50mg daily, furosemide 40mg daily, propranolol 30mg daily Patient with longstanding history of 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 No prior history of ascites or episodes of hepatic encephalopathy. Most recent MELD from transplant evaluation June 2024 was 12. Ultimately determined that she would be removed from transplant list. Pt has a hx of varices s/p banding and TIPS. Pt had 1 episode of black tarry stool, concerning for a possible bleed. Pt has had normal BMs since but Hb is 8.6 (10.2 06/23) given the drop in Hb, prophylactic treatent was given in ED. 1 dose of Ceftriaxone was given and octreotide and pantoprazole started. Hx of thrombocytopenia in the setting of cirrhosis. Baseline in the 30s. Hemoglobin 6.9 on 08/08, 1 unit PRBCs administered. Diagnostic para 08/09 yielded 1.9L and cell count negative for SBP, but pt has already received 2 days of antibiotics at the time of the para. Found to have multiple venous thrombi, TIPS malfunction s/p TIPS revision 08/12 with resultant hypoxia and tachycardia. S/p second paracentesis on 08/12.Peth values indicating not detected vs abstinence Significant LE swelling 08/16, her lasix was just restarted this afternoon, so will give that some time to take effect, can give 1x IV 10-20mg lasix overnight if not having relief, she will elevate legs when at rest. Do not want to increase her daily lasix given soft BPs - Continue midodrine 10 3 times a day - Restart home lasix 20 PO this afternoon - Tomorrow 08/17 likely add back alondra and propranolol - Plan to discuss w/ GI if propranolol preferred to other options such as Coreg - Venofer started 08/15, continue x 5 days - Lactulose 20g BID - Continue to monitor CBC - MELD labs daily - GI following - Type and screen every 72 hours - Transfuse Hb to >7 - Transfuse Plt to >10 - Pain management: tylenol 650 mg q6h prn, oxycodone 5 mg q6h prn - Hematology consulted to rule out other causes for thrombocytopenia as decompensated liver cirrhosis d/t JAQUEZ does not fully explain it per liver team Assessment & Plan (08/15/2024 6:15 PM EDT): Home meds: Spironoactone 50mg daily, furosemide 40mg daily, propranolol 30mg daily Patient with longstanding history of 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 No prior history of ascites or episodes of hepatic encephalopathy. Most recent MELD from transplant evaluation June 2024 was 12. Ultimately determined that she would be removed from transplant list. Pt has a hx of varices s/p banding and TIPS. Pt had 1 episode of black tarry stool, concerning for a possible bleed. Pt has had normal BMs since but Hb is 8.6 (10.2 06/23) given the drop in Hb, prophylactic treatent was given in ED. 1 dose of Ceftriaxone was given and octreotide and pantoprazole started. Hx of thrombocytopenia in the setting of cirrhosis. Baseline in the 30s. Hemoglobin 6.9 on 08/08, 1 unit PRBCs administered. Diagnostic para 08/09 yielded 1.9L and cell count negative for SBP, but pt has already received 2 days of antibiotics at the time of the para. Found to have multiple venous thrombi, TIPS malfunction s/p TIPS revision 08/12 with resultant hypoxia and tachycardia. S/p second paracentesis on 08/12.Peth values indicating not detected vs abstinence -Continue alondra and furosemide - Continue propranolol -lactulose 20g BID -Continue to monitor CBC -MELD labs daily -GI following -CBC daily -Type and screen every 72 hours -Transfuse Hb to >7 -Transfuse Plt to >10 -Pain management: tylenol 650 mg q6h prn, oxycodone 5 mg q6h prn -Hematology consulted to rule out other causes for thrombocytopenia as decompensated liver cirrhosis d/t JAQUEZ does not fully explain it per liver team -Continue IV Venofer x 5 days (D1: 08/15) Assessment & Plan (08/14/2024 12:03 PM EDT): Home meds: Spironoactone 50mg daily, furosemide 40mg daily, propranolol 30mg daily Patient with longstanding history of 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 No prior history of ascites or episodes of hepatic encephalopathy. Most recent MELD from transplant evaluation June 2024 was 12. Ultimately determined that she would be removed from transplant list. Pt has a hx of varices s/p banding and TIPS. Pt had 1 episode of black tarry stool, concerning for a possible bleed. Pt has had normal BMs since but Hb is 8.6 (10.2 06/23) given the drop in Hb, prophylactic treatent was given in ED. 1 dose of Ceftriaxone was given and octreotide and pantoprazole started. Hx of thrombocytopenia in the setting of cirrhosis. Baseline in the 30s. Hemoglobin 6.9 on 08/08, 1 unit PRBCs administered. Diagnostic para 08/09 yielded 1.9L and cell count negative for SBP, but pt has already received 2 days of antibiotics at the time of the para. Found to have multiple venous thrombi, TIPS malfunction s/p TIPS revision 08/12 with resultant hypoxia and tachycardia. S/p second paracentesis on 08/12.Peth values indicating not detected vs abstinence -Continue alondra and furosemide -lactulose 20g BID -Continue to monitor CBC -Hold home spironolactone, furosemide, propranolol iso SBPs 100s -MELD labs daily -GI following -CBC daily -Type and screen every 72 hours -Transfuse Hb to >7 -Transfuse Plt to >10 -Pain management: tylenol 650 mg q6h prn, oxycodone 5 mg q6h prn -Hematology consulted to rule out other causes for thrombocytopenia as decompensated liver cirrhosis d/t JAQUEZ does not fully explain it per liver team Assessment & Plan (08/12/2024 7:25 PM EDT): Home meds: Spironoactone 50mg daily, furosemide 40mg daily, propranolol 30mg daily Patient with longstanding history of 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 No prior history of ascites or episodes of hepatic encephalopathy. Most recent MELD from transplant evaluation June 2024 was 12. Ultimately determined that she would be removed from transplant list. Pt has a hx of varices s/p banding and TIPS. Pt had 1 episode of black tarry stool, cocnenring for a possible bleed. Pt has had normal Bms since but Hb is 8.6 (10.2 06/23) sop given the drop in Hb, prophylactic treatent was given in ED. 1 dose of Ceftriaxone was given and octreotide and pantoprazole started. Hx of thrombocytopenia in the setting of cirrhosis. Baseline in the 30s. Hemoglobin 6.9 on 08/08, 1 unit PRBCs administered. Diagnostic para 08/09 yielded 1.9L and cell count negative for SBP, but pt has already received 2 days of antibiotics at the time of the para. -continue alodnra and furosemide -lactulose 20g BID -Continue to monitor CBC Assessment & Plan (08/11/2024 5:06 PM EDT): Home meds: Spironoactone 50mg daily, furosemide 40mg daily, propranolol 30mg daily Patient with longstanding history of 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 No prior history of ascites or episodes of hepatic encephalopathy. Most recent MELD from transplant evaluation June 2024 was 12. Ultimately determined that she would be removed from transplant list. Pt has a hx of varices s/p banding and TIPS. Pt had 1 episode of black tarry stool, cocnenring for a possible bleed. Pt has had normal Bms since but Hb is 8.6 (10.2 06/23) sop given the drop in Hb, prophylactic treatent was given in ED. 1 dose of Ceftriaxone was given and octreotide and pantoprazole started. Hx of thrombocytopenia in the setting of cirrhosis. Baseline in the 30s. Hemoglobin 6.9 on 08/08, 1 unit PRBCs administered. Diagnostic para 08/09 yielded 1.9L and cell count negative for SBP, but pt has already received 2 days of antibiotics at the time of the para. 08/11: On exam, pt has tenderness in the RLQ, but not rebound like yesterday. Pain is improved per patient report as well. CTAP 08/10 showed: Cirrhosis with portal hypertension, massive splenomegaly, increased large volume ascites. Nonocclusive thrombus narrowing the hepatic venous end of the TIPS shunt, with nonocclusive thrombus just proximal to the portal venous confluence, and within the splenic vein. See splenic vein thrombosis for assessment. -GI consult re persistent abd pain iso 1 month of fevers, appreciate recs -continue alondra and furosemide -lactulose 20g BID -Continue to monitor CBC Assessment & Plan (08/10/2024 12:04 PM EDT): Home meds: Spironoactone 50mg daily, furosemide 40mg daily, propranolol 30mg daily Patient with longstanding history of 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 No prior history of ascites or episodes of hepatic encephalopathy. Most recent MELD from transplant evaluation June 2024 was 12. Ultimately determined that she would be removed from transplant list. Pt has a hx of varices s/p banding and TIPS. Pt had 1 episode of black tarry stool, cocnenring for a possible bleed. Pt has had normal Bms since but Hb is 8.6 (10.2 06/23) sop given the drop in Hb, prophylactic treatent was given in ED. 1 dose of Ceftriaxone was given and octreotide and pantoprazole started. Hx of thrombocytopenia in the setting of cirrhosis. Baseline in the 30s. Hemoglobin 6.9 on 08/08, 1 unit PRBCs administered. 08/10: Diagnostic para yielded 1.9L and cell count negative for SBP, but pt has already received 2 days of antibiotics at the time of the para. On exam, pt has rebound tenderness in the RLQ and abdominal pain is slightly better than yesterday after the para, but is still having significant pain limiting her ability to take deep breaths. -GI consult re persistent abd pain iso 1 month of fevers -Abd Ultrasound completed, pending results -continue alondra and furosemide -lactulose 20g BID -Continue to monitor CBC -Continue Octreotide infusion Assessment & Plan (08/09/2024 4:26 PM EDT): Home meds: Spironoactone 50mg daily, furosemide 40mg daily, propranolol 30mg daily Patient with longstanding history of 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 No prior history of ascites or episodes of hepatic encephalopathy. Most recent MELD from transplant evaluation June 2024 was 12. Ultimately determined that she would be removed from transplant list. Pt has a hx of varices s/p banding and TIPS. Pt had 1 episode of black tarry stool, cocnenring for a possible bleed. Pt has had normal Bms since but Hb is 8.6 (10.2 06/23) sop given the drop in Hb, prophjaylctic treatent was given in ED. 1 dose of Ceftriaxone was givn and ocretodide and pantoprazole started. Hx of thrombocytopenia in the setting of cirrhosis. Baseline in the 30s. Hemoglobin 6.9 on 08/08, 1 unit PRBCs administered. 08/09: Hb 8.2 this morning-not requiring RBCs today. LDH 281, retic index 2.6, haptoglobin < 10, indicating a hemolytic process. Still awaiting tic panel. Plts 24. On exam, abd is distended, but soft with no rebound/guarding. It is diffusely tender. Pt reports 7/10 pain. KUB showed no free air so low concern for obstruction. -Bedside ultrasound to assess for ascites given hx of cirrhosis and fevers considering SBP -restart alondra and furosemide -Simetheticone and Miralax -lactulose 20g BID -Continue to monitor CBC -Continue Octreotide infusion Assessment & Plan (08/08/2024 6:42 PM EDT): Home meds: Spironoactone 50mg daily, furosemide 40mg daily, propranolol 30mg daily Patient with longstanding history of 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 No prior history of ascites or episodes of hepatic encephalopathy. Most recent MELD from transplant evaluation June 2024 was 12. Ultimately determined that she would be removed from transplant list. Pt has a hx of varices s/p banding and TIPS. Pt had 1 episode of black tarry stool, cocnenring for a possible bleed. Pt has had normal Bms since but Hb is 8.6 (10.2 06/23) sop given the drop in Hb, prophjaylctic treatent was given in ED. 1 dose of Ceftriaxone was givn and ocretodide and pantoprazole started. Hx of thrombocytopenia in the setting of cirrhosis. Baseline in the 30s. Hemoglobin 6.9 on 08/08, 1 unit PRBCs administered, pending repeat CBC in a.m. -hold home meds today in the setting of sepsis/dehydration -Continue to monitor CBC - Follow-up LDH, haptoglobin, reticulocyte index Assessment & Plan (08/07/2024 2:49 PM EDT): Home meds: Spironoactone 50mg daily, furosemide 40mg daily, propranolol 30mg daily Patient with longstanding history of 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 No prior history of ascites or episodes of hepatic encephalopathy. Most recent MELD from transplant evaluation June 2024 was 12. Ultimately determined that she would be removed from transplant list. Pt has a hx of varices s/p banding and TIPS. Pt had 1 episode of black tarry stool, cocnenring for a possible bleed. Pt has had normal Bms since but Hb is 8.6 (10.2 06/23) sop given the drop in Hb, prophjaylctic treatent was given in ED. 1 dose of Ceftriaxone was givn and ocretodide and pantoprazole started. Hx of thrombocytopenia in the setting of cirrhosis. Baseline in the 30s. On admission, platelets are 25 -hold home meds today in the setting of sepsis/dehydration -Continue to monitor CBC Assessment & Plan (04/11/2022 6:44 PM EST): Home medications: Spironolactone 50mg daily, Lasix 40mg daily (patient reports being told to d/c in Mar 2022), Propranolol 30mg TID (patient reports being told to d/c in Mar 2022), Lactulose Bulb Filler: Dr. Mesa ([facility]) Patient Assistant: Dr. Gaona ([facility]) and Dr. Jenkins ([facility]) Patient with decompensated cirrhosis, secondary to JAQUEZ, (c/b esophageal variceal bleed s/p band ligation, hepatic encephalopathy, and ascites) with portal vein thrombosis, on transplant list. Initial diagnosed was made in 2016 when she had an episode of an upper GI bleed secondary to esophageal variceal bleeding. She was recently admitted from 03/15-03/20 for esophageal variceal bleeding requiring transfusion, TIPS, and intubation. She was recently instructed to stop taking Lasix and Propranolol. She does not appear volume overloaded on admission, with a notable lack of ascites on physical and ultrasound guided exam. She has never requiring paracentesis and has never had SBP. TIPS ultrasound 04/06/2022 with patent TIPS and chronic nonocclusive thrombus, flow through the vessels not well visualized. MELD-Na score: 17 at 04/10/2022 6:56 AM MELD score: 17 at 04/10/2022 6:56 AM Calculated from: Serum Creatinine: 0.69 mg/dL (Using min of 1 mg/dL) at 04/10/2022 6:56 AM Serum Sodium: 138 mmol/L (Using max of 137 mmol/L) at 04/10/2022 6:56 AM Total Bilirubin: 5.1 mg/dL at 04/10/2022 6:56 AM INR(ratio): 1.5 at 04/10/2022 6:56 AM Age: 46 years - Continue Spironolactone 50 mg daily - Continue Lasix 40 mg daily - Lactulose 3 times a day for 2-3 BM per day - MELD labs daily - Protonix 40mg daily (Prilosec not on formulary) HLD (hyperlipidemia) Assessment & Plan (11/19/2024 2:54 PM EDT): Home meds: rosuvastatin 20 mg daily Discharge: - Restart rosuvastatin 20 mg daily Assessment & Plan (11/18/2024 6:43 PM EDT): Home meds: rosuvastatin 20 mg daily - Hold home rosuvastatin Assessment & Plan (04/17/2022 7:59 PM EST): Home medications: Lipitor 20mg daily Patient with HLD on Lipitor. Lipid panel from January 2022 with total cholesterol 168/TG 236, HDL 25, LDL 96. Assessment & Plan (04/08/2022 6:02 PM EST): Home medications: Lipitor 20mg daily Patient with HLD on Lipitor. Lipid panel from January 2022 with total cholesterol 168/TG 236, HDL 25, LDL 96. 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 She had elective TIPS revision with Dr. Escobedo. She does also have a history of decompensated Jaquez cirrhosis complicated by esophageal variceal bleed status post band ligation, portal hypertension. She has underwent TIPS procedure at [facility] 2022, had revision at [facility] on 11/12/2024 that was complicated by postprocedural hypoxia and NSTEMI. She has been having repeat paracentesis for recurrent ascites. She had evidence of TIPS occlusion on ultrasound on 10/22, during her TIPS revision on 11/18/2024, the case was complicated by portal vein thrombosis status post thrombectomy and ascites status post paracentesis with 2.5 L removed. She is currently experiencing severe pain in her neck at the site of entry for the TIPS procedure and is also having pain in her right side and in her entire abdomen, particularly when she moves. I discussed with her that I was concerned about the possibility of infection and/or other complication although it is difficult to tell since I am not examining her. Her pain has been progressively getting worse since her procedure. I recommended that she proceed to the emergency room for immediate evaluation. She lives out in [facility] [place] and so if she calls an ambulance to go to [facility] which she does not want to do. I did offer to call an ambulance for her which she declined. She states that she may be able to get a ride later today to [facility]. I will check in with her later today to see how this went. In the meantime, [facility] was called and notified. Patient expressed understanding and agreement with this plan. She will notify us if she needs anything between now and when she can make to the hospital. 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 Follows with hematology outpatient, currently on reduced dose of abixaban given patient's concurrent increased clotting risk and her chronic thrombocytopenia. Patient presented for an elective TIPS revision with Dr. Escobedo. She has a history of decompensated JAQUEZ cirrhosis complicated by esophageal variceal bleed s/p band ligation, portal hypertension. Patient underwent TIPS At [facility] in 2022, followed by revision at [facility] on 08/12/2024 complicated by postprocedural hypoxia, NSTEMI. Since then, patient has been having repeat paracentesis for recurrent ascites. Evidence of TIPS occlusion on ultrasound on 10/22. During TIPS revision on 11/18/24, case complicated by portal vein thrombosis s/p thrombectomy and ascites s/p paracentesis with 2.5 L removed. Patient tolerated the procedure well. Decrease in portosystemic gradient from 23 mmHg to 9 mmHg. Admitted following the procedure for close monitoring. Restarted apixaban day of discharge. Discharge: - Follow up procedure with IR (11/25/24) for repeat thrombectomy - Continue home abixaban 2.5 mg BID Assessment & Plan (11/18/2024 6:43 PM EDT): Home meds: apixaban 2.5 mg BID Patient presented for an elective TIPS revision with Dr. Escobedo. She has a history of decompensated JAQUEZ cirrhosis complicated by esophageal variceal bleed s/p band ligation, portal hypertension. Patient underwent TIPS At [facility] in 2022, followed by revision at [facility] on 08/12/2024 complicated by postprocedural hypoxia, NSTEMI. Since then, patient has been having repeat paracentesis for recurrent ascites. Evidence of TIPS occlusion on ultrasound on 10/22. During TIPS revision on 11/18/24, case complicated by portal vein thrombosis s/p thrombectomy and ascites s/p paracentesis with 2.5 L removed. Patient tolerated the procedure well. Decrease in portosystemic gradient from 23 mmHg to 9 mmHg. Admitted following the procedure for close monitoring. - Hepatology consult for tomorrow morning - If stable H&H x 2, restart home apixaban in the morning - Follow up 8:30 pm CBC - Pain regimen: IV fentanyl 12.5 mcg q4h PRN - Continue telemetry monitoring - Vital signs q4h Assessment & Plan (04/19/2022 2:38 PM EST): Home medication: Warfarin 12mg daily Patient with portal vein thrombus initially found in 2016 (nonocclusive portal vein thrombus that extends to the SMV and splenic vein). She was started on Warfarin therapy at that time. Triple phase CT abdomen pelvis in August 2021 showed no progression or resolution of the portal vein nonocclusive thrombus that is extending into the SMV and splenic vein. Richardson discussing the benefit of continued anticoagulation for chronic PVT iso of continued thrombocytopenia. Could benefit from future imaging to reevaluate PVT. - Hold Warfarin ISO Thrombocytopenia Assessment & Plan (04/08/2022 6:02 PM EST): Home medication: Warfarin 12mg daily Patient with portal vein thrombus initially found in 2016 (nonocclusive portal vein thrombus that extends to the SMV and splenic vein). She was started on Warfarin therapy at that time. Triple phase CT abdomen pelvis in August 2021 showed no progression or resolution of the portal vein nonocclusive thrombus that is extending into the SMV and splenic vein. 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 Follows with hematology outpatient, currently on reduced dose of abixaban given patient's concurrent increased clotting risk and her chronic thrombocytopenia. Patient presented for an elective TIPS revision with Dr. Escobedo. She has a history of decompensated JAQUEZ cirrhosis complicated by esophageal variceal bleed s/p band ligation, portal hypertension. Patient underwent TIPS At [facility] in 2022, followed by revision at [facility] on 08/12/2024 complicated by postprocedural hypoxia, NSTEMI. Since then, patient has been having repeat paracentesis for recurrent ascites. Evidence of TIPS occlusion on ultrasound on 10/22. During TIPS revision on 11/18/24, case complicated by portal vein thrombosis s/p thrombectomy and ascites s/p paracentesis with 2.5 L removed. Patient tolerated the procedure well. Decrease in portosystemic gradient from 23 mmHg to 9 mmHg. Admitted following the procedure for close monitoring. Restarted apixaban day of discharge. Discharge: - Follow up procedure with IR (11/25/24) for repeat thrombectomy - Continue home abixaban 2.5 mg BID Assessment & Plan (11/18/2024 6:43 PM EDT): Home meds: apixaban 2.5 mg BID Patient presented for an elective TIPS revision with Dr. Escobedo. She has a history of decompensated JAQUEZ cirrhosis complicated by esophageal variceal bleed s/p band ligation, portal hypertension. Patient underwent TIPS At [facility] in 2022, followed by revision at [facility] on 08/12/2024 complicated by postprocedural hypoxia, NSTEMI. Since then, patient has been having repeat paracentesis for recurrent ascites. Evidence of TIPS occlusion on ultrasound on 10/22. During TIPS revision on 11/18/24, case complicated by portal vein thrombosis s/p thrombectomy and ascites s/p paracentesis with 2.5 L removed. Patient tolerated the procedure well. Decrease in portosystemic gradient from 23 mmHg to 9 mmHg. Admitted following the procedure for close monitoring. - Hepatology consult for tomorrow morning - If stable H&H x 2, restart home apixaban in the morning - Follow up 8:30 pm CBC - Pain regimen: IV fentanyl 12.5 mcg q4h PRN - Continue telemetry monitoring - Vital signs q4h Acute hypoxic respiratory failure 08/14/2024 08/18/2024 Assessment & Plan (08/18/2024 10:07 AM EDT): Patient found to be hypoxic following TIPS revision. CTPE negative for PE, notable for atelectasis and new RV dilation. No pleural effusions or significant pulmonary edema. Symptoms of shortness of breath with ambulation. ?TIPS related, Portosystemic pressure was improved to 8mmHg from 29 mmHg. May reflect preload bolus. She was weaned off NC O2, incentive spirometry, BMP/Mg checked daily and lytes repleted as needed Assessment & Plan (08/17/2024 7:49 AM EDT): Patient found to be hypoxic following TIPS revision. CTPE negative for PE, notable for atelectasis and new RV dilation. No pleural effusions or significant pulmonary edema. Symptoms of shortness of breath with ambulation. ?TIPS related, Portosystemic pressure was improved to 8mmHg from 29 mmHg. May reflect preload bolus. -Goal SpO2 >92% -Wean NC as tolerated, still on NC this am 08/16 -Incentive spirometry -BMP and Mg daily monitoring, electrolytes repleted as needed -Strict I/Os -Daily weights Assessment & Plan (08/16/2024 4:37 PM EDT): Patient found to be hypoxic following TIPS revision. CTPE negative for PE, notable for atelectasis and new RV dilation. No pleural effusions or significant pulmonary edema. Symptoms of shortness of breath with ambulation. ?TIPS related, Portosystemic pressure was improved to 8mmHg from 29 mmHg. May reflect preload bolus. -Goal SpO2 >92% -Wean NC as tolerated, still on NC this am 08/16 -Incentive spirometry -BMP and Mg daily monitoring, electrolytes repleted as needed -Strict I/Os -Daily weights Assessment & Plan (08/15/2024 6:15 PM EDT): Patient found to be hypoxic following TIPS revision. CTPE negative for PE, notable for atelectasis and new RV dilation. No pleural effusions or significant pulmonary edema. Symptoms of shortness of breath with ambulation. ?TIPS related, Portosystemic pressure was improved to 8mmHg from 29 mmHg. May reflect preload bolus. -Goal SpO2 >92% -Wean NC as tolerated -Incentive spirometry -Spot diuresis -BMP and Mg daily monitoring, electrolytes repleted as needed -Strict I/Os -Daily weights Assessment & Plan (08/14/2024 12:03 PM EDT): Patient found to be hypoxic following TIPS revision. CTPE negative for PE, notable for atelectasis and new RV dilation. No pleural effusions or significant pulmonary edema. Symptoms of shortness of breath with ambulation. ?TIPS related, Portosystemic pressure was improved to 8mmHg from 29 mmHg. May reflect preload bolus. -Goal SpO2 >92% -Wean NC as tolerated -Incentive spirometry -Spot diuresis -BMP and Mg daily monitoring, electrolytes repleted as needed -Strict I/Os -Daily weights Sepsis 08/07/2024 08/18/2024 Assessment & Plan (08/18/2024 10:07 AM EDT): Patient initially admitted to general medicine service for intermittent fevers and myalgias. Initially monitored on cefepime, later discontinued as fevers were thought to be attributed to multiple thrombi given largely negative infectious workup including negative BCX, tick panel, ascitic fluid studies, hep panel, fungal studies, MRSA PCR and UA. Following TIPS procedures 08/12, patient developed rigors and fever. Patient met SIRS criteria of tachycardia, leukocytosis, and fever. Source of infection not determined, possibly was abdominal source given history of cirrhosis and recent instrumentation. Non-infectious UA with 17 RBCs. Lipase of 38. Was on Vancomycin/Zosyn (08/12-08/14). Repeat BCX 08/12 No growth. Trended fever/WBC curve to resolution Assessment & Plan (08/17/2024 9:15 AM EDT): Patient initially admitted to general medicine service for intermittent fevers and myalgias. Initially monitored on cefepime, later discontinued as fevers were thought to be attributed to multiple thrombi given largely negative infectious workup including negative BCX, tick panel, ascitic fluid studies, hep panel, fungal studies, MRSA PCR and UA. Following TIPS procedures 08/12, patient developed rigors and fever. Patient met SIRS criteria of tachycardia, leukocytosis, and fever. Source of infection not immediately clear, consider abdominal source given history of cirrhosis and recent instrumentation, as well as localized pain. Non-infectious UA with 17 RBCs. Lipase of 38. -Discontinued Vancomycin/Zosyn (08/12-08/14) -Monitor off ABX -Repeat BCX 08/12 NGTD thus far -Trend fever/WBC curve, nl today Assessment & Plan (08/16/2024 4:37 PM EDT): Patient initially admitted to general medicine service for intermittent fevers and myalgias. Initially monitored on cefepime, later discontinued as fevers were thought to be attributed to multiple thrombi given largely negative infectious workup including negative BCX, tick panel, ascitic fluid studies, hep panel, fungal studies, MRSA PCR and UA. Following TIPS procedures 08/12, patient developed rigors and fever. Patient met SIRS criteria of tachycardia, leukocytosis, and fever. Source of infection not immediately clear, consider abdominal source given history of cirrhosis and recent instrumentation, as well as localized pain. Non-infectious UA with 17 RBCs. Lipase of 38. -Discontinued Vancomycin/Zosyn (08/12-08/14) -Monitor off ABX -Repeat BCX 08/12 NGTD thus far -Trend fever/WBC curve Assessment & Plan (08/15/2024 6:15 PM EDT): Patient initially admitted to general medicine service for intermittent fevers and myalgias. Initially monitored on cefepime, later discontinued as fevers were thought to be attributed to multiple thrombi given largely negative infectious workup including negative BCX, tick panel, ascitic fluid studies, hep panel, fungal studies, MRSA PCR and UA. Following TIPS procedures 08/12, patient developed rigors and fever. Patient met SIRS criteria of tachycardia, leukocytosis, and fever. Source of infection not immediately clear, consider abdominal source given history of cirrhosis and recent instrumentation, as well as localized pain. Non-infectious UA with 17 RBCs. Lipase of 38. -Discontinued Vancomycin/Zosyn (08/12-08/14) -Monitor off ABX -Repeat BCX 08/12 NGTD thus far -Trend fever/WBC curve Assessment & Plan (08/14/2024 12:03 PM EDT): Patient initially admitted to general medicine service for intermittent fevers and myalgias. Initially monitored on cefepime, later discontinued as fevers were thought to be attributed to multiple thrombi given largely negative infectious workup including negative BCX, tick panel, ascitic fluid studies, hep panel, fungal studies, MRSA PCR and UA. Following TIPS procedures 08/12, patient developed rigors and fever. Patient met SIRS criteria of tachycardia, leukocytosis, and fever. Source of infection not immediately clear, consider abdominal source given history of cirrhosis and recent instrumentation, as well as localized pain. Non-infectious UA with 17 RBCs. Lipase of 38. -Discontinued Vancomycin/Zosyn (08/12-08/14) -Monitor off ABX -Repeat BCX 08/12 NGTD thus far -Trend fever/WBC curve Assessment & Plan (08/12/2024 7:25 PM EDT): SIRS Criteria Patient met the following SIRS Criteria: Temp > 38.3 degrees celsius Sepsis Criteria Sepsis was present on admission. Source of infection is unknown but infection is suspected. Blood cultures were drawn prior to antibiotics given. Initial lactic acid was drawn and value was greater than or equal to 2 and repeat was ordered. Patient was ordered the following Antibiotics: Vancomycin and Zosyn Full Sepsis bolus given. Patient received 2 Liters of fluid bolus. Goal: 2.1 Liters (30ml/kg). Severe Sepsis Patient has organ dysfunction that meets criteria for severe sepsis. Patient has Bilirubin > 2, Platelet < 100,000, and Lactate > 2. Pt presenting with about 1 month of intermittent fevers and myalgias in the setting of recent travel to [place]. Pt reports some days she feels ok and others she has a fever as high as 103 with chills and severe fatigue with myalgias. Denies other infectious symptoms. Denies sick contacts. Denies known tick bite and reports she mostly stayed inside during her trip. On presentation, pt meets sepsis criteria with elevated lactic of 4.6, fever to 103 and elevated williams, thrombocytopenia. Although the elevated williams and thrombocytopenia are chronic lab findings, the severity of sepsis may be skewed. On exam, pt has a reassurng abd pain with no rebound or guarding but with tenderness in the LUQ. No rashes found on exam.CTAP showed thickening of the colon findings likely consistent with infectious colitis. Pt denies diarrhea. On admission, lactic acid resolved to 1.4. COVID negative. Broad differential at this time including infectious cause vs autoimmune vs malignancy vs inflammatory causes. Infectious workup negative (tic panel, extended RVP) BCx 08/06 NGTD. HIV and SHAISTA negative. Discontinued Cefepime per ID recs (D1: 08/07-08/11) Pt has not had fever since 08/07. CTAP 08/10 showed: Nonocclusive thrombus narrowing the hepatic venous end of the TIPS shunt, with nonocclusive thrombus just proximal to the portal venous confluence, and within the splenic vein. Thrombi are likely etiology for infectious symptoms. See splenic vein thrombosis problem for A/P. Assessment & Plan (08/11/2024 5:06 PM EDT): SIRS Criteria Patient met the following SIRS Criteria: Temp > 38.3 degrees celsius Sepsis Criteria Sepsis was present on admission. Source of infection is unknown but infection is suspected. Blood cultures were drawn prior to antibiotics given. Initial lactic acid was drawn and value was greater than or equal to 2 and repeat was ordered. Patient was ordered the following Antibiotics: Vancomycin and Zosyn Full Sepsis bolus given. Patient received 2 Liters of fluid bolus. Goal: 2.1 Liters (30ml/kg). Severe Sepsis Patient has organ dysfunction that meets criteria for severe sepsis. Patient has Bilirubin > 2, Platelet < 100,000, and Lactate > 2. Pt presenting with about 1 month of intermittent fevers and myalgias in the setting of recent travel to [place]. Pt reports some days she feels ok and others she has a fever as high as 103 with chills and severe fatigue with myalgias. Denies other infectious symptoms. Denies sick contacts. Denies known tick bite and reports she mostly stayed inside during her trip. On presentation, pt meets sepsis criteria with elevated lactic of 4.6, fever to 103 and elevated williams, thrombocytopenia. Although the elevated williams and thrombocytopenia are chronic lab findings, the severity of sepsis may be skewed. On exam, pt has a reassurng abd pain with no rebound or guarding but with tenderness in the LUQ , likely related to her chronic splenomegaly. No rashes found on exam.CTAP showed thickening of the colon findings likely consistent with infectious colitis. Pt denies diarrhea. On admission, lactic acid resolved to 1.4. COVID negative. Broad differential at this time including infectious cause vs autoimmune vs malignancy vs inflammatory causes. Infectious etiology being considered include tick born and mosquito borne illness. Although no rashes seen, recent travel history and episodic nature of fevers is consistent with a tick or mosquito born illness. Also considering autoimmune causes such as lupus. Inflammatory causes like HIV being considered although less likely given no history of IV drug use. BCx 08/06 NGTD tic panel and HIV resulted negative 08/11: Pt has not had fever since 08/07. 1 episode of chills 08/09. Extended RVP negative. Lyme negative. See Splenic Vein thrombi problem for assessment. Work up: -ID consult, appreciate recs: discontinue abx -SHAISTA screen, pending Treatment Plan: -Discontinue Cefepime (D1: 08/07-08/11) -LR at 125cc/hour discontinued Assessment & Plan (08/10/2024 12:04 PM EDT): SIRS Criteria Patient met the following SIRS Criteria: Temp > 38.3 degrees celsius Sepsis Criteria Sepsis was present on admission. Source of infection is unknown but infection is suspected. Blood cultures were drawn prior to antibiotics given. Initial lactic acid was drawn and value was greater than or equal to 2 and repeat was ordered. Patient was ordered the following Antibiotics: Vancomycin and Zosyn Full Sepsis bolus given. Patient received 2 Liters of fluid bolus. Goal: 2.1 Liters (30ml/kg). Severe Sepsis Patient has organ dysfunction that meets criteria for severe sepsis. Patient has Bilirubin > 2, Platelet < 100,000, and Lactate > 2. Pt presenting with about 1 month of intermittent fevers and myalgias in the setting of recent travel to [place]. Pt reports some days she feels ok and others she has a fever as high as 103 with chills and severe fatigue with myalgias. Denies other infectious symptoms. Denies sick contacts. Denies known tick bite and reports she mostly stayed inside during her trip. On presentation, pt meets sepsis criteria with elevated lactic of 4.6, fever to 103 and elevated williams, thrombocytopenia. Although the elevated williams and thrombocytopenia are chronic lab findings, the severity of sepsis may be skewed. On exam, pt has a reassurng abd pain with no rebound or guarding but with tenderness in the LUQ , likely related to her chronic splenomegaly. No rashes found on exam.CTAP showed thickening of the colon findings likely consistent with infectious colitis. Pt denies diarrhea. On admission, lactic acid resolved to 1.4. COVID negative. Broad differential at this time including infectious cause vs autoimmune vs malignancy vs inflammatory causes. Infectious etiology being considered include tick born and mosquito borne illness. Although no rashes seen, recent travel history and episodic nature of fevers is consistent with a tick or mosquito born illness. Also considering autoimmune causes such as lupus. Inflammatory causes like HIV being considered although less likely given no history of IV drug use. BCx 08/06 NGTD 08/10: tic panel and HIV resulted negative. Lyme still pending. Pt has not had fever since 08/07. 1 episode of chills yesterday. Work up: -ID consult, appreciate recs -SHAISTA screen, pending - Extended RVP pending -Lyme, pending Treatment Plan: -Continue Cefepime (D1: 08/07) -LR at 125cc/hour Assessment & Plan (08/09/2024 4:26 PM EDT): SIRS Criteria Patient met the following SIRS Criteria: Temp > 38.3 degrees celsius Sepsis Criteria Sepsis was present on admission. Source of infection is unknown but infection is suspected. Blood cultures were drawn prior to antibiotics given. Initial lactic acid was drawn and value was greater than or equal to 2 and repeat was ordered. Patient was ordered the following Antibiotics: Vancomycin and Zosyn Full Sepsis bolus given. Patient received 2 Liters of fluid bolus. Goal: 2.1 Liters (30ml/kg). Severe Sepsis Patient has organ dysfunction that meets criteria for severe sepsis. Patient has Bilirubin > 2, Platelet < 100,000, and Lactate > 2. Pt presenting with about 1 month of intermittent fevers and myalgias in the setting of recent travel to [place]. Pt reports some days she feels ok and others she has a fever as high as 103 with chills and severe fatigue with myalgias. Denies other infectious symptoms. Denies sick contacts. Denies known tick bite and reports she mostly stayed inside during her trip. On presentation, pt meets sepsis criteria with elevated lactic of 4.6, fever to 103 and elevated williams, thrombocytopenia. Although the elevated williams and thrombocytopenia are chronic lab findings, the severity of sepsis may be skewed. On exam, pt has a reassurng abd pain with no rebound or guarding but with tenderness in the LUQ , likely related to her chronic splenomegaly. No rashes found on exam.CTAP showed thickening of the colon findings likely consistent with infectious colitis. Pt denies diarrhea. On admission, lactic acid resolved to 1.4. COVID negative. Broad differential at this time including infectious cause vs autoimmune vs malignancy vs inflammatory causes. Infectious etiology being considered include tick born and mosquito borne illness. Although no rashes seen, recent travel history and episodic nature of fevers is consistent with a tick or mosquito born illness. Also considering autoimmune causes such as lupus. Inflammatory causes like HIV being considered although less likely given no history of IV drug use. BCx 08/06 NGTD Work up: -ID consult, appreciate recs -Tick panel sent -peripheral smear -SHAISTA screen -HIV antibodies sent - Extended RVP pending Treatment Plan: -Continue Cefepime -Discontinue Vancomycin given negative MRSA swab -LR at 125cc/hour Assessment & Plan (08/08/2024 6:42 PM EDT): SIRS Criteria Patient met the following SIRS Criteria: Temp > 38.3 degrees celsius Sepsis Criteria Sepsis was present on admission. Source of infection is unknown but infection is suspected. Blood cultures were drawn prior to antibiotics given. Initial lactic acid was drawn and value was greater than or equal to 2 and repeat was ordered. Patient was ordered the following Antibiotics: Vancomycin and Zosyn Full Sepsis bolus given. Patient received 2 Liters of fluid bolus. Goal: 2.1 Liters (30ml/kg). Severe Sepsis Patient has organ dysfunction that meets criteria for severe sepsis. Patient has Bilirubin > 2, Platelet < 100,000, and Lactate > 2. Pt presenting with about 1 month of intermittent fevers and myalgias in the setting of recent travel to [place]. Pt reports some days she feels ok and others she has a fever as high as 103 with chills and severe fatigue with myalgias. Denies other infectious symptoms. Denies sick contacts. Denies known tick bite and reports she mostly stayed inside during her trip. On presentation, pt meets sepsis criteria with elevated lactic of 4.6, fever to 103 and elevated williams, thrombocytopenia. Although the elevated williams and thrombocytopenia are chronic lab findings, the severity of sepsis may be skewed. On exam, pt has a reassurng abd pain with no rebound or guarding but with tenderness in the LUQ , likely related to her chronic splenomegaly. No rashes found on exam.CTAP showed thickening of the colon findings likely consistent with infectious colitis. Pt denies diarrhea. On admission, lactic acid resolved to 1.4. COVID negative. Broad differential at this time including infectious cause vs autoimmune vs malignancy vs inflammatory causes. Infectious etiology being considered include tick born and mosquito borne illness. Although no rashes seen, recent travel history and episodic nature of fevers is consistent with a tick or mosquito born illness. Also considering autoimmune causes such as lupus. Inflammatory causes like HIV being considered although less likely given no history of IV drug use. Work up: -ID consult -Tick panel sent -peripheral smear -Bcx sent -SHAISTA screen -HIV antibodies sent - Extended RVP pending Treatment Plan: -Continue Vancomycin and Cefepime-consider stopping once Bcx have NGTD for 48 hours -LR at 125cc/hour -1x oxy 5mg po dose given for abd pain Assessment & Plan (08/07/2024 2:49 PM EDT): SIRS Criteria Patient met the following SIRS Criteria: Temp > 38.3 degrees celsius Sepsis Criteria Sepsis was present on admission. Source of infection is unknown but infection is suspected. Blood cultures were drawn prior to antibiotics given. Initial lactic acid was drawn and value was greater than or equal to 2 and repeat was ordered. Patient was ordered the following Antibiotics: Vancomycin and Zosyn Full Sepsis bolus given. Patient received 2 Liters of fluid bolus. Goal: 2.1 Liters (30ml/kg). Severe Sepsis Patient has organ dysfunction that meets criteria for severe sepsis. Patient has Bilirubin > 2, Platelet < 100,000, and Lactate > 2. Pt presenting with about 1 month of intermittent fevers and myalgias in the setting of recent travel to [place]. Pt reports some days she feels ok and others she has a fever as high as 103 with chills and severe fatigue with myalgias. Denies other infectious symptoms. Denies sick contacts. Denies known tick bite and reports she mostly stayed inside during her trip. On presentation, pt meets sepsis criteria with elevated lactic of 4.6, fever to 103 and elevated williams, thrombocytopenia. Although the elevated williams and thrombocytopenia are chronic lab findings, the severity of sepsis may be skewed. On exam, pt has a reassurng abd pain with no rebound or guarding but with tenderness in the LUQ , likely related to her chronic splenomegaly. No rashes found on exam.CTAP showed thickening of the colon findings likely consistent with infectious colitis. Pt denies diarrhea. On admission, lactic acid resolved to 1.4. COVID negative. Broad differential at this time including infectious cause vs autoimmune vs malignancy vs inflammatory causes. Infectious etiology being considered include tick born and mosquito borne illness. Although no rashes seen, recent travel history and episodic nature of fevers is consistent with a tick or mosquito born illness. Also considering autoimmune causes such as lupus. Inflammatory causes like HIV being considered although less likely given no history of IV drug use. Work up: -ID consult -Tick panel sent -peripheral smear -Bcx sent -SHAISTA screen -HIV antibodies sent Treatment Plan: -Continue Vancomycin and Cefepime-consider stopping once Bcx have NGTD for 48 hours -LR at 125cc/hour -1x oxy 5mg po dose given for abd pain Depression, major, single episode, moderate 06/02/2023 06/02/2023 Class 1 obesity 06/02/2023 11/19/2024 Pain in left tibia 04/17/2022 3 Assessment & Plan (04/21/2022 11:44 AM EST): Patient slipped going down the stairs from her son's house in the dark just prior to presenting to the hospital. She was able to ambulate on admission but endorsed pain in both the L and R legs below the knee the morning of 04/18 with tenderness to palpation. Both legs had full ROM, no bruising, erythema, or swelling noted. X- ray of L tibia and fibula 04/18 was unremarkable, no fractures. XR right tibia-fibula 04/20 also unremarkable. - symptomatic management; ice/hot compresses, acetaminophen prn - continue to monitor clinically Acute sinusitis 04/09/2022 04/24/2022 Assessment & Plan (04/21/2022 11:43 AM EST): Resolved. During prior admission, Head CT non-contrast 04/09 revealed acute on chronic sinusitis, probably superimposed on chronic sinus disease. Started doxycycline 100mg q12h x7 days, completed 04/18/2022. Assessment & Plan (04/10/2022 2:29 PM EST): Head CT non-contrast 04/09 ordered for concern of subarachnoid hemorrhage. CT findings were consistent with acute on chronic sinusitis, probably superimposed on chronic sinus disease. Patient additionally reported sinus pain on further questioning. -Started doxycycline 100mg BID for 7 days (D1 04/09 - 04/16) Headache 04/07/2022 06/02/2023 Assessment & Plan (04/20/2022 1:07 PM EST): Home Meds: Propranolol 30mg BID History of headaches well controlled on Propranolol 30mg BID - c/h Propranolol Assessment & Plan (04/11/2022 6:46 PM EST): Patient has occasional headaches; however, she had increasing frequency of headaches while hospitalized. Given her platelets < 10k, maintained high level of concern for spontaneous intracranial hemorrhage. Head CT non-contrast 04/09: No acute intracranial hemorrhage, mass effect, or large territorial infarct. CT findings are consistent with acute on chronic sinusitis, probably superimposed on chronic sinus disease. Periapical lucencies within the left maxillary dentition at tooth #14 and 15 which may reflect periapical cysts or abscesses. Headache could be 2/2 chronic sinusitis vs periapical abscess vs propanolol withdrawal. Patient reports chronic history of headaches. -Acetaminophen 650 mg q6h PRN (dose and frequency approved by hepatology) -Restarted propanolol 30mg 3 times a day for headache reduction -Recommend outpatient neurology follow-up Type 2 diabetes mellitus wit h hyperglycemia, with long-term current use of insulin 08/09/2020 Assessment & Plan (04/24/2022 5:41 PM EST): Home medications: Glargine 30-60U nightly, Lispro 10U breakfast / 6U lunch / 18U supper, 0-12U pre-meals SS (patient rarely needs SS), Jardiance 25mg daily Technical System Analyst: Dr. Alaniz ([facility]) Patient with uncontrolled T2DM on insulin. A1c in January 2022 of 6.2. -Patient on IV dexamethasone, completed 04/22 -Glargine 60U nightly -HDISS ACHS and nightly -Prandial 10U/6U/18U breakfast/lunch/dinner -POCT glucoses 4 times daily -Hold home Jardiance while inpatient Assessment & Plan (04/08/2022 6:00 PM EST): Home medications: Glargine 60U nightly, Lispro 10U breakfast / 6U lunch / 18U supper, 0-12U pre-meals SS (patient rarely needs SS), Jardiance 25mg daily Technical System Analyst: Dr. Alaniz ([facility]) Patient with uncontrolled T2DM on insulin. A1c in January 2022 of 6.2. Presented with glucose 193. Patient notes decreased PO intake over the past few weeks. Given decreased PO intake, will use lower dose of insulin inpatient and adjust accordingly to glucoses. - Glargine 20U nightly - MDISS ACHS - POCT glucoses 4 times daily - Hold home Jardiance Other cirrhosis of liver 03/24/202003/2023 Assessment & Plan (04/24/2022 5:40 PM EST): Home medications: Spironolactone 50mg daily, Lasix 40mg daily, Lactulose Bulb Filler: Dr. Mesa ([facility]) Patient Assistant: Dr. Gaona ([facility]) and Dr. Jenkins ([facility]) Patient with decompensated cirrhosis (daignosed 2016), secondary to JAQUEZ (c/b chronic non-obstructive portal vein thrombosis, esophageal variceal bleed s/p TIPS, HE, and ascites) on transplant list. Patient has live donor (her sister in law) and is also ok with an extended donor pool. She has never required paracentesis and has never had SBP. She does not appear volume overloaded on admission. CT3 phase on 04/11/22 consistent with cirrhotic nodular liver without focal liver lesions. US 04/18 showed patent shunt with normal portal vein velocity and no ascites. Patient also noted increased confusion and mental fog at home since recent discharge 04/12, although she also notes she had been having decreased bowel movements prior to admission. CT head non-contrast was obtained 04/18 and showed no bleed. MELD-Na score: 14 at 04/24/2022 3:11 AM MELD score: 14 at 04/24/2022 3:11 AM Calculated from: Serum Creatinine: 0.76 mg/dL (Using min of 1 mg/dL) at 04/24/2022 3:11 AM Serum Sodium: 137 mmol/L at 04/24/2022 3:11 AM Total Bilirubin: 2.2 mg/dL at 04/24/2022 3:11 AM INR(ratio): 1.5 at 04/23/2022 6:06 AM Age: 46 years - Continue Spironolactone/Lasix - Lactulose 15 3 times a day for 3-4 BM per day - MELD labs daily Dyslipidemia 04/15/2008 06/02/2023 Elevated blood pressure read ing without diagnosis of hypertension 07/30/2005 11/19/2024 Overview (06/02/2023): as a teenager. 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 Follows with Dr. Gaona. Patient initially listed on transplant list, removed from waitlist as she was doing well. Last HCC screening was abdominal CT scan was on 08/13/2024, no evidence of HCC. Will continue on home medications. MELD 3.0: 11 at 11/12/2024 11:21 AM MELD-Na: 7 at 11/12/2024 11:21 AM Calculated from: Serum Creatinine: 0.72 mg/dL (Using min of 1 mg/dL) at 11/12/2024 11:21 AM Serum Sodium: 134 mmol/L at 11/12/2024 11:21 AM Total Bilirubin: 0.9 mg/dL (Using min of 1 mg/dL) at 11/12/2024 11:21 AM Serum Albumin: 3.1 g/dL at 11/12/2024 11:21 AM INR(ratio): 1.1 at 11/12/2024 11:21 AM Age at listing (hypothetical): 49 years Sex: Female at 11/12/2024 11:21 AM Discharge: - Continue home spironolactone 100 mg daily - Continue home torsemide 40 mg daily - HE prophylaxis: lactulose 20 g TID - Increase midodrine 15 mg q8 Assessment & Plan (11/18/2024 6:43 PM EDT): Home meds: spironolactone 100 mg daily, torsemide 40 mg daily, lactulose 20 g BID, midodrine 10 mg every 8 hours Patient with a history of JAQUEZ 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 Follows with Dr. Gaona. Patient initially listed on transplant list, removed from waitlist as she was doing well. Last HCC screening was abdominal CT scan was on 08/13/2024, no evidence of HCC. Will continue on home medications. MELD 3.0: 11 at 11/12/2024 11:21 AM MELD-Na: 7 at 11/12/2024 11:21 AM Calculated from: Serum Creatinine: 0.72 mg/dL (Using min of 1 mg/dL) at 11/12/2024 11:21 AM Serum Sodium: 134 mmol/L at 11/12/2024 11:21 AM Total Bilirubin: 0.9 mg/dL (Using min of 1 mg/dL) at 11/12/2024 11:21 AM Serum Albumin: 3.1 g/dL at 11/12/2024 11:21 AM INR(ratio): 1.1 at 11/12/2024 11:21 AM Age at listing (hypothetical): 49 years Sex: Female at 11/12/2024 11:21 AM - Continue home spironolactone 100 mg daily - Continue home torsemide 40 mg daily - HE prophylaxis: lactulose 20 g TID - Continue home midodrine 10 mg q8h Encounters Date Type Department Care Team Description 12/24/2024 Patient Outreach [facility] OCI [address] [address] Sherie Lu 12/22/2024 Telephone [facility] Gastroenterology Clinic [address] [place] [address] Family Practice Physician Assistant: Genevieve Hart, RN 12/22/2024 Refill [facility] 3 East Unit [address] [place] [address] Kathy Diaz MD 12/21/2024 Telephone [facility] Interventional Radiology [address] [place] [address] Neftali Adkins, SAGE 12/20/2024 myChart Message [facility]astroenterology Clinic [address] [place] [address] Family Practice Physician Assistant: Kait Martins MD Checking in 12/20/2024 Telephone [facility] Primary Care [address] [place] [phone] Tc Hernandes, SAGE 12/20/2024 myChart Message [facility] Primary Care [address] [place] [phone] Sharlene De La Garza DO Checking in 12/16/2024 2:31 PM EDT Anesthesia Event [facility] Interventional Radiology [address] [place] [address] Graham Warner MD Knight, Olson, MD 12/16/2024 7:37 AM EDT - 12/16/2024 9:54 PM EDT Hospital Encounter [facility] Interventional Radiology [address] [place] [address] Jean Escobedo MD Secondary esophageal varices without bleeding Discharge Disposition: Home or Self Care () 12/15/2024 12:31 PM EDT - 12/15/2024 11:59 PM EDT Hospital Encounter [facility] Interventional Radiology [address] [place] [address] Kait Gaona MD Liver cirrhosis secondary to JAQUEZ ; Other ascites Discharge Disposition: Home or Self Care () 12/14/2024 Telephone [facility] Interventional Radiology [address] [place] [address] Krystyna Ruiz RN 12/14/2024 Orders Only [facility] Interventional Radiology [address] [place] [address] Ning Gonzalez PA 12/14/2024 Orders Only [facility] Gastroenterology Clinic [address] [place] [phone] Family Practice Physician Assistant: Genevieve Hart, SAGE Liver cirrhosis secondary to JAQUEZ (Primary Dx); Other ascites; S/P TIPS (transjugular intrahepatic portosystemic shunt) 12/09/2024 Telephone [facility] ACC Building Diabetes Clinic [address] [place] [address] Family Practice Physician Assistant: Marsha Figueroa CPhT Prior Authorization (DEXCOM G7 SENSOR - PA RENEWAL) 12/08/2024 1:28 PM EDT - 12/08/2024 11:59 PM EDT Hospital Encounter [facility] Interventional Radiology [address] [place] [address] Kait Gaona MD Liver cirrhosis secondary to JAQUEZ ; Other ascites Discharge Disposition: Home or Self Care () 12/08/2024 11:30 AM EDT Follow-Up [facility] 4th floor Cardiology Medicine [address] [place] [address] Family Practice Physician Assistant: Cory Bolanos MD RVF (right ventricular failure) (Primary Dx); Pulmonary hypertension ; Coronary artery disease involving sokaogon coronary artery of sokaogon heart, unspecified whether angina present 12/08/2024 Orders Only [facility] Diabetes Clinic [address] [place] [address] Family Practice Physician Assistant: Genevieve Moralez MD 12/07/2024 1:15 PM EDT Pre-Admission Testing [facility] [address] [facility] 3rd [place] [address] Pre-op evaluation (Primary Dx); Liver cirrhosis secondary to JAQUEZ ; Secondary esophageal varices without bleeding 12/07/2024 Orders Only [facility] Interventional Radiology [address] [place] [address] Miriam Coleman NP 12/07/2024 Telephone [facility] Interventional Radiology [address] [place] [address] Lima Srivastava, RN 12/06/2024 Telephone [facility] Interventional Radiology [address] [place] [address] Krystyna Ruiz, SAGE 12/03/2024 Patient Outreach [facility] OCI 1 [facility] [address] [place] [address] Sherie Lu 12/01/2024 1:00 PM EDT - 12/01/2024 11:59 PM EDT Hospital Encounter [facility] Interventional Radiology [address] [place] [address] Kait Gaona MD Portal vein thrombosis (Primary Dx); Liver cirrhosis secondary to JAQUEZ ; Other ascites Discharge Disposition: Home or Self Care () 12/01/2024 myChart Message [facility] Primary Care [address] [place] [phone] Sharlene De La Garza DO Checking in 11/30/2024 Orders Only [facility] Interventional Radiology [address] [place] [address] Ning Gonzalez PA 11/29/2024 Telephone [facility] Interventional Radiology [address] [place] [address] Shahrzad De La Garza RN 11/26/2024 Orders Only [facility] Interventional Radiology [address] [place] [address] Ning Gonzalez PA 11/26/2024 Patient Outreach [facility] OCI 1 [facility] [address] [place] [address] Hazeltine, Sherie 11/24/2024 Patient Outreach [facility] OCI 1 [facility] [address] [place] [address] Hazeltine, Sherie 11/24/2024 Refill [facility] Liver Transplant Services [address] [place] [address] Genevieve Alaniz MD 11/23/2024 2:00 PM EDT Telehealth [facility] Primary Care [address] [place] [phone] Lobo Davies MD Portal vein thrombosis (Primary Dx) 11/23/2024 Telephone [facility] Interventional Radiology [address] [place] [address] Krystyna Ruiz RN 11/22/2024 Telephone [facility] Primary Care [address] [place] [phone] Maegan Ramey RN [facility] 11/18/2024 5:25 PM EDT - 11/19/2024 6:38 PM EDT Hospital Encounter [facility] 3 East [address] [place] [address] Nadine Herrera MD Wilson, Sean W., MD Humphrey, Amanda R RN Secondary esophageal varices without bleeding (HCC) (Primary Dx); Liver cirrhosis secondary to JAQUEZ (HCC); Other ascites Discharge Disposition: Home or Self Care () 11/18/2024 10:52 AM EDT Anesthesia Event [facility] Interventional Radiology [address] [place] [address] Aba Buchanan MD Mirth, Anne M., MD 11/17/2024 12:26 PM EDT - 11/17/2024 11:59 PM EDT Hospital Encounter [facility] Interventional Radiology [address] [place] [address] Kait Gaona MD Liver cirrhosis secondary to JAQUEZ (HCC); Other ascites Discharge Disposition: Home or Self Care () 11/15/2024 Telephone [facility] Cancer Clinic South [address] [facility] [address] [place] [address] Ning Velazco MD 11/15/2024 Telephone [facility] Interventional Radiology [address] [place] [address] Lima Srivastava RN 11/15/2024 Refill [facility] 4th floor Cardiology Medicine [address] [place] [address] Family Practice Physician Assistant: Cory Bolanos MD Hyperlipidemia, unspecified hyperlipidemia type; Coronary artery disease involving sokaogon coronary artery of sokaogon heart without angina pectoris 11/12/2024 Telephone [facility] Cancer Clinic South [address] [place] [address] [address] [place] [address] Ning Velazco MD 11/12/2024 Results Follow-Up [facility] [address] [facility] 3rd [place] [address] Maliha El NP 11/10/2024 12:38 PM EDT - 11/10/2024 11:59 PM EDT Hospital Encounter [facility] Interventional Radiology [address] [place] [address] Kait Gaona MD Liver cirrhosis secondary to JAQUEZ (HCC); Other ascites Discharge Disposition: Home or Self Care () 11/10/2024 10:00 AM EDT Follow-Up [facility] Building Cancer Clinic South 5th Floor [address] [place] [address] Ning Velazco MD Splenic vein thrombosis (Primary Dx); Anemia, unspecified type; Thrombocytopenia 11/10/2024 9:05 AM EDT Lab [facility] ACC Draw Site Fifth Floor [address] [place] [address] Anemia, unspecified type; Thrombocytopenia 11/09/2024 Telephone [facility] Interventional Radiology [address] [place] [address] Krystyna Ruiz, SAGE 11/08/2024 10:00 AM EDT Follow-Up [facility] at [address] [phone] Joan Constantino P, OD Mild nonproliferative diabetic retinopathy of both eyes without macular edema associated with type 2 diabetes mellitus (HCC) (Primary Dx); Myopia of both eyes with astigmatism and presbyopia 11/08/2024 Telephone [facility] Interventional Radiology [address] [place] [phone] Krystyna Ruiz RN 11/03/2024 3:30 PM EDT Pre-Admission Testing [facility] [address] [place] [address] [address] [place] [address] Lacy Eisenberg NP Pre-op evaluation (Primary Dx); Type 2 diabetes mellitus without complication, unspecified whether oil heaterman insulin use (HCC); Liver cirrhosis secondary to JAQUEZ (HCC) 11/03/2024 12:29 PM EDT - 11/03/2024 11:59 PM EDT Hospital Encounter [facility] Interventional Radiology [address] [place] [address] Kait Gaona MD Liver cirrhosis secondary to JAQUEZ (HCC); Other ascites Discharge Disposition: Home or Self Care (01) 11/02/2024 Telephone [facility] Interventional Radiology [address] [place] [address] Krystyna Ruiz, SAGE 10/29/2024 Telephone [facility] Interventional Radiology [address] [place] [phone] Krystyna Ruiz, SAGE 10/27/2024 12:18 PM EDT - 10/27/2024 11:59 PM EDT Hospital Encounter [facility] Interventional Radiology [address] [place] [address] Kait Gaona MD Liver cirrhosis secondary to JAQUEZ (HCC); Other ascites Discharge Disposition: Home or Self Care () 10/27/2024 Orders Only [facility] Interventional Radiology [address] [place] [address] Coretta Vaughan PA 10/26/2024 Telephone [facility] Interventional Radiology [address] [place] [phone] Krystyna Ruiz, SAGE 2024 Results Follow-Up [facility] Liver Transplant Services [address] [place] [address] Kait Gaona MD 10/22/2024 12:16 PM EDT - 10/22/2024 11:59 PM EDT Hospital Encounter [facility] Ultrasound [address] [place] [address] Kait Gaona MD Liver cirrhosis secondary to JAQUEZ (HCC); Other ascites Discharge Disposition: Home or Self Care () 10/19/2024 Telephone [facility] Gastroenterology Clinic [address] [place] [address] Family Practice Physician Assistant: Kait Martins MD 10/18/2024 8:58 AM EDT - 10/18/2024 11:59 PM EDT Hospital Encounter [facility] Interventional Radiology [address] [place] [address] Kait Gaona MD Liver cirrhosis secondary to JAQUEZ (HCC); Other ascites Discharge Disposition: Home or Self Care () 10/18/2024 Documentation [facility] Transplant Department [address] [place] [address] Radha mcintosh, Marifer F., HEALTHCARE REPRESENTATIVE Transportation 10/15/2024 Results Follow-Up [facility] Liver Transplant Services [address] [place] [address] Kait Gaona MD 10/15/2024 Orders Only [facility] Interventional Radiology [address] [place] [address] Elizabeth Wolf PA 10/14/2024 2:30 PM EDT Office Visit [facility] Gastroenterology Clinic [address] [place] [address] Family Practice Physician Assistant: Kait Martins MD Liver cirrhosis secondary to JAQUEZ (HCC) (Primary Dx); Other ascites; S/P TIPS (transjugular intrahepatic portosystemic shunt) 10/07/2024 1:55 PM EDT - 10/07/2024 11:59 PM EDT Hospital Encounter [facility] Interventional Radiology [address] [place] [address] Kait Gaona MD Hepatic encephalopathy (Primary Dx); Thrombocytopenia; Liver cirrhosis secondary to JAQUEZ (HCC); Periapical abscess; Hepatic encephalopathy (HCC) Discharge Disposition: Home or Self Care () 10/07/2024 Telephone [facility] Liver Transplant Services [address] [place] [address] Kait Gaona MD 10/06/2024 Telephone [facility] Cancer Clinic South 5th Floor [address] [place] [address] Ning Velazco MD 10/06/2024 Telephone [facility] Interventional Radiology [address] [place] [address] Krystyna Ruiz, SAGE 10/06/2024 Telephone [facility] Interventional Radiology [address] [place] [address] Krystyna Ruiz, SAGE 10/05/2024 Patient Outreach [facility] [address] [address] Sherie Lu 10/01/2024 Telephone [facility] Primary Care [address] [place] [address] Telephone Intake, Staff PAC Clinical Questions 09/30/2024 Reclamadorhart Message [facility] ACC Building [address] [place] [address] Mychart, Generic Provider Refill coordination 09/29/2024 3:20 PM EDT - 09/29/2024 9:44 PM EDT Emergency [facility] Emergency Department [address] [place] [address] Discharge Disposition: Left Without Being Seen () 09/28/2024 Telephone [facility] Interventional Radiology [address] [place] [address] Ebonie Hensley RN 09/27/2024 Orders Only [facility] Interventional Radiology [address] [place] [address] Miriam Coleman NP 09/27/2024 Telephone [facility] Gastroenterology Clinic [address] [place] [address] Family Practice Physician Assistant: Genevieve Hart, SAGE 09/27/2024 Reclamadorhart Message [facility] Liver Transplant Services [address] [place] [address] Kait Gaona MD Periocentisis from Last 3 Months Immunizations Immunization Administration Dates Next Due Covid-19, Pfizer, mRNA, Hickman valent, PF 30 mcg/0.3 mL dose (for ages 12 and older) 06/23/2020,06/01/2020 Hepatitis A Vaccine, Adult Dosage 10/20/2020, Hepatitis B Vaccine, Pediatr ic or Pediatric/Adolescent Dosage 09/11/1995,02/11/1995,01/13/1995 Influenza, Injectable, Madin Dominga Canine Kidney, Preservative Free, Quadrivalent 11/19/2018 Influenza, Injectable, Quadr ivalent, Preservative Free 04/12/2022(Deferred: Patient Refused),12/10/2013 Influenza, Trivalent, MDV, Injectable ,12/10/2013,11/20/2010,02/07 Pneumococcal Conjugate Vacci ne, 13 Valent 10/20/2020(Deferred: Other) Pneumococcal Polysaccharide Vaccine, 23 Valent 10/20/2020,02/07/2010 Tetanus Toxoid, Reduced Diph theria Toxoid, and Acellular Pertussis Vaccine, Adsorbed 10/20/2020,05/23/2017 Tetanus and Diphtheria Toxoi ds, Adsorbed, Preservative Free (2 Lf of Tetanus Toxoid and 2 Lf of Diphtheria Toxoid) 07/30/2005,08/30/1993 Family History Medical History Relation Name Comments Coronary artery disease Brother 1 Diabetes type II Brother 1 Alcohol abuse Father Coronary artery disease Father COPD Maternal Grandmother Diabetes Maternal Grandmother Breast cancer Mother Lung cancer Mother Diabetes Paternal Grandfather Diabetes Paternal Grandmother Relation Name Status Comments Brother 1 Brother 2 Alive Father Maternal Grandmother Mother Alive Paternal Grandfather Paternal Grandmother Sister Social History Tobacco Use Types Packs/Day Years Used Date Smoking Tobacco: Former Cigarettes 1 18.4 0 06/02/1995 - 10/15/2013 Smokeless Tobacco: Never Tobacco Cessation:Counseling Given: Not Answered Comments:quit 2012 Alcohol Use Standard Drinks/Week Comments Not Currently 0 (1 standard drink = 0.6 oz pur e alcohol) [facility] Utilities Answer Date Recorded In the past 12 months has th e electric, gas, oil, or water company threatened to shut off services in your [...] Orientation Straight 05/03/2020 12 :04 PM EST Last Filed Vital Signs Vital Sign Reading Time Taken Comments Blood Pressure 119/67 12/16/2024 8:00 PM EDT Pulse 103 12/16/2024 8:00 PM EDT Temperature 36.7 C (98.1 F) 12/16/2024 5:45 PM EDT Respiratory Rate 15 12/16/2024 7:30 PM EDT Oxygen Saturation 96% 12/16/2024 8:00 PM EDT Inhaled Oxygen Concentration - - Weight 65.3 kg (144 lb) 12/16/2024 8:22 AM EDT Height 165.1 cm (5' 5 ) 12/16/2024 8:22 AM EDT Body Mass Index 23.96 12/16/2024 8:22 AM EDT Plan of Treatment Upcoming Encounters Date Type Department Care Team (Late st Contact Info) Description 12/27/2024 10:30 AM EDT Follow-Up [facility] Liver Transplant Services [address] [place] [address] Kait Gaona MD [address] [place] [address] 12/29/2024 1:00 PM EDT [facility] Interventional Radiology [address] [place] [phone] Kait Gaona MD [address] [place] [phone] 12/29/2024 3:00 PM EDT Follow-Up [facility] Liver Transplant Services [address] [place] [address] Genevieve Alaniz MD [address] [place] [phone] 01/05/2025 1:00 PM EST Appointment [facility] Interventional Radiology [address] [place] [phone] Kait Gaona MD [address] [place] [phone] 01/11/2025 2:00 PM EST Follow-Up [facility] at [address] [phone] Nito Morfin MD [address] [place] [phone] 01/12/2025 1:00 PM EST Appointment [facility] Interventional Radiology [address] [place] [address] Kait Gaona MD [address] [place] [phone] 01/19/2025 1:00 PM EST Appointment [facility] Interventional Radiology [address] [place] [phone] Kait Gaona MD [address] [place] [phone] 01/26/2025 1:00 PM EST Appointment [facility] Interventional Radiology [address] [place] [address] Kait Gaona MD [address] [place] [phone] 02/02/2025 1:00 PM EST Appointment [facility] Interventional Radiology [address] [place] [phone] 02/09/2025 10:30 AM EST Lab [facility] ACC Draw Site Fifth Floor [address] [place] [address] 02/09/2025 11:30 AM EST Follow-Up [facility] ACC Building Cancer Clinic South 5th Floor [address] [place] [address] Ning Velazco MD [address] [facility] Hematology/[place] [address] 02/09/2025 1:00 PM EST Appointment [facility] Interventional Radiology [address] [place] [phone] 02/15/2025 1:30 PM EST Appointment [facility] Building Cardiac Ultrasound [address] [place] [address] 02/16/2025 1:00 PM EST Appointment [facility] Interventional Radiology [address] [place] [address] 02/23/2025 1:00 PM EST Appointment [facility] Interventional Radiology [address] [place] [phone] 03/02/2025 1:00 PM EST Appointment [facility] Interventional Radiology [address] [place] [phone] 03/09/2025 1:00 PM EST Appointment [facility] Interventional Radiology [address] [place] [phone] 03/16/2025 1:00 PM EST Appointment [facility] Interventional Radiology [address] [place] [phone] 03/23/2025 1:00 PM EST Appointment [facility] Interventional Radiology [address] [place] [phone] 03/30/2025 1:00 PM EST Appointment [facility] Interventional Radiology [address] [place] [phone] 04/06/2025 1:00 PM EST Appointment [facility] Interventional Radiology [address] [place] [phone] 04/13/2025 1:00 PM EST Appointment [facility] Interventional Radiology [address] [place] [phone] 04/20/2025 1:00 PM EST Appointment [facility] Interventional Radiology [address] [place] [place] [id number] 06/17/2025 1:30 PM EDT Follow-Up [facility] 4th floor Cardiology Medicine [address] [place] [address] Family Practice Physician Assistant: Cookie Coates PA [address] [place] [address] 01/18/2026 1:30 PM EST Follow-Up [address] floor Cardiology Medicine [address] [place] [address] Family Practice Physician Assistant: Cory Bolanos MD [address] [place], [place] [phone] Scheduled Procedures Name Priority Associated Diagnoses Date/Ti me RIGHT HEART CATHETERIZATION RVF (right ventricular failure) Pulmonary hypertension Coronary artery disease involving sokaogon coronary artery of sokaogon heart, unspecified whether angina present CORONARY ANGIOGRAPHY RVF (right ventricular failure) Pulmonary hypertension Coronary artery disease involving sokaogon coronary artery of sokaogon heart, unspecified whether angina present ANGIOPLASTY - CORONARY RVF (right ventricular failure) Pulmonary hypertension Coronary artery disease involving sokaogon coronary artery of sokaogon heart, unspecified whether angina present Health Maintenance Due Date Last Done Comments Cologuard 1976 Colon Cancer Screening 1976 Colonoscopy 1976 FOBT / Fit Test 1976 HPV and Pap Smear 1976 Sigmoidoscopy 1976 Pneumococcal Vaccine: Pediat anne marie (0-5 Years) and At-Risk Patients (6-50 Years) (2 of 2 - PCV) 10/20/2021 10/20/2020, 02/07/2010 COVID-19 Vaccine (3 - 2024-2 6 season) 2024 06/23/2020, 06/01/2020 Influenza Vaccine (#1) 2024 9, 11/19/2018, 12/10/2013, Additional history exists Urine Microalbumin 11/04/2024 11/05/2023, 0 10/16/2022, 11/22/2020, Additional history exists Hemoglobin A1C 02/12/2025 08/13/2024, 01/31, 11/05/2023, Additional history exists Mammogram 06/02/2025 06/03/2023 Depression Screening and Follow-Up 08/04/20252024 Social Drivers of Health Angelica ual Screening 08/04/2025 08/04/2024 Ophthalmology Exam 11/08/2025 11/08/2024, 0 11/08/2024, 11/08/2024, Additional history exists Basic Metabolic Panel 11/19/2025 11/19/2024 , 11/12/2024, 11/10/2024, Additional history exists Cervical Cancer Screening 07/06/2026 Pap Smear 07/06/2026 07/07/2023 DTaP,Tdap,and Td Vaccines (4 - Td or Tdap) 10/20/2030 10/20/2020, 05/23/2017, 07/30/2005, Additional history exists RSV Vaccine (60+ years old a nd patients) (1 - 1-dose 75+ series) 10/26/2051 Hepatitis B Vaccines Completed 09/11/1995, 02/11/1995, 01/13/1995 Oral Health Screening Completed 06/17/2024 HIV Screening Completed 08/08/2024, 06/2022, 07/03/2021 Hepatitis C Screening Completed 08/08/2024 , 08/08/2024, 04/06/2022, Additional history exists Alcohol/Substance Use Screening Completed Medical Devices Implanted Type Area Maintenance Mechanic Elevators Device Identifier Shelf Expiration Date Model / Serial / Lot Stent Vascular Endoprosthesis With Controlled Expansion 10fr [id number]-96uzm2ql [facility] - [id number] - [id number] Implanted:Qty: 1 on 08/12/2024 at [facility] Implant W L GORE [id number] 03/07/2027 PTB [id number] 5 / [id number] / Coil Embolization [place] 3.7 Loop 0.018in 9lsy5vz Gina - [id number] Implanted:Qty: 1 on 11/18/2024 at [facility] Implant [employer] [id number] 07/09/2025 [id number] / / [id number] Coil Embolization [place] Single Use Sterile 0.035in 5smu5lk Kevin - [id number] Implanted:Qty: 1 on 11/18/2024 at [facility] Implant [employer] [id number] 06/25/2028 [id number] / / [id number] Stent Vascular Endoprosthesis With Controlled Expansion 10fr 8mm-80epu7gi Viatorr - [id number] - [id number] Implanted:Qty: 1 on 11/18/2024 at [facility] Implant W L GORE [id number] 03/29/2027 PTB 850608 5 / [id number] / Coil Embolization Detachable Complex Standard 36fei30ym Melida - [id number] Implanted:Qty: 1 on 11/18/2024 at [facility] Implant [employer] [id number] 12/20/2028 R [id number] / / [id number] Coil Embolization Detachable Complex Standard 21moc55kc Melida - [id number] Implanted:Qty: 1 on 11/18/2024 at [facility] Implant [employer] [id number] 03/07/2032 R [id number] / / [id number] Coil Pod 14x60 - [id number] Implanted:Qty: 1 on 11/18/2024 at [facility] Implant [facility] [id number] 05/10/2032 POD14 / / [id number] Coil Pod 14x60 - [id number] Implanted:Qty: 1 on 11/18/2024 at [facility] Implant [facility] [id number] 05/10/2032 POD14 / / [id number] System Embolic Liquid 6ml Lava-34 - [id number] Implanted:Qty: 1 on 11/18/2024 at [facility] Implant [employer] SLL [id number] / / System Embolic Liquid 6ml Lava-34 - [id number] Implanted:Qty: 1 on 11/18/2024 at [facility] Implant [employer] SLL ES346 / / System Embolic Liquid 6ml Lava-34 - [id number] Implanted:Qty: 1 on 11/18/2024 at [facility] Implant [employer] SLL [id number] / / Procedures * Due to [place] state law, this organization might not be sharing negative HIV tests. Procedure Name Priority Date/Time Associated Diagnosis Comments MANUAL DIFFERENTIAL STAT 12/16/2024 5 :58 PM EDT HEPATIC FUNCTION PANEL STAT 12/16/2024 5:58 PM EDT CBC AUTO DIFFERENTIAL STAT 12/16/2024 5:58 PM EDT IR THROMBOLYSIS Routine 12/16/2024 5:38 PM EDT Secondary esophageal varices without bleeding POCT I-STAT ACTIVATED CLOTTING TIME Routine 12/16/2024 4:38 PM EDT POCT I-STAT ACTIVATED CLOTTING TIME Routine 12/16/2024 4:00 PM EDT POCT GLUCOSE Routine 12/16/2024 2:40 PM EDT PREPARE RBC STAT 12/16/2024 2:37 PM EDT POCT GLUCOSE Routine 12/16/2024 1:58 PM EDT PREPARE RBC STAT 12/16/2024 1:25 PM EDT POCT GLUCOSE Routine 12/16/2024 12:39 PM EDT POCT HCG, URINE STAT 12/16/2024 10:12 AM EDT ECG 12-LEAD STAT 12/16/2024 8:55 AM EDT POCT GLUCOSE Routine 12/16/2024 8:39 AM EDT CBC STAT 12/16/2024 8:38 AM EDT TYPE AND SCREEN STAT 12/16/2024 8:10 AM EDT IR PARACENTESIS THERAPEUTIC Routine 12/15/2024 1:42 PM EDT Liver cirrhosis secondary to JAQUEZ Other ascites IR PARACENTESIS THERAPEUTIC Routine 12/08/2024 2:28 PM EDT Liver cirrhosis secondary to JAQUEZ Other ascites ECG 12-LEAD Routine 12/08/2024 11:56 AM EDT RVF (right ventricular failure) Coronary artery disease involving sokaogon coronary artery of sokaogon heart, unspecified whether angina present IR PARACENTESIS THERAPEUTIC Routine 12/01/2024 2:18 PM EDT Liver cirrhosis secondary to JAQUEZ Other ascites SMEAR REVIEW STAT 12/01/2024 12:55 PM EDT Portal vein thrombosis CBC AUTO DIFFERENTIAL STAT 12/01/2024 12:55 PM EDT Portal vein thrombosis SMEAR REVIEW Routine 11/19/2024 11:59 AM EDT CBC AUTO DIFFERENTIAL Timed 11/19/2024 11:59 AM EDT POCT GLUCOSE Routine 11/19/2024 9:18 AM EDT MANUAL DIFFERENTIAL STAT 11/19/2024 1 :18 AM EDT MANUAL DIFFERENTIAL Routine 11/19/2024 1 :18 AM EDT CBC AUTO DIFFERENTIAL STAT 11/19/2024 1:18 AM EDT CBC AUTO DIFFERENTIAL Routine 11/19/2024 1:18 AM EDT HEPATIC FUNCTION PANEL Routine 11/19/2024 1:18 AM EDT BASIC METABOLIC PANEL Routine 11/19/2024 1:18 AM EDT MAGNESIUM Routine 11/19/2024 1:18 AM EDT PREPARE PLATELET PHERESIS Routine 11/18/2024 11:06 PM EDT MANUAL DIFFERENTIAL Routine 11/18/2024 8 :19 PM EDT CBC AUTO DIFFERENTIAL Timed 11/18/2024 8:19 PM EDT POCT GLUCOSE Routine 11/18/2024 7:54 PM EDT HEMOGLOBIN AND HEMATOCRIT Routine 11/18/2024 5:42 PM EDT IR TIPS REVISION STAT 11/18/2024 4:20 PM EDT Liver cirrhosis secondary to JAQUEZ (HCC) Other ascites POCT I-STAT CHEMISTRY PANEL W/ABG Routine 11/18/2024 3:15 PM EDT AN ARTERIAL LINE DUMMY PERFORMABLE Routine 11/18/2024 10:42 AM EDT IL INSERT CATH,ART,PERCUT,SHOR TTERM Routine 11/18/2024 10:42 AM EDT PREPARE PLATELET PHERESIS Routine 11/18/2024 8:58 AM EDT POCT GLUCOSE Routine 11/18/2024 8:25 AM EDT IR PARACENTESIS THERAPEUTIC Routine 11/17/2024 1:35 PM EDT Liver cirrhosis secondary to JAQUEZ (HCC) Other ascites ECG 12-LEAD Routine 11/12/2024 11:28 AM EDT Pre-op evaluation SMEAR REVIEW Routine 11/12/2024 11:21 AM EDT Pre-op evaluation COMPREHENSIVE METABOLIC PANEL STAT 11/12/2024 11:21 AM EDT Splenic vein thrombosis CBC AUTO DIFFERENTIAL STAT 11/12/2024 11:21 AM EDT Splenic vein thrombosis TYPE AND SCREEN Routine 11/12/2024 11:21 AM EDT Pre-op evaluation PTT Routine 11/12/2024 11:21 AM EDT Pre-op evaluation PROTIME-INR Routine 11/12/2024 11:21 AM EDT Pre-op evaluation CBC AUTO DIFFERENTIAL Routine 11/12/2024 11:21 AM EDT Pre-op evaluation IR PARACENTESIS THERAPEUTIC Routine 11/10/2024 2:07 PM EDT Liver cirrhosis secondary to JAQUEZ (HCC) Other ascites CBC AUTO DIFFERENTIAL STAT 11/10/2024 9:36 AM EDT Anemia, unspecified type Thrombocytopenia COMPREHENSIVE METABOLIC PANEL STAT 11/10/2024 9:36 AM EDT Anemia, unspecified type Thrombocytopenia OCT, MACULA - OU - BOTH EYES Routine 11/08/2024 11:26 AM EDT Mild nonproliferative diabetic retinopathy of both eyes without macular edema associated with type 2 diabetes mellitus (HCC) COLOR FUNDUS PHOTOGRAPHY - OU - BOTH EYES Routine 11/08/2024 11:25 AM EDT Mild nonproliferative diabetic retinopathy of both eyes without macular edema associated with type 2 diabetes mellitus (HCC) IR PARACENTESIS THERAPEUTIC Routine 11/03/2024 2:02 PM EDT Liver cirrhosis secondary to JAQUEZ (HCC) Other ascites IR PARACENTESIS THERAPEUTIC Routine 10/27/2024 1:25 PM EDT Liver cirrhosis secondary to JAQUEZ (HCC) Other ascites US ABDOMEN LIMITED AND DOPPLER COMPLETE WITH TIPS STAT 10/22/2024 1:53 PM EDT Liver cirrhosis secondary to JAQUEZ (HCC) Other ascites IR PARACENTESIS THERAPEUTIC Routine 10/18/2024 10:19 AM EDT Liver cirrhosis secondary to JAQUEZ (HCC) Other ascites CBC AUTO DIFFERENTIAL Routine 10/14/2024 3:42 PM EDT Hepatic cirrhosis, unspecified hepatic cirrhosis type, unspecified whether ascites present (HCC) COMPREHENSIVE METABOLIC PANEL Routine 10/14/2024 3:42 PM EDT Hepatic cirrhosis, unspecified hepatic cirrhosis type, unspecified whether ascites present (HCC) PROTIME-INR Routine 10/14/2024 3:42 PM EDT Hepatic cirrhosis, unspecified hepatic cirrhosis type, unspecified whether ascites present (HCC) AFP TUMOR MARKER Routine 10/14/2024 3:42 PM EDT Hepatic cirrhosis, unspecified hepatic cirrhosis type, unspecified whether ascites present (HCC) PHOSPHATIDYLETHANOL- [id number] Routine 10/14/2024 3:42 PM EDT Liver cirrhosis secondary to JAQUEZ (HCC) Other ascites IR PARACENTESIS DIAGNOSTIC AND THERAPEUTIC Routine 10/07/2024 3:13 PM EDT Liver cirrhosis secondary to JAQUEZ (HCC) Other ascites CELL COUNT W/DIFFERENTIAL, PERITONEAL Routine 10/07/2024 2:33 PM EDT Thrombocytopenia Hepatic encephalopathy (HCC) Liver cirrhosis secondary to JAQUEZ (HCC) Periapical abscess STAT GRAM STAIN Routine 10/07/2024 2:33 PM EDT Thrombocytopenia Hepatic encephalopathy (HCC) Liver cirrhosis secondary to JAQUEZ (HCC) Periapical abscess (DO NOT ORDER) ANAEROBIC CULTURE-QML Routine 10/07/2024 2:33 PM EDT Thrombocytopenia Hepatic encephalopathy (HCC) Liver cirrhosis secondary to JAQUEZ (HCC) Periapical abscess (DO NOT ORDER) AEROBIC CULTURE-QML Routine 10/07/2024 2:33 PM EDT Thrombocytopenia Hepatic encephalopathy (HCC) Liver cirrhosis secondary to JAQUEZ (HCC) Periapical abscess BODY FLUID CULTURE W/STAT GRAM STAIN Routine 10/07/2024 2:33 PM EDT Thrombocytopenia Hepatic encephalopathy (HCC) Liver cirrhosis secondary to JAQUEZ (HCC) Periapical abscess CBC STAT 10/07/2024 1:47 PM EDT Thrombocytopenia PROTIME-INR Routine 10/07/2024 1:47 PM EDT Liver cirrhosis secondary to JAQUEZ (HCC) BASIC METABOLIC PANEL Routine 10/07/2024 1:47 PM EDT Liver cirrhosis secondary to JAQUEZ (HCC) CBC AUTO DIFFERENTIAL STAT 10/04/2024 1:45 PM EDT Thrombocytopenia LAB - SCANNED 10/04/2024 LIGHT GREEN TOP Routine 09/29/2024 3:41 PM EDT RAINBOW DRAW Routine 09/29/2024 3:41 PM EDT CBC AUTO DIFFERENTIAL STAT 09/29/2024 3:41 PM EDT HEMOGLOBIN A1C Routine 08/13/2024 1:57 AM EDT HEPATITIS C ANTIBODY W/REFLEX TO HCV RNA, QUANTITATIVE PCR Routine 08/08/2024 9:49 AM EDT MICROALBUMIN, RANDOM URINE WITH CREATININE Routine 11/05/2023 4:02 PM EDT Type 2 diabetes mellitus with retinopathy, with long-term current use of insulin, macular edema presence unspecified, unspecified laterality, unspecified retinopathy severity PAP Routine 07/07/2023 4:34 PM EDT Health care maintenance ANAYELI BILATERAL SCREENING DIGITAL MAMMOGRAM WITH KWAME Routine 06/03/2023 11:07 AM EDT Healthcare maintenance from Last 3 Months or Most Recently Relevant to Health Maintenance Results * Due to [place] state law, this organization might not be sharing negative HIV tests. * (ABNORMAL) CBC Auto Differential (12/16/2024 5:58 PM EDT) Only the most recent of12 resultswithin the time period is included. WBC 3.8 3.8 - 10.8 10*3/uL 12/16/2024 6:53 PM EDT [facility] RBC 2.56(L) 3.80 - 5.10 10*6/uL 12/16/2024 6:53 PM EDT [facility] Hemoglobin 7.5(L) 11.7 - 15.5 g/dL 12/16/2024 6:53 PM EDT [facility] Hematocrit 22.8(L) 35.0 - 45.0 % 12/16/2024 6:53 PM EDT [facility] MCV 89.1 80.0 - 100.0 fL 12/16/2024 6:53 PM EDT [facility] MCH 29.3 27.0 - 33.0 pg 12/16/2024 6:53 PM EDT [facility] MCHC 32.9 32.0 - 36.0 g/dL 12/16/2024 6:53 PM EDT [facility] RDW 18.5(H) 11.0 - 15.0 % 12/16/2024 6:53 PM EDT [facility] Platelets 27(LL) 140 - 400 10*3/uL 12/16/2024 6:53 PM EDT [facility] MPV 10.2 7.5 - 12.5 fL 12/16/2024 6:53 PM EDT [facility] nRBC % 0.0 /100 WBCs 12/16/2024 6:53 PM EDT [facility] nRBC # <0.01 <0.01 10*3/uL 12/16/2024 6:53 PM EDT [facility] Blood Structure of peripheral vein / Unknown Venipuncture / Unknown 12/16/2024 5:58 PM EDT 12/16/2024 6:14 PM EDT us Jean Escobedo MD LAB BLOOD ORDERABLES Final Res ult [facility] [address] [place] [address], [place] * (ABNORMAL) Manual Differential (12/16/2024 5:58 PM EDT) Only the most recent of4 resultswithin the time period is included. Neutrophil %, Manual 97 % 12/16/2024 6:53 PM EDT [facility] Band % 1 0 - 7 % 12/16/2024 6:53 PM EDT [facility] Lymphocyte %, Manual 2 % 12/16/2024 6:53 PM EDT [facility] Monocyte %, Manual 0 % 12/16/2024 6:53 PM EDT [facility] Eosinophil %, Manual 0 % 12/16/2024 6:53 PM EDT [facility] Basophil %, Manual 0 % 12/16/2024 6:53 PM EDT [facility] Total Neutrophil #, Manual 3.72 1.50 - 7.80 10*3/uL 12/16/2024 6:53 PM EDT [facility] Bands #,Manual 0.04 10*3/uL 12/16/2024 6:53 PM EDT [facility] Total Lymph #, Manual 0.08(L) 0.85 - 3.90 10*3/uL 12/16/2024 6:53 PM EDT [facility] Monocyte #, Manual 0.00(L) 0.20 - 0.95 10*3/uL 12/16/2024 6:53 PM EDT [facility] Eosinophil #, Manual 0.00(L) 0.02 - 0.50 10*3/uL 12/16/2024 6:53 PM EDT [facility] Basophil #, Manual 0.00 0.00 - 0.20 10*3/uL 12/16/2024 6:53 PM EDT [facility] Platelet Estimate Markedly Decreased(A ) Adequate 12/16/2024 6:53 PM EDT [facility] RBC Morphology Present(A) Normal, No clinically significant RBC morphology present (ICSH guidelines, 2015). 12/16/2024 6:53 PM EDT [facility] Anisocytosis 2+(A) Not Present 12/16/2024 6:53 PM EDT [facility] Total Cells Counted 118 12/16/2024 6:53 PM EDT [facility] Blood Structure of peripheral vein / Unknown Venipuncture / Unknown 12/16/2024 5:58 PM EDT 12/16/2024 6:14 PM EDT us Jean Escobedo MD LAB BLOOD ORDERABLES Final Res ult [facility] [address] [place] [id number], * (ABNORMAL) Hepatic function panel (12/16/2024 5:58 PM EDT) Only the most recent of2 resultswithin the time period is included. Total Protein 6.0 6.0 - 8.0 g/dL 12/16/2024 6:53 PM EDT [facility] Albumin 2.7(L) 3.5 - 5.2 g/dL 12/16/2024 6:53 PM EDT [facility] Globulin, Total 3.3 2.1 - 4.2 g/dL 12/16/2024 6:53 PM EDT [facility] Bilirubin, Total 1.9(H) 0.2 - 1.2 mg/dL 12/16/2024 6:53 PM EDT [facility] Bilirubin, Direct 1.1(H) <=0.4 mg/dL 12/16/2024 6:53 PM EDT [email or web address] Alkaline Phosphatase 86 35 - 129 U/L 12/16/2024 6:53 PM EDT [facility] AST 28 10 - 40 U/L 12/16/2024 6:53 PM EDT [email or web address] ALT 8(L) 10 - 40 U/L 12/16/2024 6:53 PM EDT [facility] Bilirubin, Indirect 0.80(H) <=0.70 mg/dL 12/16/2024 6:53 PM EDT [facility] A/G Ratio 0.8(L) 1.5 - 3.0 12/16/2024 6:53 PM EDT [facility] Blood Structure of peripheral vein / Unknown Venipuncture / Unknown 12/16/2024 5:58 PM EDT 12/16/2024 6:14 PM EDT us Jean Escobedo MD LAB BLOOD ORDERABLES Final Res ult [email or web address] [address] [place] [address], * IR Thrombolysis (12/16/2024 5:38 PM EDT) Anatomical Region Laterality Modality Vascular X-Ray Angiograph y 12/16/2024 6:03 PM EDT Impressions 12/17/2024 10:32 AM EDT Mechanical thrombectomy followed by angioplasty of TIPS, main portal vein and splenic vein with decrease of the portosystemic gradient from 23 mmHg to 9 mmHg. Plan: Follow-up in IR clinic after 2 months with TIPS portal vein duplex study. Stat CBC and LFT. Follow-up with gastroenterology colleagues. Any symptoms of recurrent ascites or hematemesis/filemon, review in IR clinic or emergency. PROCEDURE SUMMARY: - TIPS revision as described below - Additional procedure(s): None PROCEDURE DETAILS: Pre-procedure Consent: Informed consent for the procedure including risks, benefits and alternatives was obtained and time-out was performed prior to the procedure. Preparation: The site was prepared and draped using maximal sterile barrier technique including cutaneous antisepsis. Anesthesia/sedation Level of anesthesia/sedation: General anesthesia Anesthesia/sedation administered by: By anesthesia team, please refer to separate anesthesia notes Access The vessel was sonographically evaluated and determined to be patent. Real time ultrasound was used to visualize needle entry into the vessel. A 10 Fr sheath was placed. Vein accessed: Right internal jugular vein Access technique: Micropuncture set with 21 gauge needle Portal venography The portal vein was catheterized via the indwelling TIPS using MPA and Glidewire Advantage. Pressures were measured and portal venography was performed. Vein catheterized: Main portal vein Findings: Partially occlusive thrombus noted in main portal vein and TIPS. Near occlusive thrombus within the splenic vein. Pharmacomechanical thrombolysis Location of mechanical thrombectomy: TIPS, Main portal vein and splenic vein Thrombectomy device: INARI, flowtriever thrombectomy device (24 Fr and 20 Fr) Angioplasty Angioplasty was performed in the splenic vein, main portal vein and distal TIPS. Repeat pressures were measured and repeat portal venography was performed. Angioplasty location: Splenic vein, confluence of portal and main portal vein, Angioplasty balloon: athletis balloon 8 [id number], 12 mmx40 mm, 14 mm x 40 mm Post-revision portal venography findings: Widely patent TIPS and main portal vein with no small remaining chronic thrombus in the main portal vein which did not appear to be significantly flow limiting. Splenic vein was now patent with brisk flow but showed a significant amount of chronic thrombus which was not able to be removed by thrombectomy. Pressure measurements Mean portal pressure pre-revision (mmHg): 33 Mean right atrial pressure pre-revision (mmHg): 10 Mean portal pressure post-revision (mmHg): 25 Mean right atrial pressure post-revision (mmHg): 16 Closure The sheath was removed and hemostasis was achieved with manual compression. A sterile dressing was applied. Contrast Contrast agent: Omnipaque 350 Contrast volume (mL): 80 Radiation Dose Fluoroscopy time (minutes): 27.4 Reference air kerma (mGy): 468 Kerma area product (Gy-cm2): 200 Additional Details Additional description of procedure: None Registry event: V/3/g Device used: None Equipment details: None Unique Device Identifiers: Not available Specimens removed: None Estimated blood loss (mL): Less than 10 Standardized report: [email or web address] Attestation Signer name: Jean Escobedo I attest that I was present for the entire procedure. I reviewed the stored images and agree with the report as written. I, Jean Escobedo, have reviewed the examination and concur with the findings as reported or so edited. Trainee: Elayne Bautista If this radiology report contains a blank impression section, it is an incomplete radiology report. Please contact the interpreting radiologist or applicable radiology division as soon as possible to obtain the completed interpretation. Workstation ID: [id number] Narrative 12/17/2024 10:32 AM EDT PROCEDURE: Portal vein, splenic vein and TIPS thrombectomy and angioplasty Procedural Personnel Attending physician(s): Jean Escobedo Fellow physician(s): None Resident physician(s): Elayne Russo Advanced practice provider(s): None Pre-procedure diagnosis: Status TIPS with recent revision and weekly paracentesis. Post-procedure diagnosis: Same Indication: Persistent or recurrent ascites following TIPS Additional clinical history: 49 y.o. year old female who presents history of JAQUEZ cirrhosis complicated by variceal bleed s/p banding, PVT, prior TIPS, CAD with moderate LAD stenosis, T2DM, and chronic thrombocytopenia She was found to have a splenic and hepatic vein thromboses during her admission in August 2024, improved with anticoagulation. TIPS revision on 08/12/24 (gradient 29 to 8), 8-10 mm balloon. TIPS occlusion on US 10/22/24. She underwent latest revision- TIPS and portal vein mechanical thrombectomy and embolization of splenorenal shunt on 11/19/2024 Complications: No immediate complications. Resulting Agency Comment [id number] Procedure Note Jean Escobedo MD - 12/17/2024 PROCEDURE: Portal vein, splenic vein and TIPS thrombectomy andangioplasty Procedural Personnel Attending physician(s): Jean Escobedo Fellow physician(s): None Resident physician(s): Elayne Russo Advanced practice provider(s): None Pre-procedure diagnosis: Status TIPS with recent revision and weeklyparacentesis. Post-procedure diagnosis: Same Indication: Persistent or recurrent ascites following TIPS Additional clinical history: 49 y.o. year old female who presents historyof JAQUEZ cirrhosis complicated by variceal bleed s/p banding, PVT, priorTIPS, CAD with moderate LAD stenosis, T2DM, and chronic thrombocytopenia She was found to have a splenic and hepatic vein thromboses during heradmission in August 2024, improved with anticoagulation. TIPS revision on08/12/24 (gradient 29 to 8), 8-10 mm balloon. TIPS occlusion on 10/22/24. She underwent latest revision- TIPS and portal vein mechanicalthrombectomy and embolization of splenorenal shunt on 11/19/2024 Complications: No immediate complications. IMPRESSION: Mechanical thrombectomy followed by angioplasty of TIPS, main portal veinand splenic vein with decrease of the portosystemic gradient from 23 mmHgto 9 mmHg. Plan: Follow-up in IR clinic after 2 months with TIPS portal vein duplexstudy. Stat CBC and LFT. Follow-up with gastroenterology colleagues. Any symptoms of recurrent ascites or hematemesis/filemon, review in IRclinic or emergency. PROCEDURE SUMMARY: - TIPS revision as described below - Additional procedure(s): None PROCEDURE DETAILS: Pre-procedure Consent: Informed consent for the procedure including risks, benefits andalternatives was obtained and time-out was performed prior to theprocedure. Preparation: The site was prepared and draped using maximal sterilebarrier technique including cutaneous antisepsis. Anesthesia/sedation Level of anesthesia/sedation: General anesthesia Anesthesia/sedation administered by: By anesthesia team, please refer toseparate anesthesia notes Access The vessel was sonographically evaluated and determined to be patent. Realtime ultrasound was used to visualize needle entry into the vessel. A 10Fr sheath was placed. Vein accessed: Right internal jugular vein Access technique: Micropuncture set with 21 gauge needle Portal venography The portal vein was catheterized via the indwelling TIPS using MPA andGlidewire Advantage. Pressures were measured and portal venography wasperformed. Vein catheterized: Main portal vein Findings: Partially occlusive thrombus noted in main portal vein and TIPS.Near occlusive thrombus within the splenic vein. Pharmacomechanical thrombolysis Location of mechanical thrombectomy: TIPS, Main portal vein and splenicvein Thrombectomy device: INARI, flowtriever thrombectomy device (24 Fr and 20Fr) Angioplasty Angioplasty was performed in the splenic vein, main portal vein and distalTIPS. Repeat pressures were measured and repeat portal venography wasperformed. Angioplasty location: Splenic vein, confluence of portal and main portalvein, Angioplasty balloon: athletis balloon [id number], 12 mmx40 mm, 14 mm x 40mm Post-revision portal venography findings: Widely patent TIPS and mainportal vein with no small remaining chronic thrombus in the main portalvein which did not appear to be significantly flow limiting. Splenic veinwas now patent with brisk flow but showed a significant amount of chronicthrombus which was not able to be removed by thrombectomy. Pressure measurements Mean portal pressure pre-revision (mmHg): 33 Mean right atrial pressure pre-revision (mmHg): 10 Mean portal pressure post-revision (mmHg): 25 Mean right atrial pressure post-revision (mmHg): 16 Closure The sheath was removed and hemostasis was achieved with manualcompression. A sterile dressing was applied. Contrast Contrast agent: Omnipaque 350 Contrast volume (mL): 80 Radiation Dose Fluoroscopy time (minutes): 27.4 Reference air kerma (mGy): 468 Kerma area product (Gy-cm2): 200 Additional Details Additional description of procedure: None Registry event: V/3/g Device used: None Equipment details: None Unique Device Identifiers: Not available Specimens removed: None Estimated blood loss (mL): Less than 10 Standardized report: [email or web address] Attestation Signer name: Jean Escobedo I attest that I was present for the entire procedure. I reviewed thestored images and agree with the report as written. I, Jean Escobedo, have reviewed the examination and concur with the findingsas reported or so edited. Trainee: Elayne Bautista If this radiology report contains a blank impression section, it is anincomplete radiology report. Please contact the interpreting radiologistor applicable radiology division as soon as possible to obtain thecompleted interpretation. Workstation ID: [id number] us Jean Escobedo MD IMG IR PROCEDURES Final Result * POCT I-STAT Activated Clotting Time, interfaced (12/16/2024 4:38 PM EDT) Only the most recent of2 resultswithin the time period is included. Sample Type, POCT Venous 025 4:39 PM EDT [facility] ACT Average, POCT 209 See Comment Seconds 12/16/2024 4:39 PM EDT [facility] Comment: Therapeutic Range: Baseline: 75-127 Cardiac Catherization Lab: 200-300 EP Lab: 200-400 Perfusion and OR - Cardiac Surgery: 450 Valve replacement: 480 Blood 12/16/2024 4:38 PM EDT 12/16/2024 4:39 PM EDT us Jean Escobedo MD LAB POCT ORDERABLES - DEVICE F inal Result [facility] [address] [place] [address], * (ABNORMAL) POCT Glucose, interfaced (12/16/2024 2:40 PM EDT) Only the most recent of7 resultswithin the time period is included. Glucose, POCT 179(H) 70 - 99 mg/dL 12/17/2024 6:26 AM EDT [facility] Comment: The child nurse has not determined the efficacy of this test in Critically ill patients. [facility] defines Critically ill patients for the purpose of blood glucose monitoring (BGM) by glucometer, as patients meeting one or more of the following criteria: Hypotension- non-ICU patients (systolic blood pressure Less than 90 mmHg) due to shock Hypotension -ICU patients (Mean Arterial Pressure (MAP) <60 mmHg or systolic blood pressure < 90 mmHg due to shock Patients receiving Vasopressors (phenylephrine, vasopressin or norepinephrine) Anasarca In all locations, BGM test results should not be relied upon in the above situations, unless these results confirmed with lab-based glucose values. Blood 12/16/2024 2:40 PM EDT 12/17/2024 6:26 AM EDT Jean Escobedo MD LAB POCT ORDERABLES - DEVICE F inal Result Performing Organization Address [facility] Co de Phone Number [facility], [facility] [address] [place] [address], * Blood Bank: Prepare Red Blood Cells Transfusion indications: Active blood loss; Irradiated?: No; Special requirements: Leukoreduced: 2 Units (12/16/2024 2:37 PM EDT) Only the most recent of2 resultswithin the time period is included. Product Code M6690M11 [facility] BLOO D BANK INFCE Unit Number [id number] [facility] BLOOD BANK INFCE Unit ABO O UU BLOOD BANK INFCE Unit RH POS UU BLOOD BANK INFCE Crossmatch Compatible UU BLOOD BANK INFCE Dispense Status /Released [facility] BLOOD BANK INFCE Blood Expiration Date [id number] [facility] BLOOD BANK INFCE Blood Type Barcode 5100 UU BLOOD BANK INFCE Dispensed Volume 308 ML [facility] BLOOD BANK INFCE Other 12/16/2024 2:37 PM EDT 12/16/2024 8:48 AM EDT Graham Warner MD BLOOD BANK PRODUCT ORDERABLES Fi nal Result Performing Organization Address [facility] de Phone Number [facility] BLOOD B[facility] INFCE [address] [place] [address], * (ABNORMAL) POCT HCG, Urine, non-interfaced (12/16/2024 10:12 AM EDT) Control band present? Yes Background Clear? Yes Preg Test, Ur Negative Negative Urine 12/16/2024 10:1 2 AM EDT Jean Escobedo MD POINT OF CARE TEST ORDERABLES Final Result * ECG 12 lead For Preop? Yes (12/16/2024 8:55 AM EDT) Only the most recent of3 resultswithin the time period is included. Ventricular Rate EKG 103 BPM MUSE EKG Atrial Rate 103 BPM MUSE EKG IL Interval 118 ms MUSE EKG QRS Interval 70 ms MUSE EKG QT Interval 362 ms MUSE EKG QTC Interval 474 ms MUSE EKG P [place] 22 degrees MUSE EKG R [place] 33 degrees MUSE EKG T Wave [place] 56 degrees MUSE EKG 12/16/2024 8:55 AM EDT 12/19/2024 7:47 AM EDT Impressions MUSE EKG - 12/19/2024 7:47 AM EDT SINUS TACHYCARDIA LOW VOLTAGE QRS WHEN COMPARED WITH ECG OF 08-Dec-2024 11:56, NONSPECIFIC T WAVE ABNORMALITY NO LONGER EVIDENT IN ANTERIOR LEADS Confirmed by Ko Palafox ([id number]) on 12/19/2024 7:47:46 AM Narrative Procedure Note Ko Palafox MD - 12/19/2024 IMPRESSION: SINUS TACHYCARDIA LOW VOLTAGE QRS WHEN COMPARED WITH ECG OF 08-Dec-2024 11:56, NONSPECIFIC T WAVE ABNORMALITY NO LONGER EVIDENT IN ANTERIOR LEADS Confirmed by Ko Palafox ([id number]) on 12/19/2024 7:47:46 AM us Lobo MARR ECG ORDERABLES Final Resu lt MUSE EKG * (ABNORMAL) CBC (12/16/2024 8:38 AM EDT) Only the most recent of2 resultswithin the time period is included. WBC 8.6 3.8 - 10.8 10*3/uL 12/16/2024 8:58 AM EDT [facility] RBC 3.13(L) 3.80 - 5.10 10*6/uL 12/16/2024 8:58 AM EDT [facility] Hemoglobin 9.0(L) 11.7 - 15.5 g/dL 12/16/2024 8:58 AM EDT [facility] Hematocrit 27.0(L) 35.0 - 45.0 % 12/16/2024 8:58 AM EDT [facility] MCV 86.3 80.0 - 100.0 fL 12/16/2024 8:58 AM EDT [facility] [employer] [facility] MCH 28.8 27.0 - 33.0 pg 12/16/2024 8:58 AM EDT [facility] MCHC 33.3 32.0 - 36.0 g/dL 12/16/2024 8:58 AM EDT [facility] RDW 18.0(H) 11.0 - 15.0 % 12/16/2024 8:58 AM EDT [facility] Platelets 34(L) 140 - 400 10*3/uL 12/16/2024 8:58 AM EDT [facility] MPV 10.6 7.5 - 12.5 fL 12/16/2024 8:58 AM EDT [facility] Blood Structure of peripheral vein / Unknown Venipuncture / Unknown 12/16/2024 8:38 AM EDT 12/16/2024 8:48 AM EDT us Lobo MARR LAB BLOOD ORDERABLES Final Result [facility] [address] [place] [address], * Type and Screen (12/16/2024 8:10 AM EDT) Only the most recent of2 resultswithin the time period is included. ABO Blood Type O 12/16/2024 9:41 AM EDT U BLOOD BANK INFCE RH Type Positive 12/16/2024 9:41 AM EDT U BLOOD BANK INFCE Expiration Date/Time 2024-12-19 23:59 12/16/2024 9:41 AM EDT U BLOOD BANK INFCE Antibody Screen Negative 12/16/2024 9:41 AM EDT BLOOD BANK INFCE Blood Structure of peripheral vein / Unknown Venipuncture / Unknown 12/16/2024 8:10 AM EDT 12/16/2024 8:48 AM EDT us Agata Gómez STARBUCKS CLERK LAB BLOOD BANK TEST ORDE KIRAN Final Result BLOOD BANK INFCE [address] [place] [address], * IR Paracentesis Therapeutic (12/15/2024 1:42 PM EDT) Only the most recent of8 resultswithin the time period is included. Anatomical Region Laterality Modality Body X-Ray Angiograph y Impressions 12/15/2024 1:50 PM EDT Therapeutic paracentesis performed via left lower quadrant. 8.1L of serous fluid was aspirated and discarded. No samples sent. Narrative 12/15/2024 1:50 PM EDT PROCEDURE: Therapeutic paracentesis. INDICATION: 49 y.o. year old male with cirrhosis and recurrent ascites. ATTENDING: Dr. Jean Escobedo, the Attending physician, was on site and immediately available for assistance throughout the entire procedure. CLARIFICATION OPERATOR: Bobby Sinclair NP SEDATION: None DURATION: 30 minutes MEDICATIONS: 1. Lidocaine 1% for local anesthesia. 2. Albuminar-25 (12.5 grams of albumin/vial);3 vials infused intravenously. GUIDANCE: Ultrasound. COMPLICATIONS: None PROCEDURE DESCRIPTION: Informed consent was obtained from the patient after discussion of risks, benefits, and alternatives. Maximal sterile barrier technique and sterile ultrasound technique was used for the entire procedure. A timeout was performed. After local anesthesia with lidocaine, a 6F Centeze needle catheter was advanced into a pocket of ascites in the right lower quadrant under sonographic guidance. An ultrasound image was stored for the permanent record. serous fluid was aspirated. No samples sent. The catheter was then removed and hemostasis was obtained at the puncture site with manual compression. A sterile dressing was applied. The patient tolerated the procedure well. FINDINGS: Targeted ultrasound of the abdomen showed large volume ascites. Therapeutic paracentesis performed via left lower quadrant. 8.1L of serous fluid was aspirated and discarded. No samples sent. us Kait Gaona MD IMG IR PROCEDURES Final Res ult * (ABNORMAL) Smear Review (12/01/2024 12:55 PM EDT) Only the most recent of3 resultswithin the time period is included. Platelet Estimate Markedly Decreased(A ) Adequate 12/01/2024 1:58 PM EDT [facility] RBC Morphology Present(A) Normal, No clinically significant RBC morphology present (ICSH guidelines, 2015). 12/01/2024 1:58 PM EDT [facility] Ovalocytes 2+(A) Not Present 12/01/2024 1:58 PM EDT [facility] Blood Structure of peripheral vein / Unknown Venipuncture / Unknown 12/01/2024 12:55 PM EDT 12/01/2024 1:17 PM EDT Ericka Patterson MD LAB BLOOD ORDERABLES Fin al Result Performing Organization Address City/State/[facility] Co de Phone Number [facility] [address] [place] [phone], * Clinician: Transfuse Apheresis Platelets (11/19/2024 2:52 AM EDT) Only the most recent of2 resultswithin the time period is included. Nadine Herrera MD BLOOD TRANSFUSION ORDERABLE S Final Result * Magnesium (11/19/2024 1:18 AM EDT) MG 1.8 1.6 - 2.4 mg/dL 11/19/2024 1:54 AM EDT [facility] Blood Structure of peripheral vein / Unknown Venipuncture / Unknown 11/19/2024 1:18 AM EDT 11/19/2024 1:26 AM EDT us Nadine Herrera MD LAB BLOOD ORDERABLES Final Result [facility] [employer] [facility] [address] [place] [address], * (ABNORMAL) Basic Metabolic Panel (11/19/2024 1:18 AM EDT) Only the most recent of2 resultswithin the time period is included. NA 135 135 - 145 mmol/L 11/19/2024 1:54 AM EDT [facility] [employer] [facility] K 4.1 3.5 - 5.3 mmol/L 11/19/2024 1:54 AM EDT [facility] [employer] [facility] Cl 101 98 - 107 mmol/L 11/19/2024 1:54 AM EDT [facility] [employer] [facility] CO2 22 22 - 32 mmol/L 11/19/2024 1:54 AM EDT [facility] [employer] [facility] BUN 17 7 - 23 mg/dL 11/19/2024 1:54 AM EDT [facility] [employer] [facility] Creatinine 0.91 0.50 - 1.20 mg/dL 11/19/2024 1:54 AM EDT [facility] [employer] [facility] Glucose 219(H) 65 - 99 mg/dL 11/19/2024 1:54 AM EDT [facility] [employer] [facility] Calcium 7.9(L) 8.6 - 10.5 mg/dL 11/19/2024 1:54 AM EDT [facility] [employer] [facility] Anion Gap 12 5 - 15 11/19/2024 1:54 AM EDT [facility] [employer] [facility] eGFR 78 >=60 mL/min/1. 73m2 11/19/2024 1:54 AM EDT [facility] [employer] [facility] Comment:The estimated glomer ular filtration rate (eGFR) is calculated using a new formula developed by the NKF-ASN task force to eliminate race-based correction factors. The new formula uses serum/plasma creatinine, age, and gender to determine eGFR. A value below 60mls/min might indicate kidney disease and will be flagged. For additional information, see Leandro et al, Am J Kidney Dis. 2021;79(2):268- 288, A Unifying Approach for GFR estimation: Recommendations of the NKF-ASN Task Force on Reassessing the Inclusion of Race in Diagnosing Kidney Disease . Blood Structure of peripheral vein / Unknown Venipuncture / Unknown 11/19/2024 1:18 AM EDT 11/19/2024 1:26 AM EDT Nadine Herrera MD LAB BLOOD ORDERABLES Final Result Performing Organization Address City/[facility]/ZIP Co de Phone Number [facility] [address] [place] [phone], * Blood Bank: Prepare Apheresis Platelets Transfusion Indications: PLT <50 K/ L with surgery or active bleeding; Irradiated/Psoralen-treated?: No; Special Requirements: Leukoreduced: 1 Units (11/18/2024 11:06 PM EDT) Only the most recent of2 resultswithin the time period is included. Product Code [id number] UU BLOO D BANK INFCE Unit Number [id number] UU BLOOD BANK INFCE Unit ABO O UU BLOOD BANK INFCE Unit RH POS UU BLOOD BANK INFCE Dispense Status Presumed Transfuse UU BLOOD BANK INFCE Blood Expiration Date [id number] UU BLOOD BANK INFCE Blood Type Barcode 5100 UU BLOOD BANK INFCE Dispensed Volume 264 mL UU BLOOD BANK INFCE 11/18/2024 11:0 6 PM EDT us Nadine Herrera MD BLOOD BANK PRODUCT ORDERABL ES Final Result Performing Organization Address [facility] Co de Phone Number [facility] BLOOD BANK INFCE [address] [place] [address], * (ABNORMAL) Hemoglobin and Hematocrit (11/18/2024 5:42 PM EDT) Hemoglobin 8.7(L) 11.7 - 15.5 g/dL 11/18/2024 6:01 PM EDT [facility] Hematocrit 27.3(L) 35.0 - 45.0 % 11/18/2024 6:01 PM EDT [facility] Blood Arterial line submitted as specimen / Unknown Venipuncture / Unknown 11/18/2024 5:42 PM EDT 11/18/2024 5:55 PM EDT us Jean Escobedo MD LAB BLOOD ORDERABLES Final Res ult [facility] [address] [place] [address], * IR Tips Revision (11/18/2024 4:20 PM EDT) Anatomical Region Laterality Modality Body X-Ray Angiograph y 11/18/2024 4:23 PM EDT Impressions 11/19/2024 9:30 AM EDT TIPS thrombectomy and revision with decrease of the portosystemic gradient from 23 mmHg to 9 mmHg. TIPS was recanalized via direct puncture, angioplastied and relined with a new Viatorr stent. Large splenorenal shunt embolization. Paracentesis with 2.5 L removed. Plan: Follow up stat H&H, Rpt H&H in 4 hours and AM. If stable H&H re-initiate anticoagulation. Pt will be admitted to medicine for further evaluation. Plan to return to IR in 1 week for potential portal venous/splenic vein thrombectomy. PROCEDURE SUMMARY: - TIPS revision as described below - Additional procedure(s): TIPS recanalization, mechanical or aspiration thrombectomy, TIPS relining and angioplasty, splenorenal shunt embolization, paracentesis PROCEDURE DETAILS: Pre-procedure Consent: Informed consent for the procedure including risks, benefits and alternatives was obtained and time-out was performed prior to the procedure. Preparation: The site was prepared and draped using maximal sterile barrier technique including cutaneous antisepsis. Anesthesia/sedation Level of anesthesia/sedation: General anesthesia Anesthesia/sedation administered by: Anesthesiology Total intra-service sedation time (minutes): Please see anesthesia note. Access The vessel was sonographically evaluated and determined to be patent. Real time ultrasound was used to visualize needle entry into the vessel. A 16 Fr sheath was placed. Vein accessed: Right internal jugular vein Access technique: Micropuncture set with 21 gauge needle TIPS recanalization The pre-existing TIPS stent was chronically occluded and unable to be crossed from the IJ access despite prolonged attempts with multiple catheters and wires. Decision was made to cross via direct TIPS puncture. Real time ultrasound was used to puncture the TIPS stent percutaneously with a 21 G needle. A Nitrex wire was advanced into the TIPS and a 6 Tajik JEOVANNY-NV catheter was placed. A 4 Fr angled catheter and 0.035 Glidewire Advantage were advanced into the IVC. The wire was snared and pulled through the IJ sheath for through and through access. The 10 Fr IJ sheath was advanced over the wire into the mid-TIPS then a Glidewire and angled Glidecath were advanced into the portal vein. The percutaneous TIPS puncture was then removed and the tract embolized with a 4 mm Gina coil. Portal venography A pigtail catheter was advanced through the TIPS into the portal vein. Pressures were measured and portal venography was performed. Vein catheterized: Main portal vein Findings: Complete occlusion of the pre-existing TIPS stent. Partially occlusive thrombus noted in the portal vein, superior mesenteric vein and the splenic vein TIPS revision The indwelling TIPS was revised using angioplasty as well as new Viatorr stent placement. Repeat pressures were measured and repeat portal venography was performed. Angioplasty location: Pre-existing TIPS stent Angioplasty balloon: 8 MM x 60 MM Athletis balloon, 10 mm x 8 cm [place] balloon. Stent type: Partially covered Stent: Wells Viatorr Stent length (mm): 8-10 MM Stent diameter (mm): 10 Ref number: [id number] Location: Pre-existing TIPS stent, minimally expanded towards the portal and hepatic venous ends Post-revision portal venography findings: Substantial reduction of previously seen portal venous thrombus with widely patent TIPS and appropriate brisk vascular flow. Pharmacomechanical thrombolysis Location of mechanical thrombectomy: Prior TIPS stent, portal vein Thrombectomy device: Inari Flowtriever 16 Fr Post-thrombectomy venography: No residual clot within the TIPS stent. Significantly reduced but partial residual thrombus within the main portal vein and large thrombus remaining in the splenic vein. Embolization Shunt treated: Splenorenal shunts Embolic material: Lava 34 liquid embolic, Melida coils ([id number], [id number]), POD coils (Two 14x60), Findings: Final portosystemic gradient of 9 (increased from gradient of 6 prior to shunt Embolization) Completion portal venography findings: Appropriate exclusion of the embolized splenorenal shunts without residual flow. Pressure measurements Mean pulmonary arterial pressure pre-revision (mmHg): 26 Mean portal pressure pre-revision (mmHg): 30 Mean right atrial pressure pre-revision (mmHg): 7 Mean portal pressure post-revision/thrombectomy, preembolization of the patient's splenorenal shunt (mmHg): 16 Mean right atrial pressure post-revision/thrombectomy, preembolization (mmHg): 10 Mean portal pressure post-revision /thrombectomy and postembolization of the splenorenal shunt (mmHg): 18 Mean right atrial pressure post-revision /thrombectomy and postembolization of the splenorenal shunt (mmHg): 9 Paracentesis A safe window for paracentesis was identified with ultrasound using the above-mentioned entry site targeting the patient's prior occluded TIPS. The peritoneal cavity was accessed and fluid return confirmed position. Ascites was drained. The right upper quadrant percutaneous access tract into the hepatic parenchyma was embolized with a Gina coil. The access catheter was then removed and a sterile dressing was applied. Tract embolization: Gina coil ([id number]) Catheter size (Fr):6 Fluid appearance: serosanguinous Volume drained (mL): 2500 Post-drainage ultrasound: Trace residual ascites Closure The right internal jugular vein sheath was removed and hemostasis was achieved with manual compression. A sterile dressing was applied. Contrast Contrast agent: Omnipaque 350 Contrast volume (mL): 140 Radiation Dose Fluoroscopy time (minutes): 71.2 Reference air kerma (mGy): 1700 Kerma area product (Gy-cm2): 402 Additional Details Additional description of procedure: None Registry event: V/3/g Device used: None Equipment details: None Unique Device Identifiers: Not available Specimens removed: None Estimated blood loss (mL): Less than 10 Standardized report: [email or web address] Attestation Signer name: Jean Escobedo I attest that I was present for the entire procedure. I reviewed the stored images and agree with the report as written. I, Jean Escobedo, have reviewed the examination and concur with the findings as reported or so edited. Trainee: Dwayne Neil If this radiology report contains a blank impression section, it is an incomplete radiology report. Please contact the interpreting radiologist or applicable radiology division as soon as possible to obtain the completed interpretation. Workstation ID: [id number] Narrative 11/19/2024 9:30 AM EDT PROCEDURE: 1. Transjugular Intrahepatic Portosystemic Shunt (TIPS) Revision 2. TIPS and portal vein mechanical thrombectomy 3. Embolization of splenorenal shunt 4. Paracentesis US -guided Procedural Personnel Attending physician(s): Jean Escobedo Fellow physician(s): None Resident physician(s): Dwayne Neil Advanced practice provider(s): None Pre-procedure diagnosis: TIPS occlusion Post-procedure diagnosis: Same Indication: TIPS stenosis or occlusion based on US Additional clinical history: 49 y.o. 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 TIPS revision on 08/12/24 (gradient 29 to 8), 8-10 mm balloon. Had ascites. TIPS occlusion on US 10/22/24. Complications: No immediate complications. Resulting Agency Comment [id number] Procedure Note Jean Escobedo MD - 11/19/2024 PROCEDURE: 1. Transjugular Intrahepatic Portosystemic Shunt (TIPS) Revision 2. TIPS and portal vein mechanical thrombectomy 3. Embolization of splenorenal shunt 4. Paracentesis US -guided Procedural Personnel Attending physician(s): Jean Escobedo Fellow physician(s): None Resident physician(s): Dwayne Neil Advanced practice provider(s): None Pre-procedure diagnosis: TIPS occlusion Post-procedure diagnosis: Same Indication: TIPS stenosis or occlusion based on US Additional clinical history: 49 y.o. female with a history of NASHcirrhosis complicated by variceal bleed s/p banding, PVT, prior TIPS, CADwith moderate LAD stenosis, T2DM, and chronic thrombocytopenia who wasrecently found to have a splenic and hepatic vein thromboses during heradmission in August 2024, improved with anticaogualtion. TIPS revision on08/12/24 (gradient 29 to 8), 8-10 mm balloon. Had ascites. TIPS occlusionon US 10/22/24. Complications: No immediate complications. IMPRESSION: TIPS thrombectomy and revision with decrease of the portosystemic gradientfrom 23 mmHg to 9 mmHg. TIPS was recanalized via direct puncture, angioplastied and relined with anew Viatorr stent. Large splenorenal shunt embolization. Paracentesis with 2.5 L removed. Plan: Follow up stat H&H, Rpt H&H in 4 hours and AM. If stable H&H re-initiateanticoagulation. Pt will be admitted to medicine for further evaluation. Plan to return toIR in 1 week for potential portal venous/splenic vein thrombectomy. PROCEDURE SUMMARY: - TIPS revision as described below - Additional procedure(s): TIPS recanalization, mechanical or aspirationthrombectomy, TIPS relining and angioplasty, splenorenal shuntembolization, paracentesis PROCEDURE DETAILS: Pre-procedure Consent: Informed consent for the procedure including risks, benefits andalternatives was obtained and time-out was performed prior to theprocedure. Preparation: The site was prepared and draped using maximal sterilebarrier technique including cutaneous antisepsis. Anesthesia/sedation Level of anesthesia/sedation: General anesthesia Anesthesia/sedation administered by: Anesthesiology Total intra-service sedation time (minutes): Please see anesthesia note. Access The vessel was sonographically evaluated and determined to be patent. Realtime ultrasound was used to visualize needle entry into the vessel. A 16Fr sheath was placed. Vein accessed: Right internal jugular vein Access technique: Micropuncture set with 21 gauge needle TIPS recanalization The pre-existing TIPS stent was chronically occluded and unable to becrossed from the IJ access despite prolonged attempts with multiplecatheters and wires. Decision was made to cross via direct TIPS puncture.Real time ultrasound was used to puncture the TIPS stent percutaneouslywith a 21 G needle. A Nitrex wire was advanced into the TIPS and a 6French JEOVANNY-NV catheter was placed. A 4 Fr angled catheter and 0.035Glidewire Advantage were advanced into the IVC. The wire was snared andpulled through the IJ sheath for through and through access. The 10 Fr IJsheath was advanced over the wire into the mid-TIPS then a Glidewire andangled Glidecath were advanced into the portal vein. The percutaneous TIPSpuncture was then removed and the tract embolized with a 4 mm Nestercoil. Portal venography A pigtail catheter was advanced through the TIPS into the portal vein.Pressures were measured and portal venography was performed. Vein catheterized: Main portal vein Findings: Complete occlusion of the pre-existing TIPS stent. Partiallyocclusive thrombus noted in the portal vein, superior mesenteric vein andthe splenic vein TIPS revision The indwelling TIPS was revised using angioplasty as well as new Viatorrstent placement. Repeat pressures were measured and repeat portalvenography was performed. Angioplasty location: Pre-existing TIPS stent Angioplasty balloon: 8 MM x 60 MM Athletis balloon, 10 mm x 8 cm Mustangballoon. Stent type: Partially covered Stent: Wells Viatorr Stent length (mm): 8-10 MM Stent diameter (mm): 10 Ref number: [id number] Location: Pre-existing TIPS stent, minimally expanded towards the [place] hepatic venous ends Post-revision portal venography findings: Substantial reduction ofpreviously seen portal venous thrombus with widely patent TIPS andappropriate brisk vascular flow. Pharmacomechanical thrombolysis Location of mechanical thrombectomy: Prior TIPS stent, portal vein Thrombectomy device: Inari Flowtriever 16 Fr Post-thrombectomy venography: No residual clot within the TIPS stent.Significantly reduced but partial residual thrombus within the main portalvein and large thrombus remaining in the splenic vein. Embolization Shunt treated: Splenorenal shunts Embolic material: Lava 34 liquid embolic, Melida coils ([id number]), POD coils (Two 14x60), Findings: Final portosystemic gradient of 9 (increased from gradient of 6prior to shunt Embolization) Completion portal venography findings: Appropriate exclusion of theembolized splenorenal shunts without residual flow. Pressure measurements Mean pulmonary arterial pressure pre-revision (mmHg): 26 Mean portal pressure pre-revision (mmHg): 30 Mean right atrial pressure pre-revision (mmHg): 7 Mean portal pressure post-revision/thrombectomy, preembolization of thepatient's splenorenal shunt (mmHg): 16 Mean right atrial pressure post-revision/thrombectomy, preembolization(mmHg): 10 Mean portal pressure post-revision /thrombectomy and postembolization ofthe splenorenal shunt (mmHg): 18 Mean right atrial pressure post-revision /thrombectomy andpostembolization of the splenorenal shunt (mmHg): 9 Paracentesis A safe window for paracentesis was identified with ultrasound using theabove-mentioned entry site targeting the patient's prior occluded TIPS.The peritoneal cavity was accessed and fluid return confirmed position.Ascites was drained. The right upper quadrant percutaneous access tractinto the hepatic parenchyma was embolized with a Gina coil. The accesscatheter was then removed and a sterile dressing was applied. Tract embolization: Gina coil ([id number]) Catheter size (Fr):6 Fluid appearance: serosanguinous Volume drained (mL): 2500 Post-drainage ultrasound: Trace residual ascites Closure The right internal jugular vein sheath was removed and hemostasis wasachieved with manual compression. A sterile dressing was applied. Contrast Contrast agent: Omnipaque 350 Contrast volume (mL): 140 Radiation Dose Fluoroscopy time (minutes): 71.2 Reference air kerma (mGy): 1700 Kerma area product (Gy-cm2): 402 Additional Details Additional description of procedure: None Registry event: V/3/g Device used: None Equipment details: None Unique Device Identifiers: Not available Specimens removed: None Estimated blood loss (mL): Less than 10 Standardized report: [email or web address] Attestation Signer name: Jean Escobedo I attest that I was present for the entire procedure. I reviewed thestored images and agree with the report as written. I, Jean Escobedo, have reviewed the examination and concur with the findingsas reported or so edited. Trainee: Dwayne Neil If this radiology report contains a blank impression section, it is anincomplete radiology report. Please contact the interpreting radiologistor applicable radiology division as soon as possible to obtain thecompleted interpretation. Workstation ID: [id number] us Nadine Herrera MD IMG IR PROCEDURES Final Res ult * (ABNORMAL) POCT I-STAT Chemistry Panel W/ABG, interfaced (11/18/2024 3:15 PM EDT) Sample Type, POCT Arterial 11/18/2024 5:04 PM EDT [facility] Sodium, POCT 136 135 - 145 mmol/L 11/18/2024 5:04 PM EDT [facility] Potassium, POCT 4.1 3.5 - 5.3 mmol/L 11/18/2024 5:04 PM EDT [facility] Glucose, POCT 165(H) 70 - 99 mg/dL 11/18/2024 5:04 PM EDT [facility] iCA, POCT 4.4(L) 4.6 - 5.3 mg/dL 11/18/2024 5:04 PM EDT [facility] HCT, POCT 24(L) 37 - 42 % 11/18/2024 5:04 PM EDT [facility] pH, POCT 7.40 7.35 - 7.45 11/18/2024 5:04 PM EDT [facility] pCO2, POCT 39.5 35 - 45 mmHg 11/18/2024 5:04 PM EDT [facility] pO2, POCT 75(L) 80 - 105 mmHg 11/18/2024 5:04 PM EDT [facility] Base Excess, POCT 0 0 - 3 mmol/L 11/18/2024 5:04 PM EDT [facility] HCO3, POCT 24.5 21 - 28 mmol/L 11/18/2024 5:04 PM EDT [facility] TCO2, POCT 26 23 - 27 mmol/L 11/18/2024 5:04 PM EDT [facility] Saturated O2, POCT 95 95 - 98 % 11/18/2024 5:04 PM EDT [facility] FIO2, POCT 63 % 11/18/2024 5:04 PM EDT [facility] Patient Temp, POCT 38.4 degrees 11/18/2024 5:04 PM EDT [facility] Tidal Volume, POCT 360 ml 11/18/2024 5:04 PM EDT [facility] Jack's Test, POCT N/A 11/18/2024 5:04 PM EDT [facility] Blood 11/18/2024 3:15 PM EDT 11/18/2024 5:04 PM EDT [facility] - 11/18/2024 5:04 PM EDT i-STAT analyzer cannot determine presence of hemolysis in sample us Aba Buchanan MD LAB POCT ORDERABLES - DEVICE Final Result [facility] [address] [place] [address], [place] * [place] INSERT CATH,ART,PERCUT,SHORTTERM, AN ARTERIAL LINE DUMMY PERFORMABLE (11/18/2024 10:42 AM EDT) Aba Suarez MD - 11/18/2024 10:42 AM EDT Aba Buchanan MD 11/18/2024 10:46 AM Arterial Line Date/Time: 11/18/2024 10:42 AM Patient Location: pre-op Ultrasound-Guided/Images Retained: yes Indication: continuous blood pressure monitoring and blood sampling needed Anesthesia Staff Authorized by: Aba Buchanan MD Performed by: Aba Buchanan MD Anesthesiologist: Aba Buchanan MD Resident: Moshe Navarro MD Performed: resident and anesthesiologist I was present during this procedure. Preanesthetic Checklist 2 patient identifiers IV checked site marked risks and benefits discussed monitors and equipment checked pre-op evaluation anesthesia consent all elements of maximal sterile barrier technique followed patient position confirmed timeout performed hand hygiene performed Procedure Detail: Ultrasound Probe Number: linear Catheter Size: 4 Fr Catheter Length: 10 cm Catheter Type: Micropuncture Laterality: Left Site: radial artery. Line Secured By: CHG dressing and tape Number of attempts at approach: 2 Ultrasound-guided needle placement/images retained: yes Ultrasound-guided vascular access/images retained: yes Events: patient tolerated procedure well with no complications Additional notes: First attempt resident, second attempt attending us bAa Buchanan MD ANESTHESIA ORDERABLES Edited Result - Final * PTT (11/12/2024 11:21 AM EDT) aPTT 27.4 23.0 - 32.0 Seconds 11/12/2024 1:12 PM EDT [facility] Comment: Current PTT reagent is not sensitive to detect all Lupus Anticoagulant (LA) Inhibitor Cases. If a LA is suspected, please order a Lupus Anticoagulation w/ Reflex Test which is performed at [facility] in [place], [place]. Blood Structure of peripheral vein / Unknown Venipuncture / Unknown 11/12/2024 11:21 AM EDT 11/12/2024 12:37 PM EDT us Lacy Eisenberg STARBUCKS CLERK LAB BLOOD ORDERABLES Fin al Result [facility] [address] [place] [address], * Protime-INR (11/12/2024 11:21 AM EDT) Only the most recent of3 resultswithin the time period is included. PT 12.2 9.6 - 12.4 Seconds 11/12/2024 1:12 PM EDT [facility] INR 1.1 0.9 - 1.1 11/12/2024 1:12 PM EDT [facility] Comment:The optimal therapeu tic INR range for patients treated with Vitamin K antagonists (VKAS, e.g., Warfarin) is 2.0 to 3.5. Discuss the desired range with your doctor/care team. Blood Structure of peripheral vein / Unknown Venipuncture / Unknown 11/12/2024 11:21 AM EDT 11/12/2024 12:37 PM EDT us Lacy Eisenberg STARBUCKS CLERK LAB BLOOD ORDERABLES [facility] al Result [email or web address] [address] [place] [address], * (ABNORMAL) Comprehensive Metabolic Panel (11/12/2024 11:21 AM EDT) Only the most recent of3 resultswithin the time period is included. NA 134(L) 135 - 145 mmol/L 11/12/2024 1:22 PM EDT [facility] K 5.0 3.5 - 5.3 mmol/L 11/12/2024 1:22 PM EDT [facility] Cl 102 98 - 107 mmol/L 11/12/2024 1:22 PM EDT [facility] CO2 23 22 - 32 mmol/L 11/12/2024 1:22 PM EDT [facility] Anion Gap 9 5 - 15 11/12/2024 1:22 PM EDT [facility] Glucose 243(H) 65 - 99 mg/dL 11/12/2024 1:22 PM EDT [facility] Creatinine 0.72 0.50 - 1.20 mg/dL 11/12/2024 1:22 PM EDT [facility] Calcium 8.6 8.6 - 10.5 mg/dL 11/12/2024 1:22 PM EDT [facility] Total Protein 6.3 6.0 - 8.0 g/dL 11/12/2024 1:22 PM EDT [facility] Albumin 3.1(L) 3.5 - 5.2 g/dL 11/12/2024 1:22 PM EDT [email or web address] Bilirubin, Total 0.9 0.2 - 1.2 mg/dL 11/12/2024 1:22 PM EDT [email or web address] Alkaline Phosphatase 128 35 - 129 U/L 11/12/2024 1:22 PM EDT [facility] AST 35 10 - 40 U/L 11/12/2024 1:22 PM EDT [facility] ALT 12 10 - 40 U/L 11/12/2024 1:22 PM EDT [email or web address] BUN 10 7 - 23 mg/dL 11/12/2024 1:22 PM [facility] eGFR >90 >=60 mL/min/1. 73m2 11/12/2024 1:22 PM T [facility] Comment:The estimated glomer ular filtration rate (eGFR) is calculated using a new formula developed by the NKF-ASN task force to eliminate race-based correction factors. The new formula uses serum/plasma creatinine, age, and gender to determine eGFR. A value below 60mls/min might indicate kidney disease and will be flagged. For additional information, see Reeves et al, Am J Kidney Dis. 2021;79(2):268- 288, A Unifying Approach for GFR estimation: Recommendations of the NKF-ASN Task Force on Reassessing the Inclusion of Race in Diagnosing Kidney Disease . Globulin, Total 3.2 2.1 - 4.2 g/dL 11/12/2024 1:22 PM T [email or web address] A/G Ratio 1.0(L) 1.5 - 3.0 11/12/2024 1:22 PM T [facility] Blood Structure of peripheral vein / Unknown Venipuncture / Unknown 11/12/2024 11:21 AM EDT 11/12/2024 12:37 PM EDT Chayo Norris MD LAB BLOOD ORDERABLES Final Resu lt Performing Organization Address [facility] Co de Phone Number [facility] [address] [place] [address], [place] * OCT, Retina - OU - Both Eyes (11/08/2024 11:26 AM EDT) Narrative OPHTHALMOLOGY IMAGING - 11/08/2024 11:26 AM EDT Right Eye Quality was good. Progression has been stable. Findings include normal observations, normal foveal contour. Left Eye Quality was good. Progression has been stable. Findings include normal observations, normal foveal contour. Notes (-) IRF/SRF OU Normal/ Preserved Foveal Contour Ou. No diabetic Edema OU. Joan Constantino OD OPHTH TOMOGRAPHY Final Result Performing Organization Address [facility] de Phone Number OPHTHALMOLOGY IMAGING * Color Fundus Photography - OU - Both Eyes (11/08/2024 11:25 AM EDT) Narrative OPHTHALMOLOGY IMAGING - 11/08/2024 11:25 AM EDT Right Eye Disc findings include normal observations. Macula findings include microaneurysms. Vessel findings include normal observations. Periphery findings include hemorrhage. Left Eye Disc findings include normal observations. Macula findings include microaneurysms. Vessel findings include normal observations. Periphery findings include hemorrhage. Notes OD: ? Peripheral edema @ 10 o'clock Joan Constantino OD OPHTH PHOTOGRAPHY Final Resul t Performing Organization Address [facility] Co de Phone Number OPHTHALMOLOGY IMAGING * US Abdomen Limted With Doppler Complete With TIPS (10/22/2024 1:53 PM EDT) Anatomical Region Laterality Modality Body N/A Ultrasound 10/23/2024 6:59 AM EDT Impressions 10/23/2024 7:11 AM EDT TIPS is now occluded. Moderate ascites in the right upper quadrant. Findings are again more generally in keeping with cirrhosis and portal hypertension. A(n) Wilcox actionable finding has been communicated to the ordering or responsible provider via the [employer] system on 10/23/2024 7:10 AM. Receipt of this communication by the responsible provider will be documented in [employer] upon receiving acknowledgement if applicable, Message ID [id number]. If this radiology report contains a blank impression section, it is an incomplete radiology report. Please contact the interpreting radiologist or applicable radiology division as soon as possible to obtain the completed interpretation. Workstation ID: [id number] Narrative 10/23/2024 7:11 AM EDT EXAMINATION: Ultrasound limited abdomen with Doppler and TIPS evaluation. INDICATION: Nonalcoholic standard hepatitis. Evaluation of TIPS shunt requested. TECHNIQUE: Limited evaluation of the abdomen with color and spectral Doppler evaluation of the liver vessels and TIPS. COMPARISON: 08/10/2024. FINDINGS: Coarse hepatic echotexture is again in keeping with cirrhosis. No focal liver lesions are identified. TIPS is now occluded. Flow of relatively low velocities anterograde in the main portal vein. Right of flow measures 16 cm/s. There is again anterograde flow in the left portal vein. Hepatopedal flow is identified, however, as before, in the right anterior and posterior portal venous branches. Right, middle and left hepatic veins are widely patent. Splenic vein appears patent.Spectral Doppler waveforms of the main, right, and left hepatic artery shows with duct strokes with resistive indices ranging from 0.70- 0.77, within normal range. Inferior vena cava is patent. There is no intrahepatic biliary dilatation. Common duct measures only 3 mm in diameter. No gallstones are found. Mild gallbladder wall thickening with slight edema can be expected in the setting of underlying liver disease. Pancreas is not well visualized due to overlying bowel gas. Spleen is again moderately enlarged, measuring up to 23.2 cm in length. Moderate ascites in the right upper quadrant. Resulting Agency Comment [id number] Procedure Note Priyank Calix MD - 10/23/2024 EXAMINATION: Ultrasound limited abdomen with Doppler and TIPSevaluation. INDICATION: Nonalcoholic standard hepatitis. Evaluation of TIPS shuntrequested. TECHNIQUE: Limited evaluation of the abdomen with color and spectralDoppler evaluation of the liver vessels and TIPS. COMPARISON: 08/10/2024. FINDINGS: Coarse hepatic echotexture is again in keeping with cirrhosis. No focalliver lesions are identified. TIPS is now occluded. Flow of relatively low velocities anterograde inthe main portal vein. Right of flow measures 16 cm/s. There is againanterograde flow in the left portal vein. Hepatopedal flow is identified,however, as before, in the right anterior and posterior portal venousbranches. Right, middle and left hepatic veins are widely patent.Splenic vein appears patent.Spectral Doppler waveforms of the main, right,and left hepatic artery shows with duct strokes with resistive indicesranging from 0.70-0.77, within normal range. Inferior vena cava ispatent. There is no intrahepatic biliary dilatation. Common duct measures only 3mm in diameter. No gallstones are found. Mild gallbladder wall thickeningwith slight edema can be expected in the setting of underlying liverdisease. Pancreas is not well visualized due to overlying bowel gas.Spleen is again moderately enlarged, measuring up to 23.2 cm in length.Moderate ascites in the right upper quadrant. IMPRESSION: TIPS is now occluded. Moderate ascites in the right upper quadrant.Findings are again more generally in keeping with cirrhosis and portalhypertension. A(n) Wilcox actionable finding has been communicated to the ordering orresponsible provider via the [employer] system on10/23/2024 7:10 AM. Receipt of this communication by the responsibleprovider will be documented in [employer] Findings uponreceiving acknowledgement if applicable, Message ID [id number]. If this radiology report contains a blank impression section, it is anincomplete radiology report. Please contact the interpreting radiologistor applicable radiology division as soon as possible to obtain thecompleted interpretation. Workstation ID: [id number] us Kait Gaona MD IMG US PROCEDURES Final Res ult * Phosphatidylethanol (PEth) (10/14/2024 3:42 PM EDT) PEth 16:0/18:1 (POPEth) <10 ng/mL 10/16/2024 2:45 PM EDT [facility] Comment: PEth 16:0/18:1 (POPEth) Less than 10 ng/mL............Not detected Less than 20 ng/mL............Abstinence or light alcohol consumption 20 - 200 ng/mL................Moderate alcohol consumption Greater than 200 ng/mL........Heavy alcohol consumption or chronic alcohol use (Reference: Jose Peraza and Leo Perez 2018 J. Forensic Sci) PEth 16:0/18:2 (PLPEth) <10 ng/mL 10/16/2024 2:45 PM EDT [facility] Comment:Reference ranges are not well established. EER Peth See Note 10/16/2024 2:45 PM EDT [facility] Comment: Authorized individuals can access the [employer] Enhanced Report with an [employer] Connect account using the following link. Your local lab can assist you in obtaining the patient report if you don't have a Connect account. [email or web address] PEth Interpretation See Comment 10/01 2:45 PM EDT [facility] Comment: Phosphatidylethanol (PEth) is a group of phospholipids formed in the presence of ethanol, phospholipase D and phosphatidylcholine. PEth is known to be a direct alcohol biomarker. The predominant PEth homologues are PEth 16:0/18:1 (POPEth) and PEth 16:0/18:2 (PLPEth), which account for 37-46% and 26-28% of the total PEth homologues, respectively. PEth is incorporated into the phospholipid membrane of red blood cells and has a general half-life of 4-10 days and a window of detection of 2-4 weeks. However, the window of detection is longer in individuals who chronically or excessively consume alcohol. The limit of quantification is 10 ng/mL. Serial monitoring of PEth may be helpful in monitoring alcohol abstinence over time. PEth results should be interpreted in the context of the patient's clinical and behavioral history. Patients with advanced liver disease may have falsely elevated PEth concentrations (Sierra AGUIAR et al 2018, Alcoholism Clinical & Experimental Research). This test was developed and its performance characteristics determined by [facility]. It has not been cleared or approved by the U.S. Food and Drug Administration. This test was performed in a CLIA-certified laboratory and is intended for clinical purposes. Performed By: [facility] [address] [place] [address] Engineer [employer]: Kee Thompson MD, PhD CLIA Number: [id number] Blood Structure of peripheral vein / Unknown Venipuncture / Unknown 10/14/2024 3:42 PM EDT 10/14/2024 3:49 PM EDT Kait Gaona MD LAB BLOOD ORDERABLES Final Result Performing Organization Address [facility] Co de Phone Number [facility] [address] [place] [address], [place] * AFP tumor marker (10/14/2024 3:42 PM EDT) Pathologist [facility] [place] Alpha Fetoprotein, Tumor Marker 1.8 ng/mL 10/15/2024 12:25 PM EDT [facility] Comment: Reference Range: <6.1 The use of AFP as a tumor marker in females is not recommended. This test was performed using the [employer] [place] chemiluminescent method. Values obtained from different assay methods cannot be used interchangeably. AFP levels, regardless of value, should not be interpreted as absolute evidence of the presence or absence of disease. Blood Structure of peripheral vein / Unknown Venipuncture / Unknown 10/14/2024 3:42 PM EDT 10/14/2024 3:52 PM EDT Narrative [facility] - 10/15/2024 12:25 PM EDT [facility] Received Date: Kait Gaona MD LAB BLOOD ORDERABLES Final Result Performing Organization Address City/[facility]/ZIP Co de Phone Number [facility] [address] [facility] 3rd Floor, [place] [address], [place] [phone] [facility] [address] [facility] 3rd Floor, [place] [address], [place] [phone] * IR Paracentesis Diagnostic and Therapeutic (10/07/2024 3:13 PM EDT) Anatomical Region Laterality Modality Body X-Ray Angiograph y Impressions 10/07/2024 5:11 PM EDT Ultrasound guided paracentesis performed with 4.9 L of fluid drained. Narrative 10/07/2024 5:11 PM EDT PROCEDURE: Diagnostic and therapeutic paracentesis. INDICATION: 48 y.o. female with recurrent ascites and cirrhosis secondary to JAQUEZ. CLARIFICATION OPERATOR: TEJINDER Blanco-S2; TEJINDER Ann ATTENDING: Dr. Brumfield, the Attending physician, was on site and immediately available for assistance throughout the entire procedure. SEDATION: None MEDICATIONS: Albuminar-25 (12.5 grams of albumin/vial);0 vials infused intravenously. GUIDANCE: Ultrasound. Images related to this procedure were permanently stored in the patient's medical record. COMPLICATIONS: None PROCEDURE DESCRIPTION: Informed consent was obtained from the patient after discussion of risks, benefits, and alternatives. Maximal sterile barrier technique and sterile ultrasound technique was used for the entire procedure. A timeout was performed. After local anesthesia with lidocaine, a 6 egyptian Centeze catheter was advanced into a pocket of ascites in the right upper quadrant under sonographic guidance. An ultrasound image was stored for the permanent record. serosanguinous fluid was aspirated. Samples of the fluid were sent for laboratory assays. The catheter was then removed and hemostasis was obtained at the puncture site with manual compression. A sterile dressing was applied. The patient tolerated the procedure well. FINDINGS: Targeted ultrasound of the abdomen showed large volume ascites. Diagnostic and therapeutic paracentesis performed. 4.9 L of serosanguinous fluid was aspirated and discarded. us Kait Gaona MD IMG IR PROCEDURES Final Res ult * (ABNORMAL) Cell Count w/Differential, Peritoneal (10/07/2024 2:33 PM EDT) Color, Peritoneal Red(A) Colorless, Yellow, Straw 10/07/2024 4:51 PM EDT [facility] Appearance, Peritoneal Hazy(A) Clear 10/07/2024 4:51 PM EDT [facility] TNC/WBC, Peritoneal 119 <=250 cells/mm3 10/07/2024 4:51 PM EDT [facility] Comment:Values of TNC <=250 do not rule out abnormality. Clinical correlation is advised. RBC, Peritoneal 12,000 Not established cells/mm3 10/07/2024 4:51 PM EDT [facility] Neutrophils %, Peritoneal 26 % 10/07/2024 4:51 PM EDT [facility] Lymphocytes %, Peritoneal 42 % 10/07/2024 4:51 PM EDT [facility] Hickman/Macrophage %, Peritoneal 28 % 10/07/2024 4:51 PM EDT [facility] Eosinophil %, Peritoneal 1 % 10/07/2024 4:51 PM EDT [facility] Basophil %, Peritoneal 2 % 10/07/2024 4:51 PM EDT [facility] Bands %, Peritoneal 1 % 10/07/2024 4:51 PM EDT [facility] Differential Cells Counted, Peritoneal 100 10/07/2024 4:51 PM EDT [facility] Body Fluid Peritoneal cavity structure / Unknown 10/07/2024 2:33 PM EDT 10/07/2024 3:33 PM EDT Comment:Ascites fluid Kait Gaona MD LAB BODY FLUIDS AND STOOLS ORDERABLES Final Result [facility] [address] [place] [address], * Anaerobic Culture (10/07/2024 2:33 PM EDT) Culture No anaerobes isolated. 10/14/2024 5:00 PM EDT [facility] Body Fluid Peritoneal cavity structure / Unknown 10/07/2024 2:33 PM EDT Comment:Ascites fluid Narrative [facility] - 10/14/2024 5:00 PM EDT [facility] Received Date: MICRO NUMBER: [id number] SPECIMEN QUALITY: Adequate SOURCE: BODY FLUID PERITONEAL STATUS: FINAL Kait Gaona MD LAB MICROBIOLOGY - GENERAL ORDERABLES Final Result [facility] [address] [facility] 3rd Floor, [place] [address], [place] [phone] [facility] [address] [facility] 3rd Floor, [place] [address], [place] [phone] * STAT Gram Stain (10/07/2024 2:33 PM EDT) Gram Stain, STAT No organisms seen 10/07/2024 5:46 PM EDT [facility] [employer] [facility] Gram Stain, STAT 1+ Mononuclear Cells 10/07/2024 5:46 PM EDT [facility] [employer] [facility] Gram Stain, STAT 1+ Red Blood Cells 10/07/2024 5:46 PM EDT [facility] [employer] [facility] Body Fluid Peritoneal cavity structure / Unknown 10/07/2024 2:33 PM EDT 10/07/2024 3:33 PM EDT Kait Gaona MD LAB MICROBIOLOGY - GENERAL ORDERABLES Final Result [facility] [employer] [facility] LAB[facility] [address] [place] [address], * Body Fluid Aerobic Culture (10/07/2024 2:33 PM EDT) Culture No growth 10/13/2024 5:38 AM EDT [facility] Body Fluid Peritoneal cavity structure / Unknown 10/07/2024 2:33 PM EDT Comment:Ascites fluid Narrative [facility] - 10/13/2024 5:38 AM EDT [facility] Received Date: MICRO NUMBER: [id number] SPECIMEN QUALITY: Adequate SOURCE: BODY FLUID PERITONEAL STATUS: FINAL Kait Gaona MD LAB MICROBIOLOGY - GENERAL ORDERABLES Final Result [facility] [address] [facility] 3rd Floor, [place] [address], [place] [phone] [facility] [address] [facility] 3rd Floor, [place] [address], [place] [phone] * LAB - SCANNED (10/04/2024) us Onbase Scan [facility] LAB HISTORICAL RESULTS Final Result * Light Green Top (09/29/2024 3:41 PM EDT) Extra Tube Hold for add-ons. 09/29/2024 8:05 PM EDT [facility] Comment:Auto resulted. Blood Structure of peripheral vein / Unknown Venipuncture / Unknown 09/29/2024 3:41 PM EDT 09/29/2024 3:47 PM EDT us Protocol Mem Treatment LAB BLOOD ORDERABLES F inal Result Performing Organization Address City/[facility]/ZIP Co de Phone Number [facility] [address] [place] [address], * (ABNORMAL) Hemoglobin A1c (08/13/2024 1:57 AM EDT) Hemoglobin A1C 5.7(H) <5.7 % 08/13/2024 8:51 AM EDT [facility] Comment: For someone without known diabetes, a hemoglobin A1c value between 5.7% and 6.4% is consistent with prediabetes and should be confirmed with a follow-up test. For someone with known diabetes, a value <7% indicates that their diabetes is well controlled. A1c targets should be individualized based on duration of diabetes, age, comorbid conditions, and other considerations. This assay result is consistent with an increased risk of diabetes. Currently, no consensus exists regarding use of hemoglobin A1c for diagnosis of diabetes for children. eAG (MG/DL) 117 mg/dL 08/13/2024 8:51 AM EDT [employer] eAG (MMOL/L) 6.5 mmol/L 08/13/2024 8:51 AM EDT [facility] Blood Structure of peripheral vein / Unknown Venipuncture / Unknown 08/13/2024 1:57 AM EDT 08/13/2024 2:22 AM EDT [facility]arrative [facility] 08/13/2024 8:51 AM EDT [facility] Received Date:[id number] Prince Josephine Trinidad MD LAB BLOOD ORDERABLES Final R esult Performing Organization Address City/[facility]/ZIP Co de Phone Number [facility] [address], [place] [address], [facility] [address], [place] [address], [place] [phone] * Hepatitis C Antibody w/Reflex to HCV RNA, Quantitative PCR (08/08/2024 9:49 AM EDT) Hepatitis C Antibody NON-REACT HYACINTH NON-REACT HYACINTH 08/09/2024 5:05 PM EDT [facility] Comment: HCV antibody was non-reactive. There is no laboratory evidence of HCV infection. In most cases, no further action is required. However, if recent HCV exposure is suspected, a test for HCV RNA (test code 74910) is suggested. For additional information please refer to http://education.[employer]/faq/XNB06b2 (This link is being provided for informational/ educational purposes only.) Blood Structure of peripheral vein / Unknown Venipuncture / Unknown 08/08/2024 9:49 AM EDT 08/08/2024 9:56 AM EDT [place] [employer] [facility] - 08/09/2024 5:05 PM EDT [facility] Received Date:[id number] Susy [facility]ARR LAB BLOOD ORDERABLES Final R esult Performing Organization Address City/[facility]/ZIP Co de Phone Number [facility] [address], [place] [address], [place] [phone] [facility] [address], [place] [address], [place] [phone] * Microalbumin, Random Urine with Creatinine (11/05/2023 4:02 PM EDT) Microalbumin, Urine <2.0 mg/dL 11/05/2023 5:25 PM EDT [facility] Creatinine, Urine 42 15 - 278 mg/dL 11/05/2023 5:25 PM EDT [facility] Microalb/Creat Ratio, Random Urine 11/05/2023 5:25 PM EDT [facility] Comment: < 1.0 mcg/mgCr Microalbumin Reference Range: Normal <30 mcg/mg Creatinine Microalbuminuria 30-300 mcg/mg Creatinine Clinical Albuminuria >300 mcg/mg Creatinine Reference: ADA Guideline. Diabetes Care. 2004;27 (suppl 1) Urine Voided urine specimen / Unknown Non-Blood Collection / Unknown 11/05/2023 4:02 PM EDT 11/05/2023 4:32 PM EDT us Genevieve Alaniz MD LAB URINE ORDERABLES Final Resul t [facility] [address] [place] [address], [place] * Pap (07/07/2023 4:34 PM EDT) Specimen Adequacy Satisfactory for evaluation [facility] MANUAL 4 9:19 AM EDT [employer] [facility] Pathologist Cytology Interpretation Negative for intraepithelial lesion or malignancy. [employer] MANUAL 4 9:19 AM EDT [facility] at 0919 EDT Comment:This is the result o f a morphological screening test with an inherent possibility of a false negative interpretation. [employer] Statement This Pap test was examined by the [facility], [employer], [place], [place]. This Pap test was examined in accordance with the [facility] Cytopathology Laboratory written policy, which incorporates all CLIA mandates. Current screening guidelines can be found in [place]: A Cancer Journal for Clinicians 2020;70:321-346. Current ASCCP management guidelines for abnormal Pap tests are published in the Journal Lower Genital Tract Disease Volume 2020;24:102-131. [facility] MANUAL 4 9:19 AM EDT [facility] Clinical History hlth care maintenance [facility] MANUAL 4 9:19 AM EDT [employer] [facility] Resulting Agency Case was signed out at [facility], Department of Pathology, [employer] 3 CLIA [id number] [facility] MANUAL 4 9:19 AM EDT [facility] Report Header Gynecologic Cytology Report Case: [id number] Authorizing Provider: Charis Reese MD MPH Collected: 07/07/2023 [facility] Ordering Location: [facility] Received: 07/07/[address] [place] [address] Primary Care First Screen: Ana Maria Gutierres Specimen: Screening ThinPrep Pap, Cervix/Endocervix 4 9:19 AM EDT [facility] Brushing Cervix uteri structure / Unknown Non-Blood Collection / Unknown 07/07/2023 4:34 PM EDT 07/07/2023 4:34 PM EDT us Charis Reese MD MPH LAB PATHOLOGY/CYTOLOGY OR DERABLES Final Result [facility] [address] [place] [address], [place] * ANAYELI Bilateral Screening Digital Mammogram With Kwame (06/03/2023 11:07 AM EDT) Anatomical Region Laterality Modality Breast Bilateral Mammography Narrative 06/07/2023 1:33 PM EDT EXAMINATION ANAYELI Bilateral Screening Digital Mammogram With Kwame. INDICATION Xiomy Zuluaga is a 47 y.o. female and is seen for: ANAYELI Bilateral Screening Digital Mammogram With Kwame. CC and MLO views were obtained. FDA approved Nolio AI (artificial intelligence) software and R2 CAD were used as a concurrent reading aid in the interpretation of this study. COMPARISON Outside mammograms dating back to 2018 Bilateral Breast Findings: The breasts have scattered areas of fibroglandular density. No significant masses, calcifications or other abnormalities are seen. IMPRESSION BI-RADS ATLAS category (overall): 1 - Negative MANAGEMENT Routine Screening Mammogram in 1 Year is recommended for bilateral. The patient was entered into a reminder system with a target date for their next mammogram. If this radiology report contains a blank impression section, it is an incomplete radiology report. Please contact the interpreting radiologist or applicable radiology division as soon as possible to obtain the completed interpretation. us Juan Daniel Lazar MD IMG BI PROCEDURES Final Resul t from Last 3 Months or Most Recently Relevant to Health Maintenance Insurance [facility] MEDICAID Advance Directives Documents on File Type Date Recorded Patient Production Zone Leader Expl anation Health Care Proxy 05/23/2021 2:40 PM 05-16 Health Care Proxy 04/26/2020 4:06 PM 04-21 * Presumed Full Code (Latest Code Status on File) Date Activated Date Inactivated Comments 12/16/2024 5:43 PM 12/16/2024 11:59 PM * Full Code Date Activated Date Inactivated Comments 11/18/2024 6:26 PM 11/19/2024 8:38 PM * Full Code Date Activated Date Inactivated Comments 08/07/2024 5:55 AM 08/18/2024 4:12 PM * Full Code Date Activated Date Inactivated Comments 04/17/2022 9:38 PM 04/25/2022 1:49 PM * Presumed Full Code Date Activated Date Inactivated Comments 04/17/2022 7:19 PM 04/17/2022 9:38 PM Healthcare Agents on File Name Relationship Healthcare Agent [facility] Communication Kirti Barnes Friend Health Care Agent Care Teams Urology Physician Relationship Specialty Start Date End Date Sharlene De La Garza DO [address] [place] [address] PCP - General 06/03/23
--- OUTSIDE RECORDS SUMMARY | 2024-12-26 19:39 | XMS_ITS | Encounter Summary ---
Author Organization [facility] Address [address] [place] [address] Care Team Providers Care Processing Technician Name Role Phone HolliSharlene kirkFarhat [place] Primary Care Provider [phone] Reason for Visit * Reason Comments Med Refill Encounter Details Date Type Department Care Team (Late st Contact Info) Description 12/22/2024 Refill [facility] [address] [place] [address] Kathy Diaz MD [address] [place] [address] Social History Tobacco Use Types Packs/Day Years Used Date Smoking Tobacco: Former Cigarettes 1 18.4 0 06/02/1995 - 10/15/2013 Smokeless Tobacco: Never Comments:quit 2012 Alcohol Use Standard Drinks/Week Comments Not Currently 0 (1 standard drink = 0.6 oz pur e alcohol) [facility] Utilities Answer Date Recorded In the past 12 months has e electric, gas, oil, or water company [...] Info) Description 12/27/2024 10:30 AM EDT Follow-Up [facility] Transplant Services [address] [place] [address] Kait Gaona MD [address] [place] [address] 12/29/2024 1:00 PM EDT Appointment [facility] Interventional Radiology [address] [place] [address] Kait Gaona MD [address] [place] [address] 12/29/2024 3:00 PM EDT Follow-Up [facility] [address] [place] [address] Genevieve Alaniz MD [address] [place] [address] 01/05/2025 1:00 PM EST Appointment [facility] Interventional Radiology [address] [place] [address] Kait Gaona MD [address] [place] [address] 01/11/2025 2:00 PM EST Follow-Up [facility] [address] [place] [address] Nito Morfin MD [address] [place] [address] 01/12/2025 1:00 PM EST Appointment [facility] Interventional Radiology [address] [place] [address] Kait Gaona MD [address] [place] [address] 01/19/2025 1:00 PM EST Appointment [facility] Interventional Radiology [address] [place] [address] Kait Gaona MD [address] [place] [address] 01/26/2025 1:00 PM EST Appointment [facility] Interventional Radiology [address] [place] [address] Kait Gaona MD [address] [place] [address] 02/02/2025 1:00 PM EST Appointment [facility] Interventional Radiology [address] [place] [address] 02/09/2025 10:30 AM EST Lab [facility] ACC Draw Site Fifth Floor [address] [place] [address] 02/09/2025 11:30 AM EST Follow-Up [facility] 5th Floor [address] [place] [address] Ning Velazco MD [address] [facility] Hematology/[place] [address] 02/09/2025 1:00 PM EST Appointment [facility] Interventional Radiology [address] [place] [address] 02/15/2025 1:30 PM EST Appointment [facility] Cardiac Ultrasound [address] [place] [address] 02/16/2025 1:00 PM EST Appointment [facility] Interventional Radiology [address] [place] [address] 02/23/2025 1:00 PM EST Appointment [facility] Interventional Radiology [address] [place] [address] 03/02/2025 1:00 PM EST Appointment [facility] Interventional Radiology [address] [place] [address] 03/09/2025 1:00 PM EST Appointment [facility] Interventional Radiology [address] [place] [address] 03/16/2025 1:00 PM EST Appointment [facility] Interventional Radiology [address] [place] [address] 03/23/2025 1:00 PM EST Appointment [facility] Interventional Radiology [address] [place] [address] 167[address] 03/30/2025 1:00 PM EST Appointment [facility] Interventional Radiology [address] [place] [address]78[address] 04/06/2025 1:00 PM EST Appointment [facility] Interventional Radiology [address] [place] [address]67[address] 04/13/2025 1:00 PM EST Appointment [facility] Interventional Radiology [address] [place] [address] 04/20/2025 1:00 PM EST Appointment [facility] Interventional Radiology [address] [place] [phone] 06/17/2025 1:30 PM EDT Follow-Up [facility] 4th floor Cardiology Medicine [address] [place] [address] Grader Operator: Cookie Coates PA [address] [place] [address] [place] [address] 01/18/2026 1:30 PM EST Follow-Up [facility] 4th floor Cardiology Medicine [address] [place] [phone] Grader Operator: Cory Bolanos MD [address] [place] [address] [phone] Scheduled Procedures Name Priority Associated Diagnoses Date/Ti me RIGHT HEART CATHETERIZATION RVF (right ventricular failure) Pulmonary hypertension Coronary artery disease involving blue lake coronary artery of blue [place] heart, unspecified whether angina present CORONARY ANGIOGRAPHY RVF (right ventricular failure) Pulmonary hypertension Coronary artery disease involving [place] coronary artery of [place] heart, unspecified whether angina present ANGIOPLASTY - CORONARY RVF (right ventricular failure) Pulmonary hypertension Coronary artery disease involving blue [place] coronary artery of blue [place] heart, unspecified whether angina present documented as of this encounter Visit Diagnoses Not on filedocumented in this encounter Care Teams Processing Technician Relationship Specialty Start Date End Date Sharlene De La Garza DO [address] [place] [address] PCP - General 06/03/23 documented as of this encounter
--- OUTSIDE RECORDS SUMMARY | 2024-12-26 19:39 | XMS_ITS | Encounter Summary ---
Author Organization [facility] Address [address] [place] [address] Care Team Providers Care Dragline Operator Helper Name Role Phone Sharlene De La Garza Primary Care Provider +1- [phone] Encounter Details Date Type Department Care Team (Late st Contact Info) Description 08/09/2020 Orders Only [facility] Pulmonary Function Lab [address] [place] [address] Renee Huang, AUTOMATIC BEAM WARPER TENDER Cough (Primary Dx) Social History Tobacco Use Types Packs/Day Years [...] Info) Description 12/27/2024 10:30 AM EDT Follow-Up [facility] Liver Transplant Services [address] [place], [place] [phone] Kait Gaona MD [address] [place] [address] 12/29/2024 1:00 PM EDT Appointment [facility] Interventional Radiology [address] [place] [phone] Kait Gaona MD [address] [place] [address] 46[address] 12/29/2024 3:00 PM EDT Follow-Up [facility] Liver Transplant Services [address] [place] [address] Genevieve Alaniz MD [address] [place] [address] 6[address] 01/05/2025 1:00 PM EST Appointment [facility] Interventional Radiology [address] [place] [address] 79199 Kait Gaona MD [address] [place] [address] 52084 01/11/2025 2:00 PM EST Follow-Up [facility] Medical [facility] at [address] [phone] Nito Morfin MD [address] [place] [address] 01/12/2025 1:00 PM EST Appointment [facility] Interventional Radiology [address] [place] [address] 40644 Kait Gaona MD [address] [place] [address] 47321 01/19/2025 1:00 PM EST Appointment [facility] Interventional Radiology [address] [place] [address] 91346 Kait Gaona MD [address] [place] [address] 53380 01/26/2025 1:00 PM EST Appointment [facility] Interventional Radiology [address] [place] [address] 40671 Kait Gaona MD [address] [place] [address] 02/02/2025 1:00 PM EST Appointment [facility] Interventional Radiology [address] [place] [address] 12553 02/09/2025 10:30 AM EST Lab [facility] ACC Draw Site Fifth Floor [address] [place] [address] 02/09/2025 11:30 AM EST Follow-Up [facility] ACC Building Cancer Clinic South 5th Floor [address] [place] [address] Ning Velazco MD 55 [facility] Hematology/[place] [address] 02/09/2025 1:00 PM EST Appointment [facility] Interventional Radiology [address] [place] [address] 613[address] 02/15/2025 1:30 PM EST Appointment [facility] ACC Building Cardiac Ultrasound [address] [place] [address] 02/16/2025 1:00 PM EST Appointment [facility] Interventional Radiology [address] [place] [address] 90126 02/23/2025 1:00 PM EST Appointment [facility] Interventional Radiology [address] [place] [address] 92729 03/02/2025 1:00 PM EST Appointment [facility] Interventional Radiology [address] [place] [address] 00025 03/09/2025 1:00 PM EST Appointment [facility] Interventional Radiology [address] [place] [address] 18712 03/16/2025 1:00 PM EST Appointment [facility] Interventional Radiology [address] [place] [address] 17606 03/23/2025 1:00 PM EST Appointment [facility] Interventional Radiology [address] [place] [address] 89864 03/30/2025 1:00 PM EST Appointment [facility] Interventional Radiology [address] [place] [address] 91982 04/06/2025 1:00 PM EST Appointment [facility] Interventional Radiology [address] [place] [address] 31232 04/13/2025 1:00 PM EST Appointment [facility] Interventional Radiology [address] [place] [address] 00046 04/20/2025 1:00 PM EST Appointment [facility] Interventional Radiology [address] [place] [address] 03184 06/17/2025 1:30 PM EDT Follow-Up [facility] 4th floor Cardiology Medicine [address] [place] [address] Filter Changer: Cookie Coates PA [address] [place] [address] 01/18/2026 1:30 PM EST Follow-Up [address] floor Cardiology Medicine [address] [place] [address] 80654 Filter Changer: Cory Bolanos MD [address] [place] [address] Scheduled Procedures Name Priority Associated Diagnoses Date/Ti mn RIGHT HEART CATHETERIZATION RVF (right ventricular failure) Pulmonary hypertension Coronary artery disease involving [place] coronary artery of [place] heart, unspecified whether angina present CORONARY ANGIOGRAPHY RVF (right ventricular failure) Pulmonary hypertension Coronary artery disease involving [place] coronary artery of [place] heart, unspecified whether angina present ANGIOPLASTY - CORONARY RVF (right ventricular failure) Pulmonary hypertension Coronary artery disease involving [place] coronary artery of [place] heart, unspecified whether angina present documented as of this encounter Visit Diagnoses Diagnosis Cough- Primary documented in this encounter Additional Health Concerns Infection Onset Date Last Indicated Resolved Time R/O Respiratory Virus Infection 04/05/2022 04/0504/05/2022 9:49 PM EST R/O Influenza 04/05/2022 04/05/2022 [...] documented as of this encounter Care Teams Dragline Operator Helper Relationship Specialty Start Date End Date Sharlene De La Garza DO [address] [place] [address] PCP - General 06/03/23 documented as of this encounter
--- OUTSIDE RECORDS SUMMARY | 2024-12-26 19:39 | XMS_ITS | Encounter Summary ---
Author Organization [facility] Address [address] [place] [address] Care Team Providers Care Custom Grinder Name Role Phone HolliSharlene kirk Primary Care Provider +1- [phone] Encounter Details Date Type Department Care Team (Late st Contact Info) Description 02/19/[address] [facility] Interventional Radiology [address] [place] [address] Jerica Lewis MD [address] [place], [place] [phone] Social History Tobacco Use Types Packs/Day Years [...] Info) Description 12/27/2024 10:30 AM EDT Follow-Up [facility] Liver Transplant Services [address], [place] [phone] Kait Gaona MD [address] [place] [address] 12/29/2024 1:00 PM EDT Appointment [facility] Interventional Radiology [address] [place] [address] 57[address] Kait Gaona MD [address] [place] [address] 70920 12/29/2024 3:00 PM EDT Follow-Up [facility] Liver Transplant Services [address] [place] [address] Genevieve Alaniz MD [address] [place] [address] 16693 01/05/2025 1:00 PM EST Appointment [facility] Interventional Radiology [address] [place] [address] 333[address] Kait Gaona MD [address] [place] [address] 06860 01/11/2025 2:00 PM EST Follow-Up [facility] Medical [facility] at [address] [phone] Nito Morfin MD [address] [place] [address] 28261 01/12/2025 1:00 PM EST Appointment [facility] Interventional Radiology [address] [place] [address] 64173 Kait Gaona MD [address] [place] [address] 55021 01/19/2025 1:00 PM EST Appointment [facility] Interventional Radiology [address] [place] [address] 49744 Kait Gaona MD [address] [place] [address] 72777 01/26/2025 1:00 PM EST Appointment [facility] Interventional Radiology [address] [place] [address] 98543 Kait Gaona MD [address] [place] [address] 02/02/2025 1:00 PM EST Appointment [facility] Interventional Radiology [address] [place] [address] 04835 02/09/2025 10:30 AM EST Lab [facility] ACC Draw Site Fifth Floor [address] [place] [address] 02/09/2025 11:30 AM EST Follow-Up [facility] ACC Building Cancer Clinic South 5th Floor [address] [place] [address] Ning Velazco MD 55 [facility] Hematology/[place] [address] 02/09/2025 1:00 PM EST Appointment [facility] Interventional Radiology [address] [place] [address] 11906 02/15/2025 1:30 PM EST Appointment [facility] ACC Building Cardiac Ultrasound [address] [place] [address] 02/16/2025 1:00 PM EST Appointment [facility] Interventional Radiology [address] [place] [address] 54788 02/23/2025 1:00 PM EST Appointment [facility] Interventional Radiology [address] [place] [address] 47556 03/02/2025 1:00 PM EST Appointment [facility] Interventional Radiology [address] [place] [address] 52056 03/09/2025 1:00 PM EST Appointment [facility] Interventional Radiology [address] [place] [address] 79582 03/16/2025 1:00 PM EST Appointment [facility] Interventional Radiology [address] [place] [address] 04388 03/23/2025 1:00 PM EST Appointment [facility] Interventional Radiology [address] [place] [address] 14965 03/30/2025 1:00 PM EST Appointment [facility] Interventional Radiology [address] [place] [address] 09791 04/06/2025 1:00 PM EST Appointment [facility] Interventional Radiology [address] [place] [address] 79610 04/13/2025 1:00 PM EST Appointment [facility] Interventional Radiology [address] [place] [address] 85518 04/20/2025 1:00 PM EST Appointment [facility] Interventional Radiology [address] [place] [address] 21714 06/17/2025 1:30 PM EDT Follow-Up [facility] 4th floor Cardiology Medicine [address] [place] [phone] Product Promoter Retail Pet: Cookie Coates PA [address] [place] [address] 01/18/2026 1:30 PM EST Follow-Up [address] floor Cardiology Medicine [address] [place] [address] 474[address] Product Promoter Retail Pet: Cory Bolanos MD [address] [place] [address] Scheduled Procedures Name Priority Associated Diagnoses Date/Ti [...] documented as of this encounter Care Teams Custom Grinder Relationship Specialty Start Date End Date Sharlene De La Garza DO [address] [place] [address] PCP - General 06/03/23 documented as of this encounter
--- OUTSIDE RECORDS SUMMARY | 2024-12-26 19:39 | XMS_ITS | Encounter Summary ---
Author Organization [facility] Address [address] [place] [address] Care Team Providers Care Hazmat Truck Driver Name Role Phone Sharlene De La Garza Primary Care Provider +1- [phone] Encounter Details Date Type Department Care Team (Late st Contact Info) Description 05/05/2024 Orders Only [facility] Interventional Radiology [address] [place], [place] [phone] Amarilys Eastman MD [address] [place], [place] [phone] Social History Tobacco Use Types Packs/Day Years Used Date Smoking Tobacco: Former Cigarettes 1 18.4 0 06/02/1995 - 10/15/2013 Smokeless Tobacco: Never Comments:quit 2012 Alcohol Use Standard Drinks/Week Comments Not Currently 0 (1 standard drink = 0.6 oz pur e alcohol) [facility] Utilities Answer Date Recorded In the past 12 months has [employer] electric, gas, oil, or water company threatened to shut off services in your home? No 10/24/2023 Hunger Vital Sign Answer Date Recorded Within the past 12 months, y ou worried that your food would run out before you got the money to buy more. Never true 10/24/19 24 Within the past 12 months, t he food you bought just didn't last and you didn't have money to get more. Never true 10/24/2023 Transportation Answer Date Recorded In the past 12 months, has l ack of reliable transportation kept you from medical appointments, meetings, work or from getting things needed for daily living? No 10/24/2023 Housing Answer Date Recorded Housing Risk Low 2 10/24/2023 Housing Risk Medium Not on file 10/24/2023 Housing Risk High Not on file 10/24/2023 What is your living situation today? [facility] 10/24/2023 Comments No Sex and Gender Information Value Date Recorded Sex Assigned at Female 05/03/2020 12:04 PM EST Legal Sex Female 4:36 AM EDT Gender Identity Female 05/03/2020 12:04 PM EST Sexual Orientation Straight 05/03/2020 12 :04 PM EST documented as of this encounter Plan of Treatment Upcoming Encounters Date Type Department Care Team (Late st Contact Info) Description 12/27/2024 10:30 AM EDT Follow-Up [facility] Liver Transplant Services [address] [place] [address] Kait Gaona MD [address] [place] [address] 11227 12/29/2024 1:00 PM EDT Appointment [facility] Interventional Radiology [address] [place] [address] 23051 Kait Gaona MD [address] [place] [address] 34370 12/29/2024 3:00 PM EDT Follow-Up [facility] Liver Transplant Services [address] [place] [address] 6[address]67 Genevieve Alaniz MD [address] [place] [address] 06002 01/05/2025 1:00 PM EST Appointment [facility] Interventional Radiology [address] [place] [address] 93767 Kait Gaona MD [address] [place] [address] 95689 01/11/2025 2:00 PM EST Follow-Up [facility] at [address] [phone] Nito Morfin MD [address] [place] [address] 01/12/2025 1:00 PM EST Appointment [facility] Interventional Radiology [address] [place] [address] 59990 Kait Gaona MD [address] [place] [address] 71360 01/19/2025 1:00 PM EST Appointment [facility] Interventional Radiology [address] [place] [address] 46001 Kait Gaona MD [address] [place] [address] 39859 01/26/2025 1:00 PM EST Appointment [facility] Interventional Radiology [address] [place] [address] 07618 Kait Gaona MD [address] [place] [address] 69915 02/02/2025 1:00 PM EST Appointment [facility] Interventional Radiology [address] [place] [address] 23646 02/09/2025 10:30 AM EST Lab [facility] ACC Draw Site Fifth Floor [address] [place] [address] 02/09/2025 11:30 AM EST Follow-Up [facility] ACC Building Cancer Clinic South 5th Floor [address] [place] [address] Ning Velazco MD [address] [place] [address] Hematology/[place] [address] 02/09/2025 1:00 PM EST Appointment [facility] Interventional Radiology [address] [place] [address] 02/15/2025 1:30 PM EST Appointment [facility] Cardiac Ultrasound [address] [place] [address] 02/16/2025 1:00 PM EST Appointment [facility] Interventional Radiology [address] [place] [address] 79133 02/23/2025 1:00 PM EST Appointment [facility] [place] [facility] Interventional Radiology [address] [place] [address] 50654 03/02/2025 1:00 PM EST Appointment [facility] [place] [facility] Interventional Radiology [address] [place] [address] 10879 03/09/2025 1:00 PM EST Appointment [facility] [place] [facility] Interventional Radiology [address] [place] [address] 73994 03/16/2025 1:00 PM EST Appointment [facility] Interventional Radiology [address] [place] [address] 67048 03/23/2025 1:00 PM EST Appointment [facility] [place] [facility] Interventional Radiology [address] [place] [address] 36972 03/30/2025 1:00 PM EST Appointment [facility] Interventional Radiology [address] [place] [address] 09444 04/06/2025 1:00 PM EST Appointment [facility] Interventional Radiology [address] [place] [address] 82349 04/13/2025 1:00 PM EST Appointment [facility] Interventional Radiology [address] [place] [address] 84032 04/20/2025 1:00 PM EST Appointment [facility] Interventional Radiology [address] [place] [address] [phone] 06/17/2025 1:30 PM EDT Follow-Up [facility] 4th floor Cardiology Medicine [address] [place] [address] Inspector And Unloader: Cookie Coates PA [address] [place] [address] 34478 01/18/2026 1:30 PM EST Follow-Up [facility] 4th floor Cardiology Medicine [address] [place] [address] 38[address] Inspector And Unloader: Cory Bolanos MD [address] [place] [address] 10529 Scheduled Procedures Name Priority Associated Diagnoses Date/Ti me RIGHT HEART CATHETERIZATION RVF (right ventricular failure) Pulmonary hypertension Coronary artery disease involving [place] coronary artery of [place] heart, unspecified whether angina present CORONARY ANGIOGRAPHY RVF (right ventricular failure) Pulmonary hypertension Coronary artery disease involving [place] coronary artery of [place] heart, unspecified whether angina present ANGIOPLASTY - CORONARY RVF (right ventricular failure) Pulmonary hypertension Coronary artery disease involving [place] coronary artery of [place] heart, unspecified whether angina present documented as of this encounter Visit Diagnoses Not on filedocumented in this encounter Additional Health Concerns Infection Onset Date Last Indicated Resolved Time R/O Respiratory Virus Infection 07/23/2024 07/23/2024 12:44 PM EDT R/O Influenza 07/23/2024 07/23/2024 07/23/2024 12: 44 PM EDT COVID-19 - Suspected infection 07/23/2024 07/23/2024 07/23/2024 12:44 PM EDT COVID-19 - Suspected infection 08/06/2024 08/06/2024 08/06/2024 10:37 PM EDT R/O Respiratory Virus Infection 08/08/2024 08/10/2024 4:26 PM EDT documented as of this encounter Care Teams Hazmat Truck Driver Relationship Specialty Start Date End Date Sharlene De La Garza DO [address] [place] [address] JESSICA Mccarthy [address] PCP - General 06/03/23 documented as of this encounter
--- OUTSIDE RECORDS SUMMARY | 2024-12-26 19:39 | XMS_ITS | Encounter Summary ---
Author Organization [facility] Address [address] [place] [address] Care Team Providers Care Rn Maternity Name Role Phone Sharlene De La Garza Primary Care Provider [phone]- [phone] Reason for Visit * Reason Onset Date Comments Prior Authorization 12/09/2024 DEXCOM G7 SE NSOR - PA RENEWAL Encounter Details Date Type Department Care Team (Late st Contact Info) Description 12/09/2024 Telephone [facility] [address] [place] [address] Caddie: Marsha Figueroa CPhT Prior Authorization (DEXCOM G7 SENSOR - PA RENEWAL) Social History Tobacco Use Types Packs/Day Years Used Date Smoking Tobacco: Former Cigarettes 1 18.4 0 06/02/1995 - 10/15/2013 Smokeless Tobacco: Never Comments:quit 2012 Alcohol Use Standard Drinks/Week Comments Not Currently 0 (1 standard drink = 0.6 oz pur e alcohol) [facility] Utilities Answer Date Recorded In [...] PM EST documented as of this encounter Miscellaneous Notes * Telephone Encounter - Xiao Reed - 12/13/2024 7:22 AM EDT PA APPROVED FOR DEXUReserv G7 SENSOR, #04/30 day supply, [facility]. (PA#[id number]) Effective (12/10/2024-12/10/2025), ran test claim, REFILL TOO SOON , PATIENT FILLS WITH ACC * Telephone Encounter - Xiao Reed - 12/10/2024 3:05 PM EDT SUBMITTED PA VIA CM,, (Fan: [id number]), ANSWERED CLINICAL QUESTIONS, WILL UPDATE WITH DETERMINATION * Telephone Encounter - Mindi Love CPhT - 12/10/2024 2:46 PM EDT PA team, please use the chart notes from June appointment as Dr. Alaniz sees patients under both clinics Thank you Mindi * Telephone Encounter - Marsha Esquivel CPhT - 12/09/2024 3:48 PM EDT Ranjit, The patient needs to be seen in the Diabetic clinic for a PA renewal for Dexcom G7 Sensors to be completed. Auth expires on 12/22/2024. May we schedule an appointment with the patient, please? Thank you documented in this encounter Plan of Treatment Upcoming Encounters Date Type Department Care Team (Late st Contact Info) Description 12/27/2024 10:30 AM EDT Follow-Up [facility] Transplant Services [address] [place] [address] 33570 Kait Gaona MD [address] [place] [address] 41876 12/29/2024 1:00 PM EDT Appointment [facility] Interventional Radiology [address] [place] [address] 32[address] Kait Gaona MD [address] [place] [address] 20985 12/29/2024 3:00 PM EDT Follow-Up [facility] Transplant Services [address] [place] [address] 91774 Genevieve Alaniz MD [address] [place] [address] 55297 01/05/2025 1:00 PM EST Appointment [facility] Interventional Radiology [address] [place] [address] 32704 Kait Gaona MD [address] [place] [address] 68309 01/11/2025 2:00 PM EST Follow-Up [facility] at [address] [phone] Nito Morfin MD [address] [place] [address] 97[address] 01/12/2025 1:00 PM EST Appointment [facility] Interventional Radiology [address] [place] [address] 47721 Kait Gaona MD [address] [place] [address] 49677 01/19/2025 1:00 PM EST Appointment [facility] Interventional Radiology [address] [place] [address] 53678 Kait Gaona MD [address] [place] [address] 93808 01/26/2025 1:00 PM EST Appointment [facility] Interventional Radiology [address] [place] [address] 32820 Kait Gaona MD [address] [place] [address] 65497 02/02/2025 1:00 PM EST Appointment [facility] Interventional Radiology [address] [place] [address] 49806 02/09/2025 10:30 AM EST Lab [facility] ACC Draw Site Fifth Floor [address] [place] [address] 02/09/2025 11:30 AM EST Follow-Up [facility] South 5th Floor [address] [place] [address] Ning Velazco MD [address] [place] [address] Hematology/[place] [address] 02/09/2025 1:00 PM EST Appointment [facility] Interventional Radiology [address] [place] [address] 93765 02/15/2025 1:30 PM EST Appointment [facility] Cardiac Ultrasound [address] [place] [address] 02/16/2025 1:00 PM EST Appointment [facility] Interventional Radiology [address] [place] [address] 01210 02/23/2025 1:00 PM EST Appointment [facility] Interventional Radiology [address] [place] [address] 81274 03/02/2025 1:00 PM EST Appointment [facility] Interventional Radiology [address] [place] [address] 95978 03/09/2025 1:00 PM EST Appointment [facility] Interventional Radiology [address] [place] [address] 43904 03/16/2025 1:00 PM EST Appointment [facility] Interventional Radiology [address] [place] [address] 39441 03/23/2025 1:00 PM EST Appointment [facility] Interventional Radiology [address] [place] [address] 53596 03/30/2025 1:00 PM EST Appointment [facility] Interventional Radiology [address] [place] [address] 36540 04/06/2025 1:00 PM EST Appointment [facility] Interventional Radiology [address] [place] [address] 64453 04/13/2025 1:00 PM EST Appointment [facility] Interventional Radiology [address] [place] [address] 35846 04/20/2025 1:00 PM EST Appointment [facility] Interventional Radiology [address] [place] [address] 21091 06/17/2025 1:30 PM EDT Follow-Up [facility] 4th floor Cardiology Medicine [address] [place] [address] Caddie: Cookie Coates PA [address] [place] [address] 99648 01/18/2026 1:30 PM EST Follow-Up [facility] 4th floor Cardiology Medicine [address] [place] [address] 6[address]28 Caddie: Cory Bolanos MD [address] [place] [address] 15[address] Scheduled Procedures Name Priority Associated Diagnoses Date/Ti me RIGHT HEART CATHETERIZATION RVF (right ventricular failure) Pulmonary hypertension Coronary artery disease involving [place] coronary artery of [place] heart, unspecified whether angina present CORONARY ANGIOGRAPHY RVF (right ventricular failure) Pulmonary hypertension Coronary artery disease involving [place] coronary artery of [place] heart, unspecified whether angina present ANGIOPLASTY - CORONARY RVF (right ventricular failure) Pulmonary hypertension Coronary artery disease involving [place] coronary artery of [place] heart, unspecified whether angina present documented as of this encounter Visit Diagnoses Not on filedocumented in this encounter Care Teams Rn Maternity Relationship Specialty Start Date End Date Sharlene De La Garza DO [address] [place] [address] PCP - General 06/03/23 documented as of this encounter
--- OUTSIDE RECORDS SUMMARY | 2024-12-26 19:39 | XMS_ITS | Encounter Summary ---
Author Organization [facility] Address [address] [place] [address] Care Team Providers Care Leather Lacer Name Role Phone Sharlene De La Garza DO Primary Care Provider [phone]- [phone] Encounter Details Date Type Department Care Team (Late st Contact Info) Description 12/20/2024 myChart Message [facility] Primary Care [address] [place] [phone] Sharlene De La Garza DO [address] [place] [address] Checking in Social History Tobacco Use Types Packs/Day Years Used Date Smoking Tobacco: Former Cigarettes 1 18.4 0 06/02/1995 - 10/15/2013 Smokeless Tobacco: Never Comments:quit 2012 Alcohol Use Standard Drinks/Week Comments Not Currently 0 (1 standard drink = 0.6 oz pur e alcohol) [facility] Utilities Answer Date Recorded In the [...] Info) Description 12/27/2024 10:30 AM EDT Follow-Up [facility] Transplant Services [address] [place] [address] Kait Gaona MD [address] [place] [address] 37882 12/29/2024 1:00 PM EDT Appointment [facility] Interventional Radiology [address] [place] [address] 46468 Kait Gaona MD [address] [place] [address] 42092 12/29/2024 3:00 PM EDT Follow-Up [facility] [address] [place] [address] 89631 Genevieve Alaniz MD [address] [place] [address] 35671 01/05/2025 1:00 PM EST Appointment [facility] Interventional Radiology [address] [place] [address] 40971 Kait Gaona MD [address] [place] [address] 73890 01/11/2025 2:00 PM EST Follow-Up [facility] [address] [place] [phone] Nito Morfin MD [address] [place] [address] 33304 01/12/2025 1:00 PM EST Appointment [facility] Interventional Radiology [address] [place] [address] 61677 Kait Gaona MD [address] [place] [address] 52612 01/19/2025 1:00 PM EST Appointment [facility] Interventional Radiology [address] [place] [address] 34541 Kait Gaona MD [address] [place] [address] 01/26/2025 1:00 PM EST Appointment [facility] Interventional Radiology [address] [place] [address] 13903 Kait Gaona MD [address] [place] [address] 43693 02/02/2025 1:00 PM EST Appointment [facility] Interventional Radiology [address] [place] [address] 59589 02/09/2025 10:30 AM EST Lab [facility] ACC Draw Site Fifth Floor [address] [place] [address] 02/09/2025 11:30 AM EST Follow-Up [facility] ACC Building Cancer Clinic South 5th Floor [address] [place] [address] Ning Velazco MD 55 [facility] Hematology/[place] [address] 02/09/2025 1:00 PM EST Appointment [facility] Interventional Radiology [address] [place] [address] 54812 02/15/2025 1:30 PM EST Appointment [facility] Cardiac Ultrasound [address] [place] [address] 02/16/2025 1:00 PM EST Appointment [facility] Interventional Radiology [address] [place] [address] 82147 02/23/2025 1:00 PM EST Appointment [facility] Interventional Radiology [address] [place] [address] 79574 03/02/2025 1:00 PM EST Appointment [facility] Interventional Radiology [address] [place] [address] 65986 03/09/2025 1:00 PM EST Appointment [facility] Interventional Radiology [address] [place] [address] 10314 03/16/2025 1:00 PM EST Appointment [facility] Interventional Radiology [address] [place] [address] 08597 03/23/2025 1:00 PM EST Appointment [facility] Interventional Radiology [address] [place] [address] 63679 03/30/2025 1:00 PM EST Appointment [facility] Interventional Radiology [address] [place] [address] 50120 04/06/2025 1:00 PM EST Appointment [facility] Interventional Radiology [address] [place] [address] 73785 04/13/2025 1:00 PM EST Appointment [facility] Interventional Radiology [address] [place] [address] 34846 04/20/2025 1:00 PM EST Appointment [facility] Interventional Radiology [address] [place] [address] 51496 06/17/2025 1:30 PM EDT Follow-Up [facility] 4th floor Cardiology Medicine [address] [place] [address] Window Glass Installer: Mony La, TEJINDER Montejo [address] [place] [address] [place] [address] 01/18/2026 1:30 PM EST Follow-Up [facility] 4th floor Cardiology Medicine [address] [place] [address] Window Glass Installer: Cory Bolanos MD [address] [place] [address] Scheduled Procedures Name Priority Associated Diagnoses Date/Ti me RIGHT HEART CATHETERIZATION RVF (right ventricular failure) Pulmonary hypertension Coronary artery disease involving [place] coronary artery of [place] heart, unspecified whether angina present CORONARY ANGIOGRAPHY RVF (right ventricular failure) Pulmonary hypertension Coronary artery disease involving [place] coronary artery of [place] heart, unspecified whether angina present ANGIOPLASTY - CORONARY RVF (right ventricular failure) Pulmonary hypertension Coronary artery disease involving [place] coronary artery of [place] heart, unspecified whether angina present documented as of this encounter Visit Diagnoses Not on filedocumented in this encounter Care Teams Leather Lacer Relationship Specialty Start Date End Date Sharlene De La Garza DO [address] [place] [address]005 PCP - General 06/03/23 documented as of this encounter
--- OUTSIDE RECORDS SUMMARY | 2024-12-26 19:39 | XMS_ITS | Encounter Summary ---
Author Organization [facility] Address [address] [place] [address] Care Team Providers Care Sales Utility Representative Name Role Phone HolliStephan parrasarakesh Burton DO Primary Care Provider +1- [phone] Encounter Details Date Type Department Care Team (Late st Contact Info) Description 12/24/2024 Patient Outreach [facility] [address] [place] [address] Sherie Lu Social History Tobacco Use Types Packs/Day Years Used Date Smoking Tobacco: Former Cigarettes 1 18.4 0 06/02/1995 - 10/15/2013 Smokeless Tobacco: Never Comments:quit 2012 Alcohol Use Standard Drinks/Week Comments Not Currently 0 (1 standard drink = 0.6 oz pur e alcohol) [facility] Utilities Answer Date Recorded In the past 12 months has th e [employer], gas, oil, or water [employer] threatened to shut off services in your [...] PM EST documented as of this encounter Progress Notes * Sherie Lu - 12/24/2024 1:50 PM EDT Ongoing outreach attempted by phone,left voicemail message, call back pending. documented in this encounter Plan of Treatment Upcoming Encounters Date Type Department Care Team (Late st Contact Info) Description 12/27/2024 10:30 AM EDT Follow-Up [facility] Liver Transplant Services [address] [place] [address] 16968 Kait Gaona MD [address] [place] [address] 77819 12/29/2024 1:00 PM EDT Appointment [facility] Interventional Radiology [address] [place] [address] 13818 Kait Gaona MD [address] [place] [address] 95425 12/29/2024 3:00 PM EDT Follow-Up [facility] Liver Transplant Services [address] [place] [address] 83962 Genevieve Alaniz MD [address] [place] [address] 95041 01/05/2025 1:00 PM EST Appointment [facility] Interventional Radiology [address] [place] [address] 76111 Kait Gaona MD [address] [place] [address] 60991 01/11/2025 2:00 PM EST Follow-Up [facility] [address] [place] [phone] Nito Morfin MD [address] [place] [address] 01/12/2025 1:00 PM EST Appointment [facility] Interventional Radiology [address] [place] [address] 65043 Kait Gaona MD [address] [place] [address] 40267 01/19/2025 1:00 PM EST Appointment [facility] Interventional Radiology [address] [place] [address] 18369 Kait Gaona MD [address] [place] [address] 19954 01/26/2025 1:00 PM EST Appointment [facility] Interventional Radiology [address] [place] [address] 27407 Kait Gaona MD [address] [place] [address] 16015 02/02/2025 1:00 PM EST Appointment [facility] Interventional Radiology [address] [place] [address] 28821 02/09/2025 10:30 AM EST Lab [facility] ACC Draw Site Fifth Floor [address] [place] [address] 02/09/2025 11:30 AM EST Follow-Up [facility] ACC Building Cancer Clinic South 5th Floor [address] [place] [address] Ning Velazco MD 55 [facility] Hematology/[place] [address] 02/09/2025 1:00 PM EST Appointment [facility] Interventional Radiology [address] [place] [address] 15810 02/15/2025 1:30 PM EST Appointment [facility] Cardiac Ultrasound [address] [place] [address] 02/16/2025 1:00 PM EST Appointment [facility] Interventional Radiology [address] [place] [address] 60010 02/23/2025 1:00 PM EST Appointment [facility] Interventional Radiology [address] [place] [address] 22845 03/02/2025 1:00 PM EST Appointment [facility] Interventional Radiology [address] [place] [address] 58706 03/09/2025 1:00 PM EST Appointment [facility] Interventional Radiology [address] [place] [address] 65550 03/16/2025 1:00 PM EST Appointment [facility] Interventional Radiology [address] [place] [address] 46593 03/23/2025 1:00 PM EST Appointment [facility] Interventional Radiology [address] [place] [address] 88421 03/30/2025 1:00 PM EST Appointment [facility] Interventional Radiology [address] [place] [address] 67335 04/06/2025 1:00 PM EST Appointment [facility] Interventional Radiology [address] [place] [address] 69947 04/13/2025 1:00 PM EST Appointment [facility] Interventional Radiology [address] [place] [address] 38471 04/20/2025 1:00 PM EST Appointment [facility] Interventional Radiology [address] [place] [address] 51597 06/17/2025 1:30 PM EDT Follow-Up [facility] 4th floor Cardiology Medicine [address] [place] [address] Substation Engineer: Cookie Coates PA [address] [place] [address] 01/18/2026 1:30 PM EST Follow-Up [facility] 4th floor Cardiology Medicine [address] [place] [address] Substation Engineer: Cory Bolanos MD [address] [place] [address] Scheduled Procedures Name Priority Associated Diagnoses Date/Ti me RIGHT HEART CATHETERIZATION RVF (right ventricular failure) Pulmonary hypertension Coronary artery disease involving [place] coronary artery of [place] heart, unspecified whether angina present CORONARY ANGIOGRAPHY RVF (right ventricular failure) Pulmonary hypertension Coronary artery disease involving [place] coronary artery of [place] heart, unspecified whether angina present ANGIOPLASTY - CORONARY RVF (right ventricular failure) Pulmonary hypertension Coronary artery disease involving [place] coronary artery of [place] heart, unspecified whether angina present documented as of this encounter Visit Diagnoses Not on filedocumented in this encounter Care Teams Sales Utility Representative Relationship Specialty Start Date End Date Sharlene De La Garza DO [address] [place] [address] 85190 PCP - General 06/03/23 documented as of this encounter
--- OUTSIDE RECORDS SUMMARY | 2024-12-26 19:39 | XMS_ITS | Encounter Summary ---
Author Organization [facility] Address [address] [place] [address] Care Team Providers Care Archivist Military History Name Role Phone HolliSharlene kirk Primary Care Provider +1- [phone] Encounter Details Date Type Department Care Team (Late st Contact Info) Description 05/20/2024 Orders Only [address], 5th [place] [address] Polo Tobar MD [address] [place] [address] Social History Tobacco Use Types Packs/Day Years Used Date Smoking Tobacco: Former Cigarettes 1 18.4 0 06/02/1995 - 10/15/2013 Smokeless Tobacco: Never Comments:quit 2012 Alcohol Use Standard Drinks/Week Comments Not Currently 0 (1 standard drink = 0.6 oz pur e alcohol) [facility] Utilities Answer Date Recorded In the past 12 months has [employer], gas, oil, or water company threatened [...] Info) Description 12/27/2024 10:30 AM EDT Follow-Up [facility] Liver Transplant Services [address] [place] [address] Kait Gaona MD [address] [place] [address]2658 12/29/2024 1:00 PM EDT Appointment [facility] Interventional Radiology [address] [place] [address] 07277 Kait Gaona MD [address] [place] [address] 58939 12/29/2024 3:00 PM EDT Follow-Up [facility] Liver Transplant Services [address] [place] [address] 57[address] Genevieve Alaniz MD [address] [place] [address] 90593 01/05/2025 1:00 PM EST Appointment [facility] Interventional Radiology [address] [place] [address] 43622 Kait Gaona MD [address] [place] [address] 47830 01/11/2025 2:00 PM EST Follow-Up [facility] at [address] [phone] Nito Morfin MD [address] [place] [address] 01/12/2025 1:00 PM EST Appointment [facility] Interventional Radiology [address] [place] [address] 85134 Kait Gaona MD [address] [place] [address] 05207 01/19/2025 1:00 PM EST Appointment [facility] Interventional Radiology [address] [place] [address] 84950 Kait Gaona MD [address] [place] [address] 19101 01/26/2025 1:00 PM EST Appointment [facility] Interventional Radiology [address] [place] [address] 26869 Kait Gaona MD [address] [place] [address] 17153 02/02/2025 1:00 PM EST Appointment [facility] Interventional Radiology [address] [place] [address] 32392 02/09/2025 10:30 AM EST Lab [facility] ACC Draw Site Fifth Floor [address] [place] [address] 02/09/2025 11:30 AM EST Follow-Up [facility] ACC Building Cancer Clinic South 5th Floor [address] [place] [address] Ning Velazco MD [address] [place] [address] Hematology/[place] [address] 02/09/2025 1:00 PM EST Appointment [facility] Interventional Radiology [address] [place] [address] 81213 02/15/2025 1:30 PM EST Appointment [facility] Cardiac Ultrasound [address] [place] [address] 11936 02/16/2025 1:00 PM EST Appointment [facility] Interventional Radiology [address] [place] [address] 14044 02/23/2025 1:00 PM EST Appointment [facility] Interventional Radiology [address] [place] [address] 27653 03/02/2025 1:00 PM EST Appointment [facility] Interventional Radiology [address] [place] [address] 79861 03/09/2025 1:00 PM EST Appointment [facility] Interventional Radiology [address] [place] [address] 49175 03/16/2025 1:00 PM EST Appointment [facility] Interventional Radiology [address] [place] [address] 22498 03/23/2025 1:00 PM EST Appointment [facility] Interventional Radiology [address] [place] [address] 53306 03/30/2025 1:00 PM EST Appointment [facility] Interventional Radiology [address] [place] [address] 35811 04/06/2025 1:00 PM EST Appointment [facility] Interventional Radiology [address] [place] [address] 64429 04/13/2025 1:00 PM EST Appointment [facility] Interventional Radiology [address] [place] [address] 50979 04/20/2025 1:00 PM EST Appointment [facility] Interventional Radiology [address] [place] [address] 97732 06/17/2025 1:30 PM EDT Follow-Up [facility] 4th floor Cardiology Medicine [address] [place] [address]60[address] Golf Ball Marker: Mony La, TEJINDER Montejo [address] [place] [address] 15[address] 01/18/2026 1:30 PM EST Follow-Up [facility] 4th floor Cardiology Medicine [address] [place] [address] 59[address] Golf Ball Marker: Cory Bolanos MD [address] [place] [address] Scheduled Procedures Name Priority Associated Diagnoses Date/Ti me RIGHT HEART CATHETERIZATION RVF (right ventricular failure) Pulmonary hypertension Coronary artery disease involving [place] coronary artery of [place] heart, unspecified whether angina present CORONARY ANGIOGRAPHY RVF (right ventricular failure) Pulmonary hypertension Coronary artery disease involving [place] coronary artery of [place] heart, unspecified whether angina present ANGIOPLASTY - CORONARY RVF (right ventricular failure) Pulmonary hypertension Coronary artery disease involving [place] coronary artery of [place] heart, unspecified whether angina present documented as [...] documented as of this encounter Care Teams Archivist Military History Relationship Specialty Start Date End Date Sharlene De La Garza DO [address] [place] [address] PCP - General 06/03/23 documented as of this encounter
--- OUTSIDE RECORDS SUMMARY | 2024-12-26 19:39 | XMS_ITS | Encounter Summary ---
Author Organization [facility] Address [address] [place] [address] Care Team Providers Care Teacher Tutor Name Role Phone Stephan De La Garzasarakesh Burton DO Primary Care Provider +1- [phone] Encounter Details Date Type Department Care Team (Late st Contact Info) Description 11/12/2024 Results Follow-Up [facility] [address] [facility] 3rd [place] [address] Maliha El NP [address] [place], [place] [phone] Social History Tobacco Use Types Packs/Day Years Used Date Smoking Tobacco: Former Cigarettes 1 18.4 0 06/02/1995 - 10/15/2013 Smokeless Tobacco: Never Comments:quit 2012 Alcohol Use Standard Drinks/Week Comments Not Currently 0 (1 standard drink = 0.6 oz pur e alcohol) [facility] Utilities Answer Date Recorded In the [...] Info) Description 12/27/2024 10:30 AM EDT Follow-Up [facility] Liver Transplant Services [address] [place] [address] 43371 Kait Gaona MD [address] [place] [address] 46[address] 12/29/2024 1:00 PM EDT Appointment [facility] Interventional Radiology [address] [place] [address] 46056 Kait Gaona MD [address] [place] [address] 99119 12/29/2024 3:00 PM EDT Follow-Up [facility] Liver Transplant Services [address] [place] [address] 037[address] Genevieve Alaniz MD [address] [place] [address] 52008 01/05/2025 1:00 PM EST Appointment [facility] Interventional Radiology [address] [place] [address] 20021 Kait Gaona MD [address] [place] [address] 97460 01/11/2025 2:00 PM EST Follow-Up [facility] [address] [place] [address] Nito Morfin MD [address] [place] [address] 01/12/2025 1:00 PM EST Appointment [facility] Interventional Radiology [address] [place] [address] 47385 Kait Gaona MD [address] [place] [address] 01/19/2025 1:00 PM EST Appointment [facility] Interventional Radiology [address] [place] [address] 64664 Kait Gaona MD [address] [place] [address] 01/26/2025 1:00 PM EST Appointment [facility] Interventional Radiology [address] [place] [address] 09109 Kait Gaona MD [address] [place] [address] 02/02/2025 1:00 PM EST Appointment [facility] Interventional Radiology [address] [place] [address] 57708 02/09/2025 10:30 AM EST Lab [facility] ACC Draw Site Fifth Floor [address] [place] [address] 02/09/2025 11:30 AM EST Follow-Up [facility] ACC Building Cancer Clinic South 5th Floor [address] [place] [address] Ning Velazco MD 55 [facility] Hematology/[place] [address] 02/09/2025 1:00 PM EST Appointment [facility] Interventional Radiology [address] [place] [address] 61920 02/15/2025 1:30 PM EST Appointment [facility] Cardiac Ultrasound [address] [place] [address] 02/16/2025 1:00 PM EST Appointment [facility] Interventional Radiology [address] [place] [address] 55886 02/23/2025 1:00 PM EST Appointment [facility] Interventional Radiology [address] [place] [address] 63598 03/02/2025 1:00 PM EST Appointment [facility] Interventional Radiology [address] [place] [address] 63754 03/09/2025 1:00 PM EST Appointment [facility] Interventional Radiology [address] [place] [address] 49064 03/16/2025 1:00 PM EST Appointment [facility] Interventional Radiology [address] [place] [address] 42435 03/23/2025 1:00 PM EST Appointment [facility] Interventional Radiology [address] [place] [address] 59033 03/30/2025 1:00 PM EST Appointment [facility] Interventional Radiology [address] [place] [address] 07483 04/06/2025 1:00 PM EST Appointment [facility] Interventional Radiology [address] [place] [address] 10910 04/13/2025 1:00 PM EST Appointment [facility] Interventional Radiology [address] [place] [address] 40465 04/20/2025 1:00 PM EST Appointment [facility] Interventional Radiology [address] [place] [address] 15061 06/17/2025 1:30 PM EDT Follow-Up [facility] 4th floor Cardiology Medicine [address] [place] [address] Foreign Exchange Dealer: Mony La, TEJINDER Montejo [address] [place] [address] [place] [address] 01/18/2026 1:30 PM EST Follow-Up [facility] 4th floor Cardiology Medicine [address] [place] [address] 24347 Foreign Exchange Dealer: Cory Bolanos MD [address] [place] [address] 73305 Scheduled Procedures Name Priority Associated Diagnoses Date/Ti me RIGHT HEART CATHETERIZATION RVF (right ventricular failure) Pulmonary hypertension Coronary artery disease involving [place] coronary artery of [place] heart, unspecified whether angina present CORONARY ANGIOGRAPHY RVF (right ventricular failure) Pulmonary hypertension Coronary artery disease involving [place] coronary artery of [place] heart, unspecified whether angina present ANGIOPLASTY - CORONARY RVF (right ventricular failure) Pulmonary hypertension Coronary artery disease involving [place] coronary artery of [place] heart, unspecified whether angina present documented as of this encounter Visit Diagnoses Not on filedocumented in this encounter Care Teams Teacher Tutor Relationship Specialty Start Date End Date Sharlene De La Garza DO [address] [place] [address] PCP - General 06/03/23 documented as of this encounter
--- OUTSIDE RECORDS SUMMARY | 2024-12-26 19:39 | XMS_ITS | Encounter Summary ---
Author Organization [facility] Address [address] [place] [address] Care Team Providers Care Beef Boner Name Role Phone HolliStephan parrachyna YbarraFarhat DE Primary Care Provider +1- [phone] Encounter Details Date Type Department Care Team (Late st Contact Info) Description 12/21/2024 Telephone [facility] Interventional Radiology [address] [place] [address] Neftali Adkins RN Social History Tobacco Use Types Packs/Day Years Used Date Smoking Tobacco: Former Cigarettes 1 18.4 0 06/02/1995 - 10/15/2013 Smokeless Tobacco: Never Comments:quit 2012 Alcohol Use Standard Drinks/Week Comments Not Currently 0 (1 standard drink = 0.6 oz pur e alcohol) [facility] Utilities Answer Date Recorded In the past 12 months has [employer], gas, oil, or water [email or web address] threatened to shut off services in your [...] encounter Miscellaneous Notes * Telephone Encounter - Neftali Adkins RN - 12/21/2024 9:31 AM EDT Talked with pt arrival time of 1230p. documented in this encounter Plan of Treatment Upcoming Encounters Date Type Department Care Team (Late st Contact Info) Description 12/27/2024 10:30 AM EDT Follow-Up [facility] Liver Transplant Services [address] [place] [address] 08904 Kait Gaona MD [address] [place] [address] 18904 12/29/2024 1:00 PM EDT Appointment [facility] Interventional Radiology [address] [place] [address] 09254 Kait Gaona MD [address] [place] [address] 59242 12/29/2024 3:00 PM EDT Follow-Up [facility] Liver Transplant Services [address] [place] [address] 60247 Genevieve Alaniz MD [address] [place] [address] 53076 01/05/2025 1:00 PM EST Appointment [facility] Interventional Radiology [address] [place] [address] 51529 Kait Gaona MD [address] [place] [address] 34442 01/11/2025 2:00 PM EST Follow-Up [facility] OPH [address] [place] [address] Nito Morfin MD [address] [place] [address] 15419 01/12/2025 1:00 PM EST Appointment [facility] Interventional Radiology [address] [place] [address] 97878 Kait Gaona MD [address] [place] [address] 64623 01/19/2025 1:00 PM EST Appointment [facility] Interventional Radiology [address] [place] [address] 61144 Kait Gaona MD [address] [place] [address] 11842 01/26/2025 1:00 PM EST Appointment [facility] Interventional Radiology [address] [place] [address] 42902 Kait Gaona MD [address] [place] [address] 31365 02/02/2025 1:00 PM EST Appointment [facility] Interventional Radiology [address] [place] [address] 58967 02/09/2025 10:30 AM EST Lab [facility] ACC Draw Site Fifth Floor [address] [place] [address] 02/09/2025 11:30 AM EST Follow-Up [facility] Building Cancer Clinic South 5th Floor [address] [place] [address] Ning Velazco MD [address] [place] [address] Hematology/[place] [address] 02/09/2025 1:00 PM EST Appointment [facility] Interventional Radiology [address] [place] [address] 61560 02/15/2025 1:30 PM EST Appointment [facility] Cardiac Ultrasound [address] [place] [address] 02/16/2025 1:00 PM EST Appointment [facility] Interventional Radiology [address] [place] [address] 88574 02/23/2025 1:00 PM EST Appointment [facility] Interventional Radiology [address] [place] [address] 57831 03/02/2025 1:00 PM EST Appointment [facility] Interventional Radiology [address] [place] [address] 51192 03/09/2025 1:00 PM EST Appointment [facility] Interventional Radiology [address] [place] [address] 39971 03/16/2025 1:00 PM EST Appointment [facility] Interventional Radiology [address] [place] [address] 10483 03/23/2025 1:00 PM EST Appointment [facility] Interventional Radiology [address] [place] [address] 76862 03/30/2025 1:00 PM EST Appointment [facility] Interventional Radiology [address] [place] [address] 49275 04/06/2025 1:00 PM EST Appointment [facility] Interventional Radiology [address] [place] [address] 27859 04/13/2025 1:00 PM EST Appointment [facility] Interventional Radiology [address] [place] [address] 91593 04/20/2025 1:00 PM EST Appointment [facility] Interventional Radiology [address] [place] [address] 21331 06/17/2025 1:30 PM EDT Follow-Up [facility] 4th floor Cardiology Medicine [address] [place], [place] [phone] Machine Welt Butter: Cookie Coates PA [address] [place] [address] 77117 01/18/2026 1:30 PM EST Follow-Up [facility] 4th floor Cardiology Medicine [address] [place] [address] 27480 [employer] Butter: Cory Bolanos MD [address] [place] [address] 11709 Scheduled Procedures Name Priority Associated Diagnoses Date/Ti me RIGHT HEART CATHETERIZATION RVF (right ventricular failure) Pulmonary hypertension Coronary artery disease involving [place] coronary artery of [place] heart, unspecified whether angina present CORONARY ANGIOGRAPHY RVF (right ventricular failure) Pulmonary hypertension Coronary artery disease involving [place] coronary artery of [place] heart, unspecified whether angina present ANGIOPLASTY - CORONARY RVF (right ventricular failure) Pulmonary hypertension Coronary artery disease involving [place] coronary artery of [place] heart, unspecified whether angina present documented as of this encounter Visit Diagnoses Not on filedocumented in this encounter Care Teams Beef Boner Relationship Specialty Start Date End Date Sharlene De La Garza DO [address] [place] [address] 85804 PCP - General 06/03/23 documented as of this encounter
--- OUTSIDE RECORDS SUMMARY | 2024-12-26 19:39 | XMS_ITS | Encounter Summary ---
Author Organization [facility] Address [address] [place] [address] Care Team Providers Care Design Project Manager Name Role Phone Sharlene De La Garza Primary Care Provider +1- [phone] Encounter Details Date Type Department Care Team (Late st Contact Info) Description 05/19/2023 Telephone [facility] Patient Access [facility] [address] [place] [address] Telephone Intake, Staff Social History Tobacco Use Types Packs/Day Years Used Date Smoking Tobacco: Former Cigarettes Smokeless Tobacco: Never Comments:quit 2012 Alcohol Use Standard Drinks/Week Comments Not Currently 0 (1 standard drink = 0.6 oz pur e alcohol) Comments No Sex and Gender Information Value Date Recorded Sex Assigned at Female 05/03/2020 12:04 PM EST Legal Sex Female 4:36 AM EDT Gender Identity Female 05/03/2020 12:04 PM EST Sexual Orientation Straight 05/03/2020 12 :04 PM EST documented as of this encounter Plan of Treatment Upcoming Encounters Date Type Department Care Team (Late st Contact Info) Description 12/27/2024 10:30 AM EDT Follow-Up [facility] Liver Transplant Services [address] [place] [address] Kait Gaona MD [address] [place] [address] 12/29/2024 1:00 PM EDT Appointment [facility] Interventional Radiology [address] [place] [address] 93171 Kait Gaona MD [address] [place] [address] 03995 12/29/2024 3:00 PM EDT Follow-Up [facility] Liver Transplant Services [address] [place] [address] 33667 Genevieve Alaniz MD [address] [place] [address] 58976 01/05/2025 1:00 PM EST Appointment [facility] Interventional Radiology [address] [place] [address] 64789 Kait Gaona MD [address] [place] [address] 29786 01/11/2025 2:00 PM EST Follow-Up [facility] at [address] [phone] Nito Morfin MD [address] [place] [address] 90906 01/12/2025 1:00 PM EST Appointment [facility] Interventional Radiology [address] [place] [address] 25173 Kait Gaona MD [address] [place] [address] 27058 01/19/2025 1:00 PM EST Appointment [facility] Interventional Radiology [address] [place] [address] 97210 Kait Gaona MD [address] [place] [address] 49358 01/26/2025 1:00 PM EST Appointment [facility] Interventional Radiology [address] [place] [address] 42248 Kait Gaona MD [address] [place] [address] 02/02/2025 1:00 PM EST Appointment [facility] Interventional Radiology [address] [place] [address] 78930 02/09/2025 10:30 AM EST Lab [facility] ACC Draw Site Fifth Floor [address] [place] [address] 02/09/2025 11:30 AM EST Follow-Up [facility] ACC Building Cancer Clinic South 5th Floor [address] [place] [address] Ning Velazco MD [address] [facility] Hematology/[place] [address] 02/09/2025 1:00 PM EST Appointment [facility] Interventional Radiology [address] [place] [address] 38500 02/15/2025 1:30 PM EST Appointment [facility] ACC Building Cardiac Ultrasound [address] [place] [address] 02/16/2025 1:00 PM EST Appointment [facility] Interventional Radiology [address] [place] [address] 49705 02/23/2025 1:00 PM EST Appointment [facility] Interventional Radiology [address] [place] [address] 11964 03/02/2025 1:00 PM EST Appointment [facility] Interventional Radiology [address] [place] [address] 64118 03/09/2025 1:00 PM EST Appointment [facility] Interventional Radiology [address] [place] [address] 14836 03/16/2025 1:00 PM EST Appointment [facility] Interventional Radiology [address] [place] [address] 67398 03/23/2025 1:00 PM EST Appointment [facility] Interventional Radiology [address] [place] [address] 66777 03/30/2025 1:00 PM EST Appointment [facility] Interventional Radiology [address] [place] [address] 02315 04/06/2025 1:00 PM EST Appointment [facility] Interventional Radiology [address] [place] [address] 21328 04/13/2025 1:00 PM EST Appointment [facility] Interventional Radiology [address] [place] [address] 77325 04/20/2025 1:00 PM EST Appointment [facility] Interventional Radiology [address] [place] [address] 38331 06/17/2025 1:30 PM EDT Follow-Up [facility] 4th floor Cardiology Medicine [address] [place] [address] Rural Mail Carrier: Cookie Coates PA [address] [place] [address] 01/18/2026 1:30 PM EST Follow-Up [facility] 4th floor Cardiology Medicine [address] [place] [address] Rural Mail Carrier: Cory Bolanos MD [address] [place] [address] Scheduled Procedures Name Priority Associated Diagnoses Date/Ti me RIGHT HEART CATHETERIZATION RVF (right ventricular failure) Pulmonary hypertension Coronary artery disease involving [place] coronary artery of [place] heart, unspecified whether angina present CORONARY ANGIOGRAPHY RVF (right ventricular failure) Pulmonary hypertension Coronary artery disease involving [place] coronary artery of [place] heart, unspecified whether angina present ANGIOPLASTY - CORONARY RVF (right ventricular failure) Pulmonary hypertension Coronary artery disease involving [place] coronary artery of [place] heart, unspecified whether angina present documented as [...] documented as of this encounter Care Teams Design Project Manager Relationship Specialty Start Date End Date Sharlene De La Garza DO [address] [place] [address] 62551 PCP - General 06/03/23 documented as of this encounter
--- OUTSIDE RECORDS SUMMARY | 2024-12-26 19:39 | XMS_ITS | Encounter Summary ---
Author Organization [facility] Address [address] [place] [address] Care Team Providers Care Digital Printer Operator Name Role Phone Sharlene De La Garza DO Primary Care Provider +1- [phone] Encounter Details Date Type Department Care Team (Late st Contact Info) Description 04/29/2022 Orders Only [facility] Medicine [address] [place] [address] Miryam Gasca MD [address] [facility] [place] [address] Social History Tobacco Use Types Packs/Day Years [...] Info) Description 12/27/2024 10:30 AM EDT Follow-Up [facility] Liver Transplant Services [address] [place] [address] Kait Gaona MD [address] [place] [address] 768[address] 12/29/2024 1:00 PM EDT Appointment [facility] Interventional Radiology [address] [place] [address] Kait Gaona MD [address] [place] [address] 684[address] 12/29/2024 3:00 PM EDT Follow-Up [facility] Liver Transplant Services [address] [place] [address] Genevieve Alaniz MD [address] [place] [address] 796[address] 01/05/2025 1:00 PM EST Appointment [facility] Interventional Radiology [address] [place] [address] Kait Gaona MD [address] [place] [address] 21734 01/11/2025 2:00 PM EST Follow-Up [facility] at [address] [address] Nito Morfin MD [address] [place] [address] 01/12/2025 1:00 PM EST Appointment [facility] Interventional Radiology [address] [place] [address] Kait Gaona MD [address] [place] [address] 68489 01/19/2025 1:00 PM EST Appointment [facility] Interventional Radiology [address] [place] [address] 247[address] Kait Gaona MD [address] [place] [address] 47260 01/26/2025 1:00 PM EST Appointment [facility] Interventional Radiology [address] [place] [address] 185[address] Kait Gaona MD [address] [place] [address] 02/02/2025 1:00 PM EST Appointment [facility] Interventional Radiology [address] [place] [address] 48487 02/09/2025 10:30 AM EST Lab [facility] ACC Draw Site Fifth Floor [address] [place] [address] 02/09/2025 11:30 AM EST Follow-Up [facility] ACC Building Cancer Clinic South 5th Floor [address] [place] [address] Ning Velazco MD [facility] Hematology/[place] [address] 02/09/2025 1:00 PM EST Appointment [facility] Interventional Radiology [address] [place] [address] 62[address] 02/15/2025 1:30 PM EST Appointment [facility] ACC Building Cardiac Ultrasound [address] [place] [address] 02/16/2025 1:00 PM EST Appointment [facility] Interventional Radiology [address] [place] [address] 19374 02/23/2025 1:00 PM EST Appointment [facility] Interventional Radiology [address] [place] [address] 29680 03/02/2025 1:00 PM EST Appointment [facility] Interventional Radiology [address] [place] [address] 48680 03/09/2025 1:00 PM EST Appointment [facility] Interventional Radiology [address] [place] [address] 19361 03/16/2025 1:00 PM EST Appointment [facility] Interventional Radiology [address] [place] [address] 39[address] 03/23/2025 1:00 PM EST Appointment [facility] Interventional Radiology [address] [place] [address] 56567 03/30/2025 1:00 PM EST Appointment [facility] Interventional Radiology [address] [place] [address] 908[address] 04/06/2025 1:00 PM EST Appointment [facility] Interventional Radiology [address] [place] [address] 45963 04/13/2025 1:00 PM EST Appointment [facility] Interventional Radiology [address] [place] [address] 60567 04/20/2025 1:00 PM EST Appointment [facility] Interventional Radiology [address] [place] [address] 28620 06/17/2025 1:30 PM EDT Follow-Up [facility] 4th floor Cardiology Medicine [address] [place] [address] Test Puller: Cookie Coates PA [address] [place] [address] 01/18/2026 1:30 PM EST Follow-Up [address] floor Cardiology Medicine [address] [place] [address] Test Puller: Cory Bolanos MD [address] [place] [address] Scheduled Procedures Name Priority Associated Diagnoses Date/Ti me RIGHT HEART CATHETERIZATION RVF (right ventricular failure) Pulmonary hypertension Coronary artery disease involving [place] coronary artery of [place] heart, unspecified whether angina present CORONARY ANGIOGRAPHY RVF (right ventricular failure) Pulmonary hypertension Coronary artery disease involving [place] coronary artery of [place] heart, unspecified whether angina present ANGIOPLASTY - CORONARY RVF (right ventricular failure) Pulmonary hypertension Coronary artery disease involving [place] coronary artery of [place] heart, unspecified whether angina present documented as [...] documented as of this encounter Care Teams Digital Printer Operator Relationship Specialty Start Date End Date Sharlene De La Garza DO [address] [place] [address] PCP - General 06/03/23 documented as of this encounter
--- OUTSIDE RECORDS SUMMARY | 2024-12-26 19:39 | XMS_ITS | Encounter Summary ---
Author Organization [facility] Address [address] [place] [address] Care Team Providers Care Grab Jack Man Name Role Phone Sharlene De La Garza Primary Care Provider +1- [phone] Encounter Details Date Type Department Care Team (Late st Contact Info) Description 12/20/2024 Convertio Cot Message [facility] Gastroenterology Clinic [address] [place] [address] Child Care Worker: Kait Martins MD [address] [place] [address] Checking in Social History Tobacco Use Types Packs/Day Years Used Date Smoking Tobacco: Former Cigarettes 1 18.4 0 06/02/1995 - 10/15/2013 Smokeless Tobacco: Never Comments:quit 2012 Alcohol Use Standard Drinks/Week Comments Not Currently 0 (1 standard drink = 0.6 oz pur e alcohol) [facility] Utilities Answer Date Recorded In [...] Info) Description 12/27/2024 10:30 AM EDT Follow-Up [facility] Liver Transplant Services [address] [place] [address] Kait Gaona MD [address] [place] [address] 42264 12/29/2024 1:00 PM EDT Appointment [facility] Interventional Radiology [address] [place] [address] Kait Gaona MD [address] [place] [address] 99928 12/29/2024 3:00 PM EDT Follow-Up [facility] Liver Transplant Services [address] [place] [address] Genevieve Alaniz MD [address] [place] [address] 09907 01/05/2025 1:00 PM EST Appointment [facility] Interventional Radiology [address] [place] [address] Kait Gaona MD [address] [place] [address] 01/11/2025 2:00 PM EST Follow-Up [facility] OPH [address] [place] [address] Nito Morfin MD [address] [place] [address] 01/12/2025 1:00 PM EST Appointment [facility] Interventional Radiology [address] [place] [address] Kait Gaona MD [address] [place] [address] 04967 01/19/2025 1:00 PM EST Appointment [facility] Interventional Radiology [address] [place] [address] 507[address] Kait Gaona MD [address] [place] [address] 58656 01/26/2025 1:00 PM EST Appointment [facility] Interventional Radiology [address] [place] [address] 87[address] Kait Gaona MD [address] [place] [address] 94583 02/02/2025 1:00 PM EST Appointment [facility] Interventional Radiology [address] [place] [address] 43348 02/09/2025 10:30 AM EST Lab [facility] ACC Draw Site Fifth Floor [address] [place] [address] 02/09/2025 11:30 AM EST Follow-Up [facility] ACC Building Cancer Clinic South 5th Floor [address] [place] [address] Ning Velazco MD 55 [facility] Hematology/[place] [address] (work) 02/09/2025 1:00 PM EST Appointment [facility] Interventional Radiology [address] [place] [address] 06772 02/15/2025 1:30 PM EST Appointment [facility] Cardiac Ultrasound [address] [place] [address] 02/16/2025 1:00 PM EST Appointment [facility] Interventional Radiology [address] [place] [address] 22308 02/23/2025 1:00 PM EST Appointment [facility] Interventional Radiology [address] [place] [address] 18669 03/02/2025 1:00 PM EST Appointment [facility] Interventional Radiology [address] [place] [address] 51724 03/09/2025 1:00 PM EST Appointment [facility] Interventional Radiology [address] [place] [address] 44109 03/16/2025 1:00 PM EST Appointment [facility] Interventional Radiology [address] [place] [address] 19821 03/23/2025 1:00 PM EST Appointment [facility] Interventional Radiology [address] [place] [address] 10146 03/30/2025 1:00 PM EST Appointment [facility] Interventional Radiology [address] [place] [address] 16384 04/06/2025 1:00 PM EST Appointment [facility] Interventional Radiology [address] [place] [address] 43682 04/13/2025 1:00 PM EST Appointment [facility] Interventional Radiology [address] [place] [address] 70323 04/20/2025 1:00 PM EST Appointment [facility] Interventional Radiology [address] [place] [address] 35974 06/17/2025 1:30 PM EDT Follow-Up [facility] 4th floor Cardiology Medicine [address] [place] [address] Child Care Worker: Mony M Ryll Cookie La PA [address] [place] [address] [place] [address] 01/18/2026 1:30 PM EST Follow-Up [facility] 4th floor Cardiology Medicine [address] [place] [address] Child Care Worker: Mony Meade SenserCory MD [address] [place] [address] [phone] Scheduled Procedures Name Priority Associated Diagnoses Date/Ti me RIGHT HEART CATHETERIZATION RVF (right ventricular failure) Pulmonary hypertension Coronary artery disease involving [place] coronary artery of [place] heart, unspecified whether angina present CORONARY ANGIOGRAPHY RVF (right ventricular failure) Pulmonary hypertension Coronary artery disease involving [place] coronary artery of [place] heart, unspecified whether angina present ANGIOPLASTY - CORONARY RVF (right ventricular failure) Pulmonary hypertension Coronary artery disease involving [place] coronary artery of [place] heart, unspecified whether angina present documented as of this encounter Visit Diagnoses Not on filedocumented in this encounter Care Teams Grab Jack Man Relationship Specialty Start Date End Date Sharlene De La Garza DO [address] [place] [address] PCP - General 06/03/23 documented as of this encounter
--- OUTSIDE RECORDS SUMMARY | 2024-12-26 19:39 | XMS_ITS | Encounter Summary ---
Author Organization [facility] Address [address] [place] [address] Care Team Providers Care Digital Marketing Coordinator Name Role Phone HolliStephan parrachyna YbarraFarhat DE Primary Care Provider +1- [phone] Encounter Details Date Type Department Care Team (Late st Contact Info) Description 12/22/2024 Telephone [facility] Gastroenterology Clinic [address] [place] [address] [phone] Portable Feed Mill Operator: Genevieve Hart RN Social History Tobacco Use Types Packs/Day Years Used Date Smoking Tobacco: Former Cigarettes 1 18.4 0 06/02/1995 - 10/15/2013 Smokeless Tobacco: Never Comments:quit 2012 Alcohol Use Standard Drinks/Week Comments Not Currently 0 (1 standard drink = 0.6 oz pur e alcohol) [facility] Utilities Answer Date Recorded In the past 12 months has e [place], gas, oil, or water [employer] threatened to shut off services in your [...] encounter Miscellaneous Notes * Telephone Encounter - Genevieve Timmons RN - 12/23/2024 8:34 AM EDT Call returned to Xiomy, she reports no fever yesterday or today, a little shortness of breath but is baseline her her. She reports some fluid overload still since TIPs revision but better, eating 3 times a day, spent the whole day yesterday sleeping. Xiomy has an upcoming appt on Friday, she would like to avoid the ED and keep her appt for that day. Patient verbalized s/s to report to the ED for evaluation, she is aware I will reach out to her provider to discuss. Patient in agreement with anali has our contact # for any further questions or concerns. * Telephone Encounter - Genevieve Timmons RN - 12/22/2024 4:10 PM EDT Third message left today requesting a call back and notification she received our message about reporting to the ED for her symptoms. * Telephone Encounter - Genevieve Timmons RN - 12/22/2024 2:34 PM EDT Left message for call back to notify received previous message and to report to the ED. * Telephone Encounter - Genevieve Timmons RN - 12/22/2024 1:25 PM EDT Left detailed message to report to the ED for fever, chills, neck pain s/p TIPS revision on 12/16. documented in this encounter Plan of Treatment Upcoming Encounters Date Type Department Care Team (Late st Contact Info) Description 12/27/2024 10:30 AM EDT Follow-Up [facility] Liver Transplant Services [address] [place] [address] Kait Gaona MD [address] [place] [address] 87210 12/29/2024 1:00 PM EDT Appointment [facility] Interventional Radiology [address] [place] [address] Kait Gaona MD [address] [place] [address] 74515 12/29/2024 3:00 PM EDT Follow-Up [facility] Liver Transplant Services [address] [place] [address] 58[address] Genevieve Alaniz MD [address] [place] [address] 35057 01/05/2025 1:00 PM EST Appointment [facility] Interventional Radiology [address] [place] [address] Kait Gaona MD [address] [place] [address] 72754 01/11/2025 2:00 PM EST Follow-Up [facility] at [address] [address] Nito Morfin MD [address] [place] [address] 42347 01/12/2025 1:00 PM EST Appointment [facility] Interventional Radiology [address] [place] [address] 00665 Kait Gaona MD [address] [place] [address] 02192 01/19/2025 1:00 PM EST Appointment [facility] Interventional Radiology [address] [place] [address] 95957 Kait Gaona MD [address] [place] [address] 10358 01/26/2025 1:00 PM EST Appointment [facility] Interventional Radiology [address] [place] [address] 61712 Kait Gaona MD [address] [place] [address] 46427 02/02/2025 1:00 PM EST Appointment [facility] Interventional Radiology [address] [place] [address] 86927 02/09/2025 10:30 AM EST Lab [facility] ACC Draw Site Fifth Floor [address] [place] [address] 02/09/2025 11:30 AM EST Follow-Up [facility] ACC Building Cancer Clinic South 5th Floor [address] [place] [address] Ning Velazco MD [address] [place] [address] Hematology/[place] [address] 02/09/2025 1:00 PM EST Appointment [facility] Interventional Radiology [address] [place] [address] 01002 02/15/2025 1:30 PM EST Appointment [facility] Cardiac Ultrasound [address] [place] [address] 02/16/2025 1:00 PM EST Appointment [facility] Interventional Radiology [address] [place] [address] 24944 02/23/2025 1:00 PM EST Appointment [facility] Interventional Radiology [address] [place] [address] 83271 03/02/2025 1:00 PM EST Appointment [facility] Interventional Radiology [address] [place] [address] 24419 03/09/2025 1:00 PM EST Appointment [facility] Interventional Radiology [address] [place] [address] 86299 03/16/2025 1:00 PM EST Appointment [facility] Interventional Radiology [address] [place] [address] 97917 03/23/2025 1:00 PM EST Appointment [facility] Interventional Radiology [address] [place] [address] 16754 03/30/2025 1:00 PM EST Appointment [facility] Interventional Radiology [address] [place] [address] 44480 04/06/2025 1:00 PM EST Appointment [facility] Interventional Radiology [address] [place] [address] 67163 04/13/2025 1:00 PM EST Appointment [facility] Interventional Radiology [address] [place] [address] 01147 04/20/2025 1:00 PM EST Appointment [facility] Interventional Radiology [address] [place] [address] 63996 06/17/2025 1:30 PM EDT Follow-Up [facility] 4th floor Cardiology Medicine [address] [place] [address] Portable Feed Mill Operator: Cookie Coates PA [address] [place] [address] 01/18/2026 1:30 PM EST Follow-Up [facility] 4th floor Cardiology Medicine [address] [place] [address] 04821 Portable Feed Mill Operator: Cory Bolanos MD [address] [place] [address] 32486 Scheduled Procedures Name Priority Associated Diagnoses Date/Ti me RIGHT HEART CATHETERIZATION RVF (right ventricular failure) Pulmonary hypertension Coronary artery disease involving [place] coronary artery of [place] heart, unspecified whether angina present CORONARY ANGIOGRAPHY RVF (right ventricular failure) Pulmonary hypertension Coronary artery disease involving [place] coronary artery of [place] heart, unspecified whether angina present ANGIOPLASTY - CORONARY RVF (right ventricular failure) Pulmonary hypertension Coronary artery disease involving [place] coronary artery of [place] heart, unspecified whether angina present documented as of this encounter Visit Diagnoses Not on filedocumented in this encounter Care Teams Digital Marketing Coordinator Relationship Specialty Start Date End Date Sharlene De La Garza DO [address] [place] [address] PCP - General 06/03/23 documented as of this encounter
--- OUTSIDE RECORDS SUMMARY | 2024-12-26 19:39 | XMS_ITS | Encounter Summary ---
Author Organization [facility] Address [address] [place] [address] Care Team Providers Care Education General Manager Name Role Phone Sharlene De La Garza Primary Care Provider +1- [phone] Encounter Details Date Type Department Care Team (Late st Contact Info) Description 08/21/2020 Orders Only [facility] Nuclear Medicine [address] [place] [address] Samson Roberson MD [address] [place] [address] Social History Tobacco Use Types Packs/Day Years [...] Info) Description 12/27/2024 10:30 AM EDT Follow-Up [facility] Liver Transplant Services [address] [place] [address] Kait Gaona MD [address] [place] [address] 34599 12/29/2024 1:00 PM EDT Appointment [facility] Interventional Radiology [address] [place] [address] 25517 Kait Gaona MD [address] [place] [address] 94054 12/29/2024 3:00 PM EDT Follow-Up [facility] Liver Transplant Services [address] [place] [address]36 Genevieve Alaniz MD [address] [place] [address] 92640 01/05/2025 1:00 PM EST Appointment [facility] Interventional Radiology [address] [place] [address] 81508 Kait Gaona MD [address] [place] [address] 45812 01/11/2025 2:00 PM EST Follow-Up [facility] at [address] [address] Nito Morfin MD [address] [place] [address] 36088 01/12/2025 1:00 PM EST Appointment [facility] Interventional Radiology [address] [place] [address]322 Kait Gaona MD [address] [place] [address] 55218 01/19/2025 1:00 PM EST Appointment [facility] Interventional Radiology [address] [place] [address] 86428 Kait Gaona MD [address] [place] [address] 46867 01/26/2025 1:00 PM EST Appointment [facility] Interventional Radiology [address] [place] [address] 33187 Kait Gaona MD [address] [place] [address] 02/02/2025 1:00 PM EST Appointment [facility] Interventional Radiology [address] [place] [address] 53368 02/09/2025 10:30 AM EST Lab [facility] ACC Draw Site Fifth Floor [address] [place] [address] 02/09/2025 11:30 AM EST Follow-Up [facility] ACC Building Cancer Clinic South 5th Floor [address] [place] [address] Ning Velazco MD 55 [facility] Hematology/[place] [address] 02/09/2025 1:00 PM EST Appointment [facility] Interventional Radiology [address] [place] [address] 23314 02/15/2025 1:30 PM EST Appointment [facility] ACC Building Cardiac Ultrasound [address] [place] [address] 02/16/2025 1:00 PM EST Appointment [facility] Interventional Radiology [address] [place] [address] 89678 02/23/2025 1:00 PM EST Appointment [facility] Interventional Radiology [address] [place] [address] 87239 03/02/2025 1:00 PM EST Appointment [facility] Interventional Radiology [address] [place] [address] 20985 03/09/2025 1:00 PM EST Appointment [facility] Interventional Radiology [address] [place] [address] 63413 03/16/2025 1:00 PM EST Appointment [facility] Interventional Radiology [address] [place] [address] 09390 03/23/2025 1:00 PM EST Appointment [facility] Interventional Radiology [address] [place] [address] 81753 03/30/2025 1:00 PM EST Appointment [facility] Interventional Radiology [address] [place] [address] 96265 04/06/2025 1:00 PM EST Appointment [facility] Interventional Radiology [address] [place] [address] 30561 04/13/2025 1:00 PM EST Appointment [facility] Interventional Radiology [address] [place] [address] 25276 04/20/2025 1:00 PM EST Appointment [facility] Interventional Radiology [address] [place] [address] 38907 06/17/2025 1:30 PM EDT Follow-Up [facility] 4th floor Cardiology Medicine [address] [place] [address] Reed Or Wind Instrument Repairer: Cookie Coates PA [address] [place] [address] 01/18/2026 1:30 PM EST Follow-Up [address] floor Cardiology Medicine [address] [place] [address] 82825 [employer] Wind Instrument Repairer: Cory Bolanos MD [address] [place] [address] Scheduled Procedures Name Priority Associated Diagnoses Date/Ti [...] documented as of this encounter Care Teams Education General Manager Relationship Specialty Start Date End Date Sharlene De La Garza DO [address] [place] [address] 9[address]37 PCP - General 06/03/23 documented as of this encounter
--- OUTSIDE RECORDS SUMMARY | 2024-12-26 19:40 | XMS_ITS | Encounter Summary ---
Author Organization [facility] Address [address] [place] [address] Care Team Providers Care Online Program Coordinator Name Role Phone Sharlene De La Garza DO Primary Care Provider +1- [phone] Encounter Details Date Type Department Care Team (Late st Contact Info) Description 12/01/2024 [email or web address] Message [facility] [address] [place] [phone] Sharlene De La Garza DO [address] [place] [address] Checking in Social History Tobacco Use Types Packs/Day Years Used Date Smoking Tobacco: Former Cigarettes 1 18.4 0 06/02/1995 - 10/15/2013 Smokeless Tobacco: Never Comments:quit 2012 Alcohol Use Standard Drinks/Week Comments Not Currently 0 (1 standard drink = 0.6 oz pur e alcohol) [facility] Utilities Answer Date Recorded In the [...] Info) Description 12/27/2024 10:30 AM EDT Follow-Up [facility] Liver Transplant Services [address] [place] [address] 62655 Kait Gaona MD [address] [place] [address] 87269 12/29/2024 1:00 PM EDT Appointment [facility] Interventional Radiology [address] [place] [address] 95468 Kait Gaona MD [address] [place] [address] 11421 12/29/2024 3:00 PM EDT Follow-Up [facility] Liver Transplant Services [address] [place] [address] 74063 Genevieve Alaniz MD [address] [place] [address] 51648 01/05/2025 1:00 PM EST Appointment [facility] Interventional Radiology [address] [place] [address] 64983 Kait Gaona MD [address] [place] [address] 26828 01/11/2025 2:00 PM EST Follow-Up [facility] [address] [place] [phone] Nito Morfin MD [address] [place] [address] 57[address] 01/12/2025 1:00 PM EST Appointment [facility] Interventional Radiology [address] [place] [address] 11290 Kait Gaona MD [address] [place] [address] 22316 01/19/2025 1:00 PM EST Appointment [facility] Interventional Radiology [address] [place] [address] 29772 Kait Gaona MD [address] [place] [address] 01/26/2025 1:00 PM EST Appointment [facility] Interventional Radiology [address] [place] [address] 58179 Kait Gaona MD [address] [place] [address] 45618 02/02/2025 1:00 PM EST Appointment [facility] Interventional Radiology [address] [place] [address] 62784 02/09/2025 10:30 AM EST Lab [facility] ACC Draw Site Fifth Floor [address] [place] [address] 02/09/2025 11:30 AM EST Follow-Up [facility] ACC Building [facility] 5th Floor [address] [place] [address] Ning Velazco MD [address] [facility] Hematology/[place] [address] 02/09/2025 1:00 PM EST Appointment [facility] Interventional Radiology [address] [place] [address] 60488 02/15/2025 1:30 PM EST Appointment [facility] Cardiac Ultrasound [address] [place] [address] 02/16/2025 1:00 PM EST Appointment [facility] Interventional Radiology [address] [place] [address] 06138 02/23/2025 1:00 PM EST Appointment [facility] Interventional Radiology [address] [place] [address] 72497 03/02/2025 1:00 PM EST Appointment [facility] Interventional Radiology [address] [place] [address] 04978 03/09/2025 1:00 PM EST Appointment [facility] Interventional Radiology [address] [place] [address] 44669 03/16/2025 1:00 PM EST Appointment [facility] Interventional Radiology [address] [place] [address] 91627 03/23/2025 1:00 PM EST Appointment [facility] Interventional Radiology [address] [place] [address] 95801 03/30/2025 1:00 PM EST Appointment [facility] Interventional Radiology [address] [place] [address] 42571 04/06/2025 1:00 PM EST Appointment [facility] Interventional Radiology [address] [place] [address] 30056 04/13/2025 1:00 PM EST Appointment [facility] Interventional Radiology [address] [place] [address] 27183 04/20/2025 1:00 PM EST Appointment [facility] Interventional Radiology [address] [place] [address] 02361 06/17/2025 1:30 PM EDT Follow-Up [facility] 4th floor Cardiology Medicine [address] [place] [address] Journalism Internship: Mony La, TEJINDER Montejo [address] [place] [address] [place] [address] 01/18/2026 1:30 PM EST Follow-Up [facility] 4th floor Cardiology Medicine [address] [place] [address] Journalism Internship: Cory Bolanos MD [address] [place] [address] Scheduled Procedures Name Priority Associated Diagnoses Date/Ti me RIGHT HEART CATHETERIZATION RVF (right ventricular failure) Pulmonary hypertension Coronary artery disease involving [place] coronary artery of [place] heart, unspecified whether angina present CORONARY ANGIOGRAPHY RVF (right ventricular failure) Pulmonary hypertension Coronary artery disease involving [place] coronary artery of [place] heart, unspecified whether angina present ANGIOPLASTY - CORONARY RVF (right ventricular failure) Pulmonary hypertension Coronary artery disease involving [place] coronary artery of [place] heart, unspecified whether angina present documented as of this encounter Visit Diagnoses Not on filedocumented in this encounter Care Teams Online Program Coordinator Relationship Specialty Start Date End Date Sharlene De La Garza DO [address] [place] [address] 7[address] PCP - General 06/03/23 documented as of this encounter
--- OUTSIDE RECORDS SUMMARY | 2024-12-26 19:40 | XMS_ITS | Encounter Summary ---
Author Organization [facility] Address [address] [place] [address] Care Team Providers Care Coating Machine Operator Name Role Phone HolliStephan parrasay TateFarhat DE Primary Care Provider +1- [phone] Encounter Details Date Type Department Care Team (Late st Contact Info) Description 12/07/2024 Orders Only [facility] Interventional Radiology [address] [place], [place] [phone] Miriam Coleman NP [address] [place] [address] Social History Tobacco Use Types Packs/Day Years Used Date Smoking Tobacco: Former Cigarettes 1 18.4 0 06/02/1995 - 10/15/2013 Smokeless Tobacco: Never Comments:quit 2012 Alcohol Use Standard Drinks/Week Comments Not Currently 0 (1 standard drink = 0.6 oz pur e alcohol) [facility] Utilities Answer Date Recorded In the [...] Info) Description 12/27/2024 10:30 AM EDT Follow-Up [facility] Liver Transplant Services [address] [place] [address] 62582 Kait Gaona MD [address] [place] [address] 49502 12/29/2024 1:00 PM EDT Appointment [facility] Interventional Radiology [address] [place] [address] 77189 Kait Gaona MD [address] [place] [address] 26036 12/29/2024 3:00 PM EDT Follow-Up [facility] Liver Transplant Services [address] [place] [address] 55[address] Genevieve Alaniz MD [address] [place] [address] 74016 01/05/2025 1:00 PM EST Appointment [facility] Interventional Radiology [address] [place] [address] 81258 Kait Gaona MD [address] [place] [address] 22185 01/11/2025 2:00 PM EST Follow-Up [facility] at [facility] [address] [place] [address] Nito Morfin MD [address] [place] [address] 87909 01/12/2025 1:00 PM EST Appointment [facility] Interventional Radiology [address] [place] [address] 31135 Kait Gaona MD [address] [place] [address] 42925 01/19/2025 1:00 PM EST Appointment [facility] Interventional Radiology [address] [place] [address] 02304 Kait Gaona MD [address] [place] [address] 73082 01/26/2025 1:00 PM EST Appointment [facility] Interventional Radiology [address] [place] [address] 20908 Kait Gaona MD [address] [place] [address] 91900 02/02/2025 1:00 PM EST Appointment [facility] Interventional Radiology [address] [place] [address] 56447 02/09/2025 10:30 AM EST Lab [facility] ACC Draw Site Fifth Floor [address] [place] [address] 02/09/2025 11:30 AM EST Follow-Up [facility] ACC Building Cancer Clinic South 5th Floor [address] [place] [address] Ning Velazco MD [address] [place] [address] Hematology/[place] [address] 02/09/2025 1:00 PM EST Appointment [facility] Interventional Radiology [address] [place] [address] 02/15/2025 1:30 PM EST Appointment [facility] Cardiac Ultrasound [address] [place] [address] 02/16/2025 1:00 PM EST Appointment [facility] Interventional Radiology [address] [place] [address] 68288 02/23/2025 1:00 PM EST Appointment [facility] Interventional Radiology [address] [place] [address] 79907 03/02/2025 1:00 PM EST Appointment [facility] Interventional Radiology [address] [place] [address] 46361 03/09/2025 1:00 PM EST Appointment [facility] Interventional Radiology [address] [place] [address] 50954 03/16/2025 1:00 PM EST Appointment [facility] Interventional Radiology [address] [place] [address] 96017 03/23/2025 1:00 PM EST Appointment [facility] Interventional Radiology [address] [place] [address] 87631 03/30/2025 1:00 PM EST Appointment [facility] Interventional Radiology [address] [place] [address] 17027 04/06/2025 1:00 PM EST Appointment [facility] Interventional Radiology [address] [place] [address] 26330 04/13/2025 1:00 PM EST Appointment [facility] Interventional Radiology [address] [place] [address] 23264 04/20/2025 1:00 PM EST Appointment [facility] Interventional Radiology [address] [place] [address] 51952 06/17/2025 1:30 PM EDT Follow-Up [facility] 4th floor Cardiology Medicine [address] [place] [address] Camouflage Specialist: Mony La, TEJINDER Montejo [address] [place] [address] 06909 01/18/2026 1:30 PM EST Follow-Up [facility] 4th floor Cardiology Medicine [address] [place] [address] [phone] Camouflage Specialist: Cory Bolanos MD [address] [place] [address] 0[address] Scheduled Procedures Name Priority Associated Diagnoses Date/Ti me RIGHT HEART CATHETERIZATION RVF (right ventricular failure) Pulmonary hypertension Coronary artery disease involving [place] coronary artery of [place] heart, unspecified whether angina present CORONARY ANGIOGRAPHY RVF (right ventricular failure) Pulmonary hypertension Coronary artery disease involving [place] coronary artery of [place] heart, unspecified whether angina present ANGIOPLASTY - CORONARY RVF (right ventricular failure) Pulmonary hypertension Coronary artery disease involving [place] coronary artery of [place] heart, unspecified whether angina present documented as of this encounter Visit Diagnoses Not on filedocumented in this encounter Care Teams Coating Machine Operator Relationship Specialty Start Date End Date Sharlene De La Garza DO [address] [place] [address] 55018 PCP - General 06/03/23 documented as of this encounter
--- OUTSIDE RECORDS SUMMARY | 2024-12-26 19:40 | XMS_ITS | Encounter Summary ---
Author Organization [facility] Address [address] [place] [address] Care Team Providers Care Substance Addiction Coordinator Name Role Phone HolliStephan parrasay TateFarhat DE Primary Care Provider +1- [phone] Encounter Details Date Type Department Care Team (Late st Contact Info) Description 09/30/2024 [employer] Message [facility] ACC Building [address] [place] [address] [phone] Mychart, Generic Provider [facility] [place] [address] Refill coordination Social History Tobacco Use Types Packs/Day Years Used Date Smoking Tobacco: Former Cigarettes 1 18.4 0 06/02/1995 - 10/15/2013 Smokeless Tobacco: Never Comments:quit 2012 Alcohol Use Standard Drinks/Week Comments Not Currently 0 (1 standard drink = 0.6 oz pur e alcohol) [facility] Utilities Answer Date Recorded In [...] Info) Description 12/27/2024 10:30 AM EDT Follow-Up [facility] Liver Transplant Services [address] [place] [address] 76317 Kait Gaona MD [address] [place] [address] 12890 12/29/2024 1:00 PM EDT Appointment [facility] Interventional Radiology [address] [place] [address] 85990 Kait Gaona MD [address] [place] [address] 95297 12/29/2024 3:00 PM EDT Follow-Up [facility] Liver Transplant Services [address] [place] [address] 55545 Genevieve Alaniz MD [address] [place] [address] 43004 01/05/2025 1:00 PM EST Appointment [facility] Interventional Radiology [address] [place] [address] 50265 Kait Gaona MD [address] [place] [address] 30333 01/11/2025 2:00 PM EST Follow-Up [facility] Group at [facility] OPH [address] [place] [phone] Nito Morfin MD [address] [place] [address] 73689 01/12/2025 1:00 PM EST Appointment [facility] Interventional Radiology [address] [place] [address] 19734 Kait Gaona MD [address] [place] [address] 84179 01/19/2025 1:00 PM EST Appointment [facility] Interventional Radiology [address] [place] [address] 98900 Kait Gaona MD [address] [place] [address] 12200 01/26/2025 1:00 PM EST Appointment [facility] Interventional Radiology [address] [place] [address] 44571 Kait Gaona MD [address] [place] [address] 71533 02/02/2025 1:00 PM EST Appointment [facility] Interventional Radiology [address] [place] [address] 58486 02/09/2025 10:30 AM EST Lab [facility] ACC Draw Site Fifth Floor [address] [place] [address] 02/09/2025 11:30 AM EST Follow-Up [facility] ACC Building Cancer Clinic South 5th Floor [address] [place] [address] Ning Velazco MD [address] [place] [address] Hematology/[place] [address] 02/09/2025 1:00 PM EST Appointment [facility] Interventional Radiology [address] [place] [address] 97544 02/15/2025 1:30 PM EST Appointment [facility] Cardiac Ultrasound [address] [place] [address] 02/16/2025 1:00 PM EST Appointment [facility] Interventional Radiology [address] [place] [address] 61147 02/23/2025 1:00 PM EST Appointment [facility] Interventional Radiology [address] [place] [address] 34111 03/02/2025 1:00 PM EST Appointment [facility] Interventional Radiology [address] [place] [address] 12773 03/09/2025 1:00 PM EST Appointment [facility] Interventional Radiology [address] [place] [address] 22703 03/16/2025 1:00 PM EST Appointment [facility] Interventional Radiology [address] [place] [address] 41459 03/23/2025 1:00 PM EST Appointment [facility] Interventional Radiology [address] [place] [address] 27040 03/30/2025 1:00 PM EST Appointment [facility] Interventional Radiology [address] [place] [address] 69511 04/06/2025 1:00 PM EST Appointment [facility] Interventional Radiology [address] [place] [address] 14198 04/13/2025 1:00 PM EST Appointment [facility] Interventional Radiology [address] [place] [address] 78257 04/20/2025 1:00 PM EST Appointment [facility] Interventional Radiology [address] [place] [address] 33055 06/17/2025 1:30 PM EDT Follow-Up [facility] 4th floor Cardiology Medicine [address] [place] [address] 28835 Billing Spec: Cookie Coates PA [address] [place] [address] 81593 01/18/2026 1:30 PM EST Follow-Up [facility] 4th floor Cardiology Medicine [address] [place] [address] 11362 Billing Spec: Cory Bolanos MD [address] [place] [address] [phone] Scheduled Procedures Name Priority Associated Diagnoses Date/Ti me RIGHT HEART CATHETERIZATION RVF (right ventricular failure) Pulmonary hypertension Coronary artery disease involving [place] coronary artery of [place] heart, unspecified whether angina present CORONARY ANGIOGRAPHY RVF (right ventricular failure) Pulmonary hypertension Coronary artery disease involving [place] coronary artery of [place] heart, unspecified whether angina present ANGIOPLASTY - CORONARY RVF (right ventricular failure) Pulmonary hypertension Coronary artery disease involving [place] coronary artery of [place] heart, unspecified whether angina present documented as of this encounter Visit Diagnoses Not on filedocumented in this encounter Care Teams Substance Addiction Coordinator Relationship Specialty Start Date End Date Sharlene De La Garza DO [address] [place] [address] 68323 PCP - General 06/03/23 documented as of this encounter
--- OUTSIDE RECORDS SUMMARY | 2024-12-26 19:40 | XMS_ITS | Encounter Summary ---
Author Organization [facility] Address [address] [place] [address] Care Team Providers Care Caddy/Caddie Supervisor Name Role Phone HolliStephan parrasay TateFarhat [place] Primary Care Provider +1- [phone] Encounter Details Date Type Department Care Team (Late st Contact Info) Description 09/27/2024 Orders Only [facility] Interventional Radiology [address] [place], [place] [phone] Miriam Coleman NP [address] [place] [address] Social History Tobacco Use Types Packs/Day Years Used Date Smoking Tobacco: Former Cigarettes 1 18.4 0 06/02/1995 - 10/15/2013 Smokeless Tobacco: Never Comments:quit 2012 Alcohol Use Standard Drinks/Week Comments Not Currently 0 (1 standard drink = 0.6 oz pur e alcohol) [facility] Utilities Answer Date Recorded In [...] Info) Description 12/27/2024 10:30 AM EDT Follow-Up [facility] Liver Transplant Services [address] [place] [address] 68684 Kait Gaona MD [address] [place] [address] 87916 12/29/2024 1:00 PM EDT Appointment [facility] Interventional Radiology [address] [place] [address] 33042 Kait Gaona MD [address] [place] [address] 42545 12/29/2024 3:00 PM EDT Follow-Up [facility] Liver Transplant Services [address] [place] [address] 57292 Genevieve Alaniz MD [address] [place] [address] 07292 01/05/2025 1:00 PM EST Appointment [facility] Interventional Radiology [address] [place] [address] 91530 Kait Gaona MD [address] [place] [address] 45727 01/11/2025 2:00 PM EST Follow-Up [facility] at [facility] [address] [place] [address] Nito Morfin MD [address] [place] [address] 13145 01/12/2025 1:00 PM EST Appointment [facility] Interventional Radiology [address] [place] [address] 43519 Kait Gaona MD [address] [place] [address] 65762 01/19/2025 1:00 PM EST Appointment [facility] Interventional Radiology [address] [place] [address] 92410 Kait Gaona MD [address] [place] [address] 21414 01/26/2025 1:00 PM EST Appointment [facility] Interventional Radiology [address] [place] [address] 97886 Kait Gaona MD [address] [place] [address] 23347 02/02/2025 1:00 PM EST Appointment [facility] Interventional Radiology [address] [place] [address] 06961 02/09/2025 10:30 AM EST Lab [facility] ACC Draw Site Fifth Floor [address] [place] [address] 02/09/2025 11:30 AM EST Follow-Up [facility] ACC Building Cancer Clinic South 5th Floor [address] [place] [address] Ning Velazco MD [address] [place] [address] Hematology/[place] [address] 02/09/2025 1:00 PM EST Appointment [facility] Interventional Radiology [address] [place] [address] 02/15/2025 1:30 PM EST Appointment [facility] Cardiac Ultrasound [address] [place] [address] 02/16/2025 1:00 PM EST Appointment [facility] Interventional Radiology [address] [place] [address] 15419 02/23/2025 1:00 PM EST Appointment [facility] Interventional Radiology [address] [place] [address] 18915 03/02/2025 1:00 PM EST Appointment [facility] Interventional Radiology [address] [place] [address] 31091 03/09/2025 1:00 PM EST Appointment [facility] Interventional Radiology [address] [place] [address] 67019 03/16/2025 1:00 PM EST Appointment [facility] Interventional Radiology [address] [place] [address] 11380 03/23/2025 1:00 PM EST Appointment [facility] Interventional Radiology [address] [place] [address] 49841 03/30/2025 1:00 PM EST Appointment [facility] Interventional Radiology [address] [place] [address] 11145 04/06/2025 1:00 PM EST Appointment [facility] Interventional Radiology [address] [place] [address] 72692 04/13/2025 1:00 PM EST Appointment [facility] Interventional Radiology [address] [place] [address] 55022 04/20/2025 1:00 PM EST Appointment [facility] Interventional Radiology [address] [place] [address] 38458 06/17/2025 1:30 PM EDT Follow-Up [facility] 4th floor Cardiology Medicine [address] [place] [address] Still Operator Whiskey: Mony La, TEJINDER Montejo [address] [place] [address] 97528 01/18/2026 1:30 PM EST Follow-Up [facility] 4th floor Cardiology Medicine [address] [place] [address] [phone] Still Operator Whiskey: Cory Bloanos MD [address] [place] [address] Scheduled Procedures Name Priority Associated Diagnoses Date/Ti me RIGHT HEART CATHETERIZATION RVF (right ventricular failure) Pulmonary hypertension Coronary artery disease involving [place] coronary artery of [place] heart, unspecified whether angina present CORONARY ANGIOGRAPHY RVF (right ventricular failure) Pulmonary hypertension Coronary artery disease involving [place] coronary artery of [place] heart, unspecified whether angina present ANGIOPLASTY - CORONARY RVF (right ventricular failure) Pulmonary hypertension Coronary artery disease involving [place] coronary artery of [place] heart, unspecified whether angina present documented as of this encounter Visit Diagnoses Not on filedocumented in this encounter Care Teams Caddy/Caddie Supervisor Relationship Specialty Start Date End Date Sharlene De La Garza DO [address] [place] [address] 80582 PCP - General 06/03/23 documented as of this encounter
--- OUTSIDE RECORDS SUMMARY | 2024-12-26 19:40 | XMS_ITS | Encounter Summary ---
Author Organization [facility] Address [address] [place] [address] Care Team Providers Care Tmd Teacher Name Role Phone HolliSharlene kirk Primary Care Provider +1- [phone] Encounter Details Date Type Department Care Team (Late st Contact Info) Description 09/28/2024 Telephone [facility] Interventional Radiology [address] [place] [address] Ebonie Hensley, RN Social History Tobacco Use Types Packs/Day Years Used Date Smoking Tobacco: Former Cigarettes 1 18.4 0 06/02/1995 - 10/15/2013 Smokeless Tobacco: Never Comments:quit 2012 Alcohol Use Standard Drinks/Week Comments Not Currently 0 (1 standard drink = 0.6 oz pur e alcohol) [facility] Utilities Answer Date Recorded In the past 12 months has [employer] gas, oil, or water [employer] threatened to shut off services in your [...] Info) Description 12/27/2024 10:30 AM EDT Follow-Up [facility] Liver Transplant Services [address] [place] [address] 6[address]15 Kait Gaona MD [address] [place] [address] 39077 12/29/2024 1:00 PM EDT Appointment [facility] Interventional Radiology [address] [place] [address] 27630 Kait Gaona MD [address] [place] [address] 72316 12/29/2024 3:00 PM EDT Follow-Up [facility] Liver Transplant Services [address] [place] [address] 12751 Genevieve Alaniz MD [address] [place] [address] 47031 01/05/2025 1:00 PM EST Appointment [facility] Interventional Radiology [address] [place] [address] 58121 Kait Gaona MD [address] [place] [address] 29355 01/11/2025 2:00 PM EST Follow-Up [facility] at [address] [place] [address] Nito Morfin MD [address] [place] [address] 01/12/2025 1:00 PM EST Appointment [facility] Interventional Radiology [address] [place] [address] 80776 Kait Gaona MD [address] [place] [address] 01/19/2025 1:00 PM EST Appointment [facility] Interventional Radiology [address] [place] [address] 91792 Kait Gaona MD [address] [place] [address] 01/26/2025 1:00 PM EST Appointment [facility] Interventional Radiology [address] [place] [address] 60076 Kait Gaona MD [address] [place] [address] 16495 02/02/2025 1:00 PM EST Appointment [facility] Interventional Radiology [address] [place] [address] 24927 02/09/2025 10:30 AM EST Lab [facility] ACC Draw Site Fifth Floor [address] [place] [address] 02/09/2025 11:30 AM EST Follow-Up [facility] ACC Building Cancer Clinic South 5th Floor [address] [place] [address] Ning Velazco MD [address] [facility] Hematology/[place] [address] 02/09/2025 1:00 PM EST Appointment [facility] Interventional Radiology [address] [place] [address] 89705 02/15/2025 1:30 PM EST Appointment [facility] Cardiac Ultrasound [address] [place] [address] 02/16/2025 1:00 PM EST Appointment [facility] Interventional Radiology [address] [place] [address] 45547 02/23/2025 1:00 PM EST Appointment [facility] Interventional Radiology [address] [place] [address] 45396 03/02/2025 1:00 PM EST Appointment [facility] Interventional Radiology [address] [place] [address] 96187 03/09/2025 1:00 PM EST Appointment [facility] Interventional Radiology [address] [place] [address] 66852 03/16/2025 1:00 PM EST Appointment [facility] Interventional Radiology [address] [place] [address] 42617 03/23/2025 1:00 PM EST Appointment [facility] Interventional Radiology [address] [place] [address] 87283 03/30/2025 1:00 PM EST Appointment [facility] Interventional Radiology [address] [place] [address] 23047 04/06/2025 1:00 PM EST Appointment [facility] Interventional Radiology [address] [place] [address] 70619 04/13/2025 1:00 PM EST Appointment [facility] Interventional Radiology [address] [place] [address] 78517 04/20/2025 1:00 PM EST Appointment [facility] Interventional Radiology [address] [place] [address] 22211 06/17/2025 1:30 PM EDT Follow-Up [facility] 4th floor Cardiology Medicine [address] [place] [address] Sap Manager: Cookie Coates PA [address] [place] [address] 60582 01/18/2026 1:30 PM EST Follow-Up [facility] 4th floor Cardiology Medicine [address] [place] [address] Sap Manager: Cory Bolanos MD [address] [place] [address] 77951 Scheduled Procedures Name Priority Associated Diagnoses Date/Ti [...] on filedocumented in this encounter Care Teams Tmd Teacher Relationship Specialty Start Date End Date Sharlene De La Garza DO [address] [place] [address] 90074 PCP - General 06/03/23 documented as of this encounter
--- OUTSIDE RECORDS SUMMARY | 2024-12-26 19:40 | XMS_ITS | Encounter Summary ---
Author Organization [facility] Address [address] [place] [address] Care Team Providers Care Meter Shop Superintendent Name Role Phone Holli, Sharlene YbarraFarhat [place] Primary Care Provider +1- [phone] Encounter Details Date Type Department Care Team (Late st Contact Info) Description 10/15/2024 Orders Only [facility] Interventional Radiology [address] [place] [address] Elizabeth Wolf, TEJINDER [address] [place] [address] [phone] Social History Tobacco Use Types Packs/Day Years Used Date Smoking Tobacco: Former Cigarettes 1 18.4 0 06/02/1995 - 10/15/2013 Smokeless Tobacco: Never Comments:quit 2012 Alcohol Use Standard Drinks/Week Comments Not Currently 0 (1 standard drink = 0.6 oz pur e alcohol) [facility] Utilities Answer Date Recorded [...] Info) Description 12/27/2024 10:30 AM EDT Follow-Up [facility] Liver Transplant Services [address] [place] [address] 23544 Kait Gaona MD [address] [place] [address] 50078 12/29/2024 1:00 PM EDT Appointment [facility] Interventional Radiology [address] [place] [address] 79786 Kait Gaona MD [address] [place] [address] 60536 12/29/2024 3:00 PM EDT Follow-Up [facility] Liver Transplant Services [address] [place] [address] 81882 Genevieve Alaniz MD [address] [place] [address] 67853 01/05/2025 1:00 PM EST Appointment [facility] Interventional Radiology [address] [place] [address] 16194 Kait Gaona MD [address] [place] [address] 76611 01/11/2025 2:00 PM EST Follow-Up [facility] at [facility] [address] [place] [phone] Nito Morfin MD [address] [place] [address] 77691 01/12/2025 1:00 PM EST Appointment [facility] Interventional Radiology [address] [place] [address] 71476 Kait Gaona MD [address] [place] [address] 21939 01/19/2025 1:00 PM EST Appointment [facility] Interventional Radiology [address] [place] [address] 93829 Kait Gaona MD [address] [place] [address] 00524 01/26/2025 1:00 PM EST Appointment [facility] Interventional Radiology [address] [place] [address] 82577 Kait Gaona MD [address] [place] [address] 47456 02/02/2025 1:00 PM EST Appointment [facility] Interventional Radiology [address] [place] [address] 11143 02/09/2025 10:30 AM EST Lab [facility] ACC Draw Site Fifth Floor [address] [place] [address] 02/09/2025 11:30 AM EST Follow-Up [facility] ACC Building Cancer Clinic South 5th Floor [address] [place] [address] Ning Velazco MD [address] [place] [address] Hematology/[place] [address] 02/09/2025 1:00 PM EST Appointment [facility] Interventional Radiology [address] [place] [address] 02/15/2025 1:30 PM EST Appointment [facility] Cardiac Ultrasound [address] [place] [address] 51455 02/16/2025 1:00 PM EST Appointment [facility] Interventional Radiology [address] [place] [address] 52242 02/23/2025 1:00 PM EST Appointment [facility] Interventional Radiology [address] [place] [address] 13217 03/02/2025 1:00 PM EST Appointment [facility] Interventional Radiology [address] [place] [address] 24632 03/09/2025 1:00 PM EST Appointment [facility] Interventional Radiology [address] [place] [address] 81531 03/16/2025 1:00 PM EST Appointment [facility] Interventional Radiology [address] [place] [address] 50025 03/23/2025 1:00 PM EST Appointment [facility] Interventional Radiology [address] [place] [address] 28335 03/30/2025 1:00 PM EST Appointment [facility] Interventional Radiology [address] [place] [address] 69406 04/06/2025 1:00 PM EST Appointment [facility] Interventional Radiology [address] [place] [address] 75311 04/13/2025 1:00 PM EST Appointment [facility] Interventional Radiology [address] [place] [address] 09014 04/20/2025 1:00 PM EST Appointment [facility] Interventional Radiology [address] [place] [address] 60315 06/17/2025 1:30 PM EDT Follow-Up [facility] 4th floor Cardiology Medicine [address] [place] [address] 58735 Customer Service Officer: Mony La, TEJINDER Montejo [address] [place] [address] 84110 01/18/2026 1:30 PM EST Follow-Up [facility] 4th floor Cardiology Medicine [address] [place] [address] 01655 Customer Service Officer: Cory Bolanos MD [address] [place] [address] 01655 Scheduled Procedures Name Priority Associated Diagnoses Date/Ti me RIGHT HEART CATHETERIZATION RVF (right ventricular failure) Pulmonary hypertension Coronary artery disease involving [place] coronary artery of [place] heart, unspecified whether angina present CORONARY ANGIOGRAPHY RVF (right ventricular failure) Pulmonary hypertension Coronary artery disease involving [place] coronary artery of [place] heart, unspecified whether angina present ANGIOPLASTY - CORONARY RVF (right ventricular failure) Pulmonary hypertension Coronary artery disease involving [place] coronary artery of [place] heart, unspecified whether angina present documented as of this encounter Visit Diagnoses Not on filedocumented in this encounter Care Teams Meter Shop Superintendent Relationship Specialty Start Date End Date Sharlene De La Garza DO [address] [place] [address] 28879 PCP - General 06/03/23 documented as of this encounter
--- OUTSIDE RECORDS SUMMARY | 2024-12-26 19:40 | XMS_ITS | Encounter Summary ---
Author Organization [facility] Address [address] [place] [address] Care Team Providers Care Contracting Specialist Name Role Phone Stephan De La Garzasay TateFarhat DE Primary Care Provider +1- [phone] Encounter Details Date Type Department Care Team (Late st Contact Info) Description 11/26/2024 Orders Only [facility] Interventional Radiology [address] [place] [address] Ning Gonzalez PA [address] [place] [address] [phone] Social History Tobacco Use Types Packs/Day Years [...] Info) Description 12/27/2024 10:30 AM EDT Follow-Up [facility] Liver Transplant Services [address] [place] [address] 36097 Kait Gaona MD [address] [place] [address] 48677 12/29/2024 1:00 PM EDT Appointment [facility] Interventional Radiology [address] [place] [address] 72042 Kait Gaona MD [address] [place] [address] 96303 12/29/2024 3:00 PM EDT Follow-Up [facility] Liver Transplant Services [address] [place] [address] 19024 Genevieve Alaniz MD [address] [place] [address] 72602 01/05/2025 1:00 PM EST Appointment [facility] Interventional Radiology [address] [place] [address] 15348 Kait Gaona MD [address] [place] [address] 10761 01/11/2025 2:00 PM EST Follow-Up [facility] [address] [place] [address] Nito Morfin MD [address] [place] [address] 28982 01/12/2025 1:00 PM EST Appointment [facility] Interventional Radiology [address] [place] [address] 89315 Kait Gaona MD [address] [place] [address] 79263 01/19/2025 1:00 PM EST Appointment [facility] Interventional Radiology [address] [place] [address] 68444 Kait Gaona MD [address] [place] [address] 44403 01/26/2025 1:00 PM EST Appointment [facility] Interventional Radiology [address] [place] [address] 72921 Kait Gaona MD [address] [place] [address] 81877 02/02/2025 1:00 PM EST Appointment [facility] Interventional Radiology [address] [place] [address] 40913 02/09/2025 10:30 AM EST Lab [facility] ACC Draw Site Fifth Floor [address] [place] [address] 02/09/2025 11:30 AM EST Follow-Up [facility] ACC Building Cancer Clinic South 5th Floor [address] [place] [address] Ning Velazco MD [address] [place] [address] Hematology/[place] [address] 02/09/2025 1:00 PM EST Appointment [facility] Interventional Radiology [address] [place] [address] 02/15/2025 1:30 PM EST Appointment [facility] Cardiac Ultrasound [address] [place] [address] 02/16/2025 1:00 PM EST Appointment [facility] Interventional Radiology [address] [place] [address] 96307 02/23/2025 1:00 PM EST Appointment [facility] Interventional Radiology [address] [place] [address] 47143 03/02/2025 1:00 PM EST Appointment [facility] Interventional Radiology [address] [place] [address] 12619 03/09/2025 1:00 PM EST Appointment [facility] Interventional Radiology [address] [place] [address] 29453 03/16/2025 1:00 PM EST Appointment [facility] Interventional Radiology [address] [place] [address] 12575 03/23/2025 1:00 PM EST Appointment [facility] Interventional Radiology [address] [place] [address] 24670 03/30/2025 1:00 PM EST Appointment [facility] Interventional Radiology [address] [place] [address] 01608 04/06/2025 1:00 PM EST Appointment [facility] Interventional Radiology [address] [place] [address] 22119 04/13/2025 1:00 PM EST Appointment [facility] Interventional Radiology [address] [place] [address] 66847 04/20/2025 1:00 PM EST Appointment [facility] Interventional Radiology [address] [place] [address] 33745 06/17/2025 1:30 PM EDT Follow-Up [facility] 4th floor Cardiology Medicine [address] [place] [address] Railroad Hand: Mony La, TEJINDER Montejo [address] [place] [address] 66279 01/18/2026 1:30 PM EST Follow-Up [facility] 4th floor Cardiology Medicine [address] [place] [address] [phone] Railroad Hand: Cory Bolanos MD [address] [place] [address] 01655 Scheduled Procedures Name Priority Associated Diagnoses Date/Ti me RIGHT HEART CATHETERIZATION RVF (right ventricular failure) Pulmonary hypertension Coronary artery disease involving [place] coronary artery of [place] heart, unspecified whether angina present CORONARY ANGIOGRAPHY RVF (right ventricular failure) Pulmonary hypertension Coronary artery disease involving [place] coronary artery of [place] heart, unspecified whether angina present ANGIOPLASTY - CORONARY RVF (right ventricular failure) Pulmonary hypertension Coronary artery disease involving [place] coronary artery of [place] heart, unspecified whether angina present documented as of this encounter Visit Diagnoses Not on filedocumented in this encounter Care Teams Contracting Specialist Relationship Specialty Start Date End Date Sharlene De La Garza DO [address] [place] [address] 95408 PCP - General 06/03/23 documented as of this encounter
--- OUTSIDE RECORDS SUMMARY | 2024-12-26 19:40 | XMS_ITS | Encounter Summary ---
Author Organization [facility] Address [address] [place] [address] Phone Care Team Providers Care Envelope Fold Operator Name Role Phone Pcp, Unknown Primary Care Provider Unavailabl e Encounter Details Date Type Department Care Team (Late st Contact Info) Description 08/25/2024 Procedure Pass [facility], Ct Scan - [address] [address] Social History Tobacco Use Types Packs/Day Years Used Date Smoking Tobacco: Never Assessed Education Answer Date Recorded Are you interested in more education? Not on ursula e 08/25/2024 Are you concerned about learning? Not on file 08/25/2024 No 08/25/2024 No 08/25/2024 Food Answer Date Recorded Within the past 6 months we worried whether our food would run out before we got money to buy more. Never True 08/25/2024 Within the past 6 months the food we bought just didn't last and we didn't have enough money to get more. Never True Residential Stability Answer Date Recor ded What is your housing situation today? I have james sing 08/25/2024 How many times have you move d in the past 12 months? Zero (I did not move) 08/25/2024 Paying for Meds Answer Date Recorded Do you have trouble paying for medicines? No 08/25/2024 Paying Utility Bills Answer Date Record ed Do you have trouble paying your heating or elect ricity bill? No 08/25/2024 Transportation Answer Date Recorded Has the lack of transportati on kept you from medical appointments or from getting medications? No 08/25/2024 Digital Access Answer Date Recorded No 08/25/2024 Yes 08/25/2024 Do you have reliable internet access at home? Ye s 08/25/2024 Do you have a device (e.g., phone, tablet, computer) with a working camera? Yes 08/25/2024 Intimate Partner Violence Answer Date R ecorded Are you denied basic needs s uch as food, clothing, or medical care? No 08/25/2024 In the past 12 months have y ou been in a relationship with a person who hurts, threatens, or tries to control you? No 08/25/2024 Are you denied basic needs s uch as food, clothing, or medical care? No 08/25/2024 In the past 12 months have y ou been in a relationship with a person who hurts, threatens, or tries to control you? No 08/25/2024 Comments Unknown Sex and Gender Information Value Date Recorded Sex Assigned at Not on file Legal Sex Female 6:54 AM EDT Gender Identity Not on file Sexual Orientation Not on file documented as of this encounter Functional Status * Calculated C-SSRS Risk Score (Lifetime/Recent) Answer Date of Assessment Author No Risk Indicated 08/25/2024 7:01 AM EDT Marisel Lyle RN * Curry Suicide Severity Rating Scale (Screener/Recent Self-Report) Question Answer Date of Assessment Author 1. Wish to be (Past 1 Month) No 025 7:01 AM Marisel Kelley RN 2. Non-Specific Active Suici so Thoughts (Past 1 Month) No 08/25/2024 7:01 AM MACARIOT Alejandra Lyle RN 6. Suicidal Behavior (Lifetime) No 7:01 AM MACARIOT Marisel Lyle, SAGE documented as of this encounter Plan of Treatment Not on file documented as of this encounter Visit Diagnoses Not on filedocumented in this encounter Care Teams Envelope Fold Operator Relationship Specialty Start Date End Date Pcp, Unknown PCP - General 08/25/24 documented as of this encounter Additional Source Comments The information contained in this document represents components of the legal health record. It is not the complete legal health record.[facility]
[2024-12-26 19:44] LABS: MN% 66.7 %; PMN% 33.3 %; WBC Peritoneal Fluid 0.140 X10*3/uL
[2024-12-26] MEDS: vancomycin/NS 2,000 MG/500 ML PLAST..BAG 250 MG IV (19:50)
[2024-12-26 19:56] LABS: COVID-19 Test Negative (Negative); IDNOW Serial# 16C4AD1C
[2024-12-26 19:57] LABS: IDNOW Serial# 152EDE1D; Influenza B2 Negative (Negative)
--- NOTE | 2024-12-26 20:00 | PC.NURSE ---
assumed care of pt, albumin switched out. x2 IV lines patent and intact, medications running per MAR.
[2024-12-26 20:08] LABS: ~Lactic Acid-LAB USE ONLY 4.1 mmol/L (0.5-2.0)
[2024-12-26 20:15] LABS: Troponin-I High Sensitivity 2156.6 ng/L (<3.5-17.0)
[2024-12-26 20:20] LABS: BF Shift QC OK YES; Lymphocyte Peritoneal Fl 36 %; Monocytes Peritoneal Fl 9 %; Neutrophils Peritoneal Fluid 34 %; Other Peritioneal Fl 21 %
--- NOTE | 2024-12-26 20:22 | ECG_ITS ---
Test Reason : RISING TROPONIN Blood Pressure : */* mmHG Vent. Rate : 92 BPM Atrial Rate : 92 BPM P-R Int : 128 ms QRS Dur : 74 ms QT Int : 402 ms P-R-T Axes : -14 22 17 degrees QTcB Int : 497 ms Sinus rhythm with Premature supraventricular complexes Low voltage QRS Prolonged QT Abnormal ECG When compared with ECG of 26-Dec-2024 17:31, Premature supraventricular complexes are now Present T wave inversion no longer evident in Inferior leads Nonspecific T wave abnormality no longer evident in Anterolateral leads Referred By: Elvin Garcia Electronically Signed By: NELSON MERCADO
--- NOTE | 2024-12-26 20:42 | PC.NURSE ---
provider a bedside, discussing transfer to another hospital. pt tearful. another ice pack given to pt, temperature 9.8. repeat EKG being done.
[2024-12-26 21:35] LABS: Appearance Urine Cloudy; Glucose Urine UA 500 mg/dL (Negative); PH 5.5 (5.0-9.0); Specific Gravity - Urine 1.025 (1.005-1.025); UMIC TRIGGER UACC YES
--- NOTE | 2024-12-26 21:36 | PC.NURSE ---
verbal report given to SAGE El in [facility] ED
[2024-12-26 21:44] LABS: Cannabinoid Screen Urine POSITIVE (Not Detect)
[2024-12-26 21:46] LABS: UACC Culture Trigger YES
[2024-12-26 21:51] LABS: Reflex Lactate? 2 Y
[2024-12-26] MEDS: Heparin Sodium,Porcine/1/2NS 25,000 UNIT/250 ML IV.SOLN 8.87 UNIT IVCONT (21:59)
--- NOTE | 2024-12-26 21:59 | MHC.EDTECH ---
@21:55 Patient was in the process of being transferred to the ambulance stretcher, for transfer. This tech spoke with the RN, Per RN not to draw lactic D/T transfer.
--- NOTE | 2024-12-26 22:10 | PC.NURSE ---
heparin started per protocol, no PTT drawn per provider, transmitter engineer in charge aware.
--- NOTE | 2024-12-26 22:21 | PC.NURSE ---
EMS here, norepi started at 0.05, IV push 2000 units given first as bolus.
--- NOTE | 2024-12-27 06:04 | PC.NURSE ---
lab called with positive blood cultures for patient. This RN called [facility] where patient was transferred to make them aware of results. Results were given to Giulia CAZARES
[2024-12-27 11:54] LABS: Albumin Peritoneal Fluid 0.4
== END 2024-12-26 23:06 | disposition short-term general hospital (02) ==
PROVIDERS: Emergency Provider Emergency Medicine; PCP Nurse Practitioner Psychiatric/Mental Health
DX: A41.9 Sepsis, unspecified organism (principal); K70.9 Alcoholic liver disease, unspecified; D69.6 Thrombocytopenia, unspecified; R18.8 Other ascites; R79.89 Other specified abnormal findings of blood chemistry; R00.0 Tachycardia, unspecified; R10.22 Pelvic and perineal pain left side; R94.31 Abnormal electrocardiogram [ECG] [EKG]; E11.9 Type 2 diabetes mellitus without complications; Z79.899 Other long term (current) drug therapy; Z91.148 Patient's other noncompliance with medication regimen for other reason; Z51.81 Encounter for therapeutic drug level monitoring; Z11.52 Encounter for screening for COVID-19
CPT/HCPCS: 36415; 49082; 71045; 80048; 80076; 80307; 81001; 82010; 82042; 82803; 82945; 83605; 83615; 83690; 83735; 84157; 84484; 84702; 85007; 85027; 85610; 86140; 87040; 87070; 87073; 87077; 87086; 87088; 87186; 87205; 87502; 87635; 89051; 93005; 99285; J1644; J2004; J2543; J3373; J7120; P9047

== ENCOUNTER → 2024-12-26 17:06 | Outpatient (BNV) | payer OTHER, SELFPAY | PROVIDERS: Emergency Provider Emergency Medicine; PCP Nurse Practitioner Psychiatric/Mental Health; Visit Provider Internal Medicine | DX: R00.0 Tachycardia, unspecified (principal); I49.1 Atrial premature depolarization | CPT/HCPCS: 93010 ==

== ENCOUNTER → 2024-12-26 17:06 | Outpatient (BNV) | payer OTHER, SELFPAY | PROVIDERS: Emergency Provider Emergency Medicine; PCP Nurse Practitioner Psychiatric/Mental Health; Visit Provider Student in an Organized Health Care Education/Training Program | DX: J90 Pleural effusion, not elsewhere classified (principal); R91.8 Other nonspecific abnormal finding of lung field; J98.11 Atelectasis | CPT/HCPCS: 71045 ==